=== PATIENT | female | born 1945 | race Caucasian/White ===

== ENCOUNTER → 2017-07-28 08:24 | Outpatient (CLI) | payer MEDICARE, SELFPAY ==
[2017-07-28 10:36] LABS: AST(SGOT) 26 U/L (15-37); Alanine Aminotransfer ALT/SGPT 42 U/L (13-56); Albumin, Serum 3.8 g/dL (3.2-5.0); Alkaline Phosphatase 77 U/L (45-117); Anion Gap 6 (5-15); BUN 21 mg/dL (7-18); BUN/Creat Ratio 27.2 RATIO (10-20); Calcium,Total 8.9 mg/dL (8.5-10.1); Chloride 108 mmol/L (98-107); Cholesterol 163 mg/dL (200); Creatinine, Serum 0.77 mg/dL (0.55-1.02); EST Glomerular Filtration Rate 78 mL/min (>60); Est Glom Filt Rate - Afr Amer 94 mL/min (>60); Globulin 3.8 g/dL (2.2-4.2); Glucose 93 mg/dL (74-106); High Density Lipoprotein 78 mg/dL; Protein, Total 7.6 g/dL (6.4-8.2); Sodium Level 142 mmol/L (136-145); Triglycerides 84 mg/dL; Very Low Density Lipoprotein 17 mg/dL (5-40)
== END ==
PROVIDERS: Family Provider Family Medicine; PCP Family Medicine; Visit Provider Family Medicine
DX: E78.5 Hyperlipidemia, unspecified (principal)
CPT/HCPCS: 36415; 80053; 80061

== ENCOUNTER → 2018-03-18 15:23 | Outpatient (CLI) | payer MEDICARE, SELFPAY ==
--- NOTE | 2018-03-18 15:26 | BI_ITS ---
MAMMOGRAPHY - BILATERAL SCREENING REASON FOR EXAM: Female, 73 years old. Routine annual screening examination. PERTINENT HISTORY: Non-contributory. TECHNIQUE: Digital bilateral breast laura (3D mammographic acquisition) in the CC and MLO projections. 2-D mediolateral oblique (MLO) and craniocaudad (CC) views of both breasts were obtained. CAD: Full Field Digital Mammography with Computer Added Detection was performed. COMPARISON: Comparison is made with prior study dated September 15, 2016 and September 13, 2015. FINDINGS: Breast Composition: The breasts are heterogeneously dense, which may obscure small masses. There are no dominant masses or suspicious calcifications. No other significant abnormalities are identified. There has been no significant change since the prior study. BI/SCREENING MAMM (CAD), BILAT IMPRESSION: Stable bilateral screening mammogram. Yearly follow-up mammogram recommended. (A) ASSESSMENT CATEGORY: BIRADS Category 1: Negative. A letter regarding these results will be sent to the patient by the facility within 30 days. Approximately 10% of breast cancers are not detected by mammography. A normal mammogram should not delay biopsy of a clinically suspicious abnormality. [id number] Electronically Signed: Logan Smith MD at 9:57 EST Tel [phone], Service support ,
== END ==
PROVIDERS: Family Provider Family Medicine; PCP Family Medicine; Referring Provider Family Medicine; Visit Provider Family Medicine
DX: Z12.31 Encounter for screening mammogram for malignant neoplasm of breast (principal)
CPT/HCPCS: 77063; 77067

== ENCOUNTER → 2019-03-10 10:51 | Outpatient (CLI) | payer MEDICARE, SELFPAY ==
[2019-03-10 12:40] LABS: Vitamin D,25 Hydroxy 27.8 ng/mL (29.95-100.01)
[2019-03-10 12:53] LABS: Anion Gap 6 (5-15); BUN 17 mg/dL (7-18); BUN/Creat Ratio 21.7 RATIO (10-20); Calcium,Total 9.4 mg/dL (8.5-10.1); Chloride 109 mmol/L (98-107); Cholesterol 191 mg/dL (200); Creatinine, Serum 0.78 mg/dL (0.55-1.02); EST Glomerular Filtration Rate 76 mL/min (>60); Est Glom Filt Rate - Afr Amer 92 mL/min (>60); Glucose 99 mg/dL (74-106); High Density Lipoprotein 73 mg/dL; Sodium Level 142 mmol/L (136-145); Thyroid Stim Hormone (TSH) 2.64 uIU/mL (0.358-3.74); Triglycerides 122 mg/dL; Very Low Density Lipoprotein 24 mg/dL (5-40)
== END ==
PROVIDERS: Family Provider Family Medicine; PCP Family Medicine; Referring Provider Family Medicine; Visit Provider Family Medicine
DX: Z00.00 Encounter for general adult medical examination without abnormal findings (principal); E55.9 Vitamin D deficiency, unspecified; E78.5 Hyperlipidemia, unspecified
CPT/HCPCS: 36415; 80048; 80061; 82306; 84443

== ENCOUNTER → 2019-04-20 14:30 | Outpatient (CLI) | payer MEDICARE, SELFPAY ==
--- NOTE | 2019-04-20 13:37 | BD_ITS ---
STUDY: DUAL ENERGY X-RAY ABSORPTIOMETRY / DXA REASON FOR EXAM: Female, 74 years old. 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 COMPARISON: Comparison is made with prior study dated September 15, 2016. FINDINGS: Lumbar Spine (L1-L4): g/cm2 (1.067) / T-score (-0.8) / Z-score (1.0) Findings are suggestive of normal bone density with a low fracture risk. Increased thoracic kyphosis. Left Femur Total: g/cm2 (0.941) / T-score (-0.5) / Z-score (1.3) Left Femoral Neck: g/cm2 (0.940) / T-score (-0.7) / Z-score (1.3) Right Femur Total: g/cm2 (0.981) / T-score (-0.2) / Z-score (1.6) Right Femoral Neck: g/cm2 (1.034) / T-score (0.0) / Z-score (1.9) The T-Scores on the most recent prior examination were: Lumbar Spine (L1-L4): There has been worsening of bone density since the previous examination. Left Femur Total: which represents no significant change. . Right Femur Total: which represents an improvement of 1%. BD/Dexa Bone Density Study IMPRESSION: The patient is considered normal as outlined below according to World [employer] Organization (WHO) criteria with a low fracture risk. There has been no change of bone density since the previous examination. Reference Information: The T-score is the number of standard deviations above or below the standard which is normal for young adults at their peak bone mineral density. The World Health Organization (WHO) interprets the T-scores as follows: Above -1 Normal bone density Between -1 and -2.5 Osteopenia Equal to / or below -2.5 Osteoporosis As a practical clinical guideline, osteopenia may be graded as follows: Mild -1 through -1.5 Moderate -1.6 through -2.0 Severe -2.1 through -2.4 The Z-score is the number of standard deviations above or below age-matched controls. A Z-score of less than -1.5 would be considered abnormal. References: 1. NIH Osteoporosis and Related Bone Diseases http://www.osteo.org 2. International Society for Clinical Densitometry http://www.iscd.org 3. National Osteoporosis Foundation http://www.nof.org Electronically Signed: Logan Smith, at 9:02 EST , Service support ,
--- NOTE | 2019-04-20 14:32 | BI_ITS ---
MAMMOGRAPHY - BILATERAL SCREENING 3-D TOMOSYNTHESIS REASON FOR EXAM: Female, 74 years old. Routine annual screening mammogram. PERTINENT HISTORY: No significant family history. TECHNIQUE: 2-D mammograms and 3-D Tomosynthesis of the breast (s) were performed. CAD was performed. COMPARISON: March 18, 2018, September 15, 2016 FINDINGS: The breast composition is composed of scattered fibroglandular density. Scattered benign calcifications are seen. No dense spiculated masses or suspicious microcalcifications are identified. No architectural distortion is identified. There is no skin thickening or retraction. There has been no significant change since the prior study. BI/SCREEN MAMM (CAD) W/TITA BILAT IMPRESSION: No mammographic signs of malignancy. Routine yearly mammograms recommended. ASSESSMENT CATEGORY: BIRADS Category 2: Benign. A letter regarding these results will be sent to the patient by the facility within 30 days. FOLLOW UP RECOMMENDATION: Yearly follow up mammogram recommended. (A) Approximately 10% of breast cancers are not detected by mammography. A normal mammogram should not delay biopsy of a clinically suspicious abnormality. Electronically Signed: Fabian Mckeon MD at 10:52 EST , Service support ,
== END ==
PROVIDERS: Family Provider Family Medicine; PCP Family Medicine; Referring Provider Family Medicine; Visit Provider Family Medicine
DX: Z12.31 Encounter for screening mammogram for malignant neoplasm of breast (principal); Z78.0 Asymptomatic menopausal state
CPT/HCPCS: 77063; 77067; 77080

== ENCOUNTER → 2019-09-07 09:17 | Outpatient (CLI) | payer MEDICARE, SELFPAY ==
--- NOTE | 2019-09-07 09:20 | RAD_ITS ---
STUDY: X-RAY - ABDOMEN/PELVIS REASON FOR EXAM: Female, 74 years old. Low abd pain -- some constipation and diarrhea TECHNIQUE: AP supine and upright views of the abdomen and pelvis. COMPARISON: None. FINDINGS: Normal visualized lung bases. There is a moderate amount of colonic fecal material. There is no demonstrated free abdominal air. The visualized liver, spleen and kidneys are grossly normal in size and morphology. Normal soft tissue structures. There are diffuse degenerative changes of the visualized lumbar spine. Moderate osteoarthritis of both hip joints. RAD/Abd Inc Decub and/or Erect IMPRESSION: Moderate degree of fecal material in the colon. Electronically Signed: Logan Smith, at 12:43 EDT , Service support ,
== END ==
PROVIDERS: PCP Family Medicine; Referring Provider Family Medicine; Visit Provider Family Medicine
DX: R10.9 Unspecified abdominal pain (principal)
CPT/HCPCS: 74019

== ENCOUNTER → 2019-10-02 11:12 | Outpatient (CLI) | payer MEDICARE, SELFPAY ==
--- NOTE | 2019-10-02 11:14 | RAD_ITS ---
HISTORY: abdominal pain ADDITIONAL HISTORY: None. COMPARISON: None Technique: Supine and upright abdominal radiographs Number of images including paperwork: 3 FINDINGS: FREE AIR: None detected. BOWEL GAS PATTERN: Nonobstructive. CALCIFICATIONS: No definite urinary tract calculi. ORGANS: No evidence of organomegaly. SOFT TISSUES: Unremarkable. BONES: No acute skeletal findings. Degenerative changes. RAD/Abd Inc Decub and/or Erect IMPRESSION: No acute abdominal abnormality is radiographically apparent. at 0814 Reported and signed by: Tami Humphrey MD Electronically Signed: Tami Humphrey MD at 8:14 EDT Tel , Service support ,
[2019-10-02 15:04] LABS: Absolute Lymphocyte Count 1.26 X10^3/uL (0.83-4.51); Absolute Neutrophil Count 3.5 X10^3/uL (2.0-7.7); Basophil# 0.02 X10^3/uL; Basophil% 0.4 % (0-1); Eosinophil# 0.06 X10^3/uL; Eosinophils% 1.1 % (0-5); Hematocrit 43.8 % (37-47); Hemoglobin 13.8 g/dL (12.0-15.0); Lymphocyte # 1.26 X10^3/ul (4.0); Mean Corp Hgb Conc 31.5 g/dL (32-36); Mean Corpuscular Hgb 28.9 pg (27.0-32.0); Mean Corpuscular Volume 91.8 fL (81-99); Monocyte# 0.43 X10^3/uL; Monocyte% 8.2 % (0-10); NRBC Flagged by Analyzer 0 % (0-5); Neutrophil # 3.46 X10^3/uL (2.7-7.7); Neutrophil % 65.9 % (47-70); Platelet Count 250 K/mm3 (150-450); RBC Distribution Width CV 13.3 % (11.6-14.6); RBC Distribution Width SD 44.5 fl (35.1-43.9); Red Blood Count 4.77 M/mm3 (4.2-5.4); White Blood Count 5.3 K/mm3 (4.4-11.0)
[2019-10-02 15:25] LABS: ALB/GLOB Ratio 1.1 RATIO (0.9-2.4); AST(SGOT) 27 U/L (15-37); Alanine Aminotransfer ALT/SGPT 45 U/L (13-56); Alkaline Phosphatase 81 U/L (45-117); Anion Gap 7 (5-15); BUN 12 mg/dL (7-18); BUN/Creat Ratio 14.4 RATIO (10-20); Calcium,Total 9.4 mg/dL (8.5-10.1); Chloride 107 mmol/L (98-107); Creatinine, Serum 0.83 mg/dL (0.55-1.02); EST Glomerular Filtration Rate 71 mL/min (>60); Est Glom Filt Rate - Afr Amer 86 mL/min (>60); Globulin 3.7 g/dL (2.2-4.2); Glucose 104 mg/dL (74-106); Potassium 3.8 mmol/L (3.5-5.1); Protein, Total 7.7 g/dL (6.4-8.2); Sodium Level 142 mmol/L (136-145)
== END ==
PROVIDERS: PCP Family Medicine; Referring Provider Family Medicine; Visit Provider Family Medicine
DX: R10.9 Unspecified abdominal pain (principal)
CPT/HCPCS: 36415; 74019; 80053; 85025

== ENCOUNTER → 2020-03-13 09:42 | Outpatient (CLI) | payer MEDICARE, SELFPAY ==
[2020-03-13 13:22] LABS: Cholesterol 168 mg/dL (200); High Density Lipoprotein 73 mg/dL; Triglycerides 109 mg/dL; Very Low Density Lipoprotein 22 mg/dL (5-40)
== END ==
PROVIDERS: PCP Family Medicine; Visit Provider Family Medicine
DX: Z00.00 Encounter for general adult medical examination without abnormal findings (principal); E78.00 Pure hypercholesterolemia, unspecified
CPT/HCPCS: 36415; 80061

== ENCOUNTER → 2020-05-06 12:05 | Outpatient (CLI) | payer MEDICARE, SELFPAY ==
--- NOTE | 2020-05-06 12:08 | BI_ITS ---
MAMMOGRAPHY - BILATERAL SCREENING REASON FOR EXAM: Female, 75 years old. Routine annual screening examination. PERTINENT HISTORY: Non-contributory. TECHNIQUE: Digital bilateral breast tita (3D mammographic acquisition) in the CC and MLO projections. 2-D mediolateral oblique (MLO) and craniocaudad (CC) views of both breasts were obtained. CAD: Full Field Digital Mammography with Computer Added Detection was performed. COMPARISON: Comparison is made with prior study dated 04/20/2019 and 03/18/2018. FINDINGS: Breast Composition: The breasts are heterogeneously dense, which may obscure small masses. There are no dominant masses or suspicious calcifications. No other significant abnormalities are identified. There has been no significant change since the prior study. BI/SCREEN MAMM (CAD) W/TITA BILAT IMPRESSION: Stable bilateral screening mammogram. Yearly follow-up mammogram recommended. (A) ASSESSMENT CATEGORY: BIRADS Category 1: Negative. A letter regarding these results will be sent to the patient by the facility within 30 days. Approximately 10% of breast cancers are not detected by mammography. A normal mammogram should not delay biopsy of a clinically suspicious abnormality. [id number] Electronically Signed: Logan Smith, at 14:12 EST , Service support ,
== END ==
PROVIDERS: PCP Family Medicine; Referring Provider Family Medicine; Visit Provider Family Medicine
DX: Z12.31 Encounter for screening mammogram for malignant neoplasm of breast (principal)
CPT/HCPCS: 77063; 77067

== ENCOUNTER → 2021-03-17 09:16 | Outpatient (CLI) | payer MEDICARE, SELFPAY ==
[2021-03-17 15:26] LABS: Vitamin D,25 Hydroxy 41.3 ng/mL
[2021-03-17 15:29] LABS: ALB/GLOB Ratio 1.1 RATIO (0.9-2.4); AST(SGOT) 34 U/L (15-37); Alanine Aminotransfer ALT/SGPT 59 U/L (13-56); Albumin, Serum 3.9 g/dL (3.2-5.0); Alkaline Phosphatase 79 U/L (45-117); Anion Gap 7 (5-15); BUN 24 mg/dL (7-18); BUN/Creat Ratio 28.8 RATIO (10-20); Calcium,Total 9.7 mg/dL (8.5-10.1); Chloride 106 mmol/L (98-107); Cholesterol 178 mg/dL (200); Creatinine, Serum 0.83 mg/dL (0.55-1.02); EST Glomerular Filtration Rate 71 mL/min (>60); Est Glom Filt Rate - Afr Amer 85 mL/min (>60); Globulin 3.7 g/dL (2.2-4.2); Glucose 95 mg/dL (74-106); High Density Lipoprotein 82 mg/dL; Protein, Total 7.6 g/dL (6.4-8.2); Sodium Level 142 mmol/L (136-145); Triglycerides 122 mg/dL; Very Low Density Lipoprotein 24 mg/dL (5-40)
== END ==
PROVIDERS: PCP Family Medicine; Visit Provider Family Medicine
DX: E78.00 Pure hypercholesterolemia, unspecified (principal); E55.9 Vitamin D deficiency, unspecified
CPT/HCPCS: 36415; 80053; 80061; 82306

== ENCOUNTER 2021-11-29 13:39 | Emergency (ER) | payer MEDICARE, SELFPAY ==
[2021-11-29 13:40] VITALS: BP 198/86; PULSE 102; RESP 16; TEMP 36.6; O2SAT 100; BMI 24.7
--- NOTE | 2021-11-29 13:55 | CT_ITS ---
STUDY: CT BRAIN WITHOUT CONTRAST REASON FOR EXAM: Female, 76 years old. headache TECHNIQUE: Transaxial CT imaging of the brain was performed without administration of intravenous contrast material. Individualized dose optimization techniques were used for this CT. COMPARISON: None FINDINGS: Normal calvarium. Normal soft tissues. Normal size ventricles and extra-axial spaces for the patient''s age. There are areas of decreased attenuation within the white matter tracts of the supratentorial brain, consistent with microvascular disease changes. Normal basal ganglia and thalami. Normal brainstem. Normal cerebellum. There is no intracranial hemorrhage. There are no findings of an acute ischemic infarction. There are calcifications around the carotid artery. These are noted in the cavernous carotid arteries. Normal visualized paranasal sinuses. ASPECTS 10 CT/Brain/Head without Contrast IMPRESSION: There are no acute intracranial findings. Electronically Signed: Tim Rinaldi MD at 14:26 EDT ,
--- NOTE | 2021-11-29 13:55 | EKG12_ITS ---
Test Reason : LIGHTHEADED Blood Pressure : / mmHG Vent. Rate : 083 BPM Atrial Rate : 083 BPM P-R Int : 158 ms QRS Dur : 080 ms QT Int : 372 ms P-R-T Axes : 046 -16 035 degrees QTc Int : 437 ms Normal sinus rhythm Voltage criteria for left ventricular hypertrophy Abnormal ECG Confirmed by NITA MERCER, JOHANNA ([id number]), newspaper or periodical editor BERNARDINO MASON ([id number]) on 12/01/2021 1:14:08 PM Referred By: LESLEE Confirmed By:JOHANNA MOYA MD
--- NOTE | 2021-11-29 13:55 | RAD_ITS ---
STUDY: X-RAY CHEST REASON FOR EXAM: Female, 76 years old. weakness TECHNIQUE: XR Chest 1 View COMPARISON: Prior comparison studies are not available for review at this time. FINDINGS: There is no demonstrated pleural abnormality. Normal size heart. Normal mediastinum and louis. Normal visualized pulmonary arteries. There is atherosclerotic calcification of the aortic arch with tortuosity. There are diffuse degenerative changes of the visualized thoracic spine. There is degenerative osteoarthritis of the bilateral shoulders. There is no demonstrated abnormality of the visualized soft tissue structures of the upper abdomen. RAD/Chest 1 View (Portable) IMPRESSION: There are no acute findings. Electronically Signed: Tim Rinaldi MD at 14:27 EDT ,
--- NOTE | 2021-11-29 13:58 | EX.ED.DYSGE1 ---
HPI <GERALDO Osman - Last Filed: 11/29/21 15:57> History of Present Illness Chief Complaint: General Illness Narrative Narrative: 76-year-old female with PMH of hyperlipidemia, depression presents with multiple complaints. Over the last week she has had a left frontal headache that sometimes radiates to the occipital area. She does have a history of migraines. She took her blood pressure and the systolic was in the 160s and was concerned because she has no history of hypertension. Denies visual changes or speech changes or focal motor or sensory changes. No fever, neck pain or stiffness. She also has been constipated which is a longstanding issue. She took MiraLAX and had a large watery bowel movement 2 days ago and a normal formed BM today. She still just feels queasy but denies vomiting. Normal urination. No abdominal surgical history. PFSH <GERALDO Osman - Last Filed: 11/29/21 15:57> FOR[facility]LY [facility] Medical History (Updated 11/29/21 @ 15:46 by GERALDO Osman) High cholesterol Home Medications calcium carbonate 600 mg-vitamin D3 10 mcg (400 unit) tablet (Calcium 600 + D(3)) 1 tab PO DAILY 11/29/21 [History Last Taken Unknown] cholecalciferol (vitamin D3) 25 mcg (1,000 unit) capsule (Vitamin D3) 25 mcg PO DAILY 11/29/21 [History Last Taken Unknown] multivitamin 1 cap PO DAILY 11/29/21 [History Last Taken Unknown] omega-3 fatty acids 2,000 mg PO DAILY 11/29/21 [History Last Taken Unknown] sertraline 50 mg tablet 50 mg PO DAILY 11/29/21 [History Last Taken Unknown] simvastatin 20 mg tablet 20 mg PO QHS 11/29/21 [History Last Taken Unknown] Allergy/AdvReac Type Severity Reaction Status Date / Time No Known Allergies Allergy Verified 11/29/21 13:42 Social History Smoking Status: Never smoker ROS <GERALDO Osman - Last Filed: 11/29/21 15:57> ROS ED ROS Narrative Constitutional: Negative for fever, chills, malaise. Eyes: Negative for visual change. ENT: Negative for sore throat, ear pain, rhinorrhea. CVS: Negative for palpitations, chest pain, syncope. Respiratory: Negative for shortness of breath, cough, orthopnea. GI: Positive for nausea, constipation. Negative for abdominal pain, vomiting, diarrhea, melena, hematochezia. : Negative for dysuria, hematuria or frequency. Neuro: Positive for headache, negative for motor/sensory dysfunction. Skin: Negative for rash, abscess, or wound. Musc: Negative for joint pain, swelling, trauma. Heme: Negative for easy bruising, bleeding, lymphadenopathy. EXAM <GERALDO Osman - Last Filed: 11/29/21 15:57> Physical Exam Narrative Exam Narrative: CONST: Patient sitting in no acute distress. EYES: Normal inspection. PERRLA, EOMI. ENT: Normal inspection, moist mucous membranes. NECK: Normal inspection. RESP: No respiratory distress, CTAB. CVS: Regular rate and rhythm, no murmur, no gallop. ABD: Soft and nontender, no guarding or rebound, nondistended. SKIN: Color normal, no rash, warm, dry, intact. EXTREMITIES: Normal appearance, no pedal edema. NEURO: Oriented x4. Face symmetric, 5/5 upper and lower extremity strength, normal sensation, no drift, normal finger-nose and [id number]. No aphasia or dysarthria, no extinction. NIH equals 0. PSYCH: Normal affect. Const Vital Signs: 11/29/21 13:40 11/29/21 13:58 11/29/21 15:08 Temperature 98 F Temperature Source Temporal Pulse Rate 102 H 83 Respiratory Rate 16 16 Respiratory Effort Normal Non-Labored Respiratory Pattern Normal Blood Pressure 198/86 H 185/75 H Blood Pressure Mean 123 111 Pulse Ox 100 95 Oxygen Delivery Method Room Air Room Air 11/29/21 15:54 Temperature Temperature Source Pulse Rate 72 Respiratory Rate 16 Respiratory Effort Respiratory Pattern Blood Pressure 174/86 H Blood Pressure Mean Pulse Ox 94 Oxygen Delivery Method <Dr. Roz Woo DO - Last Filed: 12/02/21 09:31> Physical Exam Const Vital Signs: 11/29/21 13:40 11/29/21 13:58 11/29/21 15:08 Temperature 98 F Temperature Source Temporal Pulse Rate 102 H 83 Respiratory Rate 16 16 Respiratory Effort Normal Non-Labored Respiratory Pattern Normal Blood Pressure 198/86 H 185/75 H Blood Pressure Mean 123 111 Pulse Ox 100 95 Oxygen Delivery Method Room Air Room Air 11/29/21 15:54 Temperature Temperature Source Pulse Rate 72 Respiratory Rate 16 Respiratory Effort Respiratory Pattern Blood Pressure 174/86 H Blood Pressure Mean Pulse Ox 94 Oxygen Delivery Method [facility] <GERALDO Osman - Last Filed: 11/29/21 15:57> [facility] Narrative Medical decision making narrative: Patient presents with gradual onset intermittent headache and new elevation of blood pressure. She also has nausea and constipation. She appears well and nontoxic. BP 198/86, HR 102, otherwise normal vital signs. She is awake and alert with a normal neurological exam, NIH 0. Heart regular, lungs clear, abdomen soft nontender nondistended. Labs are all within normal limits. EKG is sinus rhythm with no ischemia and high-sensitivity troponin is [address] brain is negative. Upon relaying these results to the family, they were very concerned with her persistent nausea and constipation so a CT abdomen/pelvis scan will be obtained. CT scan shows stool throughout the colon but no obstruction and no acute process. I recommended once daily MiraLAX. Scan does note an incidental 1.8 cm liver mass which will need outpatient follow-up and the patient and her family were informed of these findings. She is feeling improved after IV fluids heart rate is in the 80s, BP trending down at 170s/80s. I recommended she keep a daily blood pressure log and take it to see her primary care next week. Patient was discharged in stable condition. Lab Data Attestation: I reviewed the patient's lab results. Labs: Laboratory Results - last 24 hr 11/29/21 11/29/21 11/29/21 13:57 14:00 14:00 WBC 6.1 RBC 4.59 Hgb 14.0 Hct 42.5 MCV 92.6 MCH 30.5 MCHC 32.9 RDW Std Deviation 44.8 H RDW Coeff of Pedro Pablo 13.2 Plt Count 248 MPV 9.7 Sodium 140 Potassium 4.1 Chloride 108 H Carbon Dioxide 29.0 Anion Gap 3 L BUN 19 H Creatinine 0.94 Estim Creat Clear Calc 39.01 Est GFR (MDRD) Af Amer 74 Est GFR (MDRD) Non-Af 61 BUN/Creatinine Ratio 20.3 H Glucose 157 H Calcium 10.5 H Troponin I High Sens 6 Urine Color Straw Urine Clarity Clear Urine pH 8.0 Ur Specific [place] 1.010 Urine Protein Negative Urine Glucose (UA) Normal Urine Ketones Negative Urine Occult Blood Negative Urine Nitrite Negative Urine Bilirubin Negative Urine Urobilinogen Normal Ur Leukocyte Esterase Negative Urine RBC 0 SEEN Urine WBC 0 SEEN Ur Squamous Epith Cells 0-5 SEEN Urine Bacteria 1+ Urine Mucus 1+ Radiography Diagnostic Testing: Clinical Impression(s) from Imaging Studies Brain CT 11/29/21 13:55 IMPRESSION: There are no acute intracranial findings. Electronically Signed: Tim Rinaldi MD at 14:26 EDT , Chest X-Ray 11/29/21 13:55 IMPRESSION: There are no acute findings. Electronically Signed: Tim Rinaldi MD at 14:27 EDT , Abdomen/Pelvis CT 11/29/21 14:19 IMPRESSION: (NOT LISTED IN ORDER OF SIGNIFICANCE) Right lobe of the liver mass. ACR White Paper guidelines (Fabian, et al. JACR 2017; 14(11):3115-2127.) suggest the following. For patients with low risk of malignancy, recommend hepatic MR. For patients with high risk of malignancy (known malignancy with a propensity to metastasize to the liver, cirrhosis, and/or other hepatic risk factors), recommend hepatic MR or core biopsy. Gastritis. Other findings as above. Electronically Signed: Tim Rinaldi MD at 14:59 EDT , ED attending interpretation shows normal heart size, no acute infiltrate, edema, or effusion. <Dr. Roz Woo, DO - Last Filed: 12/02/21 09:31> [facility] Narrative Medical decision making narrative: Patient presents with gradual onset intermittent headache and new elevation of blood pressure. She also has nausea and constipation. She appears well and nontoxic. BP 198/86, HR 102, otherwise normal vital signs. She is awake and alert with a normal neurological exam, NIH 0. Heart regular, lungs clear, abdomen soft nontender nondistended. Labs are all within normal limits. EKG is sinus rhythm with no ischemia and high-sensitivity troponin is [address] brain is negative. Upon relaying these results to the family, they were very concerned with her persistent nausea and constipation so a CT abdomen/pelvis scan will be obtained. CT scan shows stool throughout the colon but no obstruction and no acute process. I recommended once daily MiraLAX. Scan does note an incidental 1.8 cm liver mass which will need outpatient follow-up and the patient and her family were informed of these findings. She is feeling improved after IV fluids heart rate is in the 80s, BP trending down at 170s/80s. I recommended she keep a daily blood pressure log and take it to see her primary care next week. Patient was discharged in stable condition. I have personally performed a face to face assessment of the patient and have reviewed the FREDIS Note. I performed a substantive portion of the visit including all aspects of the following. My almanzar findings include: History is patient is a 76-year-old female presenting with intermittent headache generalized malaise, concern for high blood pressure and constipation. Patient has a history of migraines but states she has not had one in some time as well as a history of what sounds like IBS. Denies any fever or chills. Denies any sick contacts. Denies any chest pain, shortness of breath or difficulty breathing. No nausea or vomiting. Exam is patient seen in bed, well-appearing. No acute distress. Head normocephalic/atraumatic. Moist mucosal membranes. Normal tympanic membranes. Neck is supple with no JVD. No meningeal signs. Heart regular rate and rhythm. Lungs are clear to auscultation bilaterally. Abdomen soft and nontender. No significant distention or ascites appreciated. No rash appreciated skin. No peripheral edema. Patient is ANO x3. No focal neurologic deficits. NIH is 0. Behavior appropriate in the room. Normal muscle tone throughout. Medical Decision Making patient evaluated for multiple complaints. She appears nontoxic no acute distress. Initially her blood pressure is elevated however it improved slightly without intervention while in the emergency room. CT of the brain obtained which does not show any space-occupying lesion or other acute process. Work-up looking for signs of endorgan damage from hypertension performed which is largely negative. Family does express concern about the patient's persistent nausea and constipation so CT of the abdomen pelvis is also ordered. This does show stool throughout the colon with no obstruction as well as an incidental finding of a 1.8 cm liver mass which will need outpatient follow-up to rule out neoplasm. Patient's family is informed of these findings. Patient does admit that she has some anxiety with healthcare site hesitant to put the patient on blood pressure medicine right now as this could be whitecoat hypertension. We will keep a blood pressure log and follow-up with primary care doctor for further blood pressure management and monitoring. Patient's work-up is negative for any signs of infection, acute kidney injury, anemia or cardiac strain. Patient is given some IV fluids in the emergency room. Patient and family are agreeable with this plan of care. Other additions or changes: [None] Lab Data Labs: Laboratory Results - last 24 hr 11/29/21 11/29/21 11/29/21 13:57 14:00 14:00 WBC 6.1 RBC 4.59 Hgb 14.0 Hct 42.5 MCV 92.6 MCH 30.5 MCHC 32.9 RDW Std Deviation 44.8 H RDW Coeff of Pedro Pablo 13.2 Plt Count 248 MPV 9.7 Sodium 140 Potassium 4.1 Chloride 108 H Carbon Dioxide 29.0 Anion Gap 3 L BUN 19 H Creatinine 0.94 Estim Creat Clear Calc 39.01 Est GFR (MDRD) Af Amer 74 Est GFR (MDRD) Non-Af 61 BUN/Creatinine Ratio 20.3 H Glucose 157 H Calcium 10.5 H Troponin I High Sens 6 Urine Color Straw Urine Clarity Clear Urine pH 8.0 Ur Specific [place] 1.010 Urine Protein Negative Urine Glucose (UA) Normal Urine Ketones Negative Urine Occult Blood Negative Urine Nitrite Negative Urine Bilirubin Negative Urine Urobilinogen Normal Ur Leukocyte Esterase Negative Urine RBC 0 SEEN Urine WBC 0 SEEN Ur Squamous Epith Cells 0-5 SEEN Urine Bacteria 1+ Urine Mucus 1+ Radiography Chest X-Ray - ED: 1 View, Read by ED Physician, Read by Radiologist and No Acute Disease Diagnostic Testing: Clinical Impression(s) from Imaging Studies Brain CT 11/29/21 13:55 IMPRESSION: There are no acute intracranial findings. Electronically Signed: Tim Rinaldi MD at 14:26 EDT , Chest X-Ray 11/29/21 13:55 IMPRESSION: There are no acute findings. Electronically Signed: Tim Rinaldi MD at 14:27 EDT , Abdomen/Pelvis CT 11/29/21 14:19 IMPRESSION: (NOT LISTED IN ORDER OF SIGNIFICANCE) Right lobe of the liver mass. ACR White Paper guidelines (Fabian, et al. JACR 2017; 14(11):1035-7539.) suggest the following. For patients with low risk of malignancy, recommend hepatic MR. For patients with high risk of malignancy (known malignancy with a propensity to metastasize to the liver, cirrhosis, and/or other hepatic risk factors), recommend hepatic MR or core biopsy. Gastritis. Other findings as above. Electronically Signed: Tim Rinaldi MD at 14:59 EDT , Rhythm Strip Rhythm Strip: Sinus Rhythm Rate: 83 Ectopy: None EKG Initial EKG: Attestation: I personally reviewed and interpreted this EKG as follows: Interpretation: Sinus Rhythm Comments: Normal sinus rhythm at a rate of 83 Left axis deviation Normal intervals Normal ST segments Minimal voltage criteria for LVH Discharge Plan Triage Chief Complaint: General Illness ED Midlevel Provider: Priyanka Storey ED Provider: Roz Woo Dx/Rx/DC Orders Clinical Impression: Headache, Constipation, Liver mass Instructions: Blood Pressure Check Steps, ED Constipation (Adult) Prescriptions: No Action simvastatin 20 mg Tablet 20 mg PO QHS multivitamin Capsule 1 cap PO DAILY sertraline 50 mg Tablet 50 mg PO DAILY cholecalciferol (vitamin D3) [Vitamin D3] 25 mcg (1,000 unit) Capsule 25 mcg PO DAILY Fish Oil Capsule 2,000 mg PO DAILY calcium carbonate-vitamin D3 [Calcium 600 + D(3)] 600 mg-10 mcg (400 unit) Tablet 1 tab PO DAILY Primary Care Provider: Shawn Ramires Referrals: Shawn Ramires MD [Primary Care Provider] - Activity Restrictions/Additional Instructions: Your lab work looked good. CT scan of your brain was normal. Regarding your high blood pressure, please check once daily while sitting and resting. Keep a log and take it to an appointment with your primary care doctor next week. Also, I would continue once daily MiraLAX for your constipation. The CT scan of your abdomen showed a mass in your liver which needs further work-up by your primary care doctor. Disposition Disposition: Home, Self Care Discharge Date/Time: 11/29/21 16:09
[2021-11-29 14:08] LABS: Hematocrit 42.5 % (37-47); Mean Corp Hgb Conc 32.9 g/dL (32-36); Mean Corpuscular Hgb 30.5 pg (27.0-32.0); Mean Corpuscular Volume 92.6 fL (81-99); Mean Platelet Vol. 9.7 fl (6.2-12.0); Platelet Count 248 K/mm3 (150-450); RBC Distribution Width CV 13.2 % (11.6-14.6); RBC Distribution Width SD 44.8 fl (35.1-43.9); Red Blood Count 4.59 M/mm3 (4.2-5.4); White Blood Count 6.1 K/mm3 (4.4-11.0)
[2021-11-29] MEDS: 0.9% Normal Saline 1,000 ML 1000 ML IV (14:15)
--- NOTE | 2021-11-29 14:19 | CT_ITS ---
STUDY: CT Abdomen And Pelvis W/ Contrast Injection 11/29/2021 2:56 PM REASON FOR EXAM: Female, 76 years old. Abdominal pain abdominal pain Individualized dose optimization techniques were used for this CT. COMPARISON: None. TECHNIQUE: CT Abdomen And Pelvis W/ Contrast Injection IV 100mL [id number] FINDINGS: There are atherosclerotic calcifications of visualized coronary arteries. The visualized portions of the heart are within normal limits. Abnormal heterogeneous mass lesion in the inferior right lobe of the liver. This measures 18 mm. Normal gallbladder and extrahepatic biliary system. Normal spleen. Normal pancreas. Normal bilateral adrenal glands. No acute findings of the right kidney. No acute findings of the left kidney. Focal wall thickening of the antrum of stomach. This can suggest a gastritis. Normal small intestine. Stool throughout the colon. The appendix is visualized and appears normal. There are calcifications of the abdominal aorta. This is consistent for atherosclerotic disease. There is NO abdominal aortic aneurysm. Vascular workup can be obtained based on clinical correlation. Normal inferior vena cava. Subcentimeter mesenteric lymph nodes. Normal urinary bladder. There is an umbilical hernia containing fat. There are diffuse degenerative changes of the visualized lumbar spine. Degenerative findings of the hips. There is scoliosis of the lumbar spine. CT/Abdomen/Pelvis W IV Cont ONLY IMPRESSION: (NOT LISTED IN ORDER OF SIGNIFICANCE) Right lobe of the liver mass. ACR White Paper guidelines (Fabian, et al. JACR 2017; 14(11):5361-7360.) suggest the following. For patients with low risk of malignancy, recommend hepatic MR. For patients with high risk of malignancy (known malignancy with a propensity to metastasize to the liver, cirrhosis, and/or other hepatic risk factors), recommend hepatic MR or core biopsy. Gastritis. Other findings as above. Electronically Signed: Tim Rinaldi MD at 14:59 EDT ,
[2021-11-29 14:24] LABS: Anion Gap 3 (5-15); BUN 19 mg/dL (7-18); BUN/Creat Ratio 20.3 RATIO (10-20); Calcium,Total 10.5 mg/dL (8.5-10.1); Chloride 108 mmol/L (98-107); Creatinine, Serum 0.94 mg/dL (0.55-1.02); EST Glomerular Filtration Rate 61 mL/min (>60); Est Glom Filt Rate - Afr Amer 74 mL/min (>60); Estimated Creatinine Clearance 39.01 ml/min; Glucose 157 mg/dL (74-106); Potassium 4.1 mmol/L (3.5-5.1); Sodium Level 140 mmol/L (136-145); Troponin-I HS 6 pg/mL (3.0-54.0)
[2021-11-29 15:08] VITALS: BP 185/75; PULSE 83; RESP 16; O2SAT 95
[2021-11-29 15:11] LABS: Red Blood Cells-Urine 0 SEEN /hpf (0-5); White Blood Cells 0 SEEN /hpf (0-5)
[2021-11-29 15:16] LABS: Color, Urine Straw (Yellow); Glucose, Dipstick Normal (Normal); Ketone-Dipstick Negative (Negative); Leukocyte Esterase-Dipstick Negative /ul (Negative); Nitrite-Dipstick Negative (Negative); Occult Blood-Urine Negative /ul (Negative); Protein-Dipstick Negative (Negative); Urine Bilirubin Dipstick Negative (Negative); Urine Clarity Clear (Clear); Urine Urobilinogen Normal (Normal)
[2021-11-29 15:29] LABS: Bacteria 1+ /hpf (None Seen); Mucous, Urine 1+ /hpf (<or=2+); Squamous Epithelial Cells - UA 0-5 SEEN /hpf (5-10)
[2021-11-29 15:54] VITALS: BP 174/86; PULSE 72; RESP 16; O2SAT 94
== END 2021-11-29 16:09 | disposition home or self-care (01) ==
PROVIDERS: Physician Assistant; Emergency Provider Emergency Medicine; PCP Family Medicine; Visit Provider Emergency Medicine
DX: R51.9 Headache, unspecified (principal); K59.00 Constipation, unspecified; R16.0 Hepatomegaly, not elsewhere classified; E78.00 Pure hypercholesterolemia, unspecified; F32.A Depression, unspecified; Z79.899 Other long term (current) drug therapy
CPT/HCPCS: 70450; 71045; 74177; 80048; 81001; 84484; 85027; 93005; 96360; 96361; 99284; J7030; Q9967; A4216

== ENCOUNTER → 2021-12-05 | Outpatient (CLI) | payer MEDICARE, SELFPAY ==
[2021-12-05 15:15] LABS: Absolute Lymphocyte Count 1.26 X10^3/uL (0.83-4.51); Absolute Neutrophil Count 5.2 X10^3/uL (2.0-7.7); Basophil# 0.02 X10^3/uL; Basophil% 0.3 % (0-1); Eosinophil# 0.05 X10^3/uL; Eosinophils% 0.7 % (0-5); Lymphocyte # 1.26 X10^3/ul (0.83-4.51); Lymphocyte % 17.9 % (19-41); Mean Corp Hgb Conc 31.9 g/dL (32-36); Mean Corpuscular Hgb 29.7 pg (27.0-32.0); Mean Corpuscular Volume 93.1 fL (81-99); Mean Platelet Vol. 10.4 fl (6.2-12.0); Monocyte# 0.47 X10^3/uL; Monocyte% 6.7 % (0-10); NRBC Flagged by Analyzer 0 % (0-5); Platelet Count 255 K/mm3 (150-450); RBC Distribution Width CV 13.1 % (11.6-14.6); RBC Distribution Width SD 44.4 fl (35.1-43.9); Red Blood Count 5.05 M/mm3 (4.2-5.4)
[2021-12-05 15:31] LABS: AST(SGOT) 28 U/L (15-37); Alanine Aminotransfer ALT/SGPT 43 U/L (13-56); Albumin, Serum 3.8 g/dL (3.2-5.0); Alkaline Phosphatase 81 U/L (45-117); Anion Gap 6 (5-15); BUN 18 mg/dL (7-18); BUN/Creat Ratio 20.2 RATIO (10-20); Calcium,Total 9.6 mg/dL (8.5-10.1); Chloride 105 mmol/L (98-107); Creatinine, Serum 0.89 mg/dL (0.55-1.02); EST Glomerular Filtration Rate 65 mL/min (>60); Est Glom Filt Rate - Afr Amer 78 mL/min (>60); Globulin 3.8 g/dL (2.2-4.2); Glucose 114 mg/dL (74-106); Potassium 4.3 mmol/L (3.5-5.1); Protein, Total 7.6 g/dL (6.4-8.2); Sodium Level 139 mmol/L (136-145)
== END | disposition home or self-care (01) ==
LOC: MFPLAB 11:36
PROVIDERS: PCP Family Medicine; Referring Provider Family Medicine; Visit Provider Family Medicine
DX: R16.0 Hepatomegaly, not elsewhere classified (principal)
CPT/HCPCS: 36415; 80053; 85025

== ENCOUNTER → 2021-12-17 | Outpatient (CLI) | payer MEDICARE, SELFPAY ==
--- NOTE | 2021-12-17 17:06 | MRI_ITS ---
STUDY: MRI ABDOMEN WITH AND WITHOUT CONTRAST REASON FOR EXAM: Female, 76 years old. liver mass TECHNIQUE: Standardized fat and water weighted pulse sequences were obtained in all 3 orthogonal planes post contrast administration. IV 12ml clariscan was administered for the contrast portion of the examination. COMPARISON: CT November 29, 2021. FINDINGS: The visualized lung bases are unremarkable. The visualized portions of the heart are within normal limits. Ill-defined 2.4 cm hypointense T1/hyperintense T2 lesion at the inferior right hepatic lobe corresponds with hypodensity on CT with likely diffusion restriction (no ADC provided), notable signal loss on out of phase imaging, and with ill-defined early enhancement about a 0.7 cm nonenhancing focus. No definitive capsular retraction. Otherwise normal hepatic parenchyma. Normal gallbladder and extrahepatic biliary system. Normal spleen. Normal pancreas. Normal bilateral adrenal glands. Normal right kidney. Normal left kidney. Imaged bowel is normal in appearance. Normal abdominal aorta. Normal abdominal wall. Normal osseous structures. MRI/MRI Abd WITH and W/O Contrast IMPRESSION: Nonspecific right inferior hepatic 2.4 cm lesion with mixed features, including likely diffusion restriction and ill-defined minimal early enhancement surrounding a subcentimeter nonenhancing center as can be seen with neoplasm, as well as signal loss on phase imaging compatible with focal fat. Cannot exclude malignancy. Recommend limited additional MR with 20 minute delayed postcontrast phase to assess for delayed enhancement such as with cholangiocarcinoma. Would repeat diffusion images with ADC at same time. No other acute hepatic finding. Electronically Signed: Lázaro Estrada MD at 5:27 EDT ,
== END | disposition home or self-care (01) ==
LOC: MRI 16:57
PROVIDERS: PCP Family Medicine; Referring Provider Family Medicine; Visit Provider Family Medicine
DX: R16.0 Hepatomegaly, not elsewhere classified (principal)
CPT/HCPCS: 74183; A9575; A4216

== ENCOUNTER → 2021-12-27 | Outpatient (CLI) | payer MEDICARE, SELFPAY ==
--- NOTE | 2021-12-27 08:56 | US_ITS ---
STUDY: ABDOMINAL ULTRASOUND - RIGHT UPPER QUADRANT REASON FOR VISIT: Female, 76 years old mass liver TECHNIQUE: Ultrasound evaluation of the right upper quadrant was performed with real-time and static estrada-scale imaging. TECHNICAL QUALITY: Adequate. COMPARISON: MRI 12/17/2021, CT 11/29/2021 FINDINGS: Liver: The liver measures 14.9 cm. There is normal echogenicity of the liver. The bile ducts are within normal limits. There is hepatic color flow. The direction of portal flow is hepatopetal. 2 cm isoechoic mass within the inferior aspect of the right lobe of the liver corresponding to the mass seen on CT and MRI. Gallbladder: Normal distended gallbladder. The gallbladder wall measures 2 mm. There is a negative sonographic Fisher''s sign. There is no pericholecystic fluid. There are no gallstones. Common Bile Duct (C.B.D.): The common bile duct measures 4 mm. Pancreas: Normal size of the head, body and tail of the pancreas. There is normal echogenicity of the pancreas. There is no demonstrated pancreatic mass or cyst. Right Kidney: Normal size of the right kidney. The right kidney measures 9.8 cm. Normal renal cortex. The right cortex measures 0.9 cm. There is no demonstrated renal mass or cyst. There is no right hydronephrosis. US/Abdomen Limited IMPRESSION: 2 cm isoechoic mass in the inferior right lobe of the liver as seen on CT and MRI. Differential diagnosis includes benign and malignant etiologies including hepatic adenoma, hepatocellular carcinoma, or metastasis. Biopsy would be useful. Electronically Signed: Gareth Wyatt MD at 10:16 EDT ,
== END | disposition home or self-care (01) ==
LOC: US 08:54
PROVIDERS: PCP Family Medicine; Referring Provider Family Medicine; Visit Provider Family Medicine
DX: R16.0 Hepatomegaly, not elsewhere classified (principal)
CPT/HCPCS: 76705

== ENCOUNTER → 2022-01-06 | Outpatient (CLI) | payer MEDICARE, SELFPAY ==
[2022-01-06] VITALS (9 sets, daily range): BP systolic 141–173; BP diastolic 56–76; PULSE 66–76; RESP 11–22; TEMP 36.7–37.1; O2SAT 95–100; BMI 23.1
--- NOTE | 2022-01-06 | ASPIGT_PTH ---
PATIENT: WALTER MILLAN LOC: CT U#:[id number] AGE/SX: 76/F ROOM: RE01/06/[address]: Dr. Shawn Ramires MD : 1945 BED: DIS: 01/06/2022 SPEC #: [id number] RECD: 01/06/22 09:40 STATUS: GRISEL REDale #: [id number] GIOVANA: 01/06/22 00:[address]: Shawn Ramires DEPT: SURGICAL PATHOLOGY RECD BY: Dank Hernandez Tissues: Liver, NOS Procedures: FNA Specimen Adequacy Special Stain Group II Surgery Specimen Level V Retic (control) Imprint (control) HEADER OPERATION: CT-guided liver biopsy PRE-OP DIAGNOSIS: Liver mass TISSUE SUBMITTED: Liver 18-gauge core x7 MICROSCOPIC DIAGNOSIS Liver mass, CT-guided core biopsy: Atypical hepatocyte nodules present. Differential includes dysplastic nodule vs moderately differentiated hepatocellular carcinoma. See comment. BALTAZAR:sil 01/14/2022 COMMENT The specimen is evaluated at the time of biopsy by Dr. Foreman. Immediate Evaluation: Set 1 - Hepatocytes noted. Negative for malignant cells (two touch imprints). Set 2 - Hepatocytes noted. Negative for malignant cells (two touch imprints). The specimen is sent to [facility] for expert opinion, reviewed by Dr. Tita Terrell and the above diagnosis is rendered. The complete report is viewable in the patient's EMR. Correlation with clinical, radiologic findings and appropriate follow up are necessary. Dr. Terrell also commented, ?rebiopsy in order to further evaluate architecture of the lesion is recommended.? Reticulin stain with matched control was used in the evaluation of the specimen. Additional immunohistochemical stains were performed at [facility]. This case was reviewed and diagnosis discussed with Dr. Shawn Ramires on 01/15/2022. Case has been reviewed in consultation with Dr. Chu who concurs with the above diagnosis. IDC:AM MICROSCOPIC DESCRIPTION Slides are reviewed. GROSS DESCRIPTION Received in fixative is one container labeled with the patient's name and designated CT-guided liver biopsy. The specimen consists of multiple elongate fragments of conte-pink soft tissue that in aggregate measure 2.5 x 0.5 x 0.1 cm. The specimen is totally submitted in one cassette. Four touch imprints are prepared at the time of core biopsy. / SJ:rg 01/06/2022 TC:5 CPT: 92328, 32369, 16758 ADDENDUM ADDENDUM ADDENDUM ADDENDUM ADDENDUM ADDENDUM ADDENDUM ADDENDUM ADDENDUM ADDENDUM 03/30/2022 09:56 ADDENDUM 03/30/2022 09:56 ADDENDUM 03/30/2022 09:56 ADDENDUM 03/30/2022 09:56 ADDENDUM 03/30/2022 09:56 This addendum is added to incorporate an outside pathology consultation report. The case was examined at [facility] (#[id number]) and the following diagnosis was rendered. 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 Please see complete above mentioned consultation report in EMR
--- NOTE | 2022-01-06 07:55 | CT_ITS ---
PROCEDURE: CT DIRECTED CORE LIVER BIOPSY INDICATION: Female, 76 years old. MASS PHYSICIAN: Dr. JOAN Naranjo CONSENT: Written informed consent was obtained having explained the risks, benefits and alternatives in detail with the patient who accepted the risks and agreed to proceed. Laboratory review and clinical assessment was performed. CONSCIOUS SEDATION PROTOCOL: The Drugs used were: 1 mg Versed, IV., and 50 mcg Fentanyl, IV. The sedation time was: 32 minutes. The conscious sedation protocol was independently monitored. The patient was independently monitored by the department nurse. RADIATION DOSAGE (If Supplied By Facility): CTDIvol = ( 16 ) mGy, DLP = ( 205.04 ) mGycm Individualized dose optimization techniques were used for this CT. TECHNIQUE: Using CT image guidance with image documentation, a suitable location in the right lobe of the liver was identified. Using a right lateral approach, puncture of the liver was uneventful with an 18-gauge core needle system. 5, 18-gauge core samples were obtained, and submitted in formalin to the pathologist for further assessment. Followup CT scan revealed no distinct sequelae. CT/Biopsy/Inj or Needle Placement IMPRESSION: 1. CT directed core needle biopsy of the liver, using CT image guidance with image documentation as described. 2. Conscious Sedation protocol utilized with independent monitoring. Electronically Signed: Logan Smith MD at 10:10 EDT ,
[2022-01-06 07:57] LABS: Platelet Count 223 K/mm3 (150-450)
[2022-01-06 08:07] LABS: International Normalized Ratio 1.1; Prothrombin Time (Protime)PT. 13.7 SECONDS (11.7-14.9)
[2022-01-06 08:08] LABS: Partial Thromboplast Time 28.5 Seconds (24.1-36.2)
[2022-01-06] MEDS: fentaNYL 100 MCG/2 ML Ampul IV (08:53)
[2022-01-06] MEDS: Midazolam 2 MG/2 ML Syringe IV (08:54)
[2022-01-06] MEDS: Lidocaine 2% (10 ml mdv) 10 ML Vial INFILT (09:11)
== END | disposition home or self-care (01) ==
PROVIDERS: PCP Family Medicine; Referring Provider Family Medicine; Visit Provider Family Medicine
DX: R16.0 Hepatomegaly, not elsewhere classified (principal); K76.9 Liver disease, unspecified
CPT/HCPCS: 47000; 36415; 77012; 85049; 85610; 85730; 88172; 88305; 88307; 88313; 99156; 99157

== ENCOUNTER → 2022-03-18 | Outpatient (CLI) | payer MEDICARE, SELFPAY ==
[2022-03-18 17:52] LABS: Absolute Lymphocyte Count 1.67 X10^3/uL (0.83-4.51); Absolute Neutrophil Count 4.2 X10^3/uL (2.0-7.7); Basophil# 0.03 X10^3/uL; Basophil% 0.5 % (0-1); Eosinophil# 0.07 X10^3/uL; Eosinophils% 1.1 % (0-5); Hematocrit 42.4 % (37-47); Lymphocyte # 1.67 X10^3/ul (0.83-4.51); Lymphocyte % 25.6 % (19-41); Mean Corpuscular Hgb 30.6 pg (27.0-32.0); Mean Corpuscular Volume 92.8 fL (81-99); Mean Platelet Vol. 9.6 fl (6.2-12.0); Monocyte# 0.59 X10^3/uL; NRBC Flagged by Analyzer 0 % (0-5); Neutrophil # 4.15 X10^3/uL (2.7-7.7); Neutrophil % 63.6 % (47-70); Platelet Count 254 K/mm3 (150-450); RBC Distribution Width CV 13.2 % (11.6-14.6); RBC Distribution Width SD 45.1 fl (35.1-43.9); Red Blood Count 4.57 M/mm3 (4.2-5.4); White Blood Count 6.5 K/mm3 (4.4-11.0)
[2022-03-18 18:02] LABS: International Normalized Ratio 1.1; Prothrombin Time (Protime)PT. 13.4 SECONDS (11.7-14.9)
[2022-03-18 18:35] LABS: ALB/GLOB Ratio 1.3 RATIO (0.9-2.4); AST(SGOT) 24 U/L (15-37); Alanine Aminotransfer ALT/SGPT 38 U/L (13-56); Albumin, Serum 3.9 g/dL (3.2-5.0); Alkaline Phosphatase 77 U/L (45-117); Anion Gap 8 (5-15); BUN 23 mg/dL (7-18); BUN/Creat Ratio 30.3 RATIO (10-20); Calcium,Total 9.5 mg/dL (8.5-10.1); Chloride 105 mmol/L (98-107); Cholesterol 182 mg/dL (200); Creatinine, Serum 0.76 mg/dL (0.55-1.02); EST Glomerular Filtration Rate 78 mL/min (>60); Est Glom Filt Rate - Afr Amer 95 mL/min (>60); Globulin 3.1 g/dL (2.2-4.2); Glucose 89 mg/dL (74-106); High Density Lipoprotein 87 mg/dL; Potassium 4.1 mmol/L (3.5-5.1); Sodium Level 141 mmol/L (136-145); Triglycerides 106 mg/dL; Very Low Density Lipoprotein 21 mg/dL (5-40)
== END | disposition home or self-care (01) ==
LOC: MFPLAB 15:42
PROVIDERS: PCP Family Medicine; Visit Provider Family Medicine
DX: Z00.00 Encounter for general adult medical examination without abnormal findings (principal); R16.0 Hepatomegaly, not elsewhere classified; I10 Essential (primary) hypertension
CPT/HCPCS: 36415; 80053; 80061; 85025; 85610

== ENCOUNTER → 2022-04-09 | Outpatient (CLI) | payer MEDICARE, SELFPAY ==
--- NOTE | 2022-04-09 14:12 | RAD_ITS ---
STUDY: X-RAY - LUMBAR SPINE REASON FOR EXAM: Female, 77 years old. BACK PAIN TECHNIQUE: 4 view(s) of the lumbar spine were obtained. COMPARISON: November 29, 2021 CT abdomen and pelvis scan bone windows FINDINGS: Normal lumbar lordosis. There is no substantial scoliosis. There is a normal alignment of the vertebrae. There is a sizable osteophyte extending from the superior endplate at L3 stable since prior study. There is mild disc space narrowing. There is multilevel facet arthropathy. There is mild to moderate visualized bony bilateral neural foraminal narrowing. The soft tissue structures are unremarkable. RAD/L/S Spine Min 4 Views IMPRESSION: Multilevel degenerative change of the degenerative change of the lumbar spine. Multilevel facet arthropathy. If pain persists recommend consideration for follow-up MRI of the lumbar spine. Electronically Signed: Liyah Lockhart MD at 21:04 EST ,
== END | disposition home or self-care (01) ==
LOC: MTRAD 14:11
PROVIDERS: PCP Family Medicine; Referring Provider Family Medicine; Visit Provider Family Medicine
DX: M54.9 Dorsalgia, unspecified (principal)
CPT/HCPCS: 72110

== ENCOUNTER 2022-06-25 13:30 | Outpatient (RCR) | payer MEDICARE, SELFPAY ==
--- NOTE | 2022-04-29 13:49 | HP.PTEVAL_ITS ---
Patient's Visit Information WALTER MILLAN is a 77 year old F referred to Physical Therapy by Dr. Shawn Ramires MD with a diagnosis of DEGENERATIVE CHANGES OF THE SPINE. Date of Evaluation: 04/29/22 Physical Therapist: Mayar Feliciano PT, Cert MDT - Visit Plan Frequency: 2-3x /Week Duration: 4-6 Weeks Plan: POSTURE CORRECTION/STRENGTHENING, INSTRUCTION IN APPROPRIATE BODY MECHANICS AND ACTIVITY MODIFICATIONS. DLS STARTING WITH A NEUTRAL SPINE PROGRESSING ROM TOLERATED. DEE LE ROM, STRETCHING AND STRENGTHENING. HEP INSTRUCTION. - Subjective Work/Leisure: RETIRED. Present symptoms: LEFT LOW BACK PAIN. DEE LE WEAKNESS. Present since: ABOUT 2 YEARS. Pain Scale: WORST 7/10, LEAST 2/10. Currently: 5/10. Is it getting better, worse or staying the same: GETTING WORSE. Commenced as a result of: CARING FOR ILL AND NOT EXERCISING. Symptoms at onset: LOW BACK PAIN. Worse: DOING MOST ANYTHING. Better: SITTING DOWN AND LAYING DOWN. Disturbed sleep: NO. Previous history/Previous treatment: UNREMARKABLE. Treatment this episode: MALOXACAM - STARTED WEDNESDAY - SEEMED TO HELP X 2 DAYS BUT MORE PAIN TODAY FOR NO APPARENT REASON. Coughing/sneezing/straining: NEGATIVE. Gait: I CAN'T WALK LONG BECAUSE OF THE PAIN. STATES SHE USE TO WALK FOR EX FOR A COUPLE HOURS BUT CAN'T NOW. Bowel or Bladder Dysfunction: IBS - CHRONIC. Accidents: NO. Unexplained weight loss: NO. Imaging: RECENT X-RAYS OF LOW BACK SHOWING DEGENERATIVE CHANGES PER PATIENT REPORT. 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 NO CHEMO OR RADIATION. HTN. HIGH CHOLESTEROL. ANXIETY. IBS. PATIENT REPORTS SHE DIDN'T HAVE ANY SX'S OF THE CANCER AND IT WAS FOUND INCIDENTALLY WHEN SHE WENT TO THE ED FOR HEADACHE AND HTN. - Objective Sitting/Standing Posture: INCREASED KYPHOSIS. FH. R SHLD'S. DECREASED LORDOSIS. Active Correction of posture: BETTER. ONLY ABLE TO PARTIALLY CORRECT. Other Observations: INDEP TRANSFER SIT TO STAND WITHOUT UE ASSIST. INDEP SLOW GAIT WITH DECREASED DEE STRIDE LENGTH, NO AD AND NO LOB. Sensory deficit: DEE LE LIGHT TOUCH SENSATION GROSSLY INTACT AND SYMMETRICAL. ROM deficit: TIGHT DEE LE HIP FLEXORS, HS'S AND GASTROC SOLEUS COMPLEX'S. Motor deficit: DEE LE STRENGTH GROSSLY 4/5 WITH MMT'ING. Reflexes: DEE LE DTR'S 2/3. Dural Signs: NEGATIVE DEE LE'S. Lumbar mvmt loss: flex - MIN. ext - LOLA. R SG - LOLA. L SG - LOLA. PATIENT DENIES INCREASED LBP PAIN OR LEG SX'S WITH LUMBAR ROM TESTING ALL PLANES. Core strength: POOR. Palpation: NO ACUTE LUMBAR, SACRAL OR HIP TENDERNESS INCLUDING LUMBAR PARASPINALS WITH PALPATION TODAY. TREATMENT: NEUROMUSCULAR REEDUCATION - RETRAINING OF MVMT AND POSTURE FOR SITTING, LYING AND STANDING ACTIVITIES. - Balance/Special Test Scores Oswestry Low Back Score: 14 - Goals Goal 1:: DECREASE C/O BACK PAIN Goal Time Frame: 4-6 Weeks Goal 2:: IMPROVE LIFTING, WALKING, STANDING, SOCIAL LIFE, TRAVEL AND HOMEMAKING FUNCTION Goal Time Frame: 4-6 Weeks Goal 3:: INSTRUCT IN PROPHYLAXIS Goal Time Frame: 4-6 Weeks - Anticipated Interventions Patient/Client Instruction: Educate patient on: Condition, Plan of Care, Risk Factors For the Purpose of:: To improve self management Therapeutic Exercise to Include: Strength training, Body mechanics, Postural training, Flexibilty training, Gait and locomotor training, Neuromotor development, Dynamic Lumbar Stabilization For the Purpose of:: To decrease pain, To improve muscle performance and motor function, To increase tolerance to activity/condition/position, To improve ability of physical actions for home/community/work/leisure, To improve gait and locomotor functions Thank you for the opportunity to evaluate your patient. For Medicare and Medicare HMO plans, please review the plan of care and approve it. It will need to be FAXED BACK to us at [phone] for Medicare purposes. For Medicare only, by signing this I certify the plan of care. Please let me know if there are questions or concerns regarding this plan of care. Physician Signature: Date:
--- NOTE | 2022-05-29 14:31 | HP.PTDCSUM_ITS ---
It has been my pleasure to treat WALTER MILLAN referred by Dr. Shawn Ramires MD, with the diagnosis of DEGENERATIVE CHANGES OF THE SPINE for a total of 10 visit(s). Discharge Date: Please see the following information for a summary of their discharge status. Subjective: No pain today ,but doing activity OH Low Back Pain Intensity (Out of 10): 0 % Improvement: 30 Objective/Function: POSTURE: mild forward posture ,mod kyphosis. NEURO: denies paresthesia/tingling ,reflexes 2/3 L3-4 L4-5 ,L5-S1 ,. PALAPTION: tender SI/LS. GAIT: reciprocal pattern slow cholo. LUMBAR ROM: flexion min/mod loss ,extension severe loss , side glides mod Goal 1:: DECREASE C/O BACK PAIN Goal Progress: Goal Met Goal 2:: IMPROVE LIFTING, WALKING, STANDING, SOCIAL LIFE, TRAVEL AND HOMEMAKING FUNCTION Goal Progress: Goal Met Goal 3:: INSTRUCT IN PROPHYLAXIS Goal Progress: Goal Met Plan: cont with POC 2XWEEK FOR 2EEKS. POSTURE CORRECTION/STRENGTHENING, INSTRUCTION IN APPROPRIATE BODY MECHANICS AND ACTIVITY MODIFICATIONS. DLS STARTING WITH A NEUTRAL SPINE PROGRESSING ROM TOLERATED. DEE LE ROM, STRE TCHING AND STRENGTHENING. HEP INSTRUCTION. If there are questions or concerns regarding this patient's physical therapy, please feel free to call me at [phone]. Thank you for the referral of this patient. Sincerely, Joshua Mistry, PT, Cert MDT, OCS Balance/Gait/Functional tests - Balance/Special Test Scores Oswestry Low Back Score: 13
--- NOTE | 2022-06-25 14:03 | HP.PTDCSUM ---
It has been my pleasure to treat WALTER MILLAN referred by Dr. Shawn Ramires MD, with the diagnosis of DEGENERATIVE CHANGES OF THE SPINE for a total of 17 visit(s). Discharge Date: 06/25/22 Please see the following information for a summary of their discharge status. Subjective: PATIENT REPORTS SHE IS STRONGER. STATES SHE CAN GET OUT OF THE BATHTUB EASIER AND SHE CAN WALK LONGER/GO FURTHER. I JUST FEEL IN MY LEGS THAT THEY ARE STRONGER. SHE REPORTS COMPLIANCE WITH HER HEP AND FEELS IT IS HELPFUL. SHE STATES SHE FEELS READY TO CONTINUE EX ON HER OWN. PLANS TO FOLLOW UP WITH DR. RAMIRES IN ABOUT TWO WEEKS TO SEE IF THERE IS ANYTHING ELSE THAT CAN BE DONE FOR HER BACK PAIN. SHE REPORTS HER BACK PAIN ISN'T GETTING BETTER. SHE STATES SHE WAKES UP WITHOUT BACK PAIN BUT THE MORE SHE DOES THE WORSE HER BACK PAIN GETS. SHE DENIES INCREASED BACK PAIN WITH CURRENT EX'S. PATIENT REPORTS SHE WOKE UP WITH A HEADACHE TODAY AND SHE DOES NOT FEEL LIKE IT IS RELATED TO WHAT SHE IS HERE FOR. STATES SHE GETS THEM EVERY ONCE IN AWHILE AND USUALLY WHEN SHE IS COMING DOWN WITH A COLD. Low Back Pain Intensity (Out of 10): 0 % Improvement: 40 Objective/Function: PATIENT WAS SEEN TODAY FOR RE-ASSESSMENT OF PROGRESS TOWARD THE SET PT GOALS AND THE NEED FOR FURTHER PHYSICAL THERAPY VS READINESS FOR DISCHARGE. PATIENT IS INDEP WITH HEP AND APPROPRIATE FOR D/C. LBP IS NOT GETTING BETTER. PATIENT IS AGREEABLE. SEE TUG TEST AND 30 STS TEST RESULTS BELOW. UPON EXAM TODAY: INDEP TRANSFER SIT TO STAND WITHOUT UE ASSIST. INDEP SLOW GAIT WITH DECREASED DEE STRIDE LENGTH, NO AD AND NO LOB UPON ARRIVAL TO PT TODAY BUT GOOD TUG TIME WITH TESTING. ROM deficit: TIGHT DEE LE HIP FLEXORS, HS'S AND GASTROC SOLEUS COMPLEX'S. Motor deficit: DEE LE STRENGTH GROSSLY 4/5 WITH MMT'ING. Lumbar mvmt loss: flex - NIL. ext - LOLA. R SG - LOLA. L SG - LOLA. PATIENT DENIES INCREASED LBP PAIN OR LEG SX'S WITH LUMBAR ROM TESTING ALL PLANES. INSTRUCTED IN AND ADDED SEATED GENTLE THORACIC BACK EXTENSION STRETCHING OVER TOWEL ROLL TO HEP. PATIENT DEMONSTRATED/COMMUNICATED A GOOD UNDERSTANDING OF ALL INSTRUCTIONS AFTER GIVEN AND TOLERATED NEW EX WELL. PATIENT IS APPROPRIATE FOR PHYSICIAN RE-ASSESSMENT AND SHE IS AGREEABLE. [ End ] Goal 1:: DECREASE C/O BACK PAIN Goal Progress: Not Progressing Goal 2:: IMPROVE LIFTING, WALKING, STANDING, SOCIAL LIFE, TRAVEL AND HOMEMAKING FUNCTION Goal Progress: Goal Met Goal 3:: INSTRUCT IN PROPHYLAXIS Goal Progress: Goal Met Plan: D/C TO INDEP HEP. If there are questions or concerns regarding this patient's physical therapy, please feel free to call me at [phone]. Thank you for the referral of this patient. Sincerely, Mayra Feliciano, PT, Cert MDT Balance/Gait/Functional tests - Balance/Special Test Scores Oswestry Low Back Score: 12 TUG Test Time Seconds: 9.98 Tug Test: <10 sec.=free mobile 30 Second Chair Rise Test Seconds: 10
== END 2022-06-25 15:02 | disposition home or self-care (01) ==
LOC: PT 13:30
PROVIDERS: PCP Family Medicine; Referring Provider Family Medicine; Visit Provider Family Medicine
DX: M51.36 Other intervertebral disc degeneration, lumbar region (principal)
CPT/HCPCS: 97110; 97112; 97162; 97164; 97530

== ENCOUNTER → 2022-07-17 | Outpatient (CLI) | payer MEDICARE, SELFPAY ==
--- NOTE | 2022-07-17 14:50 | BI_ITS ---
MAMMOGRAPHY - BILATERAL SCREENING REASON FOR EXAM: Female, 77 years old. Routine annual screening examination. PERTINENT HISTORY: Non-contributory. TECHNIQUE: Digital bilateral breast tita (3D mammographic acquisition) in the CC and MLO projections. 2-D mediolateral oblique (MLO) and craniocaudad (CC) views of both breasts were obtained. CAD: Full Field Digital Mammography with Computer Added Detection was performed. COMPARISON: Comparison is made with prior study dated May 06, 2020 and April 20, 2019. FINDINGS: Breast Composition: The breasts are heterogeneously dense, which may obscure small masses. There are no dominant masses or suspicious calcifications. No other significant abnormalities are identified. There has been no significant change since the prior study. BI/SCRN MAMM (CAD)W/TITA BILAT IMPRESSION: Stable bilateral screening mammogram. Yearly follow-up mammogram recommended. (A) ASSESSMENT CATEGORY: BIRADS Category 1: Negative. A letter regarding these results will be sent to the patient by the facility within 30 days. Approximately 10% of breast cancers are not detected by mammography. A normal mammogram should not delay biopsy of a clinically suspicious abnormality. [id number] Electronically Signed: Logan Smith MD at 13:28 EDT ,
== END | disposition home or self-care (01) ==
LOC: OPBI 14:48
PROVIDERS: PCP Family Medicine; Referring Provider Family Medicine; Visit Provider Family Medicine
DX: Z12.31 Encounter for screening mammogram for malignant neoplasm of breast (principal)
CPT/HCPCS: 77063; 77067

== ENCOUNTER → 2022-09-07 | Outpatient (CLI) | payer MEDICARE, SELFPAY ==
[2022-09-07 18:16] LABS: ALB/GLOB Ratio 1.2 RATIO (0.9-2.4); AST(SGOT) 28 U/L (15-37); Alanine Aminotransfer ALT/SGPT 34 U/L (13-56); Albumin, Serum 4.1 g/dL (3.2-5.0); Alkaline Phosphatase 71 U/L (45-117); Anion Gap 7 (5-15); BUN 21 mg/dL (7-18); BUN/Creat Ratio 23.3 RATIO (10-20); Calcium,Total 9.5 mg/dL (8.5-10.1); Chloride 106 mmol/L (98-107); EST Glomerular Filtration Rate 64 mL/min (>60); Est Glom Filt Rate - Afr Amer 77 mL/min (>60); Globulin 3.5 g/dL (2.2-4.2); Glucose 107 mg/dL (74-106); Protein, Total 7.6 g/dL (6.4-8.2); Sodium Level 141 mmol/L (136-145)
== END | disposition home or self-care (01) ==
LOC: MFPLAB 14:55
PROVIDERS: PCP Family Medicine; Visit Provider Family Medicine
DX: C22.0 Liver cell carcinoma (principal)
CPT/HCPCS: 36415; 80053

== ENCOUNTER → 2022-09-29 | Outpatient (CLI) | payer MEDICARE, SELFPAY ==
--- NOTE | 2022-09-29 17:11 | MRI_ITS ---
EXAM: MR LUMBAR SPINE WITHOUT INTRAVENOUS CONTRAST CLINICAL INDICATION: BACK PAIN TECHNIQUE: Multiplanar and multisequence MR images of the lumbar spine without intravenous contrast. COMPARISON: No relevant prior studies available. FINDINGS: VERTEBRAE: Unremarkable. Vertebral body heights are preserved. Normal vertebral bodies and posterior elements. Normal alignment. No spondylolisthesis. There is preservation of the normal lumbar lordosis. SPINAL CORD: Unremarkable. Normal position and signal intensity of the conus medullaris. The conus is at the level of T12-L1. SOFT TISSUES: Unremarkable. DISCS/SPINAL CANAL/NEURAL FORAMINA: L1-L2: Normal disc height. Decreased T2 signal intensity and annular disc bulge. Moderate bilateral neural foraminal stenosis and mild flattening of the ventral thecal sac. Moderate ligamentum flavum hypertrophy. The AP diameter of the canal is roughly 1 cm in the midline. L2-L3: Annular disc bulge with mild neural foraminal narrowing, no flattening of the ventral thecal sac. Facet joint mild hypertrophic changes and ligamentum flavum hypertrophy. L3-L4: Normal disc height, decreased signal intensity. The AP diameter of the midline canal 9 mm, the transverse diameter is narrowed due to uncovertebral osteophytes and ligamentum flavum hypertrophy, roughly 1.4 cm in its anterior aspect. Stenosis of the transverse diameter of the canal. Moderate bilateral neural foraminal stenosis.. L4-L5: Normal disc height. Decreased T2 signal intensity. Moderate left and mild right neural foraminal stenosis. Facet joint hypertrophic change and ligamentum flavum flavum hypertrophy associated with stenosis of the transverse diameter of the canal, 8 mm transverse. Mildly decreased AP diameter of the canal, 8 mm. L5-S1: Normal height decreased T2 signal intensity. Normal AP diameter of the canal moderately severe right and mild left neural foraminal stenosis. Hypertrophic facet joints and ligamentum flavum hypertrophy. MRI/Spine Lumbar (Routine) IMPRESSION: Multilevel degenerative changes with mild canal stenosis, most pronounced at L4-5 and L3-4. Multilevel neural foraminal stenosis. Electronically Signed: Dixie Vargas MD at 9:22 EDT ,
== END | disposition home or self-care (01) ==
LOC: MRI 17:09
PROVIDERS: PCP Family Medicine; Referring Provider Family Medicine; Visit Provider Family Medicine
DX: M54.9 Dorsalgia, unspecified (principal)
CPT/HCPCS: 72148

== ENCOUNTER → 2023-03-10 | Outpatient (CLI) | payer MEDICARE, SELFPAY ==
[2023-03-10 18:19] LABS: Anion Gap 8 (5-15); BUN 22 mg/dL (7-18); BUN/Creat Ratio 22.8 RATIO (10-20); Calcium,Total 9.7 mg/dL (8.5-10.1); Chloride 104 mmol/L (98-107); Cholesterol 187 mg/dL (200); Creatinine, Serum 0.97 mg/dL (0.55-1.02); EST Glomerular Filtration Rate 59 mL/min (>60); Est Glom Filt Rate - Afr Amer 71 mL/min (>60); Glucose 100 mg/dL (74-106); High Density Lipoprotein 85 mg/dL; Potassium 4.4 mmol/L (3.5-5.1); Sodium Level 140 mmol/L (136-145); Triglycerides 105 mg/dL; Very Low Density Lipoprotein 21 mg/dL (5-40)
== END | disposition home or self-care (01) ==
LOC: MFPLAB 14:32
PROVIDERS: PCP Family Medicine; Visit Provider Family Medicine
DX: I10 Essential (primary) hypertension (principal)
CPT/HCPCS: 36415; 80048; 80061

== ENCOUNTER → 2023-08-05 | Outpatient (CLI) | payer MEDICARE, SELFPAY ==
--- NOTE | 2023-08-05 16:39 | RAD_ITS ---
INDICATION: ABDOMINAL PAIN EXAMINATION/TECHNIQUE: X-RAY - XR Abdomen W/ Decub and/or Erect Views COMPARISON: No relevant prior comparison study available FINDINGS: BOWEL GAS PATTERN: Non-obstructive. No bowel or stomach distention. FREE AIR: Not assessed on a single supine view. ORGANOMEGALY: Not seen. CALCIFICATIONS: No abnormal calcifications observed. LOWER CHEST: No acute pathology. BONES AND SOFT TISSUES: There is levoscoliosis of the lumbar spine. RAD/Abd Inc Decub and/or Erect IMPRESSION: Non-obstructive bowel gas pattern. Electronically Signed: Maren Bautista MD at 8:05 EDT ,
[2023-08-05 17:50] LABS: Absolute Lymphocyte Count 1.81 X10^3/uL (0.83-4.51); Basophil# 0.03 X10^3/uL; Basophil% 0.5 % (0-1); Eosinophil# 0.06 X10^3/uL; Eosinophils% 0.9 % (0-5); Hematocrit 43.8 % (37-47); Hemoglobin 13.9 g/dL (12.0-15.0); Lymphocyte # 1.81 X10^3/ul (0.83-4.51); Lymphocyte % 28.1 % (19-41); Mean Corp Hgb Conc 31.7 g/dL (32-36); Mean Corpuscular Hgb 28.8 pg (27.0-32.0); Mean Corpuscular Volume 90.7 fL (81-99); Mean Platelet Vol. 9.6 fl (6.2-12.0); Monocyte# 0.55 X10^3/uL; Monocyte% 8.5 % (0-10); NRBC Flagged by Analyzer 0 % (0-5); Neutrophil # 3.99 X10^3/uL (2.7-7.7); Neutrophil % 61.8 % (47-70); Platelet Count 276 K/mm3 (150-450); RBC Distribution Width SD 42.6 fl (35.1-43.9); Red Blood Count 4.83 M/mm3 (4.2-5.4); White Blood Count 6.5 K/mm3 (4.4-11.0)
[2023-08-05 18:52] LABS: ALB/GLOB Ratio 1.1 RATIO (0.9-2.4); AST(SGOT) 22 U/L (15-37); Alanine Aminotransfer ALT/SGPT 35 U/L (13-56); Albumin, Serum 3.9 g/dL (3.2-5.0); Alkaline Phosphatase 73 U/L (45-117); Anion Gap 2 (5-15); BUN 19 mg/dL (7-18); BUN/Creat Ratio 19.3 RATIO (10-20); Calcium,Total 10.3 mg/dL (8.5-10.1); Chloride 108 mmol/L (98-107); Creatinine, Serum 0.99 mg/dL (0.55-1.02); EST Glomerular Filtration Rate 58 mL/min (>60); Est Glom Filt Rate - Afr Amer 70 mL/min (>60); Globulin 3.4 g/dL (2.2-4.2); Glucose 110 mg/dL (74-106); Lipase 408 U/L (13-75); Potassium 3.8 mmol/L (3.5-5.1); Protein, Total 7.3 g/dL (6.4-8.2); Sodium Level 142 mmol/L (136-145)
== END | disposition home or self-care (01) ==
LOC: MTLAB 16:37
PROVIDERS: PCP Family Medicine; Referring Provider Family Medicine; Visit Provider Family Medicine
DX: R10.9 Unspecified abdominal pain (principal)
CPT/HCPCS: 36415; 74019; 80053; 83690; 85025

== ENCOUNTER 2023-08-06 10:02 | Emergency (ER) | payer MEDICARE, SELFPAY ==
[2023-08-06 10:02] VITALS: BP 175/81; BP 181/82; PULSE 79; PULSE 80; RESP 16; TEMP 36.2; O2SAT 100; BMI 26.6
--- NOTE | 2023-08-06 10:40 | CT_ITS ---
STUDY: CT ABDOMEN AND PELVIS WITH CONTRAST REASON FOR EXAM: Female, 78 years old. Pancreatitis. Elevated lipase. RADIATION DOSAGE (If Supplied By Facility): CTDIvol = ( 16.71 ) mGy, DLP = ( 664.35 ) mGy TECHNIQUE: Transaxial images were obtained from the dome of the diaphragm to the symphysis pubis without oral contrast. IV 100mL Isovue-[id number] was administered. Sagittal and coronal images were reconstructed. Individualized dose optimization techniques were used for this CT. COMPARISON: None. FINDINGS: Mild degree of increased markings at the lung bases suggestive of atelectasis and/or scarring. Coronary artery calcification. There is decreased attenuation of the liver consistent with steatosis. There is a 5 cm x 3.4 cm cystic mass in the inferior aspect of the right lobe of the liver. This has increased in size as well as become more cystic in density as compared to prior study. This is not a typical cyst. Normal gallbladder and extrahepatic biliary system. Normal spleen. Normal pancreas. Normal bilateral adrenal glands. Normal right kidney. Normal left kidney. There is a small hiatal hernia. Normal small intestine. There are multiple colonic diverticula consistent with diverticulosis. The appendix is visualized and appears normal. Normal abdominal aorta. Normal inferior vena cava. Normal retroperitoneum. Normal urinary bladder. There is endometrial thickening for the patient''s age. This measures 13.6 mm. Gynecologic evaluation recommended. Normal abdominal wall. There are degenerative changes of the visualized lumbar spine. CT/Abdomen/Pelvis W IV Cont ONLY IMPRESSION: Diffuse fatty infiltration of the liver. 5 cm x 3.4 cm cystic mass in the inferior aspect of the right lobe of the liver. This has increased in size as compared to prior study and has become more cystic in nature although this is not a typical cyst due to the elevated measurement of the Hounsfield unit. Correlation with ultrasound recommended. The pancreas is unremarkable. Electronically Signed: Logan Smith MD at 12:01 EDT ,
--- NOTE | 2023-08-06 10:41 | EX.ED.DYSGE1 ---
HPI History of Present Illness Chief Complaint: Abn Labs Informant: patient and family Narrative Narrative: Patient presents secondary to abnormal lab work. Patient states that she has had nausea for the last several weeks. She saw her PCP yesterday who obtained lab work revealing a lipase of 408. Her total bili is slightly elevated at 1.50. She was called this morning and sent to the emergency room. Patient denies fever or chills. She has not had abdominal pain. She fluctuates between constipation and diarrhea and was previously diagnosed with IBS. Patient does have a history of liver cancer. She underwent ablation in 2021. Family states most recent MRI showed stable findings. She did not undergo chemotherapy. [facility] Medical History (Updated 08/06/23 @ 15:[address] Mery Lopez MD) High cholesterol Hypertension IBS (irritable bowel syndrome) Nausea Home Medications calcium carbonate 600 mg-vitamin D3 10 mcg (400 unit) tablet (Calcium 600 + D(3)) 1 tab PO DAILY 11/29/21 [History Last Taken Unknown] cholecalciferol (vitamin D3) 25 mcg (1,000 unit) capsule (Vitamin D3) 25 mcg PO DAILY 11/29/21 [History Last Taken Unknown] multivitamin 1 cap PO DAILY 11/29/21 [History Last Taken Unknown] omega-3 fatty acids 2,000 mg PO DAILY 11/29/21 [History Last Taken Unknown] sertraline 50 mg tablet 50 mg PO DAILY 11/29/21 [History Last Taken Unknown] simvastatin 20 mg tablet 20 mg PO QHS 11/29/21 [History Last Taken Unknown] lisinopril 10 mg tablet 10 mg PO DAILY 08/06/23 [History Last Taken Unknown] metoclopramide HCl 5 mg tablet (Reglan) 5 mg PO Q8H PRN PRN nausea and vomiting #14 tabs 08/06/23 [Rx Last Taken Unknown] pregabalin 50 mg capsule PO 08/06/23 [History Last Taken Unknown] Allergy/AdvReac Type Severity Reaction Status Date / Time No Known Allergies Allergy Verified 08/06/23 10:03 Social History Smoking Status: Never smoker ROS ROS ED Constitutional Constitutional ED: Denies chills or fever(s) Eyes Eyes: Denies discharge from eye(s) ENT ENT ED: Denies discharge from eye(s), rhinorrhea or sore throat Cardiovascular Cardiovascular: Denies chest pain or palpitations Respiratory/Chest Respiratory/Chest: Denies cough or dyspnea Gastrointestinal Gastrointestinal: Reports constipation, diarrhea and nausea; Denies abdominal pain or vomiting Genitourinary Genitourinary ED: Denies dysuria Musculoskeletal Musculoskeletal: Denies back pain or extremity pain Integumentary Denies Abrasions or rash Neurologic Neurologic: Denies headache(s) or weakness Psychiatric Psychiatric: Denies anxiety or depression Allergic/Immunologic Allergic/Immunologic ED: Denies lip swelling or urticaria EXAM Physical Exam Const Vital Signs: 08/06/23 10:02 08/06/23 10:02 08/06/23 10:29 Temperature 97.1 F L Temperature Source Temporal Pulse Rate 79 80 Respiratory Rate 16 16 Respiratory Effort Normal Non-Labored Blood Pressure 181/82 H 175/81 H Blood Pressure Mean 115 112 Pulse Ox 100 100 Oxygen Delivery Method Room Air Room Air 08/06/23 12:02 08/06/23 13:34 Temperature 98.2 F 98 F Temperature Source Oral Oral Pulse Rate 67 63 Respiratory Rate 16 16 Respiratory Effort Blood Pressure 149/69 H 152/68 H Blood Pressure Mean 95 96 Pulse Ox 100 98 Oxygen Delivery Method Room Air Room Air Positive well nourished and well developed General Appearance ED: well developed HEENT Reports moist mucous membranes Eyes EOMs intact bilaterally Chest Wall inspection of chest normal and palpation of chest normal Resp normal respiratory effort and clear to auscultation bilaterally Cardio regular rate and regular rhythm GI non-tender Auscultation: hypoactive bowel sounds Palpation: soft Extremity normal to inspection Neuro oriented x3 and no sensory deficits noted Motor Exam: strength 5/5 throughout Psych mental status grossly normal Skin no rashes or lesions noted MDM MDM MDM Narrative Medical decision making narrative: Lab work from yesterday is reviewed. IV line is established. Labwork obtained to evaluate for leukocytosis, anemia, and electrolyte derangement. Patient given IV fluids along with some Reglan for nausea. She has been using Zofran at home. CT scan of the abdomen pelvis with IV contrast obtained to evaluate for any acute abnormalities to the gallbladder, liver, or pancreas. History & Record Review Discussion w/independent historian: Patient and Family Additional record(s) reviewed:: Prior labs Lab Data Attestation: I reviewed the patient's lab results. Labs: Laboratory Results - last 24 hr 08/06/23 10:30 WBC 6.2 RBC 4.57 Hgb 13.4 Hct 41.4 MCV 90.6 MCH 29.3 MCHC 32.4 RDW Std Deviation 43.3 RDW Coeff of [place] 13.2 Plt Count 272 MPV 10.6 Immature Gran % (Auto) 0.300 Neut % (Auto) 65.6 Lymph % (Auto) 23.3 [place] % (Auto) 9.1 Eos % (Auto) 1.4 Baso % (Auto) 0.3 Absolute Neuts (auto) 4.1 Absolute Lymphs (auto) 1.45 Nucleated RBC % 0 Sodium 140 Potassium 3.9 Chloride 107 Carbon Dioxide 31.0 Anion Gap 2 L BUN 14 Creatinine 0.96 Estim Creat Clear Calc 43.39 Est GFR (MDRD) Af Amer 72 Est GFR (MDRD) Non-Af 59 L BUN/Creatinine Ratio 14.5 Glucose 121 H Calcium 9.2 Total Bilirubin 0.40 Direct Bilirubin 0.12 AST 27 ALT 32 Alkaline Phosphatase 70 Total Protein 7.0 Albumin 3.5 Globulin 3.5 Lipase 46 Radiography Diagnostic Testing: Clinical Impression(s) from Imaging Studies Abdomen/Pelvis CT 08/06/23 10:40 IMPRESSION: Diffuse fatty infiltration of the liver. 5 cm x 3.4 cm cystic mass in the inferior aspect of the right lobe of the liver. This has increased in size as compared to prior study and has become more cystic in nature although this is not a typical cyst due to the elevated measurement of the Hounsfield unit. Correlation with ultrasound recommended. The pancreas is unremarkable. Electronically Signed: Logan Smith MD at 12:01 EDT , Liver Ultrasound 08/06/23 12:27 IMPRESSION: 4.3 cm x 4.8 cm x 3 cm solid mass in the inferior aspect of the right lobe of the liver corresponding to the dominant predominantly cystic mass on the CT scan. Patient has a history of prior ablation at that site. Electronically Signed: Logan Smith MD at 14:05 EDT , Treatment and Re-Evaluation :: Patient did have her improvement in her nausea with Reglan. CBC reveals normal white count at 6.2 with a hemoglobin of 13.4. Normal differential. Chemistry studies unremarkable. LFTs and lipase are normal today whereas yesterday she had an elevated total bilirubin and elevated lipase. CT scan of the abdomen pelvis with contrast reveals a 5 x 3.4 cm cystic mass in the inferior aspect of the right lobe the liver. Correlation with ultrasound recommended. Ultrasound reveals a 4.3 x 4.8 x 3 cm solid mass in the inferior aspect of the right lobe the liver corresponding with what was thought to be a cystic mass on the CT scan. Patient does have a history of prior ablation at that site. I spoke with Dr. Grace who read the images. He raises concern for recurrent liver cancer and does not believe that the findings today are consistent with prior ablation changes. I do have a copy of the patient's MRI report from May 27 that showed a 4.5 cm lesion in the liver at the ablation zone. I spoke with patient's PCP, Dr. Ramires. Patient is referred back to her liver specialist for follow-up. Patient be given a prescription for Reglan at this time to help with nausea control. Patient and family comfortable with the plan. Discharge Plan Triage Chief Complaint: Abn Labs ED Provider: Mery Lopez Dx/Rx/DC Orders Clinical Impression: Nausea Instructions: ED Vomiting (Adult) Prescriptions: New metoclopramide HCl [Reglan] 5 mg tablet 5 mg PO Q8H PRN PRN (Reason: nausea and vomiting) Qty: 14 0RF No Action simvastatin 20 mg Tablet 20 mg PO QHS multivitamin Capsule 1 cap PO DAILY sertraline 50 mg Tablet 50 mg PO DAILY cholecalciferol (vitamin D3) [Vitamin D3] 25 mcg (1,000 unit) Capsule 25 mcg PO DAILY Fish Oil Capsule 2,000 mg PO DAILY calcium carbonate-vitamin D3 [Calcium 600 + D(3)] 600 mg-10 mcg (400 unit) Tablet 1 tab PO DAILY lisinopril 10 mg tablet 10 mg PO DAILY pregabalin 50 mg capsule PO Primary Care Provider: Shawn Ramires Referrals: Shawn Ramires MD [Primary Care Provider] - Activity Restrictions/Additional Instructions: Please follow-up with your liver specialist as discussed. You can call medical records at the hospital if you need your imaging studies pushed electronically to his facility or to get copies of your images on a disc to take to your appointment. Disposition Disposition: Home, Self Care
[2023-08-06 10:56] LABS: Absolute Lymphocyte Count 1.45 X10^3/uL (0.83-4.51); Absolute Neutrophil Count 4.1 X10^3/uL (2.0-7.7); Basophil# 0.02 X10^3/uL; Basophil% 0.3 % (0-1); Eosinophil# 0.09 X10^3/uL; Eosinophils% 1.4 % (0-5); Hematocrit 41.4 % (37-47); Hemoglobin 13.4 g/dL (12.0-15.0); Lymphocyte # 1.45 X10^3/ul (0.83-4.51); Lymphocyte % 23.3 % (19-41); Mean Corp Hgb Conc 32.4 g/dL (32-36); Mean Corpuscular Hgb 29.3 pg (27.0-32.0); Mean Corpuscular Volume 90.6 fL (81-99); Mean Platelet Vol. 10.6 fl (6.2-12.0); Monocyte# 0.57 X10^3/uL; Monocyte% 9.1 % (0-10); NRBC Flagged by Analyzer 0 % (0-5); Neutrophil # 4.08 X10^3/uL (2.7-7.7); Neutrophil % 65.6 % (47-70); Platelet Count 272 K/mm3 (150-450); RBC Distribution Width CV 13.2 % (11.6-14.6); RBC Distribution Width SD 43.3 fl (35.1-43.9); Red Blood Count 4.57 M/mm3 (4.2-5.4); White Blood Count 6.2 K/mm3 (4.4-11.0)
[2023-08-06] MEDS: Metoclopramide 10 MG/2 ML Vial 5 MG IV (10:58)
[2023-08-06] MEDS: 0.9% Normal Saline (1000mL) 1,000 ML 150 ML IV (10:58)
[2023-08-06 11:08] LABS: AST(SGOT) 27 U/L (15-37); Alanine Aminotransfer ALT/SGPT 32 U/L (13-56); Albumin, Serum 3.5 g/dL (3.2-5.0); Alkaline Phosphatase 70 U/L (45-117); Anion Gap 2 (5-15); BUN 14 mg/dL (7-18); BUN/Creat Ratio 14.5 RATIO (10-20); Bilirubin, Direct 0.12 mg/dL (0.00-0.30); Calcium,Total 9.2 mg/dL (8.5-10.1); Chloride 107 mmol/L (98-107); Creatinine, Serum 0.96 mg/dL (0.55-1.02); EST Glomerular Filtration Rate 59 mL/min (>60); Est Glom Filt Rate - Afr Amer 72 mL/min (>60); Estimated Creatinine Clearance 43.39 ml/min; Globulin 3.5 g/dL (2.2-4.2); Glucose 121 mg/dL (74-106); Lipase 46 U/L (13-75); Potassium 3.9 mmol/L (3.5-5.1); Sodium Level 140 mmol/L (136-145)
[2023-08-06 12:02] VITALS: BP 149/69; PULSE 67; RESP 16; TEMP 36.8; O2SAT 100
--- NOTE | 2023-08-06 12:27 | US_ITS ---
STUDY: ABDOMINAL ULTRASOUND - RIGHT UPPER QUADRANT REASON FOR VISIT: Female, 78 years old cyst/post-ablation changes. H/O liver CA. see CT TECHNIQUE: Ultrasound evaluation of the right upper quadrant was performed with real-time and static estrada-scale imaging. TECHNICAL QUALITY: Adequate. COMPARISON: Comparison is made with prior CT scan of the abdomen and pelvis dated August 06, 2023. FINDINGS: Liver: The liver measures 15.3 cm. There is increased echogenicity consistent with fatty infiltration. The bile ducts are within normal limits. There is hepatic color flow. The direction of portal flow is hepatopetal. There is a 4.3 cm x 4.8 cm x 3 cm solid mass corresponding to the predominantly hypodense mass in the CT scan. Patient has a history of prior ablation. Gallbladder: Normal distended gallbladder. The gallbladder wall measures 1.4 mm. There is a negative sonographic Fisher''s sign. There is no pericholecystic fluid. There are no gallstones. Common Bile Duct (C.B.D.): The common bile duct measures 4.5 mm. Pancreas: Normal size of the head, body and tail of the pancreas. There is normal echogenicity of the pancreas. There is no demonstrated pancreatic mass or cyst. Right Kidney: Normal size of the right kidney. The right kidney measures 9.8 cm x 4.2 cm x 3.8 cm. There is thinning of the renal cortex. The right cortex measures 0.9 cm. There is no demonstrated renal mass or cyst. There is no right hydronephrosis. US/Liver IMPRESSION: 4.3 cm x 4.8 cm x 3 cm solid mass in the inferior aspect of the right lobe of the liver corresponding to the dominant predominantly cystic mass on the CT scan. Patient has a history of prior ablation at that site. Electronically Signed: Logan Smith MD at 14:05 EDT ,
[2023-08-06 13:34] VITALS: BP 152/68; PULSE 63; RESP 16; TEMP 36.6; O2SAT 98
[2023-08-06 15:36] VITALS: BP 163/64; PULSE 68; RESP 18; TEMP 36.9; O2SAT 93
== END 2023-08-06 15:38 | disposition home or self-care (01) ==
PROVIDERS: Emergency Provider Emergency Medicine; PCP Family Medicine; Visit Provider Emergency Medicine
DX: R11.0 Nausea (principal)
CPT/HCPCS: 74177; 76705; 80048; 80076; 83690; 85025; 96361; 96374; 99283; J7030; Q9967

== ENCOUNTER → 2023-09-09 | Outpatient (CLI) | payer MEDICARE, SELFPAY ==
--- NOTE | 2023-09-09 16:15 | MRI_ITS ---
HISTORY: Increased lumbar radicular symptoms. Leg weakness. TECHNIQUE: Multiplanar and multisequence MR images of the lumbar spine were obtained without intravenous contrast. 141 images. COMPARISON: CT 08/06/2023. MR 09/29/2022. FINDINGS: VERTEBRAE: Vertebral body heights maintained. Mild degenerative endplate changes. No significant bone marrow signal abnormality. ALIGNMENT: Chronic minimal retrolisthesis of L1-2. CONUS: Normal morphology and position of the conus medullaris at L1. INTERVERTEBRAL DISCS: T12-L1: Very mild disc bulge without significant central canal stenosis or foraminal narrowing based on the sagittal images. L1-2: Disc bulge with facet arthropathy resulting in very mild central canal stenosis and bilateral foraminal narrowing, similar prior. L2-3: Very mild disc bulge with facet arthropathy resulting in very mild central canal stenosis and left foraminal narrowing, similar to prior. L3-4: Very mild disc bulge with moderate facet arthropathy superimposed on a developmentally narrow spinal canal resulting in mild-moderate central canal stenosis with left greater than right foraminal narrowing, similar prior. L4-5: Very mild disc bulge with moderate facet arthropathy superimposed on a developmentally narrow spinal canal resulting in moderate central canal stenosis and bilateral foraminal narrowing, mildly increased from prior. L5-S1: Degenerative change without significant central canal stenosis. Mild left and moderate right foraminal narrowing, similar to prior. SOFT TISSUES: Colonic diverticulosis observed. Mild posterior subcutaneous edema. MRI/Spine Lumbar (Routine) IMPRESSION: Multilevel degenerative disc disease with mild interval progression at L4-5 resulting in moderate spinal canal stenosis and bilateral foraminal narrowing. Mild-moderate spinal canal stenosis with bilateral foraminal narrowing at L3-4. Mild left and moderate right foraminal narrowing of L5-S1, similar to prior. Electronically Signed: Valeria Noble MD at 9:18 EDT ,
== END | disposition home or self-care (01) ==
PROVIDERS: PCP Family Medicine; Referring Provider Clinical Nurse Specialist Adult Health; Visit Provider Clinical Nurse Specialist Adult Health
DX: M54.16 Radiculopathy, lumbar region (principal)
CPT/HCPCS: 72148

== ENCOUNTER 2023-12-29 07:38 | Day surgery (SDC) | payer MEDICARE, SELFPAY ==
[2023-12-29] VITALS (14 sets, daily range): BP systolic 86–168; BP diastolic 43–98; PULSE 77–147; RESP 16; TEMP 36.2–37.1; O2SAT 93–100; BMI 25.7
--- NOTE | 2023-12-29 | ESO_PTH ---
PATIENT: WALTER MILLAN LOC: EN U#:[id number] AGE/SX: 78/F ROOM: RE12/29/[address]: Dr. Srini Estrada DO : 1945 BED: DIS: 12/29/2023 SPEC #: [id number] RECD: 12/29/23 10:42 STATUS: GRISEL BARAJAS #: [id number] GIOVANA: 12/29/23 00:[address]: Srini Estrada DEPT: SURGICAL PATHOLOGY RECD BY: Dank Hernandez ENTERED: 12/29/23 10:42 SP TYPE: CHINEDU KILLIAN DR: Dr. Shawn Ramires MD Tissues: A - Esophagus, NOS B - Duodenum, NOS Procedures: Special Stain Group I Surgery Specimen Level IV Alcian Blue/PAS (control) HEADER OPERATION: EGD with biopsy PRE-OP DIAGNOSIS: Diarrhea TISSUE SUBMITTED: A- Distal esophagus, B- Duodenal biopsy MICROSCOPIC DIAGNOSIS A. Distal esophagus, biopsy: Gastroesophageal junctional mucosa with mild chronic inflammation. No evidence of goblet cell metaplasia. See comment. B. Duodenum, biopsy: Consistent with Hollie's gland hyperplasia. / 12/30/2023 COMMENT A. Alcian blue/PAS stain with matched control supports the above diagnosis. MICROSCOPIC DESCRIPTION Slides are reviewed. GROSS DESCRIPTION A. Received in fixative is one container labeled with the patient's name and designated Distal esophagus biopsy. The specimen consists of multiple irregular fragments of light conte soft tissue that in aggregate measure 1.0 x 0.3 x 0.1 cm. The specimen is totally submitted in one cassette. B. Received in fixative is one container labeled with the patient's name and designated Duodenal biopsy. The specimen consists of two irregular fragments of light conte soft tissue that in aggregate measure 1.0 x 0.2 x 0.1 cm. The specimen is totally submitted in one cassette. 12/29/2023 TC:3 CPT:64514d8,22488
--- NOTE | 2023-12-29 08:02 | PCM.PRE.AN2 ---
ASA Classification* ASA Classification ASA Classification: 2 Assessment & Plan Anesthesia* Anesthesia Assessment Anesthesia Assessment: Discussed sedation and/or anesthesia options, risks, benefits, and alternatives with patient/parents/legal guardian/POA. Questions invited. The patient/parents/legal guardian/POA seems to understand and agrees to proceed with anesthesia plan. Reviewed the physical assessment, medical history, allergy history and patient home medications list prior to surgery/procedure/anesthetic and documented any changes. Performed airway and anesthesia risk assessments. Anesthesia Type Anesthesia Type: MAC (see written pre anesthesia record for full assessment) Anesthesia Focused Assessment* Airway Assessment Mouth opens: >3 cm Mallampati Score: II Focused Labs Anesthesia Preop lab: CBC WBC 6.2 K/mm3 (4.4-11.0) 08/06/23 10:30 RBC 4.57 M/mm3 (4.2-5.4) 08/06/23 10:30 Hgb 13.4 g/dL (12.0-15.0) 08/06/23 10:30 Hct 41.4 % (37-47) 08/06/23 10:30 Plt Count 272 K/mm3 (150-450) 08/06/23 10:30 CHEMISTRY Potassium 3.9 mmol/L (3.5-5.1) 08/06/23 10:30 Sodium 140 mmol/L (136-145) 08/06/23 10:30 BUN 14 mg/dL (7-18) 08/06/23 10:30 Creatinine 0.96 mg/dL (0.55-1.02) 08/06/23 10:30 Glucose 121 mg/dL (74-106) H 08/06/23 10:30 TSH 2.64 uIU/mL (0.358-3.74) 03/10/19 10:52 COAG PT 13.4 SECONDS (11.7-14.9) 03/18/22 15:43 Pre-Assessment Diagnosis/Proposed Procedure Planned Operative Procedure(s): EGD 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 When Was Last Pacemaker Check QUESTION #4 FULL TEXT: You/Your Family Experience fever (hyperthermia) with Anesthesia Last Oral Intake Last Oral intake: Last Oral Intake NPO since Meds taken in AM with sips of water? 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 Female Yes 12/23/23 14:57 HX of Motion Sickness No 12/23/23 14:57 HX of N/V After Surgery No 12/23/23 14:57 Non-Smoker Yes 12/23/23 14:57 Duration of Surgery greater No 12/23/23 14:57 than 60 minutes Number of Risk Factors 2 12/23/23 14:57 PONV Score Moderate Risk 12/23/23 14:57 Height & Weight Height & Weight: Anesthesia: Height & Weight Height 5 ft 3 in 08/06/23 10:02 Respiratory Assessment Respiratory Assessment - railroad signal and switch operator: Respiratory Tract Infection Hx - 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 Has anyone observed you stop No 12/23/23 14:57 breathing during sleep? STOP Results Negative 12/23/23 14:57 QUESTION #5 FULL TEXT : Do you snore loudly (louder than talking or can be heard through closed doors)? 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 Specify any problems Hx of Preganancy in last 3 N/A 12/23/23 14:57 Months Nurse Filling Out Transfusion NBUCHER 12/23/23 14:57 & Questions: Date: 12/23/23 12/23/23 14:57 Time: 14:58 12/23/23 14:57 Patient unable to answer at this time (ie. 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: /Reproductive Hx- railroad signal and switch operator Hx Now No 12/23/23 14:57 Gestational Age (in weeks): EDC: Hx Hx Para Hx Section SAB No 12/23/23 14:57 Active Medications Active Medications: Current Medications Generic Name Dose Route Start Last Admin Trade Name Freq PRN Reason Stop Dose Admin Lactated Ringer's 1,000 mls @ 15 mls/hr 12/29/23 07:45 IV .Q48H VENKATA PFSH Medical History Wears hearing aid Loss of hearing Depression Wears glasses Cancer History of steroid therapy Arthritis Migraine headache History of IBS Gastric reflux IBS (irritable bowel syndrome) Hypertension Nausea High cholesterol Home Medications ?Medication ?Instructions ?Recorded ?Last Taken ?Type calcium carbonate 600 mg-vitamin 1 tab PO DAILY 11/29/21 12/28/23 History D3 10 mcg (400 unit) tablet (Calcium 600 + D(3)) cholecalciferol (vitamin D3) 25 25 mcg PO DAILY 11/29/21 12/28/23 History mcg (1,000 unit) capsule (Vitamin D3) multivitamin 1 cap PO DAILY 11/29/21 12/28/23 History omega-3 fatty acids 2,000 mg PO DAILY 11/29/21 12/28/23 History sertraline 50 mg tablet 50 mg PO DAILY 11/29/21 12/28/23 History simvastatin 20 mg tablet 20 mg PO QHS 11/29/21 12/28/23 History lisinopril 10 mg tablet 10 mg PO DAILY 08/06/23 12/28/23 History ondansetron HCl 4 mg tablet 4 mg PO Q8H PRN nausea and vomiting 08/16/23 Unknown History aspirin 81 mg chewable tablet 81 mg PO DAILY 12/08/23 Unknown History duloxetine 20 mg capsule,delayed 20 mg PO DAILY 12/08/23 Unknown History release acetaminophen 500 mg capsule 1,000 mg PO Q8H PRN PRN pain 12/23/23 12/28/23 History Allergy/AdvReac Type Severity Reaction Status Date / Time No Known Allergies Allergy Verified 12/29/23 07:49 Surgical History History of colonoscopy History of ablation of neoplasm of liver (~2021) Social History Smoking Status: Never smoker Review of Systems (Anesthesia) ROS Narrative System reviewed and no additional complaints, except as documented.
--- NOTE | 2023-12-29 08:04 | PCM.HP.BLA ---
History and Physical Date of Admission: 12/29/23 WALTER MILLAN, is a 78 F who presents to the office today for establishment with [facility]. About 7 months ago she was having constipation with one bowel movement per week. She was advised by PCP to take miralax daily which was helpful. She started to get diarrhea and went down to taking miralax every other day. At this point her constipation has completely resolved. She does however have nausea a few times per week that is not associated with eating. She will take one zofran a few times per week to relieve her nausea. She has occasional heartburn and takes TUMs as needed. Although her symptoms are no longer bothersome she has kept her appointment today because she would like to still be worked up to find etiology of nausea. Her last colonoscopy was in 2016 with one polyp. She does not wish to have anymore colonoscopies She has a history of liver cancer s/p ablation. She is following with liver specialist at and is monitored with MRI and blood markers every 6 months. She tells me her last MRI results and blood work where jsut a few days ago and was normal. ROS Const Constitutional: Positive for fatigue, frequent falls and weakness; No fever(s) or weight change ENT ENT: No difficulty swallowing Gastro GI: Positive for bloating, constipation, diarrhea, heartburn, excessive flatus and nausea/dyspepsia; No abdominal pain, belching, change in bowel habits, change in stool character, coffee ground emesis, cramping, difficulty swallowing, feeling full early, incontinent of stools, Vomiting blood/hematemesis, Blood in stool, loose stools, Black,tarry stools, pain with swallowing, vomiting or other Musc Musculoskeletal: Positive for abnormal gait, back pain, muscle weakness, numbness, stiffness, tingling and Arthritis; No joint pain Skin Skin: No yellowing of the eye or itchy eyes Neuro Neurology: Positive for abnormal gait, weakness, frequent falls, numbness, tingling, tremor(s) and Increased tone in limbs Psych Psychiatric: Positive for anxiety and No depression Endo Endocrine: Positive for fatigue; No weight change Aller/Imm Allergy/Immunologic: No itchy eyes Jovani/Lymp Hematologic/Lymphatic: Positive for easy bruising; No easy bleeding Exam Const General: cooperative and comfortable Nutritional Appearance: average body habitus and well nourished HENMT Head: normal to inspection Ears: hearing grossly normal bilaterally Nose: external nose normal Face and sinus: normal facial exam Eyes General: appearance normal, both eyes and all related structures Neck Neck: normal visual inspection Chest Chest palpation & inspection: normal inspection of the chest Resp Effort & Inspection: normal respiratory effort Cardio Palpation: normal PMI GI Inspection: normal to inspection Palpation: no hepatosplenomegaly Skin General: no rashes or lesions noted Neuro General: patient alert Extrem General: normal to inspection Psych Affect: normal affect Assessment and Plan Assessment and Plan (1) Diarrhea: Plan: Patient is here today for establishment with [facility]. She was having constipation but this has since resolved. Her main concern is nausea which is happening a few times per week. She would like to have an EGD done to rule out anything pathologic causing her symptoms. Differential diagnosis includes GERD or gastroparesis. -Will order EGD to determine etiology of symptoms -Will order GES -She will take miralax as needed for constipation -She does not wish to go on PPI therapy. Discussed we can hold off for now pending the results of EGD -Will call patient once we get results to go over treatment plan I have examined the patient and the H&P has been reviewed. There are no clinical changes since date of exam.
[2023-12-29] MEDS: Lactated Ringers 1,000 ML 15 ML IV (08:07)
--- NOTE | 2023-12-29 08:53 | SUR.PHASEI ---
PACU arrival, noted to be in AFlutter w/ RVR, HR 100-130's. Patient denies SOB, chest pain, palpitations, other c/o. Placed new electrodes & cardiac leads to improve signal. Will call for 12-lead EKG and notify Dr Livingston, anesthesia. Will update family.
--- NOTE | 2023-12-29 08:56 | OP.EGD_ITS ---
Patient Name: Corry Kapadia Procedure Date: 12/29/2023 8:28 AM Date of : 1945 Age: 78 Procedure: Upper GI endoscopy Indications: Epigastric abdominal pain, Functional Dyspepsia Providers: Srini Estrada DO Medicines: Monitored Anesthesia Care Patient Profile: This is an 78 year old female. Refer to note in patient chart for documentation of history and physical. Patient has symptoms of chronic dyspepsia, chronic heartburn and chronic nausea. Complications: No immediate complications. Procedure: Pre-Anesthesia Assessment: - Prior to the procedure, a History and Physical was performed, and patient medications and allergies were reviewed. The patient is competent. The risks and benefits of the procedure and the sedation options and risks were discussed with the patient. All questions were answered and informed consent was obtained. Patient identification and proposed procedure were verified by the physician in the pre-procedure area. Mental Status Examination: alert and oriented. Airway Examination: normal oropharyngeal airway and neck mobility. Respiratory Examination: clear to auscultation. CV Examination: normal. Prophylactic Antibiotics: The patient does not require prophylactic antibiotics. Prior Anticoagulants: The patient has taken no anticoagulant or antiplatelet agents except for NSAID medication. ASA Grade Assessment: III - A patient with severe systemic disease. After reviewing the risks and benefits, the patient was deemed in satisfactory condition to undergo the procedure. The anesthesia plan was to use monitored anesthesia care (MAC). Immediately prior to administration of medications, the patient was re-assessed for adequacy to receive sedatives. The heart rate, respiratory rate, oxygen saturations, blood pressure, adequacy of pulmonary ventilation, and response to care were monitored throughout the procedure. The physical status of the patient was re-assessed after the procedure. After obtaining informed consent, the endoscope was passed under direct vision. Throughout the procedure, the patient's blood pressure, pulse, and oxygen saturations were monitored continuously. The gastroscope was introduced through the mouth, and advanced to the second part of duodenum. The upper GI endoscopy was accomplished without difficulty. The patient tolerated the procedure well. Scope In: 8:40:34 AM Scope Out: 8:45:24 AM Total Procedure Duration Time 0 hours 4 minutes 50 seconds Findings: LA Grade A (one or more mucosal breaks less than 5 mm, not extending between tops of 2 mucosal folds) esophagitis with no bleeding was found 38 to 40 cm from the incisors. Biopsies were taken with a cold forceps for histology. Verification of patient identification for the specimen was done. Estimated blood loss was minimal.. There also was a left-sided cystic lesion seen in oropharynx. A small hiatal hernia was present. The entire examined stomach was normal. A few localized, 5 mm erosions without bleeding were found in the duodenal bulb. Biopsies were taken with a cold forceps for histology. Verification of patient identification for the specimen was done. There was also some extrinsic compression in the duodenal bulb. Impression: - LA Grade A reflux esophagitis with no bleeding. Biopsied. - Small hiatal hernia. - Normal stomach. - Erosive duodenopathy without bleeding. Biopsied. - . Cystic lesion in oropharynx Recommendation: - Await pathology results. - Repeat CT scan abdomen pelvis regarding cystic lesion in the liver -Referral to ENT for left-sided cystic lesion seen in oropharynx - Continue present medications. Procedure Code(s): --- Professional --- 70594, Esophagogastroduodenoscopy, flexible, transoral; with biopsy, single or multiple CPT copyright 2021 [employer]. All rights reserved. The codes documented in this report are preliminary and upon deputy fire chief review may be revised to meet current compliance requirements. Srini Estrada DO 12/29/2023 8:56:17 AM This report has been signed electronically. Number of Addenda: 0 Note Initiated On: 12/29/2023 8:28 AM
--- NOTE | 2023-12-29 08:57 | OP.CCLET_ITS ---
12/29/2023 Shawn Ramires MD [address] [id number] Re : Upper GI endoscopy procedure for Corry Kapadia Dear Dr. Ramires This procedure was performed on Friday, December 29, 2023. My impressions and recommendations are as follows: Impressions : - LA Grade A reflux esophagitis with no bleeding. Biopsied. - Small hiatal hernia. - Normal stomach. - Erosive duodenopathy without bleeding. Biopsied. - . Cystic lesion in oropharynx Recommendations : - Await pathology results. - Repeat CT scan abdomen pelvis regarding cystic lesion in the liver -Referral to ENT for left-sided cystic lesion seen in oropharynx - Continue present medications. My findings are described in the full procedure note, which is enclosed. If I can be of further assistance, please feel free to contact me at . Sincerely, Srini Friend, DO 12/29/2023 8:56:17 AM This report has been signed electronically.
--- NOTE | 2023-12-29 08:58 | PCM.POST.ANE ---
Anesthesia: Postop Eval I Current Vital Signs Temperature: 97.1 F Pulse Rate: 82 Blood Pressure: 99/64 Respiratory Rate: 16 Pulse Ox: 94 Oxygen Delivery Method: Room Air Assessment Airway patent: Yes Spontaneous unlabored respirations: Yes Mental status: Awake and Calm nausea: No Vomiting: No Anesthesia Complication: Yes Anesthesia Complication Comment:: pt tremor in PACU, causing artifact in VS measurements Fluid Hydration Crystalloid volume administer (ml): 400 Total IV fluid infused: 400 Progress Note Anesthesia document: Postop Eval 1 completed: Yes
--- NOTE | 2023-12-29 09:12 | EKG12_ITS ---
Test Reason : RHYTHM CHANGE Blood Pressure : / mmHG Vent. Rate : 081 BPM Atrial Rate : 081 BPM P-R Int : 160 ms QRS Dur : 074 ms QT Int : 374 ms P-R-T Axes : 036 -18 032 degrees QTc Int : 434 ms Normal sinus rhythm Minimal voltage criteria for LVH, may be normal variant ( R in aVL ) Borderline ECG No previous ECGs available Confirmed by NITA MERCER, JOHANNA ([id number]), editor house organ MOOKIE FLORES ([id number]) on 01/04/2024 6:21:50 AM Referred By: Shawn Ramires Confirmed By:JOHANNA MOYA MD
--- NOTE | 2023-12-29 09:19 | PCM.POSTANE2 ---
Anesthesia Postop Eval I Sum Postop Eval Completion status Anesthesia document: Postop Eval 1 completed: Yes Anesthesia Postop Eval I Summary Anesthesia Postop Eval I Summary: Anesthesia Postop Eval I: Assessment Summary Airway patent Yes 12/29/23 09:00 [email or web address] Spontaneous unlabored Yes 12/29/23 09:00 [email or web address] respirations Mental status Awake,Calm 12/29/23 09:00 [email or web address] nausea No 12/29/23 09:00 [email or web address] Vomiting No 12/29/23 09:00 [email or web address] Anesthesia Postop Eval I: Fluid Summary Crystalloid volume administer 400 12/29/23 09:00 [email or web address] (ml) Colloids volume administered ( ml) Blood Product volume administered (ml) Total IV fluid infused 400 12/29/23 09:00 [email or web address] Anesthesia Postop Eval I: Summary Notes Anesthesia Complication Yes 12/29/23 09:00 [email or web address] Anesthesia Complication pt tremor in PACU, 12/29/23 09:00 [email or web address] Comment: causing artifact in VS measurements Post-operative progress note Anesthesia: Postop Eval II Evaluation Mental status: Awake Pain Level: 0 nausea: No Vomiting: No Progress Note Post-operative progress note: witnessed unknown arrhythmia on monitor, unable to doc. patient stable and in NSR as in pre op will f/u wit labs and ekg. if all nl, discharge from pacu approved Complications Anesthesia Complication: No
[2023-12-29 09:31] LABS: Hematocrit 38.1 % (37-47); Hemoglobin 12.5 g/dL (12.0-15.0); Mean Corp Hgb Conc 32.8 g/dL (32-36); Mean Corpuscular Hgb 30.5 pg (27.0-32.0); Mean Corpuscular Volume 92.9 fL (81-99); Mean Platelet Vol. 8.9 fl (6.2-12.0); Platelet Count 228 K/mm3 (150-450); RBC Distribution Width CV 13.2 % (11.6-14.6); RBC Distribution Width SD 45.1 fl (35.1-43.9); White Blood Count 6.6 K/mm3 (4.4-11.0)
--- NOTE | 2023-12-29 09:36 | NURSING ---
updated pt's family that pt will be in pacu for a bit longer d/t change in heart rythm- she voices that she does sometimes go into a-flutter. and voices understanding
--- NOTE | 2023-12-29 09:53 | SUR.PHASEI ---
Back in AFib w/ RVR for approx one minute then converted back to NSR before I could get a 12 lead EKG. HR was in 140-150's and patient did note a fluttering sensation in her chest but denies any other pain or nausea. Dr Livingston notified, showed telemetry strip.
[2023-12-29 09:59] LABS: Anion Gap 4 (5-15); BUN 16 mg/dL (7-18); BUN/Creat Ratio 18.9 RATIO (10-20); Calcium,Total 9.7 mg/dL (8.5-10.1); Chloride 109 mmol/L (98-107); Creatinine, Serum 0.85 mg/dL (0.55-1.02); EST Glomerular Filtration Rate 68 mL/min (>60); Est Glom Filt Rate - Afr Amer 83 mL/min (>60); Estimated Creatinine Clearance 48.13 ml/min; Glucose 117 mg/dL (74-106); Potassium 4.3 mmol/L (3.5-5.1); Sodium Level 140 mmol/L (136-145); Troponin-I HS 7 pg/mL (3.0-54.0)
--- NOTE | 2023-12-29 11:05 | SUR.PHASEII ---
Per PACU nurse, pt was ordered a holter monitor and needs to schedule an appointment with Dr. Malave. I personally scheduled the appointment with the office for 01/19/24 at 2pm. Respiratory is at bedside to place holter monitor on pt.
[2023-12-29 11:22] LABS: Magnesium 2.3 mg/dL (1.6-2.6)
== END 2023-12-29 11:25 | disposition home or self-care (01) ==
LOC: EN 07:40 → AC 07:42
PROVIDERS: Anesthesiology; PCP Family Medicine; Referring Provider Family Medicine; Visit Provider Internal Medicine Gastroenterology
PROC: 0DJ08ZZ Inspection of Upper Intestinal Tract, Via Natural or Artificial Opening Endoscopic (ICD-10-PCS; CPT 43235; principal; 2023-12-29 08:40)
DX: K44.9 Diaphragmatic hernia without obstruction or gangrene (principal); K21.00 Gastro-esophageal reflux disease with esophagitis, without bleeding; F32.A Depression, unspecified; E78.00 Pure hypercholesterolemia, unspecified; Z79.899 Other long term (current) drug therapy; Z86.010 Personal history of colon polyps
CPT/HCPCS: 43239; 80048; 83735; 84484; 85027; 88305; 88312; 93005; 93225; 93226; J7120; J2405

== ENCOUNTER → 2024-01-25 | Outpatient (CLI) | payer MEDICARE, SELFPAY ==
--- NOTE | 2024-01-25 18:41 | CT_ITS ---
INDICATION: hepatocellular carcinoma s/p ablation EXAMINATION: CT ABDOMEN AND PELVIS WITH CONTRAST - CT Abdomen And Pelvis W/ Contrast Injection TECHNIQUE: Helically acquired images were obtained of the abdomen and pelvis following IV contrast. A radiation dose optimization technique was used for this scan. IV Contrast dosage and agent: 100 cc [id number]-300 Oral contrast: Yes. COMPARISON: 08/06/2023 FINDINGS: LOWER CHEST: Lung bases are clear. No cardiomegaly or pericardial effusion. LIVER: Minimal change in the low attenuation but solid lesion inferior right lobe, 4.5 x 2.9 x 4.8 cm. No additional concerning focal lesions. GALLBLADDER AND BILIARY TREE: No calcified gallstones. No gallbladder distension or wall edema. No intra- or extrahepatic biliary ductal dilation. PANCREAS: No focal cystic or solid mass. SPLEEN: Normal size without focal cystic or solid mass. ADRENAL GLANDS: No nodules. KIDNEYS AND URETERS: Uniform enhancement bilaterally. No hydronephrosis. PERITONEUM: No ascites or free air. BOWEL: Normal appendix. No stomach or bowel distension. Oral contrast passes through small bowel into the proximal colon. LYMPH NODES: No enlarged mesenteric or retroperitoneal lymph nodes. VESSELS: Aorta is non-dilated. URINARY BLADDER: Unremarkable. REPRODUCTIVE ORGANS: No pelvic masses. ABDOMINAL WALL: No discrete abdominal or pelvic wall hernia. BONES: No lytic or blastic abnormality. CT/Abdomen/Pelvis WITH Contrast IMPRESSION: No acute findings in the abdomen or pelvis. Stable low-attenuation but cystic appearing lesion in the right lobe liver inferiorly. Electronically Signed: Jaziel Santoro MD at 22:35 EDT Reading Location ID and State: [facility] / MD Tel , Service support ,
== END | disposition home or self-care (01) ==
LOC: CT 18:40
PROVIDERS: PCP Family Medicine; Referring Provider Student in an Organized Health Care Education/Training Program; Visit Provider Student in an Organized Health Care Education/Training Program
DX: R10.9 Unspecified abdominal pain (principal)
CPT/HCPCS: 74177; Q9967

== ENCOUNTER → 2024-02-08 | Outpatient (CLI) | payer MEDICARE, SELFPAY ==
--- NOTE | 2024-02-08 13:50 | ECHOD_ITS ---
Reason For Study: AFib/Flutter Procedure This was a 2D Doppler, Color Flow transthoracic echocardiogram. Exam performed in department. Left Ventricle Normal LV size. Left ventricular systolic function is normal. Stage 1 diastolic dysfunction. No regional wall motion abnormalities noted. Right Ventricle Normal RV size. Normal systolic function. Atria Normal left atrium. Normal right atrium. Mitral Valve Normal mitral valve. Tricuspid Valve Normal tricuspid valve. Mild (1+) tricuspid valve insufficiency. Pulmonary artery systolic pressure is 32 mmHg. Aortic Valve Trisinus/trileaflet aortic valve. Mild focal aortic valve thickening. Pulmonic Valve Normal pulmonic valve. Great Vessels Normal aortic root. The pulmonary artery is normal size. Normal inferior vena cava. Pericardium/Pleural No pericardial effusion. MMode/2D Measurements & Calculations LVIDd: 3.9 cm IVSd: 1.00 cm LVOT diam: 1.9 cm LVIDs: 2.5 cm LVPWd: 0.95 cm LVOT area: 2.7 cm2 RVDd: 3.2 cm FS: 35.9 % Ao root diam: 2.3 cm asc Aorta Diam: 2.8 cm LAV(MOD-bp): 26.6 ml LA dimension: 3.4 cm LAV(MOD-bp) Indexed: 15.7 ml/m2 LAV(MOD-sp2): 23.9 ml LAV(MOD-sp4): 25.9 ml TAPSE: 1.4 cm LA A4 area: 12.5 cm2 RA A4 area: 9.2 cm2 Time Measurements MV dec time: 0.29 sec Doppler Measurements & Calculations MV E max gavin: 45.9 cm/sec Lat Peak E' Gavin: 9.4 cm/sec Med Peak E' Gavin: 5.0 cm/sec MV A max gavin: 84.5 cm/sec E/E' lat: 4.9 E/E' med: 9.1 MV E/A: 0.54 MV V2 max: 108.5 cm/sec MV P1/2t max gavin: 63.8 cm/sec Ao V2 max: 117.0 cm/sec MV max P.7 mmHg MV P1/2t: 85.9 msec Ao max P.5 mmHg MV V2 mean: 48.5 cm/sec MV dec slope: 217.6 cm/sec2 Ao V2 mean: 81.5 cm/sec MV mean P.2 mmHg Ao mean P.0 mmHg MV V2 VTI: 23.6 cm MVA(P1/2t): 2.6 cm2 Ao V2 VTI: 20.9 cm MVA(VTI): 1.8 cm2 AV (velocity ratio): 0.76 JOLENE(I,D): 2.0 cm2 JOLENE(V,D): 1.9 cm2 LV V1 max: 84.4 cm/sec MR max gavin: 559.9 cm/sec SV(LVOT): 42.7 ml LV V1 max P.9 mmHg MR max P.4 mmHg LV V1 mean P.4 mmHg LV V1 mean: 55.2 cm/sec LV V1 VTI: 15.8 cm PA V2 max: 109.2 cm/sec TR max gavin: 266.1 cm/sec PA max PG (full): 2.8 mmHg TR max P.3 mmHg ECHO/Echo Complete Interpretation Summary Normal LV size. Left ventricular systolic function is normal. Stage 1 diastolic dysfunction. Mild (1+) tricuspid valve insufficiency. Ordering Physician: Flaquito Malave Referring Physician: Flaquito Malave Performed By: Chung Orona and Student
== END | disposition home or self-care (01) ==
LOC: CVS 13:50
PROVIDERS: PCP Family Medicine; Referring Provider Internal Medicine Cardiovascular Disease; Visit Provider Internal Medicine Cardiovascular Disease
DX: I48.0 Paroxysmal atrial fibrillation (principal)
CPT/HCPCS: 93306

== ENCOUNTER 2024-02-11 08:30 | Observation (INO) | payer MEDICARE, SELFPAY ==
[2024-02-11] VITALS (9 sets, daily range): BP systolic 121–154; BP diastolic 56–100; PULSE 67–150; RESP 14–19; TEMP 36.6–36.9; O2SAT 96–100; BMI 27.7; BMI 23.0
--- NOTE | 2024-02-11 08:35 | EKG12_ITS ---
Test Reason : Blood Pressure : / mmHG Vent. Rate : 115 BPM Atrial Rate : 000 BPM P-R Int : 000 ms QRS Dur : 070 ms QT Int : 274 ms P-R-T Axes : 000 -17 055 degrees QTc Int : 379 ms Atrial fibrillation with rapid ventricular response Minimal voltage criteria for LVH, may be normal variant ( R in aVL ) -converted to NSR at 85 Abnormal ECG Confirmed by Serafin Quintero ([id number]), deputy editor in chief BERNARDINO MASON ([id number]) on 02/14/2024 11:49:21 AM Referred By: [place] Confirmed By:Serafin Quintero
--- NOTE | 2024-02-11 09:02 | EKG12_ITS ---
Test Reason : Blood Pressure : / mmHG Vent. Rate : 083 BPM Atrial Rate : 083 BPM P-R Int : 144 ms QRS Dur : 070 ms QT Int : 348 ms P-R-T Axes : 041 -20 026 degrees QTc Int : 408 ms Normal sinus rhythm Minimal voltage criteria for LVH, may be normal variant ( R in aVL ) Borderline ECG Confirmed by Serafin Quintero ([id number]), editor continuity and script BERNARDINO MASON ([id number]) on 02/14/2024 11:49:39 AM Referred By: [place] Confirmed By:Serafin Quintero
--- NOTE | 2024-02-11 09:05 | EDS_ITS ---
HPI History of Present Illness Chief Complaint: Weakness Narrative Narrative: Chief complaint and HPI: Weakness. History taken by patient, family members, medical record. 78-year-old female with history of HTN, hepatocellular carcinoma status post ablation in 2021, recent diagnosis of atrial fibrillation on Eliquis presents for evaluation of generalized weakness. Patient states she was recently diagnosed with atrial fibrillation and placed on Eliquis. She states that this was discovered after an EGD. Patient saw Dr. Malave with cardiology on 01/18. At that time patient was started on metoprolol XL 50 mg. Patient states that she has not been taking this secondary to side effects and low blood pressure at home. Patient had an echocardiogram performed on 02/07 echocardiogram shows stage I diastolic dysfunction. Patient states for the past month she has had generalized weakness. She states that it worsens this morning. She states she could barely ambulate even with a lift chair. She denies any fever, chills, URI signs symptoms, chest pain, shortness of breath, abdominal pain, nausea, vomiting, dysuria, numbness/tingling, focal weakness. Review of systems: See HPI Medications: As listed on the chart Allergies: As listed on the chart PFSH: Per chart Vital signs: As listed on the chart. Reviewed. Physical exam: Gen: A&O x3, NAD Head: Normocephalic, atraumatic Eyes: No sclera icterus, conjunctiva clear, PERRL ENT: Moist mucous membranes Neck: Trachea midline, No JVD CV: Tachycardic, irregular rhythm, no murmurs, no peripheral edema Resp: Lungs CTA BL, no w/r/c GI: Abd soft, non-distended, non-tender, no r/r/g Musc: Moves all extremities, no deformity Skin: Warm, dry Neuro: Alert, oriented, grossly intact, sensation intact Psych: Cooperative, appropriate mood and affect [facility] Medical History Atrial flutter Back pain Loss of hearing Depression Cancer History of steroid therapy Arthritis Migraine headache Gastric reflux IBS (irritable bowel syndrome) Hypertension Nausea High cholesterol Home Medications ?Medication ?Instructions ?Recorded ?Last Taken ?Type calcium 600 mg (as 1 tab PO DAILY 11/29/21 12/28/23 History carbonate)-vitamin D3 10 mcg (400 unit) tablet (Calcium 600 + D(3)) multivitamin 1 cap PO DAILY 11/29/21 12/28/23 History sertraline 50 mg tablet 50 mg PO DAILY 11/29/21 12/28/23 History simvastatin 20 mg tablet 20 mg PO QHS 11/29/21 12/28/23 History lisinopril 10 mg tablet 10 mg PO DAILY 08/06/23 12/28/23 History ondansetron HCl 4 mg tablet 4 mg PO Q8H PRN nausea and vomiting 08/16/23 Unknown History acetaminophen 500 mg capsule 1,000 mg PO Q8H PRN PRN pain 12/23/23 12/28/23 History cholecalciferol (vitamin D3) 25 1,000 unit PO DAILY 12/31/23 Unknown History mcg (1,000 unit) capsule (Vitamin D3) duloxetine 20 mg capsule,delayed 20 mg PO BID 12/31/23 Unknown History release omeprazole 20 mg capsule,delayed 20 mg PO BID 6 weeks #84 caps 01/06/24 Unknown Rx release apixaban 5 mg tablet (Eliquis) 5 mg PO BID #60 tabs 01/19/24 Unknown Rx Allergy/AdvReac Type Severity Reaction Status Date / Time No Known Allergies Allergy Verified 02/11/24 08:31 Family History Father History of open heart surgery Brother History of open heart surgery Surgical History History of ablation of neoplasm of liver (~2021) Social History Smoking Status: Never smoker alcohol intake: never substance use type: does not use EXAM Physical Exam Const Vital Signs: 02/11/24 08:33 02/11/24 08:33 02/11/24 08:35 Temperature 98.4 F Temperature Source Oral Pulse Rate 150 H 98 Respiratory Rate 19 H Respiratory Effort Normal Non-Labored Respiratory Pattern Normal Blood Pressure 143/87 H Blood Pressure Mean 105 Pulse Ox 98 Oxygen Delivery Method Room Air 02/11/24 09:35 02/11/24 11:00 Temperature Temperature Source Pulse Rate 77 67 Respiratory Rate 16 16 Respiratory Effort Respiratory Pattern Blood Pressure 149/81 H 154/100 H Blood Pressure Mean 103 118 Pulse Ox 96 97 Oxygen Delivery Method Room Air MDM MDM MDM Narrative Medical decision making narrative: On presentation patient is converting in and out of atrial fibrillation with RVR as well as normal sinus rhythm. Her heart rate has been as high as 150. EKG was obtained at 839. At that time patient was in atrial fibrillation with a heart rate of 115. No ST elevation. Within seconds of receiving this EKG patient then converted to normal sinus rhythm with a heart rate of 83. No acute ischemic changes. Differential diagnosis includes but is not limited to atrial fibrillation with RVR, electrolyte abnormality, ACS, UTI. Cardiac workup ordered including UA. EKG and chest x-ray reviewed. See below. CBC without leukocytosis or anemia. INR normal. BMP without CONNIE. Magnesium level normal. TSH unremarkable. Troponin 31 and delta pending. Patient not having any chest pain. BNP pending. UA has loose esterase but negative for WBCs, blood, bacteria. Patient not having any urinary symptoms. Low suspicion for UTI however will send urine for culture. Patient periodically enters A-fib with RVR versus normal sinus rhythm. Given that her echocardiogram was unremarkable we will give 10 mg IV diltiazem. At the time she received that she was in atrial fibrillation. After being given that she converted to normal sinus rhythm with a heart rate in the 60s. This has been the best heart rate I have had from the patient. No clear etiology for patient's generalized weakness. May be symptomatic atrial fibrillation. Patient unable to ambulate in our emergency department. She has generalized weakness and states she feels lightheaded. This all was attempted while in normal sinus rhythm. Cardiology was contacted and patient was discussed with Dr. See. He recommends 120 mg of diltiazem daily and follow-up in the cardiology office. From an cardiac/atrial fibrillation standpoint patient does not warrant admission. However given that patient is endorsing generalized weakness and inability to ambulate she will warrant admission for PT OT evaluation and further management. Patient and family updated of all results and confirmed understanding the plan. Patient was discussed with Dr. Cadet who agrees with admission. EKG: Interpreted by me/EM physician: EKG shows atrial fibrillation with a heart rate of 115. No acute ischemic changes. EKG shows normal sinus rhythm with a heart rate of 83. No acute ischemic changes Diagnostic: Interpreted by me/EM physician: Chest x-ray no pneumonia, effusion, cardiomegaly, pneumothorax Impression: 1. Paroxysmal atrial fibrillation with RVR, currently in normal sinus rhythm with rate control 2. Generalized weakness 3. Inability to ambulate due to weakness Lab Data Labs: Laboratory Results - last 24 hr 02/11/24 02/11/24 08:52 10:10 WBC 5.8 RBC 4.66 Hgb 14.2 Hct 43.4 MCV 93.1 MCH 30.5 MCHC 32.7 RDW Std Deviation 44.8 H RDW Coeff of [place] 13.1 Plt Count 271 MPV 9.4 Immature Gran % (Auto) 0.500 Neut % (Auto) 61.8 Lymph % (Auto) 25.2 [place] % (Auto) 10.3 H Eos % (Auto) 1.7 Baso % (Auto) 0.5 Absolute Neuts (auto) 3.6 Absolute Lymphs (auto) 1.46 Nucleated RBC % 0 PT 15.8 H INR 1.3 APTT 31.2 Sodium 140 Potassium 3.9 Chloride 108 H Carbon Dioxide 26.0 Anion Gap 6 BUN 18 Creatinine 0.86 Estim Creat Clear Calc 49.32 Est GFR (MDRD) Af Amer 82 Est GFR (MDRD) Non-Af 67 BUN/Creatinine Ratio 21.0 H Glucose 130 H Calcium 10.1 Magnesium 2.2 Troponin I High Sens 31 TSH 1.130 Urine Color Straw Urine Clarity Sl. Cloudy Urine pH 7.0 Ur Specific [place] 1.010 Urine Protein Negative Urine Glucose (UA) Normal Urine Ketones Negative Urine Occult Blood Negative Urine Nitrite Negative Urine Bilirubin Negative Urine Urobilinogen Normal Ur Leukocyte Esterase 100 H Urine RBC 0 SEEN Urine WBC 0-5 SEEN Ur Squamous Epith Cells 0 SEEN Urine Bacteria RARE Urine Mucus 0 SEEN Radiography Diagnostic Testing: Clinical Impression(s) from Imaging Studies Chest X-Ray 02/11/24 09:10 IMPRESSION: No acute cardiopulmonary process identified. Electronically Signed: Valeria Noble MD at 9:41 EDT , Discharge Plan Triage Chief Complaint: Weakness ED Provider: Chung Rothman Dx/Rx/DC Orders Prescriptions: No Action ondansetron HCl 4 mg tablet 4 mg PO Q8H PRN (Reason: nausea and vomiting) duloxetine 20 mg capsule,delayed release(DR/EC) 20 mg PO BID Eliquis 5 mg tablet 5 mg PO BID Qty: 60 11RF simvastatin 20 mg Tablet 20 mg PO QHS multivitamin Capsule 1 cap PO DAILY sertraline 50 mg Tablet 50 mg PO DAILY calcium carbonate-vitamin D3 [Calcium 600 + D(3)] 600 mg-10 mcg (400 unit) Tablet 1 tab PO DAILY cholecalciferol (vitamin D3) [Vitamin D3] 25 mcg (1,000 unit) capsule 1,000 unit PO DAILY lisinopril 10 mg tablet 10 mg PO DAILY acetaminophen 500 mg capsule 1,000 mg PO Q8H PRN PRN (Reason: pain) omeprazole 20 mg capsule,delayed release(DR/EC) 20 mg PO BID 42 Days Qty: 84 0RF Primary Care Provider: Shawn Ramires Referrals: Shawn Ramires MD [Primary Care Provider] - Print Language: German
--- NOTE | 2024-02-11 09:10 | RAD_ITS ---
HISTORY: Arrhythmia. TECHNIQUE: XR Chest 1 View. COMPARISON: 11/29/2021. FINDINGS: CARDIOMEDIASTINAL BORDERS: Cardiac silhouette within normal limits in size. Mediastinal contour unremarkable. LUNGS: Radiographically clear. PLEURA: No pleural effusion or pneumothorax seen. OSSEOUS STRUCTURES: Mild degenerative change. RAD/Chest 1 View (Portable) IMPRESSION: No acute cardiopulmonary process identified. Electronically Signed: Valeria Noble MD at 9:41 EDT ,
[2024-02-11 09:11] LABS: Absolute Lymphocyte Count 1.46 X10^3/uL (0.83-4.51); Absolute Neutrophil Count 3.6 X10^3/uL (2.0-7.7); Basophil# 0.03 X10^3/uL; Basophil% 0.5 % (0-1); Eosinophils% 1.7 % (0-5); Hematocrit 43.4 % (37-47); Hemoglobin 14.2 g/dL (12.0-15.0); Lymphocyte # 1.46 X10^3/ul (0.83-4.51); Lymphocyte % 25.2 % (19-41); Mean Corp Hgb Conc 32.7 g/dL (32-36); Mean Corpuscular Hgb 30.5 pg (27.0-32.0); Mean Corpuscular Volume 93.1 fL (81-99); Mean Platelet Vol. 9.4 fl (6.2-12.0); Monocyte% 10.3 % (0-10); NRBC Flagged by Analyzer 0 % (0-5); Neutrophil # 3.58 X10^3/uL (2.7-7.7); Neutrophil % 61.8 % (47-70); Platelet Count 271 K/mm3 (150-450); RBC Distribution Width CV 13.1 % (11.6-14.6); RBC Distribution Width SD 44.8 fl (35.1-43.9); Red Blood Count 4.66 M/mm3 (4.2-5.4); White Blood Count 5.8 K/mm3 (4.4-11.0)
[2024-02-11 09:29] LABS: International Normalized Ratio 1.3; Partial Thromboplast Time 31.2 Seconds (24.1-36.2); Prothrombin Time (Protime)PT. 15.8 SECONDS (11.7-14.9)
[2024-02-11 09:40] LABS: Anion Gap 6 (5-15); BUN 18 mg/dL (7-18); Calcium,Total 10.1 mg/dL (8.5-10.1); Chloride 108 mmol/L (98-107); Creatinine, Serum 0.86 mg/dL (0.55-1.02); EST Glomerular Filtration Rate 67 mL/min (>60); Est Glom Filt Rate - Afr Amer 82 mL/min (>60); Estimated Creatinine Clearance 49.32 ml/min; Glucose 130 mg/dL (74-106); Magnesium 2.2 mg/dL (1.6-2.6); Potassium 3.9 mmol/L (3.5-5.1); Sodium Level 140 mmol/L (136-145); Troponin-I HS (w/2H Reflex) 31 pg/mL (3.0-54.0)
[2024-02-11 10:33] LABS: Mucous, Urine 0 SEEN /hpf (<or=2+); Red Blood Cells-Urine 0 SEEN /hpf (0-5); Squamous Epithelial Cells - UA 0 SEEN /hpf (5-10)
[2024-02-11 10:44] LABS: Color, Urine Straw (Yellow); Glucose, Dipstick Normal (Normal); Ketone-Dipstick Negative (Negative); Leukocyte Esterase-Dipstick 100 /ul (Negative); Nitrite-Dipstick Negative (Negative); Occult Blood-Urine Negative /ul (Negative); Protein-Dipstick Negative (Negative); Urine Bilirubin Dipstick Negative (Negative); Urine Clarity Sl. Cloudy (Clear); Urine Urobilinogen Normal (Normal)
[2024-02-11] MEDS: dilTIAZem 25 MG/5 ML Vial 10 MG IV BOLUS (11:00)
[2024-02-11 11:03] LABS: White Blood Cells 0-5 SEEN /hpf (0-5)
[2024-02-11 11:04] LABS: Bacteria RARE /hpf (None Seen)
[2024-02-11 11:08] LABS: Reflex Troponin-HS? (from REC) Y
--- NOTE | 2024-02-11 11:35 | PCM.HP.STD ---
HPI - General General Date of Admission: 02/11/24 Date of Service: 02/11/24 Chief Complaint: Generalized weakness HPI Narrative WALTER MILLAN, is a 78 F with past medical history is again for recently diagnosed paroxysmal A-fib/flutter, essential hypertension dyslipidemia who presented to the emergency department with generalized weakness. Per patient symptoms have been ongoing for the past couple of months however her symptoms have gotten increasingly worse over the past weeks. She did fall days prior to her admission. Patient was recently diagnosed with A-fib as outpatient started on metoprolol which she did not tolerate in view of relatively low blood pressure. She was brought to the emergency department by the family on account of profound weakness. Workup in the emergency department was unremarkable except for positive leukocyte esterase. Patient denied any dysuria nor frequency. She was found to be A-fib with RVR did receive Cardizem bolus and converted back to sinus. She was subsequently admitted to a monitored bed as a case of an adult failure to thrive. Of note patient has been referred to neurology as outpatient for possible workup for progressive generalized weakness with associated tremors?? Parkinson's. [facility] Medical History Atrial flutter Back pain Loss of hearing Depression Cancer History of steroid therapy Arthritis Migraine headache Gastric reflux IBS (irritable bowel syndrome) Hypertension Nausea High cholesterol Home Medications ?Medication ?Instructions ?Recorded ?Last Taken ?Type calcium 600 mg (as 1 tab PO DAILY 11/29/21 02/10/24 History carbonate)-vitamin D3 10 mcg (400 unit) tablet (Calcium 600 + D(3)) sertraline 50 mg tablet 50 mg PO DAILY 11/29/21 02/10/24 History simvastatin 20 mg tablet 20 mg PO QHS 11/29/21 02/10/24 History lisinopril 10 mg tablet 10 mg PO DAILY 08/06/23 02/10/24 History ondansetron HCl 4 mg tablet 4 mg PO Q8H PRN nausea and vomiting 08/16/23 02/10/24 History acetaminophen 500 mg capsule 1,000 mg PO Q8H PRN PRN pain 12/23/23 12/28/23 History cholecalciferol (vitamin D3) 25 1,000 unit PO DAILY 12/31/23 02/10/24 History mcg (1,000 unit) capsule (Vitamin D3) duloxetine 20 mg capsule,delayed 20 mg PO BID 12/31/23 02/10/24 History release omeprazole 20 mg capsule,delayed 20 mg PO BID 6 weeks #84 caps 01/06/24 02/10/24 Rx release apixaban 5 mg tablet (Eliquis) 5 mg PO BID #60 tabs 01/19/24 Unknown Rx multivitamin (Daily Multi-Vitamin 1 tab PO DAILY 02/11/24 02/10/24 History tablet) Allergy/AdvReac Type Severity Reaction Status Date / Time No Known Allergies Allergy Verified 02/11/24 08:31 Family History Father History of open heart surgery Brother History of open heart surgery Surgical History History of ablation of neoplasm of liver (~2021) Social History Smoking Status: Never smoker alcohol intake: never substance use type: does not use ROS ROS Narrative GENERAL: Generalized weakness and falls HEENT: denies headache, sinus congestion, RESPIRATORY: denies cough, sputum production, CARDIAC: denies chest pain, palpitations, orthopnea, PND GASTROINTESTINAL: denies abdominal pain, nausea, vomiting, melena, GENITOURINARY: denies dysuria, urgency, frequency, heamaturia EXTREMITY: denies swelling MUSCULOSKELETAL: denies current joint pain or tenderness NEUROLOGIC: denies focal numbness, weakness, tingling HEMATOLOGIC: denies easy bruising and/or hemorrhage INTEGUMENT: denies rashes PSYCHIATRIC: denies suicidal or homicidal ideation Vital Signs Vital Signs Vital Signs: 02/11/24 08:33 02/11/24 08:33 02/11/24 08:35 Temperature 98.4 F Temperature Source Oral Pulse Rate 150 H 98 Respiratory Rate 19 H Respiratory Effort Normal Non-Labored Respiratory Pattern Normal Blood Pressure 143/87 H Blood Pressure Mean 105 Pulse Ox 98 Oxygen Delivery Method Room Air 02/11/24 09:35 02/11/24 11:00 02/11/24 11:00 Temperature 98.1 F Temperature Source Pulse Rate 77 67 67 Respiratory Rate 16 16 16 Respiratory Effort Respiratory Pattern Blood Pressure 149/81 H 154/100 H 154/100 H Blood Pressure Mean 103 118 118 Pulse Ox 96 97 97 Oxygen Delivery Method Room Air Weight Weight: 71.1 kg Body Mass Index (BMI) 27.7 Physical Exam Narrative GENERAL: cooperative HEENT: Atraumatic; normocephalic EYES; Anicteric, Normal Conjunctiva NECK; supple, normal thyroid, RESPIRATORY: Diminished to auscultation CARDIOVASCULAR: Regular S1 S2, GI: soft, normoactive bowel sounds, : No Renal angle tenderness; EXTREMITIES: No edema, no clubbing, MUSCULOSKELETAL: no muscle wasting NEURO: Awake; no lateralizing signs. SKIN: 5 mm distal left lower extremity PSYCH; Flat affect Results Lab / Micro Data 02/11/24 08:52 02/11/24 08:52 Labs: Laboratory Results - last 24 hr 02/11/24 08:52: WBC 5.8, RBC 4.66, Hgb 14.2, Hct 43.4, MCV 93.1, MCH 30.5, MCHC 32.7, RDW Std Deviation 44.8 H, RDW Coeff of [place] 13.1, Plt Count 271, MPV 9.4, Immature Gran % (Auto) 0.500, Neut % (Auto) 61.8, Lymph % (Auto) 25.2, [place] % (Auto) 10.3 H, Eos % (Auto) 1.7, Baso % (Auto) 0.5, Absolute Neuts (auto) 3.6, Absolute Lymphs (auto) 1.46, Nucleated RBC % 0, PT 15.8 H, INR 1.3, APTT 31.2, Sodium 140, Potassium 3.9, Chloride 108 H, Carbon Dioxide 26.0, Anion Gap 6, BUN 18, Creatinine 0.86, Estim Creat Clear Calc 49.32, Est GFR (MDRD) Af Amer 82, Est GFR (MDRD) Non-Af 67, BUN/Creatinine Ratio 21.0 H, Glucose 130 H, Calcium 10.1, Magnesium 2.2, Troponin I High Sens 31, TSH 1.130 02/11/24 10:10: Urine Color Straw, Urine Clarity Sl. Cloudy, Urine pH 7.0, Ur Specific [place] 1.010, Urine Protein Negative, Urine Glucose (UA) Normal, Urine Ketones Negative, Urine Occult Blood Negative, Urine Nitrite Negative, Urine Bilirubin Negative, Urine Urobilinogen Normal, Ur Leukocyte Esterase 100 H, Urine RBC 0 SEEN, Urine WBC 0-5 SEEN, Ur Squamous Epith Cells 0 SEEN, Urine Bacteria RARE, Urine Mucus 0 SEEN Imaging Radiology Impression Chest X-Ray 02/11/24 09:10 IMPRESSION: No acute cardiopulmonary process identified. Electronically Signed: Valeria Noble MD at 9:41 EDT , Assessment & Plan Assessment/Plan (1) FTT (failure to thrive) in adult: (2) Paroxysmal atrial fibrillation: PLAN: Plan Patient is an 78-year-old female presenting with progressive generalized weakness and falls 1. Physical deconditioning ? Patient presents with progressive generalized weakness and a couple of falls. Requested for PT OT eval and social science analyst to assist with discharge planning 2. Multiple falls? Movement disorder? Parkinson's disease ? Patient has been referred to be evaluated by Dr. Ruff as outpatient 3. Paroxysmal A-fib/flutter ? Patient went into A-fib with RVR in the ED did receive IV Cardizem and converted back to sinus. Cardiology was consulted from the ED recommendation is for patient to be started on Cardizem 120 mg CD daily. Patient is on systemic anticoagulation with apixaban did continue 4. Suspected cystitis ? Patient only symptoms being the progressive weakness. Had positive leukocyte Estrace. Patient empirically started on ceftriaxone cultures sent 5. Dyslipidemia ?Patient is on statin therapy, continued at home dose 6. Depression ? Patient is on sertraline as well as duloxetine did continue 7. History of liver CA ? Treated with ablation 8. Chronic back pain -secondary to DJD Tylenol as needed 9. GERD As patient is on PPI 10. DVT prophylaxis ? Patient already anticoagulated with apixaban Time spent in the patient's overall evaluation,decision-making process, review of diagnostic data, adjustment of management, discussion with other providers, nursing nursing and ancillary staff involved in patient's care documentation, 75Minutes Advance planning; did discuss with the patient and family regarding advanced directives as well as CODE STATUS. Did explain the various scenarios involved ( FULL CODE, DNR CCA, DNR CCA with no intubation, and DNR CC and what each meant) patient elected to be DNR CCA no intubation. Order was placed. Time spent on discussion 18 minutes. Charges/Coding Multi Select Codes Visit Charges Visit Charges: 37805 Init Hosp Hospitalists' Procedures Procedures: 67827 Advncd Care Plan 30 Min
[2024-02-11 11:57] LABS: Troponin-I HS 29 pg/mL (3.0-54.0)
[2024-02-11] MEDS: Ceftriaxone 1 GM/50 ML BAG IV (13:41)
[2024-02-11] MEDS: dilTIAZem CD 120 MG Capsule PO (13:42)
[2024-02-11 13:58] LABS: BNP,B-Type NATRIURETIC PEPTIDE 94.7 pg/mL (0-100)
--- NOTE | 2024-02-11 15:00 | CASEMGMT ---
RN TJ Assessment: Face to Face with pt for initial transition planning/care coordination assessment. RN CM introduced self and role at [facility], pt voices understanding and consents to assessment. Pt is A&O x4 and answers all questions appropriately at this time. Pt sitting up in bed with two dtrs and brother at bedside. Pt agreeable to assessment with family present. Care providers, pharmacy, and demographics verified/updated. Admitting Dx: weakness, afib Strata Score: NA PCP:Ike Specialists:Deepika, neuro- pt has appt in Apr to see; Frieda, cardio; Donnell, pain mgmt; Friend, GI; Danelle from Preferred Pharmacy: [facility] Retail Insurance: [employer] Prescription Benefit: yes LNOK: Sheng Espinoza, dtr; amy Kempr Living Arrangements: Pt lives alone in a two story home with 6 steps to enter with a rail. Pt reports up until a couple of days ago she was able to bathe and dress herself. Pt dtrs bring food in for her on Sundays for the week. Pt does own laundry and pt dtrs get the groceries. Transportation: Pt can drive but mostly pt dtrs transport her. DME:cane, walker, grab bars in the bathroom, shower chair x 2 HHC/SNF: Pt reports active with [facility] program, declines SNF stays. Pt states no concerns with going home at time of dc. Pt states that [facility] was given a referral by PCP for therapy. She would like this to start upon dc. Pt is aware that this RN CM will notify them and place order. Discussed SN, PT and OT. Pt denies need for a list as this agency was already chosen prior to hospital stay. Pt dtr states that pt is signed up for medic alert through [facility] and they are awaiting this to be set up. Pt states no further concerns/needs. Therapy to eval pt. CM to follow. Advised pt to ask CM if any further question/concerns/needs arise, voices understanding. Pt family in agreement with plan. Pt Goal: Home with C Plan: Home with [facility] pending course of hospitalization and therapy evals. TC wm Pascual at [facility], she is aware pt is in [facility]. Referral made for services. Green sheet placed on chart. Message sent to Nicholas at [facility] to make aware of admission. Baldo ASKEW CM
--- NOTE | 2024-02-11 15:25 | CHAPLAIN ---
Type of Pastoral Visit _x__ Initial Visit ___ Follow-up Visit ___ On-call Visit ___ General Patient Visit ___ Spiritual Assessment ___ Family Conference ___ Bereavement ___ Rapid Response ___ Code Blue ___ Other (describe below) Pastoral Care Referral From _x__ Patient ___ Family ___ Nurse ___ Physician ___ Louver Mortiser Operator ___ Rubber Cutting Machine Tender ___ Other (describe below) Sacrament/Intervention _x__ Active listening ___ Anointing ___ Jain ___ Bereavement ___ Communion ___ Brigette exploration ___ ___ Life review _x__ Prayer ___ Reconciliation ___ Sacrament of Sick _x__ Supportive presence ___ Wedding ___ Other (describe below) Pastoral Comments patient has just finished her lunch and several family members are in the room; pt gives some details of her illness and how she has some worries about it and for life; pt reports good support from family as evidenced in the room; pt is connected to a confucianism that is supportive as well; pt asks for prayers for her health needs
[2024-02-11] MEDS: Pantoprazole Sodium 20 MG Tablet PO (22:58)
[2024-02-11] MEDS: DULoxetine Hcl 20 MG Capsule PO (22:58)
[2024-02-11] MEDS: Atorvastatin Calcium 10 MG Tablet PO (22:58)
[2024-02-11] MEDS: APIXABAN 5 MG TABLET PO (22:58)
[2024-02-12 04:11] VITALS: BP 151/76; PULSE 78; RESP 16; TEMP 36.4; O2SAT 96
[2024-02-12 07:23] LABS: Absolute Lymphocyte Count 1.93 X10^3/uL (0.83-4.51); Absolute Neutrophil Count 3.3 X10^3/uL (2.0-7.7); Basophil# 0.04 X10^3/uL; Basophil% 0.7 % (0-1); Eosinophil# 0.16 X10^3/uL; Eosinophils% 2.6 % (0-5); Hematocrit 40.3 % (37-47); Hemoglobin 13.4 g/dL (12.0-15.0); Lymphocyte # 1.93 X10^3/ul (0.83-4.51); Lymphocyte % 31.6 % (19-41); Mean Corp Hgb Conc 33.3 g/dL (32-36); Mean Corpuscular Hgb 30.9 pg (27.0-32.0); Mean Corpuscular Volume 92.9 fL (81-99); Mean Platelet Vol. 9.5 fl (6.2-12.0); Monocyte# 0.64 X10^3/uL; Monocyte% 10.5 % (0-10); NRBC Flagged by Analyzer 0 % (0-5); Neutrophil # 3.32 X10^3/uL (2.7-7.7); Neutrophil % 54.3 % (47-70); Platelet Count 265 K/mm3 (150-450); RBC Distribution Width CV 13.2 % (11.6-14.6); RBC Distribution Width SD 45.1 fl (35.1-43.9); Red Blood Count 4.34 M/mm3 (4.2-5.4); White Blood Count 6.1 K/mm3 (4.4-11.0)
[2024-02-12 07:50] LABS: Anion Gap 6 (5-15); BUN 22 mg/dL (7-18); BUN/Creat Ratio 27.6 RATIO (10-20); Calcium,Total 9.8 mg/dL (8.5-10.1); Chloride 109 mmol/L (98-107); EST Glomerular Filtration Rate 74 mL/min (>60); Est Glom Filt Rate - Afr Amer 89 mL/min (>60); Glucose 125 mg/dL (74-106); Magnesium 2.3 mg/dL (1.6-2.6); Phosphorus 3.1 mg/dL (2.5-4.9); Potassium 4.1 mmol/L (3.5-5.1); Sodium Level 140 mmol/L (136-145)
[2024-02-12 08:01] VITALS: O2SAT 95
[2024-02-12] MEDS: Ceftriaxone 1 GM/50 ML BAG IV (09:53)
[2024-02-12] MEDS: Sertraline 50 MG Tablet PO (09:53)
[2024-02-12] MEDS: Calcium Carb/Vitamin D 1 TABLET Tablet PO (09:53)
[2024-02-12] MEDS: Pantoprazole Sodium 20 MG Tablet PO ×2 (09:54→20:59)
[2024-02-12] MEDS: Multivitamins,Therapeutic Tablet 1 TABLET PO (09:54)
[2024-02-12] MEDS: APIXABAN 5 MG TABLET PO ×2 (09:54→20:59)
[2024-02-12] MEDS: DULoxetine Hcl 20 MG Capsule PO ×2 (09:54→20:59)
[2024-02-12] MEDS: FLU VACCINE **HIGH DOSE** TV 24-25 180 MCG/0.5 ML SYRINGE IM (09:54)
[2024-02-12] MEDS: Cholecalciferol (VIT D3) 25 MCG TABLET (1,000 UNITS) PO (09:54)
[2024-02-12] MEDS: dilTIAZem CD 120 MG Capsule PO (09:54)
[2024-02-12] MEDS: Acetaminophen 325 MG Tablet 650 MG PO (09:56)
[2024-02-12 09:59] VITALS: BP 143/61; PULSE 84; RESP 16; TEMP 36; O2SAT 99
--- NOTE | 2024-02-12 10:01 | CASEMGMT ---
Addendum entered by Sanjana Clarke 02/12/24 10:42: Xander PT spoke with JAMILAH SPENCER and stated pt does not feel comfortable dc'ing home. JAMILAH SPENCER into pt room, pt asks for neurology consult this stay. They plan to discuss with hospitalist when he rounds. Messaged hospitalist to make aware. Pt and family are requesting [facility] as pt states her was there in the past. Pt denies need for SNF list at this time. Pt and family aware that RN TJ will notify SW for referral. TC to Marline, updated on pt status. Addendum entered by Sanjana Clarke 02/12/24 10:13: JAMILAH SPENCER into pt room and therapy working with pt. Spoke with PT who states pt is safe to return home if someone is with her at all times. Pt dtr present. They would like to see how pt progresses to see if she gets stronger of if another dc plan needs to be put in place. Plan to see how pt progresses with therapy tomorrow. JAMILAH SPENCER to follow. Original Note: Received confirmation from [facility] via barbara that they are able to accept pt for care with SOC on Wednesday. Pt updated.
--- NOTE | 2024-02-12 13:49 | CASEMGMT ---
Social Work- SW met with pt who states that her FOC is TCU; declines SNF list. SW completed referral to TCU. SONAM will continue to follow. LILIAN Arnold
[2024-02-12 14:00] VITALS: BP 126/54; PULSE 71; RESP 16; TEMP 36.4; O2SAT 98
--- NOTE | 2024-02-12 16:12 | PCM.PN.HOSP ---
Subjective Subjective Doing well, no issues overnight Objective Data Objective Data Vital Signs: Vital Signs Temp Pulse Resp BP Pulse Ox O2 Del Method 97.6 F L 71 16 126/54 H 98 Room Air 02/12/24 14:00 02/12/24 14:00 02/12/24 14:00 02/12/24 14:00 02/12/24 14:00 02/12/24 14:00 Oxygen Delivery Method Room Air Weight: 129 lb 13.636 oz Body Mass Index (BMI) 23.0 Intake & Output: Intake and Output for Last 24 Hours 02/11/24 02/12/24 02/13/24 03:59 03:59 03:59 Intake Total 50 / 50 50 / 50 Output Total 200 / 200 250 / 250 Balance -150 / -150 -200 / -200 Lab / Micro Data 02/12/24 06:55 02/12/24 06:55 Labs: Laboratory Results - last 24 hr 02/12/24 06:55: WBC 6.1, RBC 4.34, Hgb 13.4, Hct 40.3, MCV 92.9, MCH 30.9, MCHC 33.3, RDW Std Deviation 45.1 H, RDW Coeff of [place] 13.2, Plt Count 265, MPV 9.5, Immature Gran % (Auto) 0.300, Neut % (Auto) 54.3, Lymph % (Auto) 31.6, [place] % (Auto) 10.5 H, Eos % (Auto) 2.6, Baso % (Auto) 0.7, Absolute Neuts (auto) 3.3, Absolute Lymphs (auto) 1.93, Nucleated RBC % 0, Sodium 140, Potassium 4.1, Chloride 109 H, Carbon Dioxide 26.0, Anion Gap 6, BUN 22 H, Creatinine 0.80, Estim Creat Clear Calc 46.40, Est GFR (MDRD) Af Amer 89, Est GFR (MDRD) Non-Af 74, BUN/Creatinine Ratio 27.6 H, Glucose 125 H, Calcium 9.8, Phosphorus 3.1, Magnesium 2.3 Micro: Microbiology 02/11/24 10:10 Urine, Clean Catch Urine Culture - Preliminary Streptococcus agalactiae (B) Physical Exam Narrative General: Alert, Oriented x3, Cooperative, No apparent distress HEENT: Atraumatic, PERRLA, EOMI, Normocephalic Oral: Moist Mucosa Neck: Supple, No JVD Lungs: Clear to auscultation, Normal air movement, No rhonchi, No wheeze, No rales Cardiovascular: Regular rate, Regular Rhythm, Normal S1, Normal S2, No murmurs Abdomen: Soft, Non Tender, Non-Distended, No Hepato-splenomegaly Extremities: No edema, Capillary Refill Less than 3 Seconds Skin: No rashes, No breakdown Musculoskeletal: No Tenderness to Palpation of Joints or Extremities Neurological: General Weakness in her upper and lower extremities. She has a mild tremor that seems more significant in her left hand, face seems a little masked Psych/Mental Status: Normal Affect, Appropriate Assessment & Plan Assessment/Plan (1) FTT (failure to thrive) in adult: (2) Paroxysmal atrial fibrillation: PLAN: Plan 1. Physical deconditioning ? Patient presents with progressive generalized weakness and a couple of falls. Requested for PT OT eval and socially responsible investment adviser to assist with discharge planning 02/12/2024: Plan for SNF discharge, PT/OT 2. Multiple falls? Movement disorder? Parkinson's disease ? Patient has been referred to be evaluated by Dr. Ruff as outpatient 02/11: Her appointment is in April with neurology I did encourage to look for the referrals to see if she can get in sooner 3. Paroxysmal A-fib/flutter ? Patient went into A-fib with RVR in the ED did receive IV Cardizem and converted back to sinus. Cardiology was consulted from the ED recommendation is for patient to be started on Cardizem 120 mg CD daily. Patient is on systemic anticoagulation with apixaban did continue 02/12/2024: RVR is resolved 4. Suspected cystitis ? Patient only symptoms being the progressive weakness. Had positive leukocyte Estrace. Patient empirically started on ceftriaxone cultures sent 5. Dyslipidemia ?Patient is on statin therapy, continued at home dose 6. Depression ? Patient is on sertraline as well as duloxetine did continue 7. History of liver CA ? Treated with ablation 8. Chronic back pain -secondary to DJD Tylenol as needed 9. GERD As patient is on PPI DVT: Eliquis Charges/Coding Visit Charges Inpatient E&M: 85843 Subs Hosp L2
[2024-02-12 20:48] VITALS: BP 118/49; PULSE 71; RESP 16; TEMP 36.6; O2SAT 96
[2024-02-12 20:49] VITALS: BP 118/49; PULSE 71; RESP 16; TEMP 36.6; O2SAT 96
[2024-02-12] MEDS: Atorvastatin Calcium 10 MG Tablet PO (20:59)
[2024-02-13 03:30] VITALS: BP 146/71; PULSE 75; RESP 16; TEMP 36.4; O2SAT 96
[2024-02-13 04:45] VITALS: BMI 23.5
[2024-02-13 07:18] VITALS: O2SAT 95
[2024-02-13 08:57] VITALS: BP 138/61; PULSE 72; RESP 16; TEMP 36.4; O2SAT 99
[2024-02-13] MEDS: DULoxetine Hcl 20 MG Capsule PO ×2 (09:05→21:02)
[2024-02-13] MEDS: Multivitamins,Therapeutic Tablet 1 TABLET PO (09:05)
[2024-02-13] MEDS: APIXABAN 5 MG TABLET PO ×2 (09:05→21:02)
[2024-02-13] MEDS: dilTIAZem CD 120 MG Capsule PO (09:05)
[2024-02-13] MEDS: Pantoprazole Sodium 20 MG Tablet PO ×2 (09:06→21:02)
[2024-02-13] MEDS: Calcium Carb/Vitamin D 1 TABLET Tablet PO (09:06)
[2024-02-13] MEDS: Ceftriaxone 1 GM/50 ML BAG IV (09:06)
[2024-02-13] MEDS: Cholecalciferol (VIT D3) 25 MCG TABLET (1,000 UNITS) PO (09:07)
[2024-02-13] MEDS: Sertraline 50 MG Tablet PO (09:07)
--- NOTE | 2024-02-13 10:55 | PN.HOSP_ITS ---
Subjective Subjective Doing well today, no issues overnight Objective Data Objective Data Vital Signs: Vital Signs Temp Pulse Resp BP Pulse Ox O2 Del Method 97.6 F L 72 16 138/61 H 99 Room Air 02/13/24 08:57 02/13/24 08:57 02/13/24 08:57 02/13/24 08:57 02/13/24 08:57 02/13/24 08:57 Oxygen Delivery Method Room Air Weight: 132 lb 11.492 oz Body Mass Index (BMI) 23.5 Intake & Output: Intake and Output for Last 24 Hours 02/12/24 02/13/24 02/14/24 03:59 03:59 03:59 Intake Total 50 / 50 50 / 50 50 / 50 Output Total 200 / 200 250 / 250 Balance -150 / -150 -200 / -200 50 / 50 Lab / Micro Data 02/12/24 06:55 02/12/24 06:55 Micro: Microbiology 02/11/24 10:10 Urine, Clean Catch Urine Culture - Final Streptococcus agalactiae (B) Mixed Gram Pos & Gram Neg Org Physical Exam Narrative General: Alert, Oriented x3, Cooperative, No apparent distress HEENT: Atraumatic, PERRLA, EOMI, Normocephalic Oral: Moist Mucosa Neck: Supple, No JVD Lungs: Clear to auscultation, Normal air movement, No rhonchi, No wheeze, No rales Cardiovascular: Regular rate, Regular Rhythm, Normal S1, Normal S2, No murmurs Abdomen: Soft, Non Tender, Non-Distended, No Hepato-splenomegaly Extremities: No edema, Capillary Refill Less than 3 Seconds Skin: No rashes, No breakdown Musculoskeletal: No Tenderness to Palpation of Joints or Extremities Neurological: General Weakness in her upper and lower extremities. She has a mild tremor that seems more significant in her left hand, face seems a little masked Psych/Mental Status: Normal Affect, Appropriate Assessment & Plan Assessment/Plan (1) FTT (failure to thrive) in adult: (2) Paroxysmal atrial fibrillation: PLAN: Plan 1. Physical deconditioning ? Patient presents with progressive generalized weakness and a couple of falls. Requested for PT OT eval and social organization professor to assist with discharge planning 02/12/2024: Plan for SNF discharge, PT/OT 2. Multiple falls? Movement disorder? Parkinson's disease ? Patient has been referred to be evaluated by Dr. Ruff as outpatient 02/11: Her appointment is in April with neurology I did encourage to look for the referrals to see if she can get in sooner 3. Paroxysmal A-fib/flutter ? Patient went into A-fib with RVR in the ED did receive IV Cardizem and converted back to sinus. Cardiology was consulted from the ED recommendation is for patient to be started on Cardizem 120 mg CD daily. Patient is on systemic anticoagulation with apixaban did continue 02/12/2024: RVR is resolved 4. Suspected cystitis ? Patient only symptoms being the progressive weakness. Had positive leukocyte Estrace. Patient empirically started on ceftriaxone cultures sent 02/13/2024: Urine cultures with mixed organisms as well as group B strep of 11- 25,000 CFU's, continue with Rocephin 5. Dyslipidemia ?Patient is on statin therapy, continued at home dose 6. Depression ? Patient is on sertraline as well as duloxetine did continue 7. History of liver CA ? Treated with ablation 8. Chronic back pain -secondary to DJD Tylenol as needed 9. GERD As patient is on PPI DVT: Eliquis Charges/Coding Visit Charges Inpatient E&M: 72768 Subs Hosp L2
[2024-02-13 14:31] VITALS: BP 130/59; PULSE 76; RESP 16; TEMP 36.7; O2SAT 97
[2024-02-13 20:55] VITALS: BP 143/60; PULSE 74; RESP 16; TEMP 36.6; O2SAT 95
[2024-02-13] MEDS: Atorvastatin Calcium 10 MG Tablet PO (21:02)
[2024-02-14 04:15] VITALS: BP 143/69; PULSE 66; RESP 16; TEMP 36.7; O2SAT 95
[2024-02-14 04:43] VITALS: BMI 25.0
[2024-02-14 06:59] LABS: Absolute Lymphocyte Count 1.63 X10^3/uL (0.83-4.51); Absolute Neutrophil Count 4.1 X10^3/uL (2.0-7.7); Basophil# 0.03 X10^3/uL; Basophil% 0.4 % (0-1); Eosinophil# 0.23 X10^3/uL; Eosinophils% 3.4 % (0-5); Hematocrit 40.5 % (37-47); Lymphocyte # 1.63 X10^3/ul (0.83-4.51); Lymphocyte % 24.4 % (19-41); Mean Corp Hgb Conc 32.1 g/dL (32-36); Mean Corpuscular Hgb 30.3 pg (27.0-32.0); Mean Corpuscular Volume 94.4 fL (81-99); Mean Platelet Vol. 9.7 fl (6.2-12.0); Monocyte# 0.69 X10^3/uL; Monocyte% 10.3 % (0-10); NRBC Flagged by Analyzer 0 % (0-5); Neutrophil # 4.09 X10^3/uL (2.7-7.7); Neutrophil % 61.2 % (47-70); Platelet Count 268 K/mm3 (150-450); Red Blood Count 4.29 M/mm3 (4.2-5.4); White Blood Count 6.7 K/mm3 (4.4-11.0)
[2024-02-14 07:36] LABS: Anion Gap 7 (5-15); BUN 19 mg/dL (7-18); BUN/Creat Ratio 26.4 RATIO (10-20); Calcium,Total 10.2 mg/dL (8.5-10.1); Chloride 105 mmol/L (98-107); Creatinine, Serum 0.72 mg/dL (0.55-1.02); EST Glomerular Filtration Rate 83 mL/min (>60); Est Glom Filt Rate - Afr Amer 100 mL/min (>60); Glucose 130 mg/dL (74-106); Sodium Level 140 mmol/L (136-145)
--- NOTE | 2024-02-14 10:40 | CASEMGMT ---
Addendum entered by Brittni Dumas 02/14/24 15:32: Social Work Precert has been obtained for admission to TCU. Physician notified and pt is ready for dc today. DC orders faxed to TCU and Arlene in TCU notified. SW met with pt and notifed of dc today. Pt is agreeable. Phone call to pt dgt Samantha and notified. Disposition: TCU, skilled level of care LILIAN Rees Original Note: Social Work SW spoke with Arlene in TCU and pt has been accepted. Precert to be started at this time. SONAM met with pt and pt's dgt and informed of acceptance and need for precert. Plan: TCU, pending precert LILIAN Rees
--- NOTE | 2024-02-14 10:53 | PCM.PN.HOSP ---
Subjective Subjective Doing well, no issues overnight Objective Data Objective Data Vital Signs: Vital Signs Temp Pulse Resp BP Pulse Ox O2 Del Method 98.0 F 66 16 143/69 H 95 Room Air 02/14/24 04:15 02/14/24 04:15 02/14/24 04:15 02/14/24 04:15 02/14/24 04:15 02/14/24 08:25 Oxygen Delivery Method Room Air Weight: 141 lb 1.533 oz Body Mass Index (BMI) 25.0 Intake & Output: Intake and Output for Last 24 Hours 02/13/24 02/14/24 02/15/24 03:59 03:59 03:59 Intake Total 50 / 50 50 / 50 Output Total 250 / 250 Balance -200 / -200 50 / 50 Lab / Micro Data 02/14/24 05:56 02/14/24 05:56 Labs: Laboratory Results - last 24 hr 02/14/24 05:56: WBC 6.7, RBC 4.29, Hgb 13.0, Hct 40.5, MCV 94.4, MCH 30.3, MCHC 32.1, RDW Std Deviation 45.0 H, RDW Coeff of [place] Pablo 13.0, Plt Count 268, MPV 9.7, Immature Gran % (Auto) 0.300, Neut % (Auto) 61.2, Lymph % (Auto) 24.4, [place] % (Auto) 10.3 H, Eos % (Auto) 3.4, Baso % (Auto) 0.4, Absolute Neuts (auto) 4.1, Absolute Lymphs (auto) 1.63, Nucleated RBC % 0, Sodium 140, Potassium 4.0, Chloride 105, Carbon Dioxide 27.0, Anion Gap 7, BUN 19 H, Creatinine 0.72, Estim Creat Clear Calc 50.50, Est GFR (MDRD) Af Amer 100, Est GFR (MDRD) Non-Af 83, BUN/Creatinine Ratio 26.4 H, Glucose 130 H, Calcium 10.2 H Micro: Microbiology 02/11/24 10:10 Urine, Clean Catch Urine Culture - Final Streptococcus agalactiae (B) Mixed Gram Pos & Gram Neg Org Physical Exam Narrative General: Alert, Oriented x3, Cooperative, No apparent distress HEENT: Atraumatic, PERRLA, EOMI, Normocephalic Oral: Moist Mucosa Neck: Supple, No JVD Lungs: Clear to auscultation, Normal air movement, No rhonchi, No wheeze, No rales Cardiovascular: Regular rate, Regular Rhythm, Normal S1, Normal S2, No murmurs Abdomen: Soft, Non Tender, Non-Distended, No Hepato-splenomegaly Extremities: No edema, Capillary Refill Less than 3 Seconds Skin: No rashes, No breakdown Musculoskeletal: No Tenderness to Palpation of Joints or Extremities Neurological: General Weakness in her upper and lower extremities. She has a mild tremor that seems more significant in her left hand, face seems a little masked Psych/Mental Status: Normal Affect, Appropriate Assessment & Plan Assessment/Plan (1) FTT (failure to thrive) in adult: (2) Paroxysmal atrial fibrillation: PLAN: Plan 1. Physical deconditioning ? Patient presents with progressive generalized weakness and a couple of falls. Requested for PT OT eval and certified social workers in health care to assist with discharge planning 02/12/2024: Plan for SNF discharge, PT/OT 2. Multiple falls? Movement disorder? Parkinson's disease ? Patient has been referred to be evaluated by Dr. Cornell as outpatient 02/11: Her appointment is in April with neurology I did encourage to look for the referrals to see if she can get in sooner 3. Paroxysmal A-fib/flutter ? Patient went into A-fib with RVR in the ED did receive IV Cardizem and converted back to sinus. Cardiology was consulted from the ED recommendation is for patient to be started on Cardizem 120 mg CD daily. Patient is on systemic anticoagulation with apixaban did continue 02/12/2024: RVR is resolved 4. Suspected cystitis ? Patient only symptoms being the progressive weakness. Had positive leukocyte Estrace. Patient empirically started on ceftriaxone cultures sent 02/13/2024: Urine cultures with mixed organisms as well as group B strep of 11-25,000 CFU's, continue with Rocephin 02/14/2024: Will complete Rocephin tomorrow morning 5. Dyslipidemia ?Patient is on statin therapy, continued at home dose 6. Depression ? Patient is on sertraline as well as duloxetine did continue 7. History of liver CA ? Treated with ablation 8. Chronic back pain -secondary to DJD Tylenol as needed 9. GERD As patient is on PPI DVT: Eliquis Charges/Coding Visit Charges Inpatient E&M: 72815 Subs Hosp L2
[2024-02-14 11:13] VITALS: BP 127/54; PULSE 69; RESP 16; TEMP 36.6; O2SAT 96
[2024-02-14] MEDS: Pantoprazole Sodium 20 MG Tablet PO (11:15)
[2024-02-14] MEDS: DULoxetine Hcl 20 MG Capsule PO (11:15)
[2024-02-14] MEDS: Sertraline 50 MG Tablet PO (11:15)
[2024-02-14] MEDS: Cholecalciferol (VIT D3) 25 MCG TABLET (1,000 UNITS) PO (11:15)
[2024-02-14] MEDS: Calcium Carb/Vitamin D 1 TABLET Tablet PO (11:15)
[2024-02-14] MEDS: Multivitamins,Therapeutic Tablet 1 TABLET PO (11:16)
[2024-02-14] MEDS: APIXABAN 5 MG TABLET PO (11:16)
[2024-02-14] MEDS: dilTIAZem CD 120 MG Capsule PO (11:16)
[2024-02-14] MEDS: 0.9% Saline Lock 10 ML Syringe IV (11:16)
[2024-02-14] MEDS: Ceftriaxone 1 GM/50 ML BAG IV (11:20)
--- NOTE | 2024-02-14 14:26 | TREXTCAR_ITS ---
Diet Diet Order/Speech Therapy: 02/11/24 12:11 Diet: Regular - General Food consistency:: Regular Liquid Consistency:: Regular/Thin Routine Orders/Code Status Routine Lab Work: CBC and BMP Code Status: DNRCC-A Therapies Physical Therapy: Eval and Treat Occupational Therapy: Eval and Treat Problem/Diagnosis (1) FTT (failure to thrive) in adult: Status: Acute Code(s): R62.7 - Adult failure to thrive (2) Paroxysmal atrial fibrillation: Status: Acute Code(s): I48.0 - Paroxysmal atrial fibrillation Plan 1. Physical deconditioning ? Patient presents with progressive generalized weakness and a couple of falls. Requested for PT OT eval and licensed master social worker to assist with discharge planning 02/12/2024: Plan for SNF discharge, PT/OT 2. Multiple falls? Movement disorder? Parkinson's disease ? Patient has been referred to be evaluated by Dr. Cornell as outpatient 02/11: Her appointment is in April with neurology I did encourage to look for the referrals to see if she can get in sooner 3. Paroxysmal A-fib/flutter ? Patient went into A-fib with RVR in the ED did receive IV Cardizem and converted back to sinus. Cardiology was consulted from the ED recommendation is for patient to be started on Cardizem 120 mg CD daily. Patient is on systemic anticoagulation with apixaban did continue 02/12/2024: RVR is resolved 4. Suspected cystitis ? Patient only symptoms being the progressive weakness. Had positive leukocyte Estrace. Patient empirically started on ceftriaxone cultures sent 02/13/2024: Urine cultures with mixed organisms as well as group B strep of 11- 25,000 CFU's, continue with Rocephin 02/14/2024: Will complete Rocephin tomorrow morning 5. Dyslipidemia ?Patient is on statin therapy, continued at home dose 6. Depression ? Patient is on sertraline as well as duloxetine did continue 7. History of liver CA ? Treated with ablation 8. Chronic back pain -secondary to DJD Tylenol as needed 9. GERD As patient is on PPI DVT: Eliquis Allergies/Procedures Done in Hospital Allergies No Known Allergies Allergy (Verified 02/11/24 08:31) Type of Care/Length of Stay Estimated LOS: Convalescent Care Less Than 30 days Type of Care Needed: Skilled Rehab Potential: Good Prognosis: Good Additional Orders/Day of Discharge Day of Discharge: 02/14/24 Discharge Plan Admission Admit Date/Time: 02/11/24 11:26 Attending Provider: Dajuan Antunez Primary Care Provider: Shawn Ramires Consulting Providers: Rj Cadet Discharge Orders/Prescriptions Prescriptions: New diltiazem HCl 120 mg Capsule,Extended Release 24hr 120 mg PO DAILY Qty: 0 0RF cefdinir 300 mg capsule 300 mg PO BID 2 Days Qty: 4 0RF Continued ondansetron HCl 4 mg tablet 4 mg PO Q8H PRN (Reason: nausea and vomiting) duloxetine 20 mg capsule,delayed release(DR/EC) 20 mg PO BID Eliquis 5 mg tablet 5 mg PO BID Qty: 60 11RF simvastatin 20 mg Tablet 20 mg PO QHS sertraline 50 mg Tablet 50 mg PO DAILY calcium carbonate-vitamin D3 [Calcium 600 + D(3)] 600 mg-10 mcg (400 unit) Tablet 1 tab PO DAILY cholecalciferol (vitamin D3) [Vitamin D3] 25 mcg (1,000 unit) capsule 1,000 unit PO DAILY lisinopril 10 mg tablet 10 mg PO .hs multivitamin [Daily Multi-Vitamin] Tablet 1 tab PO DAILY metoprolol succinate [Toprol XL] 50 mg tablet extended release 24 hr 50 mg PO DAILY Patient Comments: has not started yet thought it was for bp so did not want bp lower so did not start acetaminophen 500 mg capsule 1,000 mg PO Q8H PRN PRN (Reason: pain) omeprazole 20 mg capsule,delayed release(DR/EC) 20 mg PO BID 42 Days Qty: 84 0RF Referrals / Follow Up: Shawn Ramires MD [Primary Care Provider] - Disposition Disposition (needs filled in before D/C Order can be placed): Care Home Facility
--- NOTE | 2024-02-14 14:40 | PCM.DC.SUM ---
Providers Date of Admission: 02/11/24 Primary Care Physician: Dr. Shawn Ramires MD Reason For Visit: WEAKNESS, AFIB Diagnosis Discharge Diagnosis (1) FTT (failure to thrive) in adult: Status: Acute Code(s): R62.7 - Adult failure to thrive (2) Paroxysmal atrial fibrillation: Status: Acute Code(s): I48.0 - Paroxysmal atrial fibrillation Medications at Discharge Home Medications calcium 600 mg (as carbonate)-vitamin D3 10 mcg (400 unit) tablet (Calcium 600 + D(3)) 1 tab PO DAILY 11/29/21 sertraline 50 mg tablet 50 mg PO DAILY depression 11/29/21 simvastatin 20 mg tablet 20 mg PO QHS cholesterol 11/29/21 lisinopril 10 mg tablet 10 mg PO .hs bp 08/06/23 ondansetron HCl 4 mg tablet 4 mg PO Q8H PRN nausea and vomiting 08/16/23 acetaminophen 500 mg capsule 1,000 mg PO Q8H PRN PRN pain 12/23/23 cholecalciferol (vitamin D3) 25 mcg (1,000 unit) capsule (Vitamin D3) 1,000 unit PO DAILY 12/31/23 duloxetine 20 mg capsule,delayed release 20 mg PO BID depression 12/31/23 omeprazole 20 mg capsule,delayed release 20 mg PO BID stomach 6 weeks #84 caps 01/06/24 apixaban 5 mg tablet (Eliquis) 5 mg PO BID #60 tabs 01/19/24 metoprolol succinate 50 mg tablet,extended release 24 hr (Toprol XL) 50 mg PO DAILY afib 02/11/24 multivitamin (Daily Multi-Vitamin tablet) 1 tab PO DAILY suppliment 02/11/24 cefdinir 300 mg capsule 300 mg PO BID 2 days #4 caps 02/14/24 diltiazem HCl 120 mg capsule,extended release 24 hr 120 mg PO DAILY #0 caps 02/14/24 Hospital Course Operations None Procedures None Summary of Care Provided Minutes Spent on Discharge: 33 Hospital Course: Per HPI: WALTER MILLAN, is a 78 F with past medical history is again for recently diagnosed paroxysmal A-fib/flutter, essential hypertension dyslipidemia who presented to the emergency department with generalized weakness. Per patient symptoms have been ongoing for the past couple of months however her symptoms have gotten increasingly worse over the past weeks. She did fall days prior to her admission. Patient was recently diagnosed with A-fib as outpatient started on metoprolol which she did not tolerate in view of relatively low blood pressure. She was brought to the emergency department by the family on account of profound weakness. Workup in the emergency department was unremarkable except for positive leukocyte esterase. Patient denied any dysuria nor frequency. She was found to be A-fib with RVR did receive Cardizem bolus and converted back to sinus. She was subsequently admitted to a monitored bed as a case of an adult failure to thrive. Of note patient has been referred to neurology as outpatient for possible workup for progressive generalized weakness with associated tremors?? Parkinson's. Hospital Course: 1. Physical deconditioning ? Patient presents with progressive generalized weakness and a couple of falls. Requested for PT OT eval and social sciences lecturer to assist with discharge planning 02/12/2024: Plan for SNF discharge, PT/OT 02/14/2024: She did receive pre-CERT today and will be able to go to TCU for physical therapy and rehab. She will need to follow-up with neurology as an outpatient for her movement disorder unclear if it is Parkinson's or something else but this is an outpatient workup. I discussed with her and her daughter the plan for discharge today and they expressed understanding of this and is feeling to the residential and would like to go today. 2. Multiple falls? Movement disorder? Parkinson's disease ? Patient has been referred to be evaluated by Dr. Cornell as outpatient 02/11: Her appointment is in April with neurology I did encourage to look for the referrals to see if she can get in sooner 3. Paroxysmal A-fib/flutter ? Patient went into A-fib with RVR in the ED did receive IV Cardizem and converted back to sinus. Cardiology was consulted from the ED recommendation is for patient to be started on Cardizem 120 mg CD daily. Patient is on systemic anticoagulation with apixaban did continue 02/12/2024: RVR is resolved 02/14/2024: Will continue with her metoprolol and her new Cardizem as this seems to be controlling her heart rate and blood pressure 4. Suspected cystitis ? Patient only symptoms being the progressive weakness. Had positive leukocyte Estrace. Patient empirically started on ceftriaxone cultures sent 02/13/2024: Urine cultures with mixed organisms as well as group B strep of 11-25,000 CFU's, continue with Rocephin 02/14/2024: Will transition to cefdinir for 2 more days on discharge 5. Dyslipidemia ?Patient is on statin therapy, continued at home dose 6. Depression ? Patient is on sertraline as well as duloxetine did continue 7. History of liver CA ? Treated with ablation 8. Chronic back pain -secondary to DJD Tylenol as needed 9. GERD As patient is on PPI Physical Exam Narrative General: Alert, Oriented x3, Cooperative, No apparent distress HEENT: Atraumatic, PERRLA, EOMI, Normocephalic Oral: Moist Mucosa Neck: Supple, No JVD Lungs: Clear to auscultation, Normal air movement, No rhonchi, No wheeze, No rales Cardiovascular: Regular rate, Regular Rhythm, Normal S1, Normal S2, No murmurs Abdomen: Soft, Non Tender, Non-Distended, No Hepato-splenomegaly Extremities: No edema, Capillary Refill Less than 3 Seconds Skin: No rashes, No breakdown Musculoskeletal: No Tenderness to Palpation of Joints or Extremities Neurological: General Weakness in her upper and lower extremities. She has a mild tremor that seems more significant in her left hand, face seems a little masked Psych/Mental Status: Normal Affect, Appropriate Weight / BMI Weight Weight: 141 lb 1.533 oz Body Mass Index (BMI) 25.0 ABG / Lab / Microbiology Data 02/14/24 05:56 02/14/24 05:56 Laboratory: Laboratory Results - last 24 hr 02/14/24 05:56: WBC 6.7, RBC 4.29, Hgb 13.0, Hct 40.5, MCV 94.4, MCH 30.3, MCHC 32.1, RDW Std Deviation 45.0 H, RDW Coeff of [place] 13.0, Plt Count 268, MPV 9.7, Immature Gran % (Auto) 0.300, Neut % (Auto) 61.2, Lymph % (Auto) 24.4, [place] % (Auto) 10.3 H, Eos % (Auto) 3.4, Baso % (Auto) 0.4, Absolute Neuts (auto) 4.1, Absolute Lymphs (auto) 1.63, Nucleated RBC % 0, Sodium 140, Potassium 4.0, Chloride 105, Carbon Dioxide 27.0, Anion Gap 7, BUN 19 H, Creatinine 0.72, Estim Creat Clear Calc 50.50, Est GFR (MDRD) Af Amer 100, Est GFR (MDRD) Non-Af 83, BUN/Creatinine Ratio 26.4 H, Glucose 130 H, Calcium 10.2 H Microbiology: Microbiology 02/11/24 10:10 Urine, Clean Catch Urine Culture - Final Streptococcus agalactiae (B) Mixed Gram Pos & Gram Neg Org Meaningful Use Info Meaningful Use Meaningful Use Diagnoses (Choose all that apply): None applicable Ischemic Stroke Statin Dosing Therapy Reference: STATIN DOSE THERAPY REFERENCE: * Patients > 75 years receive moderate or high dose statin therapy. * Patients 75 years or YOUNGER should receive HIGH intensity statin dose unless contraindicated. You will be required to document reason for non-treatment if statin daily dose does not meet guidelines. HIGH DOSE STATIN THERAPY DAILY Atorvastatin > than or = to 40 mg Rosuvastatin > than or = to 20 mg Amlodipine + Atorvastatin > than or = to 2.5/40 mg Ezetimibe + Simvastatin 10/80 mg Simvastatin 80mg Discharge Plan Admission Admit Date/Time: 02/11/24 11:26 Attending Provider: Dajuan Antunez Primary Care Provider: Shawn Ramires Consulting Providers: Rj Cadet Discharge Orders/Prescriptions Prescriptions: New diltiazem HCl 120 mg Capsule,Extended Release 24hr 120 mg PO DAILY Qty: 0 0RF cefdinir 300 mg capsule 300 mg PO BID 2 Days Qty: 4 0RF Continued ondansetron HCl 4 mg tablet 4 mg PO Q8H PRN (Reason: nausea and vomiting) duloxetine 20 mg capsule,delayed release(DR/EC) 20 mg PO BID Eliquis 5 mg tablet 5 mg PO BID Qty: 60 11RF simvastatin 20 mg Tablet 20 mg PO QHS sertraline 50 mg Tablet 50 mg PO DAILY calcium carbonate-vitamin D3 [Calcium 600 + D(3)] 600 mg-10 mcg (400 unit) Tablet 1 tab PO DAILY cholecalciferol (vitamin D3) [Vitamin D3] 25 mcg (1,000 unit) capsule 1,000 unit PO DAILY lisinopril 10 mg tablet 10 mg PO .hs multivitamin [Daily Multi-Vitamin] Tablet 1 tab PO DAILY metoprolol succinate [Toprol XL] 50 mg tablet extended release 24 hr 50 mg PO DAILY Patient Comments: has not started yet thought it was for bp so did not want bp lower so did not start acetaminophen 500 mg capsule 1,000 mg PO Q8H PRN PRN (Reason: pain) omeprazole 20 mg capsule,delayed release(DR/EC) 20 mg PO BID 42 Days Qty: 84 0RF Referrals / Follow Up: Shawn Ramires MD [Primary Care Provider] - Disposition Disposition (needs filled in before D/C Order can be placed): [facility] Charges/Coding Visit Charges Inpatient E&M: 04431 Disch Hosp >30min
[2024-02-14 15:15] VITALS: BP 142/54; PULSE 82; RESP 16; TEMP 36.8; O2SAT 94
--- NOTE | 2024-02-14 15:48 | PHA.DC.MR.R ---
Pharmacy [facility] Med Reconciliation Pharmacy Service has performed discharge medication reconciliation for this patient. The patient's discharge medication list was reviewed for discrepancies and discrepancies were resolved. Medications at Discharge Home Medications calcium 600 mg (as carbonate)-vitamin D3 10 mcg (400 unit) tablet (Calcium 600 + D(3)) 1 tab PO DAILY 11/29/21 sertraline 50 mg tablet 50 mg PO DAILY depression 11/29/21 simvastatin 20 mg tablet 20 mg PO QHS cholesterol 11/29/21 lisinopril 10 mg tablet 10 mg PO .hs bp 08/06/23 ondansetron HCl 4 mg tablet 4 mg PO Q8H PRN nausea and vomiting 08/16/23 acetaminophen 500 mg capsule 1,000 mg PO Q8H PRN PRN pain 12/23/23 cholecalciferol (vitamin D3) 25 mcg (1,000 unit) capsule (Vitamin D3) 1,000 unit PO DAILY 12/31/23 duloxetine 20 mg capsule,delayed release 20 mg PO BID depression 12/31/23 omeprazole 20 mg capsule,delayed release 20 mg PO BID stomach 6 weeks #84 caps 01/06/24 apixaban 5 mg tablet (Eliquis) 5 mg PO BID #60 tabs 01/19/24 metoprolol succinate 50 mg tablet,extended release 24 hr (Toprol XL) 50 mg PO DAILY afib 02/11/24 multivitamin (Daily Multi-Vitamin tablet) 1 tab PO DAILY suppliment 02/11/24 cefdinir 300 mg capsule 300 mg PO BID 2 days #4 caps 02/14/24 diltiazem HCl 120 mg capsule,extended release 24 hr 120 mg PO DAILY #0 caps 02/14/24
--- NOTE | 2024-02-14 16:16 | NURSING ---
Report called to TCU. Patient to go to room 4
== END 2024-02-14 17:19 | disposition skilled nursing facility (03) | DRG 641 ==
LOC: ED 11:44 → PCU 02-12 07:10
PROVIDERS: Admitting Provider Internal Medicine; Emergency Provider Surgery; PCP Family Medicine; Visit Provider Family Medicine
DX: R62.7 Adult failure to thrive (principal); I48.0 Paroxysmal atrial fibrillation; G25.9 Extrapyramidal and movement disorder, unspecified; E78.00 Pure hypercholesterolemia, unspecified; Z66 Do not resuscitate; F32.A Depression, unspecified; I10 Essential (primary) hypertension; K21.9 Gastro-esophageal reflux disease without esophagitis; G89.29 Other chronic pain; Z79.01 Long term (current) use of anticoagulants; Z79.899 Other long term (current) drug therapy; R29.6 Repeated falls; Z23 Encounter for immunization
CPT/HCPCS: 36415; 71045; 80048; 81001; 83735; 83880; 84100; 84443; 84484; 85025; 85610; 85730; 87077; 87086; 87088; 87186; 90662; 93005; 93306; 94668; 96365; 96366; 96375; 97110; 97162; 97166; 97530; 97535; 99221; 99284; A4216; G0378

== ENCOUNTER 2024-02-14 17:59 | Inpatient (IN) | payer MEDICARE, SELFPAY ==
[2024-02-14 17:45] VITALS: BP 158/59; PULSE 82; RESP 16; TEMP 36.3; O2SAT 95; BMI 25.7
--- NOTE | 2024-02-14 20:15 | HP.PCM_ITS ---
HPI - General General Date of Admission: 02/14/24 Date of Service: 02/14/24 Chief Complaint: Here for rehabilitation. HPI Narrative 02/11/2024 WALTER MILLAN, is a 78 Female who presents to [facility] ED with weakness. Recent diagnosis of atrial fibrillation, started on Eliquis, atrial fibrillation noted after EGD. Metoprolol succinate 50mg daily intolerable due to hypotension. Echo showed Stage 1 diastolic dysfunction. Generalized weakness for 1 month, unable to walk. Atrial fibrillation with rvr to nsr, Heart rate as high as 150. Diltiazem 10mg iv given, converted to nsr. Unsafe to go home. 02/11/2024 Admit to [facility]. PT/OT for debility. Dr. Poe to evaluate patient outpatient for movement disorder. Cardizem 120mg, Eliquis 5mg twice daily for atrial fibrillation with rvr. Rocephin iv for uti, urine culture pending. 02/12/2024 Doing well. PT/OT for SNF. Consider Parkinson's, her weakness unrelated to afib with rvr. Rocephin iv for uti. 02/13/2024 Doing well. Urine culture group B strep 11-25,000, continue Rocehin iv. 02/14/2024 Doing well. Complete rocephin iv tomorrow. 02/14/2024 Admit to TCU with debility, here for rehabilitation, strengthening, prior to discharge home alone. [facility] Medical History Atrial flutter Back pain Loss of hearing Depression Cancer History of steroid therapy Arthritis Migraine headache Gastric reflux IBS (irritable bowel syndrome) Hypertension Nausea High cholesterol Home Medications ?Medication ?Instructions ?Recorded ?Last Taken ?Type calcium 600 mg (as 1 tab PO DAILY Supplement 11/29/21 02/10/24 History carbonate)-vitamin D3 10 mcg (400 unit) tablet (Calcium 600 + D(3)) sertraline 50 mg tablet 50 mg PO DAILY depression 11/29/21 02/10/24 History simvastatin 20 mg tablet 20 mg PO QHS cholesterol 11/29/21 02/10/24 History lisinopril 10 mg tablet 10 mg PO .hs bp 08/06/23 02/10/24 History ondansetron HCl 4 mg tablet 4 mg PO Q8H PRN nausea and vomiting 08/16/23 02/10/24 History acetaminophen 500 mg capsule 1,000 mg PO Q8H PRN PRN pain 12/23/23 12/28/23 History cholecalciferol (vitamin D3) 25 1,000 unit PO DAILY Supplement 12/31/23 02/10/24 History mcg (1,000 unit) capsule (Vitamin D3) duloxetine 20 mg capsule,delayed 20 mg PO BID depression 12/31/23 02/10/24 Histo ry release omeprazole 20 mg capsule,delayed 20 mg PO BID stomach 6 weeks #84 01/06/24 02/10/24 Rx release caps apixaban 5 mg tablet (Eliquis) 5 mg PO BID Anticoagulant #60 tabs 01/19/24 U nknown Rx metoprolol succinate 50 mg 50 mg PO DAILY afib 02/11/24 Unknown History tablet,extended release 24 hr (Toprol XL) multivitamin (Daily Multi-Vitamin 1 tab PO DAILY suppliment 02/11/24 02/10/24 History tablet) cefdinir 300 mg capsule 300 mg PO BID Infection 2 days #4 02/14/24 Unknown Rx caps diltiazem HCl 120 mg 120 mg PO DAILY Heart #0 caps 02/14/24 Unknown Rx capsule,extended release 24 hr Allergy/AdvReac Type Severity Reaction Status Date / Time No Known Allergies Allergy Verified 02/11/24 08:31 Family History Father History of open heart surgery Brother History of open heart surgery Surgical History History of ablation of neoplasm of liver (~2021) Social History (Updated 02/14/24 @ 20:[address] Yovany Ruffin MD) household members: none and other details: 2 daughters live in the area. housing: house Smoking Status: Never smoker alcohol intake: never substance use type: does not use ROS Constitutional Constitutional: Reports weakness; Denies chills, fever(s) or weight gain ENT HEENT: Denies headache(s), nasal congestion or nasal discharge Cardiovascular Cardiovascular: Denies chest pain or palpitations Respiratory/Chest Respiratory/Chest: Denies cough, excessive phlegm production or shortness of breath with exertion Gastrointestinal Gastrointestinal: Denies abdominal pain, nausea or vomiting Genitourinary Genitourinary: Denies dysuria Musculoskeletal Musculoskeletal: Denies joint pain or joint swelling Integumentary Integumentary: Denies rash or wounds Neurologic Neurologic: Denies focal weakness, numbness or tingling Psychiatric Psychiatric: Denies anxiety, auditory hallucinations, depression, homicidal ideation or suicidal ideation Vital Signs Vital Signs Vital Signs: 02/14/24 17:45 02/14/24 17:45 Temperature 97.4 F L Temperature Source Temporal Pulse Rate 82 Pulse Rhythm Regular Pulse Strength Normal (2+) Respiratory Rate 16 Respiratory Effort Normal Non-Labored Respiratory Depth Normal Respiratory Pattern Normal Blood Pressure 158/59 H Blood Pressure Mean 92 Blood Pressure Source Monitor Blood Pressure Position Semi-Fowlers Pulse Ox 95 Oxygen Delivery Method Room Air Room Air Weight Weight: 65.907 kg Body Mass Index (BMI) 25.7 Physical Exam Const alert General Appearance: cooperative HEENT normocephalic Eyes PERRL and EOMs intact bilaterally Neck supple, no JVD and no carotid bruits Resp normal respiratory effort, normal air movement and clear to auscultation bilaterally Cardio regular rate and regular rhythm GI normal to inspection, nondistended, normoactive bowel sounds, non-tender and non-distended Extremity normal capillary refill General Extremity: Negative for edema Skin no rashes or lesions noted General Skin Exam: no breakdown Psych affect normal Appearance: appropriate Assessment & Plan Assessment/Plan (1) Debility: (2) Weakness: (3) Atrial fibrillation with rapid ventricular response: (4) Urinary tract infection: (5) Movement disorder: (6) Essential (primary) hypertension: (7) History of malignant hepatoma: (8) Depression: (9) Hyperlipidemia: (10) GERD (gastroesophageal reflux disease): PLAN: Plan 78 year old female with below past medical history hospitalized for weakness 2/2 atrial fibrillation with rvr, complicated by urinary tract infection, movement d isorder, admitted to TCU with debility, here for rehabilitation, strengthening, prior to discharge home alone. * Debility - PT/OT. * Pain - Tylenol 1000mg q6 prn pain (1-10). * Bowel - senna/colace 1 tablet bid, magnesium citrate 300ml po daily prn. * Adult immunization - Administer pneumonia vaccine, covid vaccine, flu vaccine as appropriate. * DVT prophylaxis - on Eliquis. * Atrial fibrillation - Metoprolol succinate 50mg daily, Diltiazem CD 120mg daily, Eliquis 5mg bid. * Hyperlipidemia - Atorvastatin 10mg qhs. * Calcium deficiency - Calcium D 1 tablet daily. * UTI - Cefdinir 300mg bid thru 02/18/2024. * Vitamin D deficiency - D3 25mcg daily. 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 * Hypertension - Metoprolol succinate 50mg daily, Diltiazem CD 120mg daily, Lisinopril 10mg daily. * Nutrition - MVI 1 tablet daily. * Nausea - Zofran odt 4mg q8 prn. * GERD - Pantoprazole 20mg bid.
--- OUTSIDE RECORDS SUMMARY | 2024-02-14 21:09 | XMS RPT_ITS | CCD ---
Author Organization [facility] Care Team Providers Care Police Guard Name Role Phone Shawn Sequeira Florentin, Dr. Reginaldo Garcia Attending Unavailab le Hua, Dr. Shawn Truong Primary Care Unavail able Hua, Dr. Shawn Truong Primary Care Unavail able Sarath, Ms. Wally Jones Referring Selamvadevin Clemens, Ms. Wally Jones Attending Unavai pasha Valencia, Dr. Reginaldo Garcia Attending Unavailab le Hua, Dr. Shawn Truong Primary Care Unavail able Ammovivian, Dr. Reginaldo Garcia Attending Unavailab le Hua, Dr. Shawn Truong Primary Care Unavail able Ammarjorie, Dr. Reginaldo Garcia Admitting Unavailab le Ammovivian, Dr. Reginaldo Garcia Attending Unavailab le Ammovivian, Dr. Reginaldo Garcia Referring Unavailab le Hua, Dr. Shawn Truong Primary Care Unavail able Ammarjorie, Dr. Reginaldo Garcia Attending Unavailab le Hua, Dr. Shawn Truong Primary Care Unavail able Ammarjorie, Dr. Reginaldo Garcia Attending Unavailab le Hua, Dr. Shawn Truong Primary Care Unavail able Riky Blunt Attending Unavailable Hua, Dr. Shawn Truong Primary Care Unavail able Hua, Dr. Shawn Truong Referring Unavail able Hua, Dr. Shawn Truong Primary Care Unavail able Ammarjorie, Dr. Reginaldo Garcia Referring Unavailab le Ammovivian, Dr. Reginaldo Garcia Attending Unavailab le Ammovivian, Dr. Reginaldo Garcia Attending Unavailab le Hua, Dr. Shawn Truong Primary Care Unavail able Florentin, Dr. Reginaldo Garcia Referring Unavailab Shawn Peralta MD Primary Care Provider 1( [phone] SHAWN SEQUEIRA Primary Care Unavailable HUA, SHAWN TRUONG Primary Care Unavailable AMMOREGINALDO ROMANO Attending Unavailable SHAWN SEQUEIRA Primary Care Unavailable REGINALDO VALENCIA Referring Unavailable SHAWN SEQUEIRA Primary Care Unavailable REGINALDO VALENCIA Referring Unavailable SHAWN SEQUEIRA Primary Care Unavailable Allergies Allergy Classification Reported Allergen(s) Allergy Type Date of Onset Reaction(s) Facility (2 sources) ALLERGIES NOT ON FILE; Translations: [ALLERGIES NOT ON FILE] Propensity to adverse reactions (disorder) [facility] Medications Completed/Discontinued Medications Medication Drug Class(es) Dates Sig (Normalized) Sig (Original) Calcium (4 sources) Phosphate Binder, Calcium Calcium + D3 TABS Take 1 tablet daily Quantity: 0 Refills: 0 Ordered: 07-May-2022 DO Active cholecalciferol 0.025 mg oral capsule (4 sources) Vitamin D Vitamin D3 25 MCG (1000 UT) Oral Capsule TAKE DIRECTED. Quantity: 0 Refills: 0 Ordered: 07-May-2022 DO Active clonazePAM 0.5 mg oral tablet (7 sources) Benzodiazepine Start: 12-05-2021 clonazePAM 0.5 MG Oral Tablet Quantity: 30 Refills: 0 Ordered: 05-Dec-2021 DO Start : 05-Dec-2021 Active docosahexaenoic acid 120 mg / eicosapentaenoic acid 180 mg oral capsule (4 sources) take 2 capsules by mouth once daily [place] 3 1000 MG Oral Capsule take 2 capsule by mouth daily Quantity: 0 Refills: 0 Ordered: 07-May-2022 DO Active gadoterate meglumine (Dotarem) 0.5 mmol/mL contrast injection 12 mL (2 sources) Start: 05-27-2023 End: 05-27-2023 gadoterate meglumine (Dotarem) 0.5 mmol/mL contrast injection 12 mL lisinopril 5 mg oral tablet (11 sources) Angiotensin Converting Enzyme Inhibitor Start: 12-05-2021 take 1 tablet by mouth once daily Lisinopril 5 MG Oral Tablet TAKE 1 TABLET DAILY. Quantity: 90 Refills: 1 Ordered: 26-Jan-2022 DO Start : 05-Dec-2021 Active Start: 12-05-2021 Lisinopril 5 M G Oral Tablet Quantity: 30 Refills: 0 Ordered: 26-Jan-2022 DO Start : 05-Dec-2021 Active meloxicam 15 mg oral tablet (4 sources) Nonsteroidal Anti-inflammatory Drug Start: 04-09-2022 take 1 tablet by mouth once daily Meloxicam 15 MG Oral Tablet Take 1 tablet by mouth daily Quantity: 90 Refills: 1 Ordered: 09-Apr-2022 DO Start : 09-Apr-2022 Active Multiple Vitamin TABS (4 sources) Multiple Vitamin TABS TAKE 1 TABLET DAILY. Quantity: 0 Refills: 0 Ordered: 07-May-2022 DO Active ondansetron 4 mg disintegrating oral tablet (11 sources) Serotonin-3 Receptor Antagonist Start: 01-14-2022 Ondansetron 4 MG Oral Tablet Disintegrating Quantity: 30 Refills: 0 Ordered: 14-Jan-2022 DO Start : 14-Jan-2022 Active sertraline 50 mg oral tablet (11 sources) Serotonin Reuptake Inhibitor Start: 05-05-2021 take 1 tablet by mouth once daily Sertraline HCl - 50 MG Oral Tablet TAKE 1 TABLET DAILY. Quantity: 0 Refills: 0 Ordered: 26-Nov-2021 DO Start : 05-May-2021 Active Start: 05-05-2021 Sertraline HCl - 50 MG Oral Tablet Quantity: 90 Refills: 0 Ordered: 26-Nov-2021 DO Start : 05-May-2021 Active simvastatin 20 mg oral tablet (11 sources) HMG-CoA Reductase Inhibitor Start: 11-03-2021 take 1 tablet by mouth at bedtime Simvastatin 20 MG Oral Tablet take 1 tablet by mouth at bedtime Quantity: 90 Refills: 0 Ordered: 03-Nov-2021 DO Start : 03-Nov-2021 Active Start: 11-03-2021 Simvastatin 20 MG Oral Tablet Quantity: 90 Refills: 0 Ordered: 03-Nov-2021 DO Start : 03-Nov-2021 Active Problems Active Problems Problem Classification Problem Date Documented Da te Episodic/Chronic Cancer of liver and intrahepatic bile duct (20 sources) Malignant neoplasm of liver; Translations: [Malignant neoplasm of liver, not specified as primary or secondary] Onset: 01-29-2022 Chronic Essential hypertension (2 sources) Essential (primary) hypertension; Translations: [Essential (primary) hypertension] Onset: 11-29-2023 Chronic Neoplasms of unspecified nature or uncertain behavior (15 sources) Neoplasm of uncertain behavior of liver; Translations: [Neoplasm of uncertain behavior of liver and biliary passages] Onset: 01-29-2022 Episodic Other liver diseases (11 sources) Liver mass; Translations: [Other specified disorders of liver] Episodic Other screening for suspected conditions (not mental disorders or infectious disease) (13 sources) Liver function tests abnormal; Translations: [Other abnormal blood chemistry] Onset: 01-29-2022 Episodic Pancreatic disorders (not diabetes) (1 source) Cyst of pancreas; Translations: [Cyst of pancreas] Onset: 11-04-2022 Episodic Unclassified (1 source) Contact with and (suspected) exposure to COVID-19; Translations: [Contact with and (suspected) exposure to COVID-19] Onset: 03-24-2022 Past or Other Problems Problem Classification Problem Date Documented Da te Episodic/Chronic Other liver diseases (3 sources) Hepatomegaly, not elsewhere classified; Translations: [Hepatomegaly, not elsewhere classified] Onset: 01-29-2022 Episodic Residual codes; unclassified (3 sources) Other general symptoms and signs; Translations: [Other general symptoms and signs] Onset: 02-05-2022 Episodic Results Test Name Value Interpretation Reference Range Facility [id number] AFP [Mass/Vol] 7 ng/mL Normal 0-9 [facility] Comment on above: Order Comment: AFP t esting is performed by chemiluminescent immunoassay using the [employer]ens [employer]. Values obtained with different analyte methods cannot be used interchangeably. This test can be used as an adjunct in the diagnosis and monitoring of AFP-producing tumors, including non-seminomatous germ cell tumors and hepatocellular carcinomas. Performed By: #### 1 834-1 #### MILAGROS Doty ([id number]) [facility] ([facility]) [address] [place] [address] Comprehensive metabolic 2000 panelon 11-29-2023 Albumin BCP dye [Mass/Vol] 4.8 g/dL Normal 3.4-5.0 [facility] Comment on above: Performed By: #### 2 4323-8 #### SAIDA RAMOS ([id number]) [facility] ([facility]) [address] [place] [address] ALP [Catalytic activity/Vol] 56 U/L Normal 33-136 [facility] Comment on above: Performed By: #### 2 4323-8 #### SAIDA RAMOS ([id number]) [facility] ([facility]) [address] [place] [address] ALT With P-5'-P [Catalytic activity/Vol] 22 U/L Normal 7-45 [facility] Comment on above: Result Comment: Leela ents treated with Sulfasalazine may generate falsely decreased results for ALT. Performed By: #### 2 4323-8 #### SAIDA RAMOS ([id number]) [facility] ([facility]) [address] [place] [address] Anion gap [Moles/Vol] 13 mmol/L Normal 10-20 [facility] Comment on above: Performed By: #### 2 432-8 #### SAIDA RAMOS ([id number]) [facility] ([facility]) [address] [place] [address] AST With P-5'-P [Catalytic activity/Vol] 20 U/L Normal 9-39 [facility] Comment on above: Performed By: #### 2 4322-8 #### SAIDA RAMOS ([id number]) [facility] ([facility]) [address] [place] [address] Bilirubin [Mass/Vol] 1.0 mg/dL Normal 0.0-1.2 [facility] Comment on above: Performed By: #### 2 4322-8 #### SAIDA RAMOS ([id number]) [facility] ([facility]) [address] [place] [address] Calcium [Mass/Vol] 10.1 mg/dL Normal 8.6-10.3 [facility] Comment on above: Performed By: #### 2 3-8 #### SAIDA RAMOS ([id number]) [facility] ([facility]) [address] [place] [address] Chloride [Moles/Vol] 103 mmol/L Normal 98-107 [facility] Comment on above: Performed By: #### 2 4322-8 #### SAIDA RAMOS ([id number]) [facility] ([facility]) [address] [place] [address] CO2 [Moles/Vol] 29 mmol/L Normal 21-32 [facility] Comment on above: Performed By: #### 2 4323-8 #### SAIDA RAMOS ([id number]) [facility] ([facility]) [address] [place] [address] Creatinine [Mass/Vol] 0.91 mg/dL Normal 0.50-1.05 [facility] Comment on above: Performed By: #### 2 4323-8 #### SAIDA RAMOS ([id number]) [facility] ([facility]) [address] [place] [address] Glomerular filtration rate/1.73 sq M.predicted 64 mL/min/1.73m*2 Normal >60 [facility] Comment on above: Result Comment: Calc ulations of estimated GFR are performed using the 2020 CKD-EPI Study Refit equation without the race variable for the IDMS-Traceable creatinine methods. https://jasn.asnjournals.org/content//ASN.56737793 88 Performed By: #### 2 4323-8 #### SAIDA RAMOS ([id number]) [facility] ([facility]) [address] [place] [address] Glucose [Mass/Vol] 106 mg/dL High 74-99 [facility] Comment on above: Performed By: #### 2 4323-8 #### SAIDA RAMOS ([id number]) [facility] ([facility]) [address] [place] [address] 27771 Potassium [Moles/Vol] 4.0 mmol/L Normal 3.5-5.3 [facility] Comment on above: Performed By: #### 2 4323-8 #### SAIDA RAMOS ([id number]) [facility] ([facility]) [address] [place] [address] Protein [Mass/Vol] 7.2 g/dL Normal 6.4-8.2 [facility] Comment on above: Performed By: #### 2 4323-8 #### SAIDA RAMOS ([id number]) [facility] ([facility]) [address] [place] [address] Sodium [Moles/Vol] 141 mmol/L Normal 136-145 [facility] Comment on above: Performed By: #### 2 4323-8 #### SAIDA RAMOS ([id number]) [facility] ([facility]) [address] [place] [address] 44764 Urea nitrogen [Mass/Vol] 28 mg/dL High 6-23 [facility] Comment on above: Performed By: #### 2 4323-8 #### SAIDA RAMOS ([id number]) [facility] ([facility]) [address] [place] [address] 69[address] Lipid 1996 panelon 4 Cholesterol [Mass/Vol] 186 mg/dL Normal 0-199 [facility] Comment on above: Result Comment: Age Desirable Borderline High High 0-19 Y 0 - 169 170 - 199 >/= 200 20-24 Y 0 - 189 190 - 224 >/= 225 >24 Y 0 - 199 200 - 239 >/= 240 All ranges are based on fasting samples. Specific therapeutic targets will vary based on patient-specific cardiac risk. Pediatric guidelines reference:Pediatrics 2011, 128(S5).Adult guidelines reference: NCEP ATPIII Guidelines,INDER 2001, 258:2486-97 Venipuncture immediately after or during the administration of Metamizole may lead to falsely low results. Testing should be performed immediately prior to Metamizole dosing. Performed By: #### 2 4331-1 #### SAIDA RAMOS ([id number]) [facility] ([facility]) [address] [place] [address] Cholesterol in HDL [Mass/Vol] 78.0 mg/dL Normal [facility] Comment on above: Result Comment: Age Very Low Low Normal High 0-19 Y < 35 < 40 40-45 ---- 20-24 Y ---- < 40 >45 ---- >24 Y ---- < 40 40-60 >60 Performed By: #### 2 4331-1 #### SAIDA RAMOS ([id number]) [facility] ([facility]) [facility] [place] [address] Cholesterol in LDL [Mass/Vol] 76 mg/dL Normal <=99 [facility] Comment on above: Result Comment: Near Borderline AGE Desirable Optimal High High Very High 0-19 Y 0 - 109 --- 110-129 >/= 130 ---- 20-24 Y 0 - 119 --- 120-159 >/= 160 ---- >24 Y 0 - 99 100-129 130-159 160-189 >/=190 Performed By: #### 2 4331-1 #### SAIDA RAMOS ([id number]) [facility] ([facility]) [address] [place] [address] Cholesterol in VLDL [Mass/Vol] 32 mg/dL Normal 0-40 [facility] Comment on above: Performed By: #### 2 4331-1 #### SAIDA RAMOS ([id number]) [facility] ([facility]) [address] [place] [address] 045[address] CHOLESTEROL/HDL RATIO 2.4 Normal [facility] Comment on above: Result Comment: Ref Values Desirable < 3.4 High Risk > 5.0 Performed By: #### 2 4331-1 #### SAIDA RAMOS ([id number]) [facility] ([facility]) [address] [place] [address] 83970 NON HDL CHOLESTEROL 108 mg/dL Normal 0-149 [facility] Comment on above: Result Comment: Age Desirable Borderline High High Very High 0-19 Y 0 - 119 120 - 144 >/= 145 >/= 160 20-24 Y 0 - 149 150 - 189 >/= 190 ---- >24 Y 30 mg/dL above LDL Cholesterol goal Performed By: #### 2 4331-1 #### SAIDA RAMOS ([id number]) [facility] ([facility]) [address] [place] [address] Triglyceride [Mass/Vol] 158 mg/dL High 0-149 [facility] Comment on above: Result Comment: Age Desirable Borderline High High Very High 0 D-90 D 19 - 174 ---- ---- ---- 91 D- 9 Y 0 - 74 75 - 99 >/= 100 ---- 10-19 Y 0 - 89 90 - 129 >/= 130 ---- 20-24 Y 0 - 114 115 - 149 >/= 150 ---- >24 Y 0 - 149 150 - 199 200- 499 >/= 500 Venipuncture immediately after or during the administration of Metamizole may lead to falsely low results. Testing should be performed immediately prior to Metamizole dosing. Performed By: #### 2 4331-1 #### CINTRON RACHEL ([id number]) [facility] ([facility]) [address] [place] [address] MR LIVER W AND WO IV CONTRAS Ton 11-29-2023 MR LIVER W AND WO IV CONTRAST Interpreted By: Jose Finn, STUDY: MR LIVER W AND WO IV CONTRAST; 11/29/2023 9:42 am INDICATION: Signs/Symptoms:hx HCC- surveillance imaging needed. COMPARISON: Selected examinations as far back as February 06, 2020 CT including February 05, 2022 MRI, May 05, 2022 MRI and May 27, 2023 MRI ACCESSION NUMBER(S): [id number] ORDERING CLINICIAN: REGINALDO VALENCIA TECHNIQUE: MRI LIVER; Multiplanar magnetic resonance images of the abdomen were obtained including the following sequences; T2-weighted SSFSE with and without fat saturation, T1-weighted GRE in/opposed phase, DWI, fat saturated 3D-T1w GRE pre and dynamically post contrast. 13 ML of Dotarem was administered intravenously without immediate complication. FINDINGS: LIVER: Similar morphology. The liver parenchyma demonstrates diffusely decreased signal intensity on T1w opposed phase imaging compared to T1w inphase imaging consistent with fatty changes. The inferior right hepatic ablation hypoenhancing zone LR TR nonviable measures 4.1 x 2.5 cm image compared with 4.5 x 3.4 cm May 27, 2023. 15 mm asymmetric enhancement along the posteroinferior margin of the ablation zone image without washout or suspicious signal alteration on remaining sequences favors viable adjacent liver. No new or progressive suspicious observations. BILE DUCTS: No intrahepatic or extrahepatic bile duct dilatation is demonstrated. GALLBLADDER: Within normal limits. PANCREAS: Similar 8 mm probably benign partially exophytic cyst anterior pancreatic body 10/20. SPLEEN: Normal size. Similar 5 mm T2 hyperintense observation favoring cysts 10/11. ADRENAL GLANDS: Within normal limits. KIDNEYS: Similar tiny cysts. No hydronephrosis. LYMPH NODES: No adenopathy ABDOMINAL VESSELS: Similar appearance including prominent caliber left ovarian vein. BOWEL: The stomach and visualized bowel are nondilated. No wall thickening or surrounding inflammatory change. PERITONEUM/RETROPERITONEUM : Unremarkable BONES AND LOWER THORAX: No abnormally enhancing focal bony lesions are identified. 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 The visualized lower lung kuo are unremarkable. The heart is normal in size. IMPRESSION: 1. Expected post treatment changes, LR TR nonviable. 2. Similar asymmetric enhancing tissue along the inferior margin of the ablation zone favoring viable adjacent liver. Attention recommended on follow-up assessment. 3. Similar probably benign cysts involving the pancreas, kidneys and spleen. MACRO: None Signed by: Jose Finn 11/29/2023 12:02 PM Dictation workstation: [id number] [facility] MR Liver WO and W contrast I Anibal 05-28-2023 1. 20 mm flat focal arterial hyperenhancement marginating hepatic segment ablation site. This could represent local recurrent tumor, however considering lack of washout or additional findings on multiple additional sequences, this could be related to hepatic parenchyma with altered perfusion relating to adjacent ablation changes. Suggest continued close surveillance. 2. No new suspicious hepatic lesions otherwise. 3. Stable subcentimeter pancreatic cystic lesion. MACRO: None Signed by: Rocael Walters 05/28/2023 11:44 AM Dictation workstation: [id number] [facility] Interpreted By: Rocael Diego, STUDY: MR LIVER W AND WO IV CONTRAST; 05/27/2023 6:37 pm INDICATION: Signs/Symptoms: pt with hx HCC- surveillance imaging needed C22.9: Liver cancer. COMPARISON: 11/04/2022 ACCESSION NUMBER(S): [id number] ORDERING CLINICIAN: REGINALDO VALENCIA TECHNIQUE: MRI LIVER; Multiplanar magnetic resonance images of the abdomen were obtained including the following sequences; T2-weighted SSFSE with and without fat saturation, T1-weighted GRE in/opposed phase, DWI, fat saturated 3D-T1w GRE pre and dynamically post contrast. 12 ml of Gadolinium contrast agent Dotarem were administered intravenously without immediate complication. FINDINGS: LIVER: Signal dropout on out of phase imaging indicates steatosis. There is a ablation zone in segment measuring 4.5 cm. At the caudal margin of the ablation zone there is 20 mm nodule of arterial enhancement on series 19, image 57/72. No definite contrast washout can be seen at the site. This is difficult to confirm on additional sequences and appears relatively isointense to liver on T1 and T2 sequences. This has an appearance liver parenchyma on the coronal postcontrast sequences. There is no definite restricted diffusion at this site. No new suspicious hepatic observations. BILE DUCTS: No dilatation. GALLBLADDER: No stone or wall thickening. PANCREAS: 8 mm cystic lesion in the proximal body not significantly changed. No main ductal dilatation. SPLEEN: Unremarkable. ADRENAL GLANDS: Unremarkable. KIDNEYS: Few small cysts. Otherwise unremarkable without hydronephrosis. LYMPH NODES: No lymphadenopathy identified. ABDOMINAL VESSELS: Abdominal aorta is patent without aneurysm. Major visceral tear branches are patent. IVC and visualized major branches are patent. Major portal venous branches are patent BOWEL: No dilated bowel is visualized. Suspect small sliding hiatal hernia. PERITONEUM/RETROPERITONEUM : No visualized free fluid. BONES AND LOWER THORAX: Lumbar degenerative changes with mild levoscoliosis. [facility] Rocael Walters MD - 05/28/2023 Interpreted By: Rocael Waltres, STUDY: MR LIVER W AND WO IV CONTRAST; 05/27/2023 6:37 pm INDICATION: Signs/Symptoms: pt with hx HCC- surveillance imaging needed C22.9: Liver cancer. COMPARISON: 11/04/2022 ACCESSION NUMBER(S): [id number] ORDERING CLINICIAN: REGINALDO VALENCIA TECHNIQUE: MRI LIVER; Multiplanar magnetic resonance images of the abdomen were obtained including the following sequences; T2-weighted SSFSE with and without fat saturation, T1-weighted GRE in/opposed phase, DWI, fat saturated 3D-T1w GRE pre and dynamically post contrast. 12 ml of Gadolinium contrast agent Dotarem were administered intravenously without immediate complication. FINDINGS: LIVER: Signal dropout on out of phase imaging indicates steatosis. There is a ablation zone in segment measuring 4.5 cm. At the caudal margin of the ablation zone there is 20 mm nodule of arterial enhancement on series 19, image 57/72. No definite contrast washout can be seen at the site. This is difficult to confirm on additional sequences and appears relatively isointense to liver on T1 and T2 sequences. This has an appearance liver parenchyma on the coronal postcontrast sequences. There is no definite restricted diffusion at this site. No new suspicious hepatic observations. BILE DUCTS: No dilatation. GALLBLADDER: No stone or wall thickening. PANCREAS: 8 mm cystic lesion in the proximal body not significantly changed. No main ductal dilatation. SPLEEN: Unremarkable. ADRENAL GLANDS: Unremarkable. KIDNEYS: Few small cysts. Otherwise unremarkable without hydronephrosis. LYMPH NODES: No lymphadenopathy identified. ABDOMINAL VESSELS: Abdominal aorta is patent without aneurysm. Major visceral tear branches are patent. IVC and visualized major branches are patent. Major portal venous branches are patent BOWEL: No dilated bowel is visualized. Suspect small sliding hiatal hernia. PERITONEUM/RETROPERITONEUM : No visualized free fluid. BONES AND LOWER THORAX: Lumbar degenerative changes with mild levoscoliosis. IMPRESSION: 1. 20 mm flat focal arterial hyperenhancement marginating hepatic segment ablation site. This could represent local recurrent tumor, however considering lack of washout or additional findings on multiple additional sequences, this could be related to hepatic parenchyma with altered perfusion relating to adjacent ablation changes. Suggest continued close surveillance. 2. No new suspicious hepatic lesions otherwise. 3. Stable subcentimeter pancreatic cystic lesion. MACRO: None Signed by: Rocael Walters 05/28/2023 11:44 AM Dictation workstation: [id number] [facility] Work Phone: MR Liver WO and W contrast I VOrdered By: Rocael Walters on 05-28-2023 [facility] Work Phone: MR LIVER W AND WO IV CONTRAS Ton 05-27-2023 MR LIVER W AND WO IV CONTRAST Interpreted By: Rocael Walters, STUDY: MR LIVER W AND WO IV CONTRAST; 05/27/2023 6:37 pm INDICATION: Signs/Symptoms: pt with hx HCC- surveillance imaging needed C22.9: Liver cancer. COMPARISON: 11/04/2022 ACCESSION NUMBER(S): [id number] ORDERING CLINICIAN: REGINALDO VALENCIA TECHNIQUE: MRI LIVER; Multiplanar magnetic resonance images of the abdomen were obtained including the following sequences; T2-weighted SSFSE with and without fat saturation, T1-weighted GRE in/opposed phase, DWI, fat saturated 3D-T1w GRE pre and dynamically post contrast. 12 ml of Gadolinium contrast agent Dotarem were administered intravenously without immediate complication. FINDINGS: LIVER: Signal dropout on out of phase imaging indicates steatosis. There is a ablation zone in segment measuring 4.5 cm. At the caudal margin of the ablation zone there is 20 mm nodule of arterial enhancement on series 19, image 57/72. No definite contrast washout can be seen at the site. This is difficult to confirm on additional sequences and appears relatively isointense to liver on T1 and T2 sequences. This has an appearance liver parenchyma on the coronal postcontrast sequences. There is no definite restricted diffusion at this site. No new suspicious hepatic observations. BILE DUCTS: No dilatation. GALLBLADDER: No stone or wall thickening. PANCREAS: 8 mm cystic lesion in the proximal body not significantly changed. No main ductal dilatation. SPLEEN: Unremarkable. ADRENAL GLANDS: Unremarkable. KIDNEYS: Few small cysts. Otherwise unremarkable without hydronephrosis. LYMPH NODES: No lymphadenopathy identified. ABDOMINAL VESSELS: Abdominal aorta is patent without aneurysm. Major visceral tear branches are patent. IVC and visualized major branches are patent. Major portal venous branches are patent BOWEL: No dilated bowel is visualized. Suspect small sliding hiatal hernia. PERITONEUM/RETROPERITONEUM : No visualized free fluid. BONES AND LOWER THORAX: Lumbar degenerative changes with mild levoscoliosis. IMPRESSION: 1. 20 mm flat focal arterial hyperenhancement marginating hepatic segment ablation site. This could represent local recurrent tumor, however considering lack of washout or additional findings on multiple additional sequences, this could be related to hepatic parenchyma with altered perfusion relating to adjacent ablation changes. Suggest continued close surveillance. 2. No new suspicious hepatic lesions otherwise. 3. Stable subcentimeter pancreatic cystic lesion. MACRO: None Signed by: Rocael Walters 05/28/2023 11:44 AM Dictation workstation: [id number] [facility] Comment on above: Order Comment: Anthony Victor elected: Y MR Liver WO and W contrast I Von 05-27-2023 Radiology Study observation (narrative) [facility] Work Phone: [id number] AFP [Mass/Vol] 7 ng/mL Normal 0-9 [facility] Comment on above: Order Comment: AFP t esting is performed by chemiluminescent immunoassay using the Siemens [employer]. Values obtained with different analyte methods cannot be used interchangeably. This test can be used as an adjunct in the diagnosis and monitoring of AFP-producing tumors, including non-seminomatous germ cell tumors and hepatocellular carcinomas. Performed By: #### 1 834-1 #### MILAGROS MORALESER L ([id number]) [facility] ([facility]) [address] [place] [address] Creatinineon 05-18-2023 Creatinine [Mass/Vol] 0.84 mg/dL Normal 0.50-1.05 [facility] Comment on above: Performed By: #### 2 160-0 #### CINTRON RACHEL ([id number]) [facility] ([facility]) [facility] [place] [address] Creatinine [Mass/Vol]on 04-27 Glomerular filtration rate/1.73 sq M.predicted 70 mL/min/1.73m*2 Normal >60 [facility] Comment on above: Result Comment: Calc ulations of estimated GFR are performed using the 2020 CKD-EPI Study Refit equation without the race variable for the IDMS-Traceable creatinine methods. https://jasn.asnjournals.org/content/early/ASN.80490418 88 Performed By: #### 2 160-0 #### CINTRON RACHEL ([id number]) [facility] ([facility]) [address] [place] [id number] MRI Liver w/wo Contraston MR Liver WO and W contrast IV Normal [facility] Work Phone: ALPHA-FETOPROTEINon 10-23-19 23 ALPHA-FETOPROTEIN 7 ng/mL Normal 0 - 9 [facility] Comment on above: Result Comment: AFP testing is performed by chemiluminescent immunoassay using the Siemens [employer]. Values obtained with different analyte methods cannot be used interchangeably. This test can be used as an adjunct in the diagnosis and monitoring of AFP-producing tumors, including non-seminomatous germ cell tumors and hepatocellular carcinomas. Performed By: #### A FP #### [facility] [address] [place] [address] Alpha-fetoprotein serumon AFP [Mass/Vol] 7 ng/mL 0 - 9 [facility] Work Phone: Comment on above: AFP testing is perfo rmed by chemiluminescent immunoassay using the Siemens [employer]. Values obtained with different analyte methods cannot be used interchangeably. This test can be used as an adjunct in the diagnosis and monitoring of AFP-producing tumors, including non-seminomatous germ cell tumors and hepatocellular carcinomas. CREATININEon 10-22-2022 Creatinine [Mass/Vol] 0.85 mg/dL Normal 0.50 - 1.05 [facility] [place] Comment on above: Performed By: #### C REAT ####[address] [address] GFR/1.73 sq M.predicted among non-blacks MDRD (S/P/Bld) [Vol rate/Area] 69 mL/min/{1.73_m2} Normal >90 [facility] [place] Comment on above: Result Comment: CALC ULATIONS OF ESTIMATED GFR ARE PERFORMED USING THE 2020 CKD-EPI STUDY REFIT EQUATION WITHOUT THE RACE VARIABLE FOR THE IDMS-TRACEABLE CREATININE METHODS. https://jasn.asnjournals.org/content/early/ASN.04896254 88 Performed By: #### C REAT ####[address] [address] Creatinine, Serumon 10-23-19 Creatinine [Mass/Vol] 0.85 mg/dL See Below [facility] Work Phone: Comment on above: Reference Range: 0.5 0 - 1.05 Creatinine, Serum 69 {mL/min/1.73m2} >90 [facility] Work Phone: Comment on above: CALCULATIONS OF NIDHI MATED GFR ARE PERFORMED USING THE 2020 CKD-EPI STUDY REFIT EQUATION WITHOUT THE RACE VARIABLE FOR THE IDMS-TRACEABLE CREATININE METHODS.https://jasn.asnjournals.org/content/early/ASN. 6063318832 Follow Up (General Surgery)o n 05-07-2022 Follow Up (General Surgery) Diagnoses/Problems Liver cancer (155.2) (C22.9) Patient Discussion/Summary Plan for liver MRI and AFP level in 6 months and follow-up with me at that time. Dictation software was used in the creation of this note and not corrected for typographical or grammatical errors Chief Complaint Postop History of Present [id number]-[id number]-aaj woman who is here in follow-up after undergoing laparoscopic liver ablation for hepatocellular carcinoma on March 23, 2022. She has recovered well from surgery. She underwent recent MRI which shows complete ablation. 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 Meloxicam 15 MG Oral TabletTake 1 tablet by mouth daily Multiple Vitamin TABSTAKE 1 TABLET DAILY. [place] 3 1000 MG Oral Capsuletake 2 capsule by mouth daily Ondansetron 4 MG Oral Tablet Disintegrating Sertraline HCl - 50 MG Oral TabletTAKE 1 TABLET DAILY. Simvastatin 20 MG Oral Tablettake 1 tablet by mouth at bedtime Vitamin D3 25 MCG (1000 UT) Oral CapsuleTAKE DIRECTED. Vitals Vital Signs Recorded: 07May2022 03:08PM Gzgaymwpbyj08.3 C, Temporal Heart Rate79 Tdhslruhklx71 Xhvwpqyk942, LUE, Sitting Vuwxveayp66, LUE, Sitting Height5 ft 3 in Ngmcwx845 lb BMI Vyjgyqwmei77.51 kg/m2 BSA Calculated1.68 O2 Esvitasnhe74, RA Physical Exam Incisions healing well Results/Data MRI Liver w/wo [id number] 05:15PMWally Clemens Test NameResultFlagReference MRI Liver w/wo Contrast(Report) FINAL REPORT Interpreted by: PAVEL RIZO RICHARD, MD 05/06/22 08:05 Patient Name: WALTER MILLAN STUDY: MRI LIVER W/O-W CONTRAST; 05/05/2022 5:15 pm INDICATION: HCC s/p liver ablation, Lie Flat: Yes, Pre Med: No . COMPARISON: MRI liver 06 March 2022 and from an outside institution 05 February 2022; CT abdomen and pelvis with contrast 05 February 2022 ACCESSION NUMBER(S): [id number] ORDERING CLINICIAN: WALLY CLEMENS TECHNIQUE: Multi-planar, multi-pulse sequence MRI abdomen before and after the uneventful administration of 13 mL gadolinium-based intravenous contrast material (Dotarem) FINDINGS: LIVER: Size: Within normal limits Cirrhotic change: Unchanged slightly lobular contours Fatty change: Negative Significant iron deposition: Negative Solid mass: No enhancement at the ablation site. No metachronous new hepatocellular carcinoma Portal venous system: Patent throughout, including the splenic vein and upper SMV Hepatic veins: Patent throughout Stigmata of portal hypertension: Borderline splenomegaly is unchanged. No ascites or large varices Other: n/a GALLBLADDER: Stone/s: Negative Polyp: Negative Dilation: Negative Wall thickening: Negative Other: n/a BILE DUCTS: Intrahepatic dilation: Negative Extrahepatic dilation: Negative Stricture: Negative Stone/s: Negative Other: n/a PANCREAS: Acute inflammatory change: Negative Morphologic changes of chronic pancreatitis: Negative Gland necrosis: Negative Peripancreatic collection: Negative Peripancreatic fat necrosis: Negative Main duct dilation: Negative Solid mass: Negative Cyst / cystic lesion: Negative SPLEEN: The spleen is normal in size, without focal lesion. RIGHT ADRENAL GLAND: No mass or hyperplasia. LEFT ADRENAL GLAND: No mass or hyperplasia. RIGHT KIDNEY AND INCLUDED URETER: No hydronephrosis, solid mass or any other acute findings. 5 mm or smaller hemorrhagic cyst near the central sinus fat, a Bosniak type 2 lesion, unchanged and does not need follow-up LEFT KIDNEY AND INCLUDED URETER: No hydronephrosis, solid mass or any other acute findings. LYMPH NODES: No abdominal adenopathy, intraperitoneal, retroperitoneal or otherwise. INCLUDED BOWEL: Normal in caliber and wall thickness. RETROPERITONEUM: Normal. No hemorrhage or inflammatory change. (lymph nodes in dedicated section) OMENTUM, MESENTERY AND PERITONEAL SPACES: No fluid collection or free fluid. Grossly normal omentum and mesentery. (lymph nodes in dedicated section) VASCULATURE: No abdominal aortic aneurysm. No large vessel occlusion or critical stenosis. Hepatic vasculature details above in the liver section of this report. LOWER CHEST: No pleural effusion. BONES: Normal marrow signal intensity in the included skeleton. IMPRESSION: INTERVAL ABLATION OF THE POSTERIOR SEGMENT RIGHT HEPATIC LOBE HEPATOCELLULAR CARCINOMA SINCE MRI 06 MARCH 2022 NO ENHANCEMENT IN THE ABLATION ZONE. NO COMPELLING EVIDENCE FOR RESIDUAL/RECURRENT NEOPLASM AT THE ABLATION ZONE NO OTHER/NEW LIVER LESION SUSPECT FOR A METACHRONOUS NEW HEPATOCELLULAR CARCINOMA NO METASTATIC DISEASE IN THE ABDOMEN BORDERLINE SPLENOMEGALY IS UNCHANGED, MAY OR MAY NOT BE DUE TO PORTAL HYPERTENSION. NO OTHER POT (more content not included)... Normal [facility] MRI Liver w/wo Contraston MR Liver WO and W contrast IV Normal [facility] [place] [facility] [place] Work Phone: CBCon 03-24-2022 Erythrocyte distribution width (RBC) [Ratio] 13.3 % Normal 11.5 - 14.5 [facility] [place] Comment on above: Performed By: #### C BC #### [facility] [address] [place] [address] Hematocrit (Bld) [Volume fraction] 37.4 % Normal 36.0 - 46.0 [facility] [place] Comment on above: Performed By: #### C BC #### [facility] [address] [place] [address] Hemoglobin (Bld) [Mass/Vol] 12.7 g/dL Normal 12.0 - 16.0 [facility] [place] Comment on above: Performed By: #### C BC #### [facility] [address] [place] [address] MCHC (RBC) [Mass/Vol] 34.0 g/dL Normal 32.0 - 36.0 [facility] [place] Comment on above: Performed By: #### C BC #### [facility] [address] [place] [address] MCV (RBC) [Entitic vol] 90 fL Normal 80 - 100 [facility] [place] Comment on above: Performed By: #### C BC #### [facility] [address] [place] [address] NUCLEATED RBC 0.0 /100 WBC Normal 0.0-0.0 [facility] Comment on above: Performed By: #### C BC #### [facility] [address] [place] [address] Platelets (Bld) [#/Vol] 164 10*3/uL Normal 150 - 450 [facility] [place] Comment on above: Performed By: #### C BC #### [facility] [address] [place] [address] RBC 4.16 x10E12/L Normal 4.00 - 5.20 [facility] Comment on above: Performed By: #### C BC #### [facility] [address] [place] [address] WBC (Bld) [#/Vol] 6.0 10*3/uL Normal 4.4 - 11.3 [facility] Comment on above: Performed By: #### C BC #### [facility] [address] [place] [address] COMPREHENSIVE PANELon 2021 ALT [Catalytic activity/Vol] 531 U/L High 7 - 45 [facility] [place] Comment on above: Result Comment: Leela ents treated with Sulfasalazine may generate falsely decreased results for ALT. Performed By: #### C MP #### [facility] [address] [place] [address] Albumin [Mass/Vol] 3.9 g/dL Normal 3.4 - 5.0 [facility] Comment on above: Performed By: #### C MP #### [facility] [address] [place] [address] ALP [Catalytic activity/Vol] 79 U/L Normal 33 - 136 [facility] [place] Comment on above: Performed By: #### C MP #### [facility] [address] [place] [address] Anion gap [Moles/Vol] 12 mmol/L Normal 10 - 20 [facility] [place] Comment on above: Performed By: #### C MP #### [facility] [address] [place] [address] AST [Catalytic activity/Vol] 449 U/L High 9 - 39 [facility] [place] Comment on above: Performed By: #### C MP #### [facility] [address] [place] [address] Bilirubin [Mass/Vol] 1.3 mg/dL High 0.0 - 1.2 [facility] [place] Comment on above: Performed By: #### C MP #### [facility] [address] [place] [address] Calcium [Mass/Vol] 9.5 mg/dL Normal 8.6 - 10.6 [facility] Comment on above: Performed By: #### C MP #### [facility] [address] [place] [address] Chloride [Moles/Vol] 105 mmol/L Normal 98 - 107 [facility] [place] Comment on above: Performed By: #### C MP #### [facility] [address] [place] [address] Creatinine [Mass/Vol] 0.77 mg/dL Normal 0.50 - 1.05 [facility] [place] Comment on above: Performed By: #### C MP #### [facility] [address] [place] [address] GFR/1.73 sq M.predicted among non-blacks MDRD (S/P/Bld) [Vol rate/Area] 78 mL/min/{1.73_m2} Normal >90 [facility] [place] Comment on above: Result Comment: CALC ULATIONS OF ESTIMATED GFR ARE PERFORMED USING THE 2020 CKD-EPI STUDY REFIT EQUATION WITHOUT THE RACE VARIABLE FOR THE IDMS-TRACEABLE CREATININE METHODS. https://jasn.asnjournals.org/content//ASN.85254761 88 Performed By: #### C MP #### [facility] [address] [place] [address] Glucose [Mass/Vol] 104 mg/dL High 74 - 99 [facility] Comment on above: Performed By: #### C MP #### [facility] [address] [place] [address] HCO3 (Bld) [Moles/Vol] 30 mmol/L Normal 21 - 32 [facility] [place] Comment on above: Performed By: #### C MP #### [facility] [address] [place] [address] Potassium [Moles/Vol] 4.3 mmol/L Normal 3.5 - 5.3 [facility] [place] Comment on above: Performed By: #### C MP #### [facility] [address] [place] [address] Protein [Mass/Vol] 6.1 g/dL Low 6.4 - 8.2 [facility] Comment on above: Performed By: #### C MP #### [facility] [address] [place] [address] Sodium [Moles/Vol] 143 mmol/L Normal 136 - 145 [facility] Comment on above: Performed By: #### C MP #### [facility] [address] [place] [address] Urea nitrogen [Mass/Vol] 15 mg/dL Normal 6 - 23 [facility] [place] Comment on above: Performed By: #### C MP #### [facility] [address] [place] [address] Discharge Nyvbdjx8in 022 Discharge Profile2 Discharge Orders: Anticipated Discharge Date: Anticipated Discharge [id number] Problem List: Additional Dx: Hepatocellular carcinoma determined by biopsy of liver: Catalog Name: Liver cell carcinoma Significant Events: Surgical Procedure: Clinical Events This Visit, 23-Mar-2022, 1. Intraoperative liver ultrasound with interpretation of imaging ;2. Laparoscopic microwave ablation of a liver mass HLD: Past Medical History HTN: Past Medical History Hospital Providers: Provider RoleProvider Name Reginaldo Sood Paul R DNAR: Code Status at Discharge: Full Code Activity: activity as tolerated. May shower. May not return to school/work Instructions: May not drive while taking narcotics. No pushing, pulling, or lifting objects greater than 10 pounds. Diet: Dietresume normal diet Tests 1: Test Name(s)Liver MRI Call to Schedule in4-6 weeks Commentscall [phone] to schedule Wound Care 1: Wound Siteabdomen Wound Typesurgical incision Cleanse Withsoap and water Cover Withno dressing, leave open to air Instructionsno lotions, creams, or tub soaks Other InstructionsYou have surgical glue over your incision. You may shower and use soap and water over your incision. Pat dry. The surgical glue with slowly dissolve and fall away. Call Provider If (Homegoing Patients): Any new concerning symptoms. - fever greater than 102 degrees/chills - increased pain not relieved with medication - redness/drainage from incision - severe nausea/vomiting - severe constipation/diarrhea - difficulty voiding/burning with urination. Provider FINAL REVIEW of Orders: Final Review: Final Review of Medication Reconciliation and Orders Completedby APPLICATION SUPPORT MANAGER Reviewing MILADY Moore at 24-Mar-2022 08:01:42 Appointments: Follow-Up Appointment 01: Physician/Dept/Virginie Valencia Reason for Referralfollow up after MRI Call to Schedule in4-6 weeks Phone [phone] Electronic Signatures: Wally Clemens (ROSIE-DAE) (Signed 24-Mar-2022 10:37) Authored: Discharge Orders, Provider FINAL REVIEW of Orders, Appointments, Gold Form - Reference Test Clerk Summary Last Updated: 24-Mar-2022 10:37 by Wally Clemens (APPLICATION SUPPORT MANAGER-[facility]) [facility] Order Reconciliationon 03-24 Order Reconciliation Page 1 Discharge Reconciliation Document Reconciliation Type: Discharge requested on behalf of Wally Clemens (Advanced Practice Nurse) done by Wally Clemens ([facility]) Discharge - Reconciliation: 24-Mar-2022 07:58 by: Wally Clemens (APPLICATION SUPPORT MANAGER-[facility]) Home Medications EnteredHOME MEDICATIONS AT DISCHARGE DateReconciliation Comment/ Additional Information Calcium 600+D oral tablet 1 tab(s) orally once a day 23-Mar-2022 08:11 Calcium 600+D oral tablet 1 tab(s) orally once a day 23-Mar-2022 08:11 Calcium 600+D oral tablet is continued as Calcium 600+D oral tablet cholecalciferol 25 mcg (1000 intl units) oral capsule 1 cap(s) orally once a day 23-Mar-2022 08:10 cholecalciferol 25 mcg (1000 intl units) oral capsule 1 cap(s) orally once a day 23-Mar-2022 08:10 cholecalciferol 25 mcg (1000 intl units) oral capsule is continued as cholecalciferol 25 mcg (1000 intl units) oral capsule clonazePAM 0.5 mg oral tablet 1 tab(s) orally once a day (in the morning) 23-Mar-2022 08:06 clonazePAM 0.5 mg oral tablet 1 tab(s) orally once a day (in the morning) 23-Mar-2022 08:06 clonazePAM 0.5 mg oral tablet is continued as clonazePAM 0.5 mg oral tablet Fish Oil 1000 mg oral capsule 2 cap(s) orally once a day 23-Mar-2022 08:10 Fish Oil 1000 mg oral capsule 2 cap(s) orally once a day 23-Mar-2022 08:10 Fish Oil 1000 mg oral capsule is continued as Fish Oil 1000 mg oral capsule ibuprofen 200 mg oral tablet 1 tab(s) orally 2 times a day 23-Mar-2022 08:11 ibuprofen 200 mg oral tablet 1 tab(s) orally 2 times a day 23-Mar-2022 08:11 ibuprofen 200 mg oral tablet is continued as ibuprofen 200 mg oral tablet lisinopril 5 mg oral tablet 1 tab(s) orally once a day 23-Mar-2022 08:06 lisinopril 5 mg oral tablet 1 tab(s) orally once a day 23-Mar-2022 08:06 lisinopril 5 mg oral tablet is continued as lisinopril 5 mg oral tablet Multiple Vitamins with Minerals oral tablet 1 tab(s) orally once a day (in the morning) 23-Mar-2022 08:08 Multiple Vitamins with Minerals oral tablet 1 tab(s) orally once a day (in the morning) 23-Mar-2022 08:08 Multiple Vitamins with Minerals oral tablet is continued as Multiple Vitamins with Minerals oral tablet ondansetron 4 mg oral tablet 1 tab(s) orally once a day, As Needed 23-Mar-2022 08:07 ondansetron 4 mg oral tablet 1 tab(s) orally once a day, As Needed 23-Mar-2022 08:07 ondansetron 4 mg oral tablet is continued as ondansetron 4 mg oral tablet sertraline 50 mg oral tablet 1 tab(s) orally once a day (in the morning) 23-Mar-2022 08:08 sertraline 50 mg oral tablet 1 tab(s) orally once a day (in the morning) 23-Mar-2022 08:08 sertraline 50 mg oral tablet is continued as sertraline 50 mg oral tablet simvastatin 20 mg oral tablet 1 tab(s) orally once a day (at bedtime) 23-Mar-2022 08:08 simvastatin 20 mg oral tablet 1 tab(s) orally once a day (at bedtime) 23-Mar-2022 08:08 simvastatin 20 mg oral tablet is continued as simvastatin 20 mg oral tablet Current OrdersDateHOME MEDICATIONS AT DISCHARGE DateReconciliation Comment/ Additional Information Acetaminophen Tablet (TYLENOL)DOSE = 650 mg Oral Every 6 Hours 23-Mar-2022 09:23 acetaminophen 325 mg oral tablet 2 tab(s) orally every 6 hours 24-Mar-2022 07:58 Acetaminophen is continued as acetaminophen 325 mg oral tablet clonazePAM (KLONOPIN) TabletDOSE = 0.5 mg Oral At Bedtime, PRN anxietyNotes from Pharmacy: Reproductive Risk- Single Nitrile Glove 23-Mar-2022 18:05 clonazePAM (KLONOPIN) is not required Docusate 50 mg - Senna 8.6 mg Tablet (SENOKOT S)DOSE = 2 tablet(s) Oral 2 Times a Day 23-Mar-2022 09:23 Docusate 50 mg - Senna 8.6 mg is not required Lisinopril Tablet (PRINIVIL, ZESTRIL)DOSE = 5 mg Oral Daily 23-Mar-2022 17:45 Lisinopril is not required Ondansetron Injectable (ZOFRAN)DOSE = 4 mg IntraVenous Push Every 6 Hours, PRN Nausea 23-Mar-2022 09:23 Ondansetron Injectable is not required oxyCODONE Immediate Release Tablet (OXYIR, ROXICODONE)DOSE = 10 mg Oral Every 4 Hours, PRN Pain - Severe (7-10) 23-Mar-2022 09:23 oxyCODONE Immediate Release is not required oxyCODONE Immediate Release Tablet (OXYIR, ROXICODONE)DOSE = 5 mg Oral Every 4 Hours, PRN Pain - Mod (4-6) 23-Mar-2022 09:23 oxyCODONE Immediate Release is not required Sertraline Tablet (ZOLOFT)DOSE = 50 mg Oral Daily 23-Mar-2022 17:45 Sertraline is not required Simvastatin Tablet (ZOCOR)DOSE = 10 mg Oral At Bedtime 23-Mar-2022 17:45 Simvastatin is not required Home Medications Added During Discharge Reconciliation traMADol 50 mg oral tablet 1 tab(s) orally every 4 to 6 hours x 7 days, As Needed -for pain , Dx: G89.18 All Active Home Medications at time of Discharge Reconciliation: 24-Mar-2022 07:58 acetaminophen 325 mg oral tablet 2 tab(s) orally every 6 hours Calcium 600+D oral tablet 1 tab(s) orally once a day cholecalciferol 25 mcg (1000 intl units) oral capsule 1 cap(s) orally once a day clonazePAM 0.5 mg oral tablet 1 tab( (more content not included)... Normal [facility] [place] ABO/RH GROUP TESTon 03-23-20 ABO TYPE AB Normal [facility] [place] Comment on above: Performed By: #### V ERAB ####[id number] [id number] RH TYPE Positive Normal [facility] [place] Comment on above: Performed By: #### V ERAB ####[id number] [place] [address] Admission Risk Screen - Adul ton 03-23-2022 Admission Risk Screen - Adult Allergies: Allergies: No Known Allergies: Patient Verification: New W ID Band Applied in my Departmentyes Patient Identity Verified Bypatient ID Band FULL Name, include Middle, spelling matches patient's ID used for verificationyes ID Band Matches Patient ID used for Verficationyes ID Band MRN Matches EMR MRNyes Visitor Restriction: Coronavirus Visitor Restriction: Reasonable restrictions to in-person visitors will be observed due to current coronavirus pandemic. Travel History: COVID-19 Screening Completedno exposure or symptoms(1) Travel or Exposure Past 30 DaysNO travel to International locations in the past 30 days Ebola AlertFor Ebola-like Symptoms: Isolate Patient and Notify Provider/District Recruiter For Contact: Notify Provider/District Recruiter Advance Directive: Advance Directive/DNRyes Advance Directive typeLiving Will, Durable Power of [employer] Systems Engineer for Healthcare Living Will Availabilityplaced in chart Living Will Placed on [id number] Durable Power of [employer] Systems Engineer Availabilityplaced in chart Durable Power of [employer] Systems Engineer Placed on [id number] Durable Power of [employer] Systems Engineer contact (name and number)Jaziel Ortega Fall Screen: History of falling (immediate or previous)no (0) Secondary Diagnosisyes (15) Intravenous Therapy/ Heparin/Saline Lockyes (20) Gait/Transferringnormal/be drest/wheelchair (0) Ambulatory Aidsnone/bedrest/nurse assist (0) Mental Statusoriented to own ability (0) Score: Low risk (<25). Moderate risk (25-44). High risk (>44).35 Ortega InterventionsMODERATE INTERVENTIONS: *Low Interventions Plus: * falls risk band/sticker applied to patient, *yellow non-skid footwear, *instruct to call for assistance before getting out of bed, *bed/chair/bedside commode/toilet alarms, *sensory devices/ambulatory aides available and in reach, *medications reviewed for potential side effects and care planning. Family Violence Screen: Are you or have you been threatened or abused physically, emotionally, or sexually by anyoneno Do you feel UNSAFE going back to the place where you are livingno Clinical assessment: Are there any apparent signs of injuries/behaviors that could be related to abuse/neglectno Social Service Consult for abuse/neglect needed this visitno Functional Screen: Functional Screen: In the recent/past 2-4 weeks, patient or family have noticedno issues that require a speech/language consult at this time AM-PAC- Basic Mobility/Daily Activity: Patient baseline bedboundno Learning Assessment (Patient): Patient is Able to be Assessed for Learningyes Factors Influencing Readiness to Learnpain Factors that Impact Ability to Learnnone Devices/Methods Used to Communicatenone Learning Preferencesskill demonstration; verbal instruction; written material Cultural Considerationsnone Developmental Considerationsnone Evangelical Considerationsnone Learning Assessment (Other Learner): Other learner availableno Depression Screen: During the past month, have you often been bothered by feeling down, depressed or hopelessno During the past month, have you often had little interest or pleasure in doing thingsno Have you had any thoughts of harming anyone elseno Manning Suicide: Risk Screen Not Applicable/Able to Answerable to be screened In the Past Month: Have you wished you were or could go to sleep and not wake upno(1) In the Past Month: Have you had any actual thoughts of killing yourself no(1) Lifetime: Have you ever done, started to do, or prepared to do anything to end your lifeno(1) Manning Suicide Risknegative Adult Nutrition Screen: Have you recently lost weight without tryingno Have you been eating poorly because of a decreased appetiteno Malnutrition Screening Tool Score0 Malnutrition Screening Tool RiskMST = 0 or 1 Not at risk. Eating well with little or no weight loss Nutrition Consult needed this visitno Can Patient Participate in Room Serviceyes Patient requires Paper Dishes/Plastic Utensilsno Pain Screen: Pain Scalenumerical 0-10 Pain Scale Educationteaching provided Current Pain Level5 = Moderate Acceptable Pain Level3 = Mild Expression of Pain (nonverbal)verbalization Chronic Painno Spiritual Screen: Are there any cultural, spiritual, voodoo practices/values/needs that are important for us to knowno CAGE: Is this an injured patient at a Trauma Center ([facility]/[place]/Patrick/Kayleigh Ewing/Tere): no Vaccinations: Vaccination - Influenza Vaccination Screen: Is it flu season (between and July 24)Yes Screening for identified contraindications to influenza vaccination patient/caregiver refusal Vaccination - Pneumonia Vaccination Screen: Patient has received a previous pneumonia vaccine:yes (given either at or after age 65) Maurice: Skin - Maurice Scale: Maurice: Sensory Perception (re (more content not included)... Normal [facility] [place] [facility] CBCon 03-23-2022 Erythrocyte distribution width (RBC) [Ratio] 13.3 % Normal 11.5 - 14.5 [facility] [place] [facility] Comment on above: Performed By: #### C BC #### [facility] [address] [place] [address] Hematocrit (Bld) [Volume fraction] 32.3 % Low 36.0 - 46.0 [facility] [place] Comment on above: Performed By: #### C BC #### [facility] [address] [place] [address] Hemoglobin (Bld) [Mass/Vol] 11.4 g/dL Low 12.0 - 16.0 [facility] [place] Comment on above: Performed By: #### C BC #### [facility] [address] [place] [address] MCHC (RBC) [Mass/Vol] 35.3 g/dL Normal 32.0 - 36.0 [facility] [place] Comment on above: Performed By: #### C BC #### [facility] [address] [place] [address] MCV (RBC) [Entitic vol] 87 fL Normal 80 - 100 [facility] [place] Comment on above: Performed By: #### C BC #### [facility] [address] [place] [address] NUCLEATED RBC 0.0 /100 WBC Normal 0.0-0.0 [facility] Comment on above: Performed By: #### C BC #### [facility] [address] [place] [address] Platelets (Bld) [#/Vol] 134 10*3/uL Low 150 - 450 [facility] [place] Comment on above: Performed By: #### C BC #### [facility] [address] [place] [address] RBC 3.70 x10E12/L Low 4.00 - 5.20 [facility] Comment on above: Performed By: #### C BC #### [facility] [address] [place] [address] WBC (Bld) [#/Vol] 6.6 10*3/uL Normal 4.4 - 11.3 [facility] Comment on above: Performed By: #### C BC #### [facility] [address] [place] [address] COMPREHENSIVE PANELon 2021 ALBUMIN Canceled Normal [facility] [place] Comment on above: Order Comment: TEST COMPREHENSIVE PANEL WAS CANCELLED, 03/23/2022 10:37 QNS, PLEASE RESUBMIT.. Performed By: #### C MP #### [facility] [address] [place] [address] ALKALINE PHOSPHATASE Canceled Normal [facility] [place] Comment on above: Order Comment: TEST COMPREHENSIVE PANEL WAS CANCELLED, 03/23/2022 10:37 QNS, PLEASE RESUBMIT.. Performed By: #### C MP #### [facility] [address] [place] [address] ALT Canceled Normal [facility] [place] Comment on above: Order Comment: TEST COMPREHENSIVE PANEL WAS CANCELLED, 03/23/2022 10:37 QNS, PLEASE RESUBMIT.. Result Comment: Leela ents treated with Sulfasalazine may generate falsely decreased results for ALT. Performed By: #### C MP #### [facility] [address] [place] [address] ANION GAP Canceled Normal [facility] [place] Comment on above: Order Comment: TEST COMPREHENSIVE PANEL WAS CANCELLED, 03/23/2022 10:37 QNS, PLEASE RESUBMIT.. Performed By: #### C MP #### [facility] [address] [place] [address] AST Canceled Normal [facility] [place] [facility] Comment on above: Order Comment: TEST COMPREHENSIVE PANEL WAS CANCELLED, 03/23/2022 10:37 QNS, PLEASE RESUBMIT.. Performed By: #### C MP #### [facility] [address] [place] [address] BICARBONATE Canceled Normal [facility] [place] Comment on above: Order Comment: TEST COMPREHENSIVE PANEL WAS CANCELLED, 03/23/2022 10:37 QNS, PLEASE RESUBMIT.. Performed By: #### C MP #### [facility] [address] [place] [address] BILIRUBIN,TOTAL Canceled Normal [facility] Comment on above: Order Comment: TEST COMPREHENSIVE PANEL WAS CANCELLED, 03/23/2022 10:37 QNS, PLEASE RESUBMIT.. Performed By: #### C MP #### [facility] [address] [place] [address] CALCIUM Canceled Normal [facility] [place] Comment on above: Order Comment: TEST COMPREHENSIVE PANEL WAS CANCELLED, 03/23/2022 10:37 QNS, PLEASE RESUBMIT.. Performed By: #### C MP #### [facility] [address] [place] [address] CHLORIDE Canceled Normal [facility] [place] Comment on above: Order Comment: TEST COMPREHENSIVE PANEL WAS CANCELLED, 03/23/2022 10:37 QNS, PLEASE RESUBMIT.. Performed By: #### C MP #### [facility] [address] [place] [address] CREATININE Canceled Normal [facility] [place] Comment on above: Order Comment: TEST COMPREHENSIVE PANEL WAS CANCELLED, 03/23/2022 10:37 QNS, PLEASE RESUBMIT.. Performed By: #### C MP #### [facility] [address] [place] [address] eGFR FEMALE Canceled Normal [facility] [place] Comment on above: Order Comment: TEST COMPREHENSIVE PANEL WAS CANCELLED, 03/23/2022 10:37 QNS, PLEASE RESUBMIT.. Result Comment: CALC ULATIONS OF ESTIMATED GFR ARE PERFORMED USING THE 2020 CKD-EPI STUDY REFIT EQUATION WITHOUT THE RACE VARIABLE FOR THE IDMS-TRACEABLE CREATININE METHODS. https://jasn.asnjournals.org/content/early/ASN.71804803 88 Performed By: #### C MP #### [facility] [address] [place] [address] eGFR MALE Canceled Normal [facility] [place] Comment on above: Order Comment: TEST COMPREHENSIVE PANEL WAS CANCELLED, 03/23/2022 10:37 QNS, PLEASE RESUBMIT.. Result Comment: CALC ULATIONS OF ESTIMATED GFR ARE PERFORMED USING THE 2020 CKD-EPI STUDY REFIT EQUATION WITHOUT THE RACE VARIABLE FOR THE IDMS-TRACEABLE CREATININE METHODS. https://jasn.asnjournals.org/content/earlyASN.41433220 88 Performed By: #### C MP #### [facility] [address] [place] [address] GLUCOSE Canceled Normal [facility] [place] Comment on above: Order Comment: TEST COMPREHENSIVE PANEL WAS CANCELLED, 03/23/2022 10:37 QNS, PLEASE RESUBMIT.. Performed By: #### C MP #### [facility] [address] [place] [address] POTASSIUM Canceled Normal [facility] [place] Comment on above: Order Comment: TEST COMPREHENSIVE PANEL WAS CANCELLED, 03/23/2022 10:37 QNS, PLEASE RESUBMIT.. Performed By: #### C MP #### [facility] [address] [place] [address] SODIUM Canceled Normal [facility] [place] Comment on above: Order Comment: TEST COMPREHENSIVE PANEL WAS CANCELLED, 03/23/2022 10:37 QNS, PLEASE RESUBMIT.. Performed By: #### C MP #### [facility] [address] [place] [address] TOTAL PROTEIN Canceled Normal [facility] Comment on above: Order Comment: TEST COMPREHENSIVE PANEL WAS CANCELLED, 03/23/2022 10:37 QNS, PLEASE RESUBMIT.. Performed By: #### C MP #### [facility] [address] [place] [address] UREA NITROGEN Canceled Normal [facility] Comment on above: Order Comment: TEST COMPREHENSIVE PANEL WAS CANCELLED, 03/23/2022 10:37 QNS, PLEASE RESUBMIT.. Performed By: #### C MP #### [place] [address] [facility] [place] [address] CORONAVIRUS 2019, SCREEN ASY MPTOMATICon 03-23-2022 SARS-CoV-2 (COVID-19) RNA LINDA+probe Ql (Unsp spec) Not detected Normal Not Detected [facility] [place] Comment on above: Result Comment: . This test has received FDA Emergency Use Authorization (EUA) and has been verified by [facility] ([facility]). This test is only authorized for the duration of time that circumstances exist to justify the authorization of the emergency use of in vitro diagnostic tests for the detection of SARS-CoV-2 virus and/or diagnosis of COVID-19 infection under section 564(b)(1) of the Act, 21 U.S.C. 360bbb-3(b)(1), unless the authorization is terminated or revoked sooner. [facility] is certified under CLIA-88 as qualified to perform high complexity testing. Testing is performed in the [facility] located at [id number] [place] [address]. SARS-CoV-2/Flu/RSV Multiplex Test: Fact sheet for providers: https://www.fda.gov/media/550689/download Fact sheet for patients: https://www.fda.gov/media/238733/download Performed By: #### C OVSC #### [facility] [address] [place] [address] Lab Specimen Source Nasal, Nasopharyngeal Normal [facility] [place] Comment on above: Performed By: #### C OVSC #### [facility] [address] [place] [address] Clinical Event Hcgc-Pukl-cd Checkon 03-23-2022 Clinical Event Jmtf-Egdk-zo Check Clinical Event: Clinical Event Note: TopicPost-op Check Details Patient examined around 5 pm. POD0 s/p Laparoscopic microwave ablation of segment 5/6 HCC with navigation technology and Intraoperative liver ultrasound monitoring of parenchymal ablation S: Denies pain. Denies CP, SOB, nausea. Setting in bed comfortably. O: Afebrile. VSS. Exam: Gen: awake, alert, NAD CV: regular rate on monitor Pulm: nonlabored respiratory effort on room air, no conversational dyspnea Ext: SCDs to bilateral LE A/P: 77yo F POD0 s/p Laparoscopic microwave ablation of segment 5/6 HCC with navigation technology and Intraoperative liver ultrasound monitoring of parenchymal ablation Plan: - oxycodone 5/10 for mod and severe pain, scheduled Tylenol for pain control - soft diet - Home medications ( lisinopril- clonazepam- sertraline- simvastatin) - Bowel regimen - Zofran PRN for nausea or vomiting - SCDs - Disp: RNF Seen with fellow Dr. Cheli Pacheco MD PGY-1 [place] [id number] Electronic Signatures: Manju Pacheco (Resident)) (Signed 23-Mar-2022 18:43) Authored: Clinical Event Note Reginaldo Valencia) (Signed 24-Mar-2022 21:22) Co-Signer: Clinical Event Note Last Updated: 24-Mar-2022 21:22 by Reginaldo Valencia) Normal [facility] [place] Covid 19 Resultson 2 SARS-CoV-2 (COVID-19) RNA LINDA+probe Ql (Unsp spec) NEGATIVE COVID-19 Test Coronaviruses are common world-wide and are the cause of many common colds. SARS-COV2 is a new coronavirus that began circulating worldwide in 2019 so we are calling it COVID-19. It has been estimated that four out of five patients with COVID-19 will recover at home without the need for medical attention. Symptoms of COVID-19 may include cough, fever, shortness of breath, loss of taste or smell and other flu-like symptoms including chills, sore muscles, sore throat, and headache. Severe illness is more common in older people and people with other health problems such as high blood pressure, obesity, and immune system problems. If the test is positive, you have COVID-19. You will be contacted by the ordering physicians office and instructed to remain on home isolation, in accordance with CDC guidelines. You may also be contacted by the [facility] to see if any of your close contacts may have been exposed to the virus and need to quarantine. If the test is negative, you likely do not have COVID-19 at this time, but you still may have a different illness that can spread to other people (like Influenza, or the Flu) and could still be at risk for getting COVID-19. We recommend that you stay away from other people to limit the spread of illness until your symptoms are improving and you are fever-free for 24 hours without the use of fever lowering medications such as acetaminophen or ibuprofen. No test is 100% accurate so if you are still concerned you may have COVID-19, talk to your doctor about the need to continue to stay away from others. Medicines Unless your provider told you not to use the following: Acetaminophen (Tylenol and others) is generally safe. Anti-inflammatory medications, such as Ibuprofen (Advil or Motrin) or Naproxen (Aleve) can also be used. Ylhy-ggp-nudnjwn cough and cold medicines can be used according to the instructions on the package. Some hcwv-anv-jhafbab medicines also contain acetaminophen. Make sure you are not taking more than your recommended dose. For those not hospitalized, there is no specific treatment available for this illness. Antibiotics do not treat Coronaviruses. Follow-Up Follow up with your doctor by scheduling a virtual visit or consider follow-up at one of our urgent care fever clinics. If you are having difficulty breathing, or are very weak and having difficulty standing, this is a medical emergency. Call 911 or have someone take you to the nearest emergency room immediately. If possible, wear a facemask. Additional guidance from the CDC for patients who tested POSITIVE for COVID-19 How to isolate: Isolate yourself in a specific room at home and limit your contact with others. Use a separate bathroom from other members of the household, when possible. Leave home only to get essential medical care. Do not go to work, school or public areas. Avoid using public transportation, ride-sharing, or taxis. Restrict contact with pets and other animals. If you must care for your pet or be around animals while you are sick, wash your hands before and after your interaction and wear a facemask. Make sure that shared spaces in the home have good airflow, such as by an air conditioner or an opened window, weather permitting. Personal Hygiene Procedures: Wear a face mask when in the same room as other people or pets. If a face mask interferes with your breathing, others should wear a mask when sharing space with you. Frequent hand-washing: wash your hands with soap and water for at least 20 seconds. If soap and water are not available, use alcohol-based hand mainspring former arbor end. Avoid touching your eyes, nose, and mouth with unwashed hands. Household Hygiene Procedures: Avoid sharing personal household items such as dishes, glassware, cups, eating utensils, towels or bedding with other people or pets in your home. After use, these items should be washed with soap and hot water. Disinfect all high-touch surfaces every day with antibacterial cleaning solutions such as Lysol wipes, bleach, cleansers, etc. High-touch surfaces include tabletops, doorknobs, bathroom fixtures, toilets, phones, keyboards, tablets and bedside tables. Immediately clean any surfaces that may have blood, poop or body fluids on them, using antibacterial cleaning solutions such as Lysol wipes, bleach, cleansers, etc. If clothing or bedding come into contact with blood, poop or body fluids, they should be washed immediately. Follow the directions on the laundry detergent and clothing labels but hot water is recommended when possible. Stopping home isolation precautions: If possible, consult your doctor before stopping home isolation precautions. According to the CDC, you can discontinue home isolation precautions when you have met both of these criteria: Your fever and respiratory symptoms have been gone for 24 vicente (more content not included)... Normal [facility] [place] Patient Profile - Adult v2on 03-23-2022 Patient Profile - Adult v2 Profile: Initial Info: How to be AddressedSue(1) Spoken Language PreferredEnglish (1) Stated Reason for AdmissionOR Wants Family/Rep Notified of Admissionn/a; family present Notify PCPnotify PCP Informed of Patient Visiting Rightsyes Arrived FromOR Patient Belongingsremains with patient Patient Belongings Remaining with Patientclothing Medications Brought to Hospitalno General Health: Blood Avoidance/Restrictionsnone (1) Previous Transfusion Reactionnot applicable(1) Weight in kg64.1 kilogram(s)(2) Weight in hds980.3 pound(s) Weight Methodactual (measured) Scale Typestanding Height in cm165.1 centimeter(s)(2) Height in feet5 feet Height in inches5 inch(es) Height Methodstated BMI (kg/m2)23.516 square meter RSP Based Care: How would you like to participate in your carebe involved in plan of care What is the number one concern for you during this hospitalizationpain management What is the most important thing we can do to support you during this hospitalizationbe informed of changes to plan of care Is there anything we need to know to best care for daniel/a Substance: Smoking Statusnever smoker Alcohol Usedenies Drug Usedenies Drug 2 Usedenies Health Mgmt: Symptoms/Conditions Managed at Homenone Barriers to Managing Healthnone Relationship/Environ: Resource/Environmental Concernsnone Primary Source of Support/Comfortchild(anuj) Lives Withalone Living Arrangementshouse Services Anticipated at Transitionnone Anticipated Transition Tohome Significant IndicatorsComplete Information Review: Allergies, Home Meds and Significant Events have been Reviewed and Verified with Patient/Familyyes ALLERGY, INTOLERANCE, ADVERSE EVENT: Allergies: No Known Allergies: Active Electronic Signatures: Nu Amador (JAMILAH) (Signed 23-Mar-2022 12:11) Authored: Initial Info, General Health, RSP Based Care, Substance, Health Mgmt, Relationship/Environ, Additional Information Last Updated: 23-Mar-2022 12:11 by Nu Amador (JAMILAH) References: 1. Data Referenced From Patient Profile - Preop v3 23-Mar-2022 06:14 2. Data Referenced From 1. Vital Signs 23-Mar-2022 06:14 Normal [facility] [place] Patient Profile - Preop v3on 03-23-2022 Patient Profile - Preop v3 Patient Profile - Preop: Initial Info: Patient DemographicsName: WALTER MILLAN Date: 1945 Address: [address] [place] [address] [facility] Primary Phone [phone] How to be AddressedSue Spoken Language PreferredEnglish Stated Reason for Admission Liver ablation Primary Contact Name and NumberSheng (daughter) [phone] Medications Brought to Hospitalno General Health: Weight in kg64.1 kilogram(s) Weight in pcx944.3 pound(s) Weight Methodactual (measured) Scale Typestanding Height in feet5 feet Height in inches5 inch(es) Height in cm165.1 centimeter(s) Height Methodstated BMI (kg/m2)23.516 square meter Patient or Family Member Reaction to Anesthesiano previous reaction Blood Avoidance/Restrictionsnone Previous Transfusion Reactionnot applicable Health Mgmt: Symptoms/Conditions Managed at Homecardiovascular; gastrointestinal Barriers to Managing Healthnone Relationship/Environ: Lives Withalone Living Arrangementshouse Resource/Environmental Concernsnone Anticipated Transition Toadrian Services Anticipated at Transitionnone Tobacco Use: Tobacco Useno Pre-op Checklist: Arrival [id number] Arrival Time05:55 Procedure TypeLaprascopic microwave ablation liver/tumor biopsy NPOyes ID Band On Patientpatient ID (name) Consent Signedpending H&P Completepending Anesthesia Assessment Completedpending EKG Performednot ordered Chest X-Ray Performednot ordered Preop Antibioticsnot ordered Type and Screen Resultedn/a HCG Urine TestN/A Chlorhexadine Bath Givennot applicable Nasal Antiseptic Appliednot applicable Soap and Water Bath the Night Before Surgeryyes Hair Washed with Shampooyes Surgical Site Infection Preventionyes Pain Scales and Managementyes Additional Information: Information Review: Allergies, Home Meds and Significant Events have been Reviewed and Verified with Patient/Familyyes Allergy, Intolerance, Adverse Event: Allergies: No Known Allergies: Active Significant Events: 23-Mar-2022 HLD: Past Medical History, Active 23-Mar-2022 HTN: Past Medical History, Active Electronic Signatures: Sol Walker (JAMILAH) (Signed 23-Mar-2022 06:25) Authored: Initial Info, General Health, Health Mgmt, Relationship/Environ, Tobacco Use, Pre-op Checklist, Additional Information Last Updated: 23-Mar-2022 06:25 by Sol Walker) Normal [facility] [place] TYPE + SCREENon 03-23-2022 ABO TYPE AB Normal [facility] [place] Comment on above: Performed By: #### T +S #### [facility] [address] [place] [address] RH TYPE Positive Normal [facility] [place] Comment on above: Performed By: #### T +S #### [facility] [address] [place] [address] Follow Up (General Surgery)o n 03-11-2022 Follow Up (General Surgery) Diagnoses/Problems Liver cancer (155.2) (C22.9) Patient Discussion/Summary 76-year-old woman with imaging suggestive of hepatocellular carcinoma and a known cirrhotic liver. I discussed a few different options. 1 option would be to proceed with another percutaneous liver biopsy. Second option would be to move forward with laparoscopic liver tumor ablation with needle biopsies of the tumor in that same setting. Another option would be liver resection. She would like to move forward with liver ablation. We will schedule a laparoscopic liver tumor ablation and liver biopsy on 03/23/2022. Surgery was discussed in addition to the risks and potential complications of surgery. Chief Complaint A telephone visit (audio only) between the patient (at the originating site) and the provider (at the distant site) was utilized to provide this telehealth service. Verbal consent was requested and obtained from WALTER MILLAN on this date, 03/11/2022 02:20 PM , for a telehealth visit. Follow-up after imaging History of Present [id number]-gqpo-pwh woman referred for liver mass. Initially, she underwent CT scanning which showed a liver mass. This was further worked up with an MRI liver on December 17, 2021. This demonstrated an ill-defined 2.4 cm hypointense T1/hyperintense T2 lesion in segment 6 of the liver. There was a likely diffusion restricted in noted with a notable signal loss on out of phase imaging and ill-defined early enhancement of a 0.7 cm nonenhancing focus. No capsular retraction. No evidence of cirrhosis or portal hypertension. Malignancy could not be excluded and there was a recommendation for 20-minute delayed postcontrast phase MRI and diffusion imaging as part of the radiology report. She subsequently underwent ultrasound-guided liver biopsy which showed atypical hepatocyte nodules with a differential diagnosis including dysplastic nodule versus moderately differentiated hepatocellular carcinoma. Patient has no abdominal symptoms. No history of hepatitis B or C or history of other liver disease. I met her on 01/29/2022. Tumor markers CEA, CA 19-9, and AFP were all normal. I presented her case at our imaging conference and MRI with Eovist contrast was recommended. This was performed on 03/06/2022 and the constellation of findings was most suggestive of hepatocellular carcinoma. 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) Current Meds Medication NameInstruction clonazePAM 0.5 MG Oral Tablet Lisinopril 5 MG Oral Tablet Ondansetron 4 MG Oral Tablet Disintegrating Sertraline HCl - 50 MG Oral Tablet Simvastatin 20 MG Oral Tablet Results/Data MRI Liver w/wo [id number] 04:25PMReginaldo Valencia NameResultFlagReference MRI Liver w/wo Contrast(Report) FINAL REPORT Interpreted by: ROCAEL WALTERS TRONG, MD 03/09/22 11:21 Patient Name: WALTER MILLAN STUDY: MRI LIVER W/O-W CONTRAST; 03/06/2022 4:25 pm INDICATION: uncertain liver lesion seen on past MRI- MRI EOVIST needed R16.0: Liver mass D37.6: Neoplasm of uncertain behavior of liver. COMPARISON: None. ACCESSION NUMBER(S): [id number] ORDERING CLINICIAN: REGINALDO VALENCIA TECHNIQUE: MRI LIVER; Multiplanar magnetic resonance images of the abdomen were obtained including the following sequences; T2-weighted SSFSE with and without fat saturation, T1-weighted GRE in/opposed phase, DWI, fat saturated 3D-T1w GRE pre and dynamically post contrast. 6 ml of Eovist were administered intravenously without immediate complication. FINDINGS: LIVER: No global steatosis. In segment of the liver there is a 23 mm mass with arterial enhancement and contrast washout on venous phase. The mass is persistent hypointense to liver out to the hepatobiliary phase. The mass demonstrates signal dropout on out of phase imaging indicating intracellular lipid. It is faintly T2 hyperintense and T1 hypointense. Restricted diffusion is noted. Constellation of findings suggests hepatocellular carcinoma. No signal changes of steatosis. No morphologic changes of cirrhosis apparent. BILE DUCTS: No dilatation. GALLBLADDER: No definite stone or wall thickening. PANCREAS: Unremarkable. No ductal dilatation. SPLEEN: The spleen is at the upper limit of normal in size at 13.0 cm. ADRENAL GLANDS: Unremarkable. KIDNEYS: Unremarkable without hydronephrosis. A few tiny cysts are present. LYMPH NODES: No lymphadenopathy. ABDOMINAL VESSELS: Abdominal aorta is patent without aneurysm. Major visceral arterial branches are patent. Major portal venous branches are patent. No evidence tumor thrombus. IVC and visualized major branches are patent. BOWEL: No dilated bowel is visualized. PERITONEUM/RETROPERITONEUM : No visualized free fluid. BONES AND LOWER THORAX: Lumbar degenerative changes. Grossly clear lung bases IMPRESSION: 1. 23 mm mass in hepatic segment with imaging features of hepatocellular carcinoma. No (more content not included)... Normal [facility] MRI Liver w/wo Contraston MR Liver WO and W contrast IV Normal [facility] Work Phone: No Panel Informationon 02-13 [facility] Work Phone: [facility] Surgical Pathology Depar tmenton 02-13-2022 [facility] Surgical Pathology Department Name WALTER MILLAN Pathologist: JOHNY MTZ M.D., PhD. Date of Procedure: 02/13/2022 Date Received: 02/13/2022 Date Reported 03/13/2022 Submitting Physician: REGINALDO VALENCIA MD Location: [facility] Other External # FINAL DIAGNOSIS DELAN[place], [place] [id number] (01/06/2022): A. LIVER MASS, CT GUIDED CORE NEEDLE BIOPSY: -- LIVER WITH MODERATELY DIFFERENTIATED HEPATOCELLULAR CARCINOMA, SEE NOTE. Note: An ill-defined 2.4 cm liver mass is noted in the background of non-cirrhotic liver. By immunohistochemical study, the neoplastic cells are positive for Arginase-1 and Hepatocyte Antigen (OCH1E5). They are negative for Glypican-3 and MOC31. Immunostain for CD34 highlights vasculature in the tumor areas. CK7 highlights the bile ducts. Reticulin stain shows thickened trabecular plates. No angiolymphatic invasion is identified. The gross and/or microscopic findings were reviewed in conjunction with Surgical Pathology Fellow, Sameer Bai M.D. Electronically Signed Out By JOHNY MTZ M.D., PhD./WLI By the signature on this report, the individual or group listed as making the Final Interpretation/Diagnosis certifies that they have reviewed this case. Clinical History: liver mass Specimens Submitted As: A: [facility] [id number] (01/06/2022) Slide/Block Description Received from [facility], Dept of Pathology, [address] [place] [address], are (14) fourteen slides labeled [id number] Keep Slides: N Slides Returned: N Personal Consult: N Normal [facility] [place] Comment on above: Performed By: #### U HCS ####[facility] Surgical Pathology [id number] [facility] [id number] No Panel Informationon 02-05 Please click on the link to view the study images Normal [facility] Work Phone: ALPHA-FETOPROTEINon 01-30-20 22 ALPHA-FETOPROTEIN 6 ng/mL Normal 0 - 9 [facility] Comment on above: Result Comment: AFP testing is performed by chemiluminescent immunoassay using the Siemens Atellica. Values obtained with different analyte methods cannot be used interchangeably. This test can be used as an adjunct in the diagnosis and monitoring of AFP-producing tumors, including non-seminomatous germ cell tumors and hepatocellular carcinomas. Performed By: #### A FP #### [facility] [address] [place] [address] Alpha-fetoprotein serumon AFP [Mass/Vol] 6 ng/mL 0 - 9 [facility] Work Phone: Comment on above: AFP testing is perfo rmed by chemiluminescent immunoassay using the Siemens Atellica. Values obtained with different analyte methods cannot be used interchangeably. This test can be used as an adjunct in the diagnosis and monitoring of AFP-producing tumors, including non-seminomatous germ cell tumors and hepatocellular carcinomas. [id number] 01-29-2022 CA19-9 9.85 U/mL Normal <35.00 [facility] Comment on above: Result Comment: CA 1 9-9 testing is performed by chemiluminescent immunoassay using the Siemens Atellica. Values obtained with different analytic methods cannot be used interchangeably. . Serum CA 19-9 measurement is indicated for the serial measurement of CA 19-9 to aid in the management of patients diagnosed with cancers of the exocrine pancreas. This assay is not intended for screening or diagnosis of cancer in the general population. The results must not be used as the sole means for clinical diagnosis or patient management decisions. . Patients known to be genotypically negative for the Gustavo blood group antigens will be unable to produce CA 19-9 antigen, even in malignant tissue. Phenotyping for the presence of the Gustavo antigen may be insufficient to detect true Gustavo antigen negative individuals. . The results must not be used as the sole means for clinical diagnosis or patient management decisions. Performed By: #### C A199 #### [facility] [address] [place] [address] CEAon 01-29-2022 CEA 2.6 ug/L Abnormal [facility] Comment on above: Result Comment: CEA testing is performed by chemiluminescent immunoassay using the Siemens Atellica. Values obtained with different analytic methods cannot be used interchangeably. . Serum CEA measurement is intended for use as an aid in the management of patients previously treated for cancer. This assay is not intended for screening or diagnosis of cancer in the general population. The results must not be used as the sole means for clinical diagnosis or patient management decisions. REF VALUES NONSMOKERS 0-2.5 SMOKERS 0-5.0 Performed By: #### C EA #### [facility] [address] [place] [address] Cancer Antigen, GI Ca 19-9on 01-29-2022 Cancer Ag 19-9 Qn 9.85 [arb'U]/mL <35.00 MG -Surgery-S [facility] Work Phone: Comment on above: CA 19-9 testing is p erformed by chemiluminescent immunoassay using the Siemens Atellica. Values obtained with different analytic methods cannot be used interchangeably.. Serum CA 19-9 measurement is indicated for the serial measurement of CA 19-9 to aid in the management of patients diagnosed with cancers of the exocrine pancreas. This assay is not intended for screening or diagnosis of cancer in the general population. The results must not be used as the sole means for clinical diagnosis or patient management decisions.. Patients known to be genotypically negative for the Gustavo blood group antigens will be unable to produce CA 19-9 antigen, even in malignant tissue. Phenotyping for the presence of the Gustavo antigen may be insufficient to detect true Gustavo antigen negative individuals.. The results must not be used as the sole means for clinical diagnosis or patient management decisions. Carcinoembryonic antigen cea on 01-29-2022 Carcinoembryonic Ag [Mass/Vol] 2.6 ug/L Abnormal GV-Mmzpols-J [facility] Work Phone: Comment on above: CEA testing is perfo rmed by chemiluminescent immunoassay using the Siemens [employer]. Values obtained with different analytic methods cannot be used interchangeably.. Serum CEA measurement is intended for use as an aid in the management of patients previously treated for cancer. This assay is not intended for screening or diagnosis of cancer in the general population. The results must not be used as the sole means for clinical diagnosis or patient management decisions.REF VALUESNONSMOKERS 0-2.5SMOKERS 0-5.0 HEPATITIS PANEL,ACUTE (HCFA) on 01-29-2022 HEPATITIS A AB-IGM Non-Reactive Normal NONREACTIVE [facility] Comment on above: Result Comment: Biot in interference may cause falsely decreased results. Patients taking a Biotin dose of up to 5 mg/day should refrain from taking Biotin for 24 hours before sample collection. Providers may contact their local laboratory for further information. Performed By: #### H EPA2 #### [facility] [address] [place] [address] HEPATITIS B CORE AB,IGM Non-Reactive Normal NONREACTIVE [facility] Comment on above: Result Comment: Resu lts from patients taking biotin supplements or receiving high-dose biotin therapy should be interpreted with caution due to possible interference with this test. Providers may contact their local laboratory for further information. Performed By: #### H EPA2 #### [facility] [address] [place] [address] HEPATITIS C AB Non-Reactive Normal NONREACTIVE [facility] Comment on above: Result Comment: Resu lts from patients taking biotin supplements or receiving high-dose biotin therapy should be interpreted with caution due to possible interference with this test. Providers may contact their local laboratory for further information. Performed By: #### H EPA2 #### [facility] [address] [place] [address] HEP.B SURFACE AG Non-Reactive Normal NONREACTIVE [facility] Comment on above: Result Comment: Biot in interference may cause falsely decreased results. Patients taking a Biotin dose of up to 5 mg/day should refrain from taking Biotin for 24 hours before sample collection. Providers may contact their local laboratory for further information. Performed By: #### H EPA2 #### [facility] [address] [place] [address] Hepatitis Panel, Acute (HCFA )on 01-29-2022 HAV IgM IA Ql Non-Reactive See Below [facility] Work Phone: Comment on above: Reference Range: NON REACTIVE Biotin interference may cause falsely decreased results. Patients taking a Biotin dose of up to 5 mg/day should refrain from taking Biotin for 24 hours before sample collection. Providers may contact their local laboratory for further information. Hepatitis Panel, Acute (HCFA) Non-Reactive See Below [facility] Work Phone: Comment on above: Reference Range: NON REACTIVE Results from patients taking biotin supplements or receiving high-dose biotin therapy should be interpreted with caution due to possible interference with this test. Providers may contact their local laboratory for further information. Reference Range: NON REACTIVE Biotin interference may cause falsely decreased results. Patients taking a Biotin dose of up to 5 mg/day should refrain from taking Biotin for 24 hours before sample collection. Providers may contact their local laboratory for further information. 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) Abnormal LFTs (liver function tests) (790.6) (R79.89) Orders Abnormal LFTs (liver function tests), Neoplasm of uncertain behavior of liver Carcinoembryonic Antigen; Status:In Progress - Specimen/Data Collected; Done: 29Jan2022 Perform:Lab Services - Lab To Draw (Blood Test); Due:29Apr2022;Ordered; For:Abnormal LFTs (liver function tests), Neoplasm of uncertain behavior of liver; Ordered By:Reginaldo Valencia; Liver cancer, Liver mass Alpha Fetoprotein, Serum; Status:In Progress - Specimen/Data Collected; Done: 29Jan2022 Perform:Lab Services - Lab To Draw (Blood Test); Due:29Apr2022;Ordered; For:Liver cancer, Liver mass; Ordered By:Reginaldo Valencia; Liver cancer, Neoplasm of uncertain behavior of liver Cancer Antigen, GI Ca 19-9; Status:In Progress - Specimen/Data Collected; Done: 29Jan2022 Perform:Lab Services - Lab To Draw (Blood Test); Due:29Apr2022;Ordered; For:Liver cancer, Neoplasm of uncertain behavior of liver; Ordered By:Reginaldo Valencia; Liver mass Hepatitis Panel, Acute (HCFA); Status:In Progress - Specimen/Data Collected; Done: 29Jan2022 Perform:Lab Services - Lab To Draw (Blood Test); Due:29Apr2022;Ordered; For:Liver mass; Ordered By:Reginaldo Valencia; Patient Discussion/Summary 76-year-old woman with an indeterminate liver mass. I will order tumor markers including AFP, CA 19?9, and CEA. I will have her imaging officially reviewed by our radiologist. I will request her pathology slides for review by our pathologists. After this review, determination will be made regarding what the next steps will be. She may require repeat imaging or repeat biopsy prior to determining the next steps in treatment. We discussed that if this is a hepatocellular carcinoma, treatment options would include ablation and resection. Further recommendations pending results. Dictation software was used in the creation of this note and not corrected for typographical or grammatical errors Chief Complaint Indeterminate liver mass History of Present [id number]-agth-etb woman referred for liver mass. She presented to the emergency department with severe headache, and also has a history of chronic constipation which was worsening. Therefore as part of her work-up she underwent CT scanning which showed a liver mass. This was further worked up with an MRI liver on December 17, 2021. This demonstrated an ill-defined 2.4 cm hypointense T1/hyperintense T2 lesion in segment 6 of the liver. There was a likely diffusion restricted in noted with a notable signal loss on out of phase imaging and ill-defined early enhancement of a 0.7 cm nonenhancing focus. No capsular retraction. No evidence of cirrhosis or portal hypertension. Malignancy could not be excluded and there was a recommendation for 20-minute delayed postcontrast phase MRI and diffusion imaging as part of the radiology report. She subsequently underwent ultrasound-guided liver biopsy which showed atypical hepatocyte nodules with a differential diagnosis including dysplastic nodule versus moderately differentiated hepatocellular carcinoma. Patient has no abdominal symptoms. No history of hepatitis B or C or history of other liver disease. Review of Systems Constitutional: feeling tired, but no fever, no chills, no recent weight gain and no recent weight loss. Eyes: no loss of vision, no discharge from the eyes and no itching of the eyes. ENT: no hearing loss, no neck pain and no hoarseness. Cardiovascular: no chest pain, no palpitations and no lower extremity edema. Respiratory: no dyspnea, no dyspnea during exertion and no cough. Breast: no nipple discharge, no breast mass and no pain in breast. Gastrointestinal: no abdominal pain, no constipation, no heartburn, no vomiting, no blood in stools, bowel movement frequency normal. Genitourinary: no dysuria, no hematuria and no vaginal discharge. Musculoskeletal: no arthralgias, no myalgias and no hernia. Integumentary: no rashes and no skin lesions. Neurological: headache, but no dizziness, no numbness, no tingling and no limb weakness. Psychiatric: no anxiety, no depression and no emotional problems. Endocrine: no heat or cold intolerance and no increased thirst. Hematologic/Lymphatic: no swollen glands, no tendency for easy bleeding and no tendency for easy bruising. All other systems have been reviewed and are negative for complaint. 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 Normal [facility] Vital Signs Date Time Vital Sign Value Performing Clinician Faci lity 05-07-2022 15:08-0500 Body height 160.02 cm Shawn Sequeira Work Phone: SL-Audfemf-Lpmzua ke [facility] [place] Work Phone: 05-07-2022 15:08-0500 Body mass index (BMI) [Ratio] 25.51 kg/m2 Shawn Sequeira Work Phone: CG-Ltkauuq-Dtczbk ke [facility] [place] Work Phone: 05-07-2022 15:08-0500 Body surface area Derived from formula 1.68 m2 Shawn Sequeira Work Phone: UQ-Qhydvck-Iczimu ke [facility] [place] Work Phone: 05-07-2022 15:08-0500 Body temperature 97.34 [degF] Shawn Sequeira Work Phone: TX-Dqclffw-Ghikhq ke [facility] [place] Work Phone: 05-07-2022 15:08-0500 Body weight 65.32 kg Shawn Sequeira Work Phone: IB-Cudylsv-Xuxkbm ke [facility] [place] Work Phone: 05-07-2022 15:08-0500 Diastolic blood pressure 73 mm[Hg] Shawn Sequeira Work Phone: NV-Nxrmifl-Fuskoq ke [facility] [place] Work Phone: 05-07-2022 15:08-0500 Heart rate 79 /min Shawn Sequeira Work Phone: PX-Arsnbqx-Tkijug ke [facility] [place] Work Phone: 05-07-2022 15:08-0500 Respiratory rate 16 /min Shawn Sequeira Work Phone: KN-Lsbcyhx-Uriviq ke [facility] [place] Work Phone: 05-07-2022 15:08-0500 SaO2% (BldA) [Mass fraction] 97 % Shawn Sequeira Work Phone: KM-Znsijci-Tzlvam ke [facility] [place] Work Phone: 05-07-2022 15:08-0500 Systolic blood pressure 156 mm[Hg] Shawn Sequeira Work Phone: MT-Pnljsme-Ealijk ke [facility] [place] Work Phone: 01-29-2022 11:22-0400 Body temperature 97.7 [degF] Shawn Sequeira Work Phone: NW-Lussqak-Bwdbys ke [facility] [place] Work Phone: 01-29-2022 11:22-0400 Body weight 62.2 kg Shawn Sequeira Work Phone: TD-Aoovjof-Fjojrf ke [facility] [place] Work Phone: 01-29-2022 11:22-0400 Diastolic blood pressure 75 mm[Hg] Shawn Sequeira Work Phone: YZ-Dewtzum-Uqkgjp ke [facility] [place] Work Phone: 01-29-2022 11:22-0400 Heart rate 84 /min Shawn Sequeira Work Phone: VP-Plbqnmt-Zgludm ke [facility] [place] Work Phone: 01-29-2022 11:22-0400 Respiratory rate 16 /min Shawn Sequeira Work Phone: HZ-Ezpyngt-Kjtxgv ke [facility] [place] Work Phone: 01-29-2022 11:22-0400 SaO2% (BldA) [Mass fraction] 96 % Shawn Sequeira Work Phone: TQ-Kduubzi-Tsihws ke [facility] [place] Work Phone: 01-29-2022 11:22-0400 Systolic blood pressure 145 mm[Hg] Shawn Sequeira Work Phone: JR-Hdcbslv-Wikqau ke [facility] [place] Work Phone: Encounters Encounter Date Encounter Type Care Provider Facility Start: 12-02-2023 End: 12-02-2023 ambulatory [facility] Start: 11-29-2023 End: 11-29-2023 ambulatory SHAWN SEQUEIRA [facility] Start: 11-29-2023 End: 11-29-2023 ambulatory [facility] Start: 05-27-2023 End: 05-27-2023 Subsequent hospital visit by physician [facility] Comment on above: Malignant neoplasm o f liver, not specified as primary or secondary (CMS/HCC) Start: 05-27-2023 End: 05-27-2023 ambulatory [facility] Start: 05-18-2023 End: 05-18-2023 ambulatory SHAWN SEQUEIRA [facility] Start: 11-12-2022 AUDIT Shawn Sequeira Work Phone[facility] Work Phone: Start: 11-10-2022 AUDIT Shawn Sequeira Work Phone: [facility] Work Phone: Start: 11-04-[address] Reginaldo Adams acility:[id number] Start: 10-26-2022 Chart Update Shawn Sequeira Work Phone: [facility] Work Phone: Start: 05-07-2022 Postop follow up vis it related to original px Shawn Sequeira Work Phone: BB-Qdsiles-Wytkciaw [facility] [place] Work Phone: Start: 05-07-[address] Reginaldo Adams acility:[facility] Start: 05-05-[address] Shawn Sequeira Facility:[id number] Start: 03-23-2022 End: 03-24-[address] Reginaldo Valencia Facility:[facility] Start: 2022 AUDIT Shawn Sequeira Work Phone: [facility] Work Phone: Start: 03-14-2022 Chart Update Shawn Sequeira Work Phone: [facility] Work Phone: Start: 03-11-[address] Reginaldo Adams acility:[facility] Start: 03-11-2022 Phys/qhp telephone evaluation 5-10 min Shawn Sequeira Work Phone: BJ-Vihxlto-Uoibr Main Work Phone: Start: 03-06-[address] Shawn Sequeira Facility:[id number] Start: 02-13-[address] Reginaldo Adams acility:[facility] Start: 02-05-[address] Reginaldo Adams acility:[facility] Start: 01-30-2022 Chart Update Shawn Sequeira Work Phone: [facility] Work Phone: Start: 01-29-[address] Reginaldo Adams acility:[id number] Start: 01-29-2022 Office outpatient ne w 60 minutes Shawn Sequeira Work Phone: RE-Vwapmoe-Sseyqoic [facility] [place] Work Phone: Start: 01-29-2022 ambulatory [facility] Facility :[facility] Procedures Date Procedure Procedure Detail Performing Clinician Start: 05-27-2023 MR LIVER W AND WO IV CONTRAST REGINALDO VALENCIA Start: 05-27-2023 Mri abdomen w/o & w/contrast material Reginaldo Valencia MD Work Phone: Start: 05-18-2023 ALPHA-FETOPROTEIN SHAWN SEQUEIRA Start: 05-18-2023 Creatinine [Mass/vol ume] in Serum or Plasma SHAWN SEQUEIRA Start: 03-23-[address] Amandeep Valencia Comment on above: Performed By: #### T +S #### [facility] [address] [place] [address] Plan of Treatment Date Care Activity Detail Author Start: 02-11-2027 DTaP/Tdap/Td Vaccine s (2 - Td or Tdap) DTaP/Tdap/Td Vaccines (2 - Td or Tdap) [facility] Start: 12-25-2022 COVID-19 Vaccine ( season) COVID-19 Vaccine ( season) [facility] Start: 03-23-2022 [facility], Provider: Reginaldo Valencia, Status: Pen, Time: 7:15 AM [facility], Provider: Reginaldo Valencia, Status: Pen, Time: 7:15 AM [facility] Work Phone: Start: 07-06-2019 Zoster Vaccines (3 of 3) Zoste r Vaccines (3 of 3) [facility] Start: 2003 Hepatitis B Vaccines (1 of 3 - Risk 3-dose series) Hepatitis B Vaccines (1 of 3 - Risk 3-dose series) [facility] Start: 1962 Hepatitis A Vaccines (1 of 2 - Risk 2-dose series) Hepatitis A Vaccines (1 of 2 - Risk 2-dose series) [facility] Start: 1943 Lipid panel Lipid Panel [facility] Start: 1943 Medicare Annual Well ness Visit Medicare Annual Wellness Visit (AWV) [facility] Start: 1945 Screening for osteoporosis Bone Density Scan [facility] End: 05-27-2023 MR Liver WO and W contrast IV [facility] Service Area Work Phone: Comment on above: Once for 1 Occurrenc es starting 05/27/2023 until 05/27/2023 Payers Date Payer Category Payer Medicare AETNA MEDICARE A ETNA MEDICARE ASSURE [id number] 2023-Present [address] [place] [address] [id number] 2023 Private Health Insurance [id number] 1943 Unknown [id number] 069 1943 Unknown [id number] [id number] 069 1943 Unknown [id number] 2.16.840.1.799567.3.579.2.3 56 1943 Unknown [id number] 2.16.840.1.480243.3.579.2.3 56 1943 Unknown [id number] 2.16.840.1.106679.3.579.2.3 56 1943 Unknown [id number] 2.16.840.1.255361.3.579.2.3 56 1943 Unknown [id number] 2.16.840.1.925144.3.579.2.3 56 1943 Unknown [id number] 2.16.840.1.296016.3.579.2.3 56 1943 Unknown [id number] 2.16.840.1.600907.3.579.2.1 069 1943 Unknown [id number] 2.16.840.1.715695.3.579.2.1 069 1943 Unknown [id number] 2.16.840.1.267969.3.579.2.1 245 1943 Unknown [id number] 2.16.840.1.832021.3.579.2.1 245 1943 Unknown [id number] 2.16.840.1.367706.3.579.2.1 245 1943 Unknown [id number] 2.16.840.1.656524.3.579.2.1 243 1943 Unknown [id number] 2.16.840.1.528746.3.579.2.1 243 Self-pay Unknown Social History Date Type Detail Facility Tobacco smoking status NHIS Tobacco smoking consumption unknown [facility] Work Phone: Start: 1945 Sex Assigned At Not on file [facility] Work Phone: Gender identity Not on file [facility] Work Phone: Start: 05-17-2023 End: 05-27-2023 Exposure to SARS-CoV-2 (event) Not sure [facility] History of Present illness Narrative 03-23-2022 Note Date & Type Note Facility 03-23-2022 History of Present illness Narrative 77-year-old woman who is here in follow-up after undergoing laparoscopic liver ablation for hepatocellular carcinoma on March 23, 2022. She has recovered well from surgery. She underwent recent MRI which shows complete ablation. [facility] [place] Work Phone: Clinical Note 03-23-2022 Note Date & Type Note Facility 03-23-2022 Note PROCEDURE DETAILS Preoperative Diagnosis: hepatocellular carcinoma Postoperative Diagnosis: hepatocellular carcinoma Surgeon: Florentin Resident/Fellow/Other Supervisor Electronics Testing: Leila Procedure: 1. Laparoscopic microwave ablation of segment 5/6 HCC with navigation technology and Intraoperative liver ultrasound monitoring of parenchymal ablation Estimated Blood Loss: 2 ml Findings: 2.5 x 2.7 cm segment V/ liver mass. ablation zone confirmed with ultrasound Specimens(s) Collected: no, IV Fluids: 700 ml crystalloid Urine Output: na Operative Report: The patient was brought to the operating room and placed supine on the table. Preoperative lovenox was given. Sequential compression devices were applied. General anesthesia was smoothly induced. The abdomen was prepped and draped in the usual fashion. Timeout was performed and preoperative antibiotics given. The abdomen was entered using an open Engel technique. The abdomen was insufflated and explored. There was no evidence of extrahepatic metastatic disease. Two additional 5mm ports were placed in the upper abdomen. Ultrasound was used to evaluate the entire liver. The liver tumor was identified. Using the navigation technology with ultrasound guidance, microwave ablation of the liver tumor was now performed with ultrasound monitoring of the parenchymal ablation. An initial 100W 10 minute ablation was performed followed by additional 1 minute ablations at the periphery to ensure complete ablation. I should note that sponges were placed between the liver and colon and liver and gallbladder to ptotect these structures from the heat. Hemostasis was assured. Abdominal fascia at the Mathew port site was closed using 0 Vicryl suture. Skin was closed with Biosyn sutures. Surgical glue was applied. The patient tolerated the procedure well without any apparent intraoperative complications. All sponge, needle, and instrument counts were correct. As the attending surgeon I was scrubbed for all almanzar portions of the procedure. Dr Dee acted as publisher assistant surgeon as there was no qualified available resident. Note Recipients: Shawn Sequeira MD - [id number] [] Attestation: Note Completion: Attending AttestationI was present for almanzar portions of the procedure and the procedure lasted longer than 5 minutes. I am a:Resident/Fellow Electronic Signatures: Reginaldo Valencia) (Signed 23-Mar-2022 10:07) Authored: Post-Operative Note, Chart Review, Note Completion Co-Signer: Post-Operative Note, Chart Review, Note Completion Betzaida Dee (Fellow)) (Signed 23-Mar-2022 09:29) Authored: Post-Operative Note, Chart Review, Note Completion Last Updated: 23-Mar-2022 10:07 by Reginaldo Valencia) [facility] [place] Clinical Note 03-23-2022 Note Date & Type Note Facility 03-23-2022 Note Clinical Note - Phar maynard v2: Education: Document TopicMedication Education MedicationMeds to Beds: Patient declines Meds to Beds service at discharge. Sources used to confirm home medication list: Patient interview, Pharmacy Fill Hx ([facility], [facility]), OARRS (N/A) Patient stated only morning medication this morning was sertraline 50mg. Medication reconciliation complete Please reach out via mobifriends for questions Joshua Kinney, HelgaD, PGY1 Rn Cardiovascular [facility] Is This Intervention Medication Reconciliation Relatedyes Time Required5 - 10 minutes Additional NotesHome Medications Review Status for Reconciliation: Complete Drug Name: clonazePAM 0.5 mg oral tablet Instructions: 1 tab(s) orally once a day (in the morning) Drug Name: lisinopril 5 mg oral tablet Instructions: 1 tab(s) orally once a day Drug Name: ondansetron 4 mg oral tablet Instructions: 1 tab(s) orally once a day, As Needed Drug Name: sertraline 50 mg oral tablet Instructions: 1 tab(s) orally once a day (in the morning) Drug Name: simvastatin 20 mg oral tablet Instructions: 1 tab(s) orally once a day (at bedtime) Drug Name: Multiple Vitamins with Minerals oral tablet Instructions: 1 tab(s) orally once a day (in the morning) Drug Name: cholecalciferol 25 mcg (1000 intl units) oral capsule Instructions: 1 cap(s) orally once a day Drug Name: Fish Oil 1000 mg oral capsule Instructions: 2 cap(s) orally once a day Drug Name: Calcium 600+D oral tablet Instructions: 1 tab(s) orally once a day Drug Name: ibuprofen 200 mg oral tablet Instructions: 1 tab(s) orally 2 times a day Allergy: Allergies Summary No Known Allergies Electronic Signatures: Joshua Kinney ([facility]) (Signed 23-Mar-2022 08:14) Authored: Education, Allergy Melissa Aragon ([facility]) (Signed 23-Mar-2022 10:12) Co-Signer: Education, Allergy Last Updated: 23-Mar-2022 10:12 by Melissa Aragon ([facility]) [facility] [place] Clinical Note 03-23-2022 Note Date & Type Note Facility 03-23-2022 Note History & Physical R eviewed: I have reviewed the History and Physical dated: 11-Mar-2022 History and Physical reviewed and relevant findings noted. Patient examined to review pertinent physical findings.: No significant changes Home Medications Reviewed: no changes noted Allergies Reviewed: no changes noted ERAS (Enhanced Recovery After Surgery): ERAS Patient: no Consent: COVID-19 Consent: COVID-19 Risk ConsentSurgeon has reviewed almanzar risks related to the risk of luli COVID-19 and if they contract COVID-19 what the risks are. Attestation: Note Completion: I am a: Resident/Fellow Attending AttestationI saw and evaluated the patient. I personally obtained the almanzar and critical portions of the history and physical exam or was physically present for almanzar and critical portions performed by the resident/fellow. I reviewed the resident/fellows documentation and discussed the patient with the resident/fellow. I agree with the resident/fellows medical decision making as documented in the note. I personally evaluated the patient [id number] Electronic Signatures: Reginaldo Valencia) (Signed 23-Mar-2022 09:46) Authored: Note Completion Co-Signer: History & Physical Reviewed, ERAS, Consent, Note Completion Betzaida Dee (Fellow)) (Signed 23-Mar-2022 07:06) Authored: History & Physical Reviewed, ERAS, Consent, Note Completion Last Updated: 23-Mar-2022 09:46 by Reginaldo Valencia) [facility] [place] History of Present illness Narrative 12-17-2021 Note Date & Type Note Facility 12-17-2021 History of Present illness Narrative 76-year-old woman referred for liver mass. She presented to the emergency department with severe headache, and also has a history of chronic constipation which was worsening. Therefore as part of her work-up she underwent CT scanning which showed a liver mass. This was further worked up with an MRI liver on December 17, 2021. This demonstrated an ill-defined 2.4 cm hypointense T1/hyperintense T2 lesion in segment 6 of the liver. There was a likely diffusion restricted in noted with a notable signal loss on out of phase imaging and ill-defined early enhancement of a 0.7 cm nonenhancing focus. No capsular retraction. No evidence of cirrhosis or portal hypertension. Malignancy could not be excluded and there was a recommendation for 20-minute delayed postcontrast phase MRI and diffusion imaging as part of the radiology report. She subsequently underwent ultrasound-guided liver biopsy which showed atypical hepatocyte nodules with a differential diagnosis including dysplastic nodule versus moderately differentiated hepatocellular carcinoma. Patient has no abdominal symptoms. No history of hepatitis B or C or history of other liver disease. [id number] [place] Work Phone: History of Present illness Narrative 12-17-2021 Note Date & Type Note Facility 12-17-2021 History of Present illness Narrative 76-year-old woman referred for liver mass. Initially, she underwent CT scanning which showed a liver mass. This was further worked up with an MRI liver on December 17, 2021. This demonstrated an ill-defined 2.4 cm hypointense T1/hyperintense T2 lesion in segment 6 of the liver. There was a likely diffusion restricted in noted with a notable signal loss on out of phase imaging and ill-defined early enhancement of a 0.7 cm nonenhancing focus. No capsular retraction. No evidence of cirrhosis or portal hypertension. Malignancy could not be excluded and there was a recommendation for 20-minute delayed postcontrast phase MRI and diffusion imaging as part of the radiology report. She subsequently underwent ultrasound-guided liver biopsy which showed atypical hepatocyte nodules with a differential diagnosis including dysplastic nodule versus moderately differentiated hepatocellular carcinoma. Patient has no abdominal symptoms. No history of hepatitis B or C or history of other liver disease. I met her on 01/29/2022. Tumor markers CEA, CA 19-9, and AFP were all normal. I presented her case at our imaging conference and MRI with Eovist contrast was recommended. This was performed on 03/06/2022 and the constellation of findings was most suggestive of hepatocellular carcinoma. [facility] Work Phone: Evaluation note Note Date & Type Note Facility Evaluation note Diagnosis Malignant neoplasm of liver, not specified as primary or secondary (CMS/HCC) Malignant neoplasm of liver, not specified as primary or secondary documented in this encounter [facility] Work Phone: Evaluation note Note Date & Type Note Facility Evaluation note Diagnosis Malignant neoplasm of liver, not specified as primary or secondary (CMS/HCC) Malignant neoplasm of liver, not specified as primary or secondary documented in this encounter [facility] Work Phone: Chief Complaint Indeterminate liver mass* A telephone visit (audio only) between the patient (at the originating site) and the provider (at the distant site) was utilized to provide this telehealth service. * Verbal consent was requested and obtained from WALTER MILLAN on this date, 03/11/2022 02:20 PM , for a telehealth visit. 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 [facility] Power of Atty 03/25/2022 Living Will 03/25/2022 Reason for Referral Specialty Diagnoses / Procedures Referred By Contac t Referred To Contact Radiology Diagnoses Malignant neoplasm of liver, not specified as primary or secondary (CMS/HCC) Procedures MR liver w [place] [id number] [address] Department of [place] [address] [address] Referral ID Status Reason Start Date Expiration Date Visits Requested Visits Authorized [id number] Authorized Perform Procedure 01/22/2023 07/21/2023 1 1 Additional Source Comments INFORMATION SOURCE (unrecogn ized section and content) DATE CREATED AUTHOR 05/08/2022 [facility] DATE CREATED AUTHOR AUTHOR'S ORGANIZ ATION 05/08/2022 [facility] DATE CREATED AUTHOR AUTHOR'S ORGANIZ ATION 10/23/2022 [facility] DATE CREATED AUTHOR AUTHOR'S ORGANIZ ATION 11/08/2022 [facility] DATE CREATED AUTHOR AUTHOR'S ORGANIZ ATION 12/04/2023 [facility] DATE CREATED AUTHOR AUTHOR'S ORGANIZ ATION 12/05/2023 [facility] Reason for Visit (unrecogniz ed section and content) Specialty Diagnoses / Procedures Referred By Contac t Referred To Contact Diagnoses Malignant neoplasm of liver, not specified as primary or secondary (CMS/HCC) Procedures CHG MRI ABDOMEN W/O & W/CONTRAST MATERIAL [address] [address] Referral ID Status Reason Start Date Expiration Date Visits Re quested Visits Authorized [id number] 1 1 Care Teams (unrecognized sec tion and content) Police Guard Relationship Specialty Start Date End Date Shawn Sequeira MD [address] [place] [address] PCP - General Family Medicine 05/20/23 Police Guard Relationship Specialty Start Date End Date Shawn Sequeira MD [address] [place] [address] PCP - General Family Medicine 05/20/23 FOR RECORDS PERTAINING TO PATIENTS WHO ARE OR HAVE BEEN ENROLLED IN A CHEMICAL DEPENDENCY/SUBSTANCEABUSE PROGRAM, SOME INFORMATION MAY BE OMITTED. This clinical summary was aggregated from multiple sources. Caution should be exercised in using it in the provision of clinical care. This summary normalizes information from multiple sources, and as a consequence, information in this document may materially change the coding, format and clinical context of patient data. In addition, data may be omitted in some cases. CLINICAL DECISIONS SHOULD BE BASED ON THE PRIMARY CLINICAL RECORDS. [employer] provides no warranty or guarantee of the accuracy or completeness of information in this document.
[2024-02-14] MEDS: Atorvastatin Calcium 10 MG Tablet PO (22:58)
[2024-02-14] MEDS: APIXABAN 5 MG TABLET PO (22:58)
[2024-02-14] MEDS: DULoxetine Hcl 20 MG Capsule PO (22:58)
[2024-02-14] MEDS: Cefdinir 300 MG Capsule PO (22:58)
[2024-02-14] MEDS: Senna/Docusate Sodium 1 Tablet PO (22:59)
[2024-02-14] MEDS: Pantoprazole Sodium 20 MG Tablet PO (22:59)
[2024-02-14] MEDS: Lisinopril 10 MG Tablet PO (22:59)
[2024-02-14 23:03] VITALS: BP 130/60; PULSE 74
[2024-02-15 05:53] LABS: Absolute Lymphocyte Count 1.72 X10^3/uL (0.83-4.51); Absolute Neutrophil Count 3.1 X10^3/uL (2.0-7.7); Basophil# 0.04 X10^3/uL; Basophil% 0.7 % (0-1); Eosinophil# 0.23 X10^3/uL; Eosinophils% 3.9 % (0-5); Hematocrit 38.8 % (37-47); Hemoglobin 12.7 g/dL (12.0-15.0); Lymphocyte # 1.72 X10^3/ul (0.83-4.51); Mean Corp Hgb Conc 32.7 g/dL (32-36); Mean Corpuscular Hgb 30.8 pg (27.0-32.0); Mean Corpuscular Volume 93.9 fL (81-99); Mean Platelet Vol. 9.6 fl (6.2-12.0); Monocyte# 0.79 X10^3/uL; Monocyte% 13.3 % (0-10); NRBC Flagged by Analyzer 0 % (0-5); Neutrophil # 3.14 X10^3/uL (2.7-7.7); Neutrophil % 52.9 % (47-70); Platelet Count 257 K/mm3 (150-450); RBC Distribution Width SD 44.5 fl (35.1-43.9); Red Blood Count 4.13 M/mm3 (4.2-5.4); White Blood Count 5.9 K/mm3 (4.4-11.0)
[2024-02-15 06:19] LABS: Anion Gap 3 (5-15); BUN 25 mg/dL (7-18); BUN/Creat Ratio 31.3 RATIO (10-20); Calcium,Total 9.6 mg/dL (8.5-10.1); Chloride 107 mmol/L (98-107); EST Glomerular Filtration Rate 73 mL/min (>60); Est Glom Filt Rate - Afr Amer 89 mL/min (>60); Estimated Creatinine Clearance 51.18 ml/min; Glucose 128 mg/dL (74-106); Sodium Level 139 mmol/L (136-145)
[2024-02-15 08:50] VITALS: BP 127/51; PULSE 68; RESP 18; TEMP 36.8; O2SAT 98
[2024-02-15] MEDS: Calcium Carb/Vitamin D 1 TABLET Tablet PO (08:51)
[2024-02-15] MEDS: DULoxetine Hcl 20 MG Capsule PO ×2 (08:51→21:19)
[2024-02-15 08:52] VITALS: PULSE 68
[2024-02-15] MEDS: Cholecalciferol (VIT D3) 25 MCG TABLET (1,000 UNITS) PO (08:52)
[2024-02-15] MEDS: Sertraline 50 MG Tablet PO (08:52)
[2024-02-15] MEDS: Pantoprazole Sodium 20 MG Tablet PO ×2 (08:52→21:19)
[2024-02-15] MEDS: Multivitamins,Therapeutic Tablet 1 TABLET PO (08:52)
[2024-02-15] MEDS: Metoprolol(XL)Succ 50 MG Tablet PO (08:52)
[2024-02-15] MEDS: APIXABAN 5 MG TABLET PO ×2 (08:53→21:19)
[2024-02-15] MEDS: Senna/Docusate Sodium 1 Tablet PO ×2 (08:53→21:19)
[2024-02-15] MEDS: dilTIAZem CD 120 MG Capsule PO (08:53)
[2024-02-15] MEDS: Cefdinir 300 MG Capsule PO ×2 (08:53→21:19)
[2024-02-15] MEDS: 0.9% Saline Lock 10 ML Syringe IV ×2 (08:57→21:25)
[2024-02-15 09:33] VITALS: BMI 25.7
[2024-02-15] MEDS: Tuberculin,Purif.prot.deriv. 50 TU/ML Vial 0.1 ML ID (09:55)
--- NOTE | 2024-02-15 10:15 | PCM.PN.DRR ---
Documented by User: Yoselyn Taylor 02/15/24 10:44 TCU RX Drug Regimen Review Subjective/Objective Subjective/Objective: Subjective: TCU Admission. 78 YOF presented to the ER with weakness. Hospitalized for weakness 2/2 atrial fibrillation with rvr, complicated by urinary tract infection, movement disorder. Admitted to TCU with debility for strengthening and rehabilitation. Objective: Allergies No Known Allergies Allergy (Verified 02/11/24 08:31) Current Medications Generic Name Dose Route Start Last Admin Trade Name Freq PRN Reason Stop Dose Admin Acetaminophen 1,000 mg 02/14/24 20:31 Acetaminophen 500 Mg Tablet PO Q6H PRN PRN Pain Score 1-10 Apixaban 5 mg 02/14/24 22:00 02/15/24 08:53 Apixaban 5 Mg Tablet PO 5 mg BID VENKATA Administration Atorvastatin Calcium 10 mg 02/14/24 22:00 02/14/24 22:58 Atorvastatin Calcium 10 Mg Tablet PO 10 mg QHS VENKATA Administration Calcium/Vitamin D 1 tablet 02/15/24 08:00 02/15/24 08:51 Calcium Carb/Vitamin D 1 Tablet Tablet PO 1 tablet DAILYCM VENKATA Administration Cefdinir 300 mg 02/14/24 22:00 02/15/24 08:53 Cefdinir 300 Mg Capsule PO 02/18/24 23:59 300 mg BID VENKATA Administration Cholecalciferol 25 mcg 02/15/24 10:00 02/15/24 08:52 Cholecalciferol (Vit D3) 25 Mcg Tablet (1,000 Units) PO 25 mcg DAILY VENKATA Administration Diltiazem HCl 120 mg 02/15/24 10:00 02/15/24 08:53 Diltiazem Cd 120 Mg Capsule PO 120 mg DAILY VENKATA Administration Protocol Duloxetine HCl 20 mg 02/14/24 22:00 02/15/24 08:51 Duloxetine Hcl 20 Mg Capsule PO 20 mg BID VENKATA Administration Lisinopril 10 mg 02/14/24 22:00 02/14/24 22:59 Lisinopril 10 Mg Tablet PO 10 mg QHS VENKATA Administration Protocol Magnesium Citrate 300 ml 02/14/24 20:30 Magnesium Citrate 300 Ml PO DAILY PRN Constipation Metoprolol Succinate 50 mg 02/15/24 10:00 02/15/24 08:52 Metoprolol(Xl)Succ 50 Mg Tablet PO 50 mg DAILY VENKATA Administration Protocol Multivitamins 1 tablet 02/15/24 08:00 02/15/24 08:52 Multivitamins,Therapeutic Tablet PO 1 tablet DAILYCM VENKATA Administration Ondansetron HCl 4 mg 02/14/24 19:11 Ondansetron Odt 4 Mg Tablet PO Q8H PRN NAUSEA/VOMITING Pantoprazole Sodium 20 mg 02/14/24 22:00 02/15/24 08:52 Pantoprazole Sodium 20 Mg Tablet PO 20 mg BID VENKATA Administration Senna/Docusate Sodium 1 tablet 02/14/24 22:00 02/15/24 08:53 Senna/Docusate Sodium 1 Tablet PO 1 tablet BID VENKATA Administration Sertraline HCl 50 mg 02/15/24 10:00 02/15/24 08:52 Sertraline 50 Mg Tablet PO 50 mg DAILY VENKATA Administration Sodium Chloride 10 - 40 ml 02/14/24 18:26 02/15/24 08:57 0.9% Saline Lock 10 Ml Syringe IV 10 ml UD PRN Administration SALINE FLUSH Tuberculin PPD 0.1 ml 02/22/24 10:00 Tuberculin,Purif.Prot.Deriv. 50 Tu/Ml Vial ID 02/22/24 10:01 X1 ONE Problem List GERD (gastroesophageal reflux disease) (Acute) Hyperlipidemia (Acute) History of malignant hepatoma (Acute) Essential (primary) hypertension (Acute) Movement disorder (Acute) Urinary tract infection (Acute) Atrial fibrillation with rapid ventricular response (Acute) Weakness (Acute) Debility (Acute) Depression (Acute) Vital Signs Temp Pulse Resp BP Pulse Ox O2 Del Method 98.2 F 68 18 127/51 H 98 Room Air 02/15/24 08:50 02/15/24 08:52 02/15/24 08:50 02/15/24 08:50 02/15/24 08:50 02/15/24 08:50 Oxygen Delivery Method Room Air Weight: 65.907 kg Body Mass Index (BMI) 25.7 Sodium 139 mmol/L (136-145) 02/15/24 05:06 Potassium 4.0 mmol/L (3.5-5.1) 02/15/24 05:06 Chloride 107 mmol/L (98-107) 02/15/24 05:06 Carbon Dioxide 29.0 mmol/L (21.0-32.0) 02/15/24 05:06 Anion Gap 3 (5-15) L 02/15/24 05:06 BUN 25 mg/dL (7-18) H 02/15/24 05:06 Creatinine 0.80 mg/dL (0.55-1.02) 02/15/24 05:06 Est GFR (MDRD) Af Amer 89 mL/min (>60) 02/15/24 05:06 Est GFR (MDRD) Non-Af 73 mL/min (>60) 02/15/24 05:06 BUN/Creatinine Ratio 31.3 RATIO (10-20) H 02/15/24 05:06 Glucose 128 mg/dL (74-106) H 02/15/24 05:06 Assessment/Plan: 1. Pain: acetaminophen 1000mg PO Q6 PRN pain 1-10. Resident has not had any PRN doses. Please continue to monitor for increased pain and PRN usage. 2. Bowel: senna/docusate 1T PO BID and magnesium citrate 300mL PO daily PRN constipation. Resident has not had any PRN doses. Please continue to monitor for constipation and PRN usage. Last documented bowel movement was 02/12. 3. Atrial fibrillation/hypertension: metoprolol succinate 50mg PO daily, diltiazem CD 120mg PO daily, lisinopril 10mg PO daily and apixaban 5mg PO BID. Please continue to monitor for S/S of bleeding/stroke, hemoglobin (last 12.7g/dL), BP (last 127/51), HR (last 68), SCr (last 0.8mg/dL), potassium (last 4mmol/L) and cough. 4. Hyperlipidemia: atorvastatin 10mg PO QHS. Please continue to monitor lipid panel (last 03/10/23), LFTs (last 08/06/23) and muscle pain. 5. UTI: cefdinir 300mg PO BID thru 02/18/24. Please continue to monitor for S/S of infection, diarrhea, renal function and stool discoloration. 6. GERD: pantoprazole 20mg PO BID. Please continue to monitor for S/S of GERD and diarrhea (BEERs medication). 7. Nausea: ondansetron ODT 4mg PO Q8H PRN nausea/vomiting. Resident has not had any PRN doses. Please continue to monitor for S/S of nausea/vomiting and PRN usage. 8. Vitamin D/calcium deficiencies and nutrition: calcium/vitamin D 1T PO daily, cholecalciferol 25mcg PO daily and multivitamin 1T PO daily. Please consider ordering a vitamin D level as the last is from 02/2021. Thanks. Please continue to monitor calcium (last 9.6mg/dL). Assessment/Plan for indications treated with psychotropic medications: 1. Depression: duloxetine 20mg PO BID and sertraline 50mg PO daily. Please see physician note regarding GDR. Resident has been filling both the SNRI and the SSRI since November. Unlikely patient needs both as it increases the risk for serotonin syndrome and ADRs. Please consider weening down to one agent for depression. Thanks. Please continue to monitor for suicidal ideation (black box warning), falls/fractures (BEERs), renal function and sodium (last 139mmol/L). Medical chart and medication regimen reviewed. The following medication irregularities or issues were identified: 1. Duloxetine 20mg PO BID and sertraline 50mg PO daily. Therapeutic duplication. Resident has been filling both the SNRI and the SSRI since November. Unlikely patient needs both as it increases the risk for serotonin syndrome and ADRs. Please consider weening down to one agent for depression. Thanks. 2. Calcium/vitamin D 1T PO daily, cholecalciferol 25mcg PO daily. Please consider ordering a vitamin D level as the last is from 02/2021. Thanks. Date Date of Note:: 02/15/24 Documented by User: Dr. Yovany Ruffin MD 02/15/24 10:48 TCU RX Drug Regimen Review Provider Comments Provider responsibility Provider Comments to Recommendations by Pharmacy: Disagree: Define
--- NOTE | 2024-02-15 14:28 | CHAPLAIN ---
Type of Pastoral Visit ___ Initial Visit _x__ Follow-up Visit ___ On-call Visit ___ General Patient Visit ___ Spiritual Assessment ___ Family Conference ___ Bereavement ___ Rapid Response ___ Code Blue ___ Other (describe below) Pastoral Care Referral From _x__ Patient ___ Family ___ Nurse ___ Physician ___ Speech And Language Tutor ___ Truck Leasing Manager ___ Other (describe below) Sacrament/Intervention _x__ Active listening ___ Anointing ___ Tenriism ___ Bereavement ___ Communion x___ Brigette exploration ___ ___ Life review _x__ Prayer ___ Reconciliation ___ Sacrament of Sick _x__ Supportive presence ___ Wedding ___ Other (describe below) Pastoral Comments patient remembers this liquified natural gas technician from a visit of last week in the PCU; pt reports on her need and start of therapy; pt recognizes its importance and yet its difficulty; pt speaks of her religious and brigette development; pt mentions prayers being needed for the nation and in particular the nation; pt is talkative and open about subjects; pt is receptive to prayer and other support today
--- NOTE | 2024-02-15 14:41 | CASEMGMT ---
Social Work SW met with patient to complete initial assessment. Introduced self and role. Verified contacts. (To clarify, POA is dtr, Sheng - legal name on POA documents is Corry Espinoza). Patient confirmed code status as DNR-CCA, no intubation. Educated to [facility] insurance with NRD 02/20 and continued stay is not guaranteed with each review. Pt's goal is to return home alone at [facility]. Dtrs are supportive. Pt shared that her PCP is suspect of pt having Parkinson's Disease and has an appt with Dr. Poe, neurologist, in April 2024. SW offered to communicate with on any medication intervention during pt's stay. Pt agreeable and appreciative. SW will continue to follow for DC planning. SW provided verbal communication to nursing for follow up with Dr. Ruffin. Therapy also confirms. Leeann Slater, B2B SALES REPRESENTATIVE HEATING REPAIR TECHNICIAN
[2024-02-15] MEDS: COVID VAC 24-25 (12UP)(MODERNA)/PF 50 MCG/0.5 ML SYRINGE IM (16:11)
[2024-02-15 21:15] VITALS: PULSE 61; RESP 16
[2024-02-15 21:16] VITALS: BP 127/46; PULSE 60
[2024-02-15] MEDS: Lisinopril 10 MG Tablet PO (21:19)
[2024-02-15] MEDS: Atorvastatin Calcium 10 MG Tablet PO (21:19)
[2024-02-16 05:13] VITALS: PULSE 64; RESP 16
[2024-02-16 06:30] LABS: Anion Gap 5 (5-15); BUN 30 mg/dL (7-18); BUN/Creat Ratio 33.6 RATIO (10-20); Calcium,Total 9.3 mg/dL (8.5-10.1); Chloride 107 mmol/L (98-107); Creatinine, Serum 0.89 mg/dL (0.55-1.02); EST Glomerular Filtration Rate 65 mL/min (>60); Est Glom Filt Rate - Afr Amer 78 mL/min (>60); Glucose 141 mg/dL (74-106); Potassium 3.9 mmol/L (3.5-5.1); Sodium Level 140 mmol/L (136-145)
[2024-02-16] MEDS: Carbidopa/Levodopa 25/100 Tablet PO ×3 (06:59→16:29)
[2024-02-16] MEDS: DULoxetine Hcl 20 MG Capsule PO ×2 (08:57→20:10)
[2024-02-16] MEDS: Pantoprazole Sodium 20 MG Tablet PO ×2 (08:57→20:10)
[2024-02-16] MEDS: Calcium Carb/Vitamin D 1 TABLET Tablet PO (08:57)
[2024-02-16] MEDS: Cholecalciferol (VIT D3) 25 MCG TABLET (1,000 UNITS) PO (08:57)
[2024-02-16] MEDS: Sertraline 50 MG Tablet PO (08:57)
[2024-02-16] MEDS: APIXABAN 5 MG TABLET PO ×2 (08:57→20:10)
[2024-02-16] MEDS: Senna/Docusate Sodium 1 Tablet PO ×2 (08:57→20:10)
[2024-02-16] MEDS: Cefdinir 300 MG Capsule PO ×2 (08:57→20:09)
[2024-02-16 08:58] VITALS: PULSE 72
[2024-02-16] MEDS: Multivitamins,Therapeutic Tablet 1 TABLET PO (08:58)
[2024-02-16] MEDS: dilTIAZem CD 120 MG Capsule PO (08:58)
[2024-02-16] MEDS: Metoprolol(XL)Succ 50 MG Tablet PO (08:58)
[2024-02-16] MEDS: 0.9% Saline Lock 10 ML Syringe IV (09:00)
[2024-02-16 09:02] VITALS: BP 152/68; PULSE 65; RESP 16; TEMP 36.4; O2SAT 98
--- NOTE | 2024-02-16 11:54 | NURSING ---
Html Developer Note; Activity Asset: Janessa Wheatley is independent in her choice of daily activities. She Has word puzzles her smartphone and watches TV and reads. Corry welcomes visits with the assembler dc field ring and therapy dog along with bible word search puzzles. Corry family will visits and bring her items she may need or want. Staff will encourage social activities, remind her of weekly activities and respect her right to say no.
[2024-02-16 16:31] VITALS: TEMP 36.2
[2024-02-16] MEDS: Lisinopril 10 MG Tablet PO (20:09)
[2024-02-16] MEDS: Atorvastatin Calcium 10 MG Tablet PO (20:09)
[2024-02-16] MEDS: Acetaminophen 500 MG Tablet 1000 MG PO (20:09)
[2024-02-16 20:21] VITALS: BP 145/50; PULSE 60; RESP 16
--- NOTE | 2024-02-17 04:32 | NURSING ---
Patient reports LLE distal to knee, circular raised area with reddened border, denies pain, denies itch, no drainage, patient states noticed area about a week ago , denies trauma to area. Written communication left for Dr. Ruffin regarding patient request for doctor to assess area.
[2024-02-17] MEDS: Carbidopa/Levodopa 25/100 Tablet PO ×3 (06:27→16:38)
[2024-02-17 06:32] LABS: Anion Gap 3 (5-15); BUN 22 mg/dL (7-18); BUN/Creat Ratio 25.7 RATIO (10-20); Calcium,Total 9.7 mg/dL (8.5-10.1); Chloride 105 mmol/L (98-107); Creatinine, Serum 0.86 mg/dL (0.55-1.02); EST Glomerular Filtration Rate 68 mL/min (>60); Est Glom Filt Rate - Afr Amer 82 mL/min (>60); Estimated Creatinine Clearance 47.61 ml/min; Glucose 119 mg/dL (74-106); Potassium 4.2 mmol/L (3.5-5.1); Sodium Level 137 mmol/L (136-145)
[2024-02-17] MEDS: Calcium Carb/Vitamin D 1 TABLET Tablet PO (08:26)
[2024-02-17] MEDS: Cefdinir 300 MG Capsule PO ×2 (08:28→20:34)
[2024-02-17] MEDS: DULoxetine Hcl 20 MG Capsule PO ×2 (08:28→20:34)
[2024-02-17] MEDS: dilTIAZem CD 120 MG Capsule PO (08:28)
[2024-02-17] MEDS: Multivitamins,Therapeutic Tablet 1 TABLET PO (08:28)
[2024-02-17] MEDS: APIXABAN 5 MG TABLET PO ×2 (08:28→20:34)
[2024-02-17 08:29] VITALS: BP 126/52; PULSE 60
[2024-02-17] MEDS: Cholecalciferol (VIT D3) 25 MCG TABLET (1,000 UNITS) PO (08:29)
[2024-02-17] MEDS: Pantoprazole Sodium 20 MG Tablet PO ×2 (08:29→20:34)
[2024-02-17] MEDS: Senna/Docusate Sodium 1 Tablet PO ×2 (08:29→20:34)
[2024-02-17] MEDS: Metoprolol(XL)Succ 50 MG Tablet PO (08:29)
[2024-02-17] MEDS: Sertraline 50 MG Tablet PO (08:29)
[2024-02-17 08:33] VITALS: BP 126/52; PULSE 60; O2SAT 97
[2024-02-17] MEDS: 0.9% Saline Lock 10 ML Syringe IV ×2 (08:36→20:30)
[2024-02-17 10:50] VITALS: PULSE 51; RESP 16; O2SAT 95
[2024-02-17 15:56] VITALS: RESP 16; TEMP 36.2
[2024-02-17] MEDS: Acetaminophen 500 MG Tablet 1000 MG PO (20:29)
[2024-02-17 20:30] VITALS: BP 129/57; PULSE 60; RESP 16; O2SAT 96
[2024-02-17] MEDS: Lisinopril 10 MG Tablet PO (20:34)
[2024-02-17] MEDS: Atorvastatin Calcium 10 MG Tablet PO (20:34)
[2024-02-18] MEDS: Carbidopa/Levodopa 25/100 Tablet PO ×3 (06:02→16:48)
[2024-02-18 06:21] VITALS: PULSE 52; RESP 18; O2SAT 95
[2024-02-18 06:56] LABS: Anion Gap 4 (5-15); BUN 20 mg/dL (7-18); BUN/Creat Ratio 23.7 RATIO (10-20); Calcium,Total 9.7 mg/dL (8.5-10.1); Chloride 106 mmol/L (98-107); Creatinine, Serum 0.84 mg/dL (0.55-1.02); EST Glomerular Filtration Rate 69 mL/min (>60); Est Glom Filt Rate - Afr Amer 83 mL/min (>60); Estimated Creatinine Clearance 48.74 ml/min; Glucose 115 mg/dL (74-106); Potassium 4.2 mmol/L (3.5-5.1); Sodium Level 138 mmol/L (136-145)
[2024-02-18] MEDS: Calcium Carb/Vitamin D 1 TABLET Tablet PO (08:54)
[2024-02-18] MEDS: Multivitamins,Therapeutic Tablet 1 TABLET PO (08:54)
[2024-02-18] MEDS: dilTIAZem CD 120 MG Capsule PO (08:55)
[2024-02-18] MEDS: DULoxetine Hcl 20 MG Capsule PO ×2 (08:55→21:13)
[2024-02-18] MEDS: Cefdinir 300 MG Capsule PO ×2 (08:55→21:12)
[2024-02-18] MEDS: APIXABAN 5 MG TABLET PO ×2 (08:55→21:12)
[2024-02-18] MEDS: Senna/Docusate Sodium 1 Tablet PO ×2 (08:55→21:12)
[2024-02-18] MEDS: Pantoprazole Sodium 20 MG Tablet PO ×2 (08:55→21:12)
[2024-02-18] MEDS: Cholecalciferol (VIT D3) 25 MCG TABLET (1,000 UNITS) PO (08:56)
[2024-02-18] MEDS: Sertraline 50 MG Tablet PO (08:56)
[2024-02-18] MEDS: 0.9% Saline Lock 10 ML Syringe IV (08:58)
[2024-02-18 09:03] VITALS: BP 105/54; PULSE 58; O2SAT 98
[2024-02-18 10:14] VITALS: BP 115/54; PULSE 45
--- NOTE | 2024-02-18 11:26 | CASEMGMT ---
Social Work BIMS () and PHQ-2 () completed for MDS assessment. Leeann Slater MSW WORKERS COMPENSATION MANAGER
[2024-02-18 15:19] VITALS: TEMP 36.4
[2024-02-18] MEDS: Atorvastatin Calcium 10 MG Tablet PO (21:12)
[2024-02-19] MEDS: Carbidopa/Levodopa 25/100 Tablet PO ×3 (06:14→17:00)
[2024-02-19] MEDS: 0.9% Saline Lock 10 ML Syringe IV ×2 (06:15→21:23)
[2024-02-19 07:17] LABS: Anion Gap 4 (5-15); BUN 28 mg/dL (7-18); BUN/Creat Ratio 27.7 RATIO (10-20); Calcium,Total 9.7 mg/dL (8.5-10.1); Chloride 107 mmol/L (98-107); Creatinine, Serum 1.01 mg/dL (0.55-1.02); EST Glomerular Filtration Rate 56 mL/min (>60); Est Glom Filt Rate - Afr Amer 68 mL/min (>60); Estimated Creatinine Clearance 40.54 ml/min; Glucose 135 mg/dL (74-106); Sodium Level 139 mmol/L (136-145)
--- NOTE | 2024-02-19 08:14 | EKG12_ITS ---
Test Reason : CP Blood Pressure : / mmHG Vent. Rate : 056 BPM Atrial Rate : 056 BPM P-R Int : 150 ms QRS Dur : 078 ms QT Int : 420 ms P-R-T Axes : 053 -10 051 degrees QTc Int : 405 ms Sinus bradycardia Otherwise normal ECG When compared with ECG of 11-FEB-2024 08:39, Vent. rate has decreased BY 27 BPM Confirmed by NITA MERCER, JOHANNA ([id number]), news videotape editor MOOKIE FLORES ([id number]) on 02/21/2024 9:57:06 AM Referred By: CONSUELO Confirmed By:JOHANNA MOYA MD
--- NOTE | 2024-02-19 08:17 | NURSING ---
Patient walking with therapy, reports chest discomfort, a weird feeling that is new . RT contacted for chest xray, MULTI SLIDE MACHINE TENDER aware of patient complaint and EKG, to report results to Dr. Ruffin
[2024-02-19] MEDS: Senna/Docusate Sodium 1 Tablet PO ×2 (09:00→21:10)
[2024-02-19] MEDS: Cholecalciferol (VIT D3) 25 MCG TABLET (1,000 UNITS) PO (09:00)
[2024-02-19] MEDS: DULoxetine Hcl 20 MG Capsule PO ×2 (09:00→21:09)
[2024-02-19] MEDS: Pantoprazole Sodium 20 MG Tablet PO ×2 (09:00→21:09)
[2024-02-19] MEDS: Multivitamins,Therapeutic Tablet 1 TABLET PO (09:00)
[2024-02-19] MEDS: APIXABAN 5 MG TABLET PO ×2 (09:00→21:09)
[2024-02-19] MEDS: Calcium Carb/Vitamin D 1 TABLET Tablet PO (09:00)
[2024-02-19] MEDS: Sertraline 50 MG Tablet PO (09:01)
[2024-02-19 13:20] VITALS: BP 129/51; PULSE 58; RESP 16; TEMP 36.5; O2SAT 98
--- NOTE | 2024-02-19 14:16 | NURSING ---
New orders per Dr. Ruffin to D/C Metoprolol due to history of metoprolol intolerance and hypotension.
[2024-02-19] MEDS: Atorvastatin Calcium 10 MG Tablet PO (21:09)
[2024-02-19 21:13] VITALS: PULSE 64
[2024-02-20 06:41] LABS: Anion Gap 4 (5-15); BUN 25 mg/dL (7-18); BUN/Creat Ratio 26.9 RATIO (10-20); Calcium,Total 9.5 mg/dL (8.5-10.1); Chloride 108 mmol/L (98-107); Creatinine, Serum 0.93 mg/dL (0.55-1.02); EST Glomerular Filtration Rate 62 mL/min (>60); Est Glom Filt Rate - Afr Amer 74 mL/min (>60); Estimated Creatinine Clearance 44.03 ml/min; Glucose 125 mg/dL (74-106); Potassium 4.2 mmol/L (3.5-5.1); Sodium Level 140 mmol/L (136-145)
[2024-02-20] MEDS: Carbidopa/Levodopa 25/100 Tablet PO ×3 (06:43→16:59)
[2024-02-20] MEDS: Senna/Docusate Sodium 1 Tablet PO ×2 (09:09→20:21)
[2024-02-20] MEDS: Multivitamins,Therapeutic Tablet 1 TABLET PO (09:09)
[2024-02-20] MEDS: APIXABAN 5 MG TABLET PO ×2 (09:10→20:21)
[2024-02-20] MEDS: DULoxetine Hcl 20 MG Capsule PO ×2 (09:10→20:22)
[2024-02-20] MEDS: Calcium Carb/Vitamin D 1 TABLET Tablet PO (09:10)
[2024-02-20] MEDS: Pantoprazole Sodium 20 MG Tablet PO ×2 (09:11→20:22)
[2024-02-20] MEDS: Cholecalciferol (VIT D3) 25 MCG TABLET (1,000 UNITS) PO (09:11)
[2024-02-20] MEDS: Sertraline 50 MG Tablet PO (09:11)
[2024-02-20 10:00] VITALS: RESP 17
[2024-02-20 15:55] VITALS: BP 99/47; PULSE 76; RESP 16; TEMP 36.2; O2SAT 99
[2024-02-20] MEDS: Atorvastatin Calcium 10 MG Tablet PO (20:22)
[2024-02-21] MEDS: Carbidopa/Levodopa 25/100 Tablet PO ×3 (06:10→16:35)
[2024-02-21] MEDS: Calcium Carb/Vitamin D 1 TABLET Tablet PO (08:07)
[2024-02-21] MEDS: Multivitamins,Therapeutic Tablet 1 TABLET PO (08:07)
[2024-02-21] MEDS: APIXABAN 5 MG TABLET PO ×2 (08:08→21:13)
[2024-02-21] MEDS: Sertraline 50 MG Tablet PO (08:08)
[2024-02-21] MEDS: DULoxetine Hcl 20 MG Capsule PO ×2 (08:08→21:13)
[2024-02-21] MEDS: Senna/Docusate Sodium 1 Tablet PO ×2 (08:08→21:14)
[2024-02-21] MEDS: Pantoprazole Sodium 20 MG Tablet PO ×2 (08:08→21:13)
[2024-02-21] MEDS: Cholecalciferol (VIT D3) 25 MCG TABLET (1,000 UNITS) PO (08:08)
[2024-02-21 08:10] VITALS: BP 121/61; PULSE 86; O2SAT 93
[2024-02-21 14:30] VITALS: PULSE 83; RESP 16; O2SAT 98
[2024-02-21 15:23] VITALS: RESP 16; TEMP 36.5
[2024-02-21] MEDS: Atorvastatin Calcium 10 MG Tablet PO (21:13)
[2024-02-22 05:50] LABS: Absolute Lymphocyte Count 2.01 X10^3/uL (0.83-4.51); Absolute Neutrophil Count 3.1 X10^3/uL (2.0-7.7); Basophil# 0.02 X10^3/uL; Basophil% 0.3 % (0-1); Eosinophil# 0.15 X10^3/uL; Eosinophils% 2.5 % (0-5); Hematocrit 40.7 % (37-47); Hemoglobin 13.3 g/dL (12.0-15.0); Lymphocyte # 2.01 X10^3/ul (0.83-4.51); Mean Corp Hgb Conc 32.7 g/dL (32-36); Mean Corpuscular Hgb 30.6 pg (27.0-32.0); Mean Corpuscular Volume 93.6 fL (81-99); Mean Platelet Vol. 9.6 fl (6.2-12.0); Monocyte# 0.59 X10^3/uL; NRBC Flagged by Analyzer 0 % (0-5); Neutrophil # 3.14 X10^3/uL (2.7-7.7); Platelet Count 278 K/mm3 (150-450); RBC Distribution Width CV 12.4 % (11.6-14.6); Red Blood Count 4.35 M/mm3 (4.2-5.4); White Blood Count 5.9 K/mm3 (4.4-11.0)
[2024-02-22] MEDS: Carbidopa/Levodopa 25/100 Tablet PO ×3 (05:52→16:46)
[2024-02-22 06:11] VITALS: PULSE 76; O2SAT 97
[2024-02-22] MEDS: DULoxetine Hcl 20 MG Capsule PO ×2 (08:25→22:02)
[2024-02-22] MEDS: Multivitamins,Therapeutic Tablet 1 TABLET PO (08:25)
[2024-02-22] MEDS: APIXABAN 5 MG TABLET PO ×2 (08:25→22:02)
[2024-02-22] MEDS: Calcium Carb/Vitamin D 1 TABLET Tablet PO (08:25)
[2024-02-22] MEDS: Cholecalciferol (VIT D3) 25 MCG TABLET (1,000 UNITS) PO (08:26)
[2024-02-22] MEDS: Sertraline 50 MG Tablet PO (08:26)
[2024-02-22] MEDS: Pantoprazole Sodium 20 MG Tablet PO ×2 (08:26→22:02)
[2024-02-22] MEDS: Senna/Docusate Sodium 1 Tablet PO ×2 (08:26→22:02)
[2024-02-22 09:00] VITALS: BMI 25.3
[2024-02-22 10:50] VITALS: BP 130/56; PULSE 78; RESP 16; TEMP 36.3; O2SAT 98
[2024-02-22] MEDS: Tuberculin,Purif.prot.deriv. 50 TU/ML Vial 0.1 ML ID (11:15)
[2024-02-22] MEDS: Atorvastatin Calcium 10 MG Tablet PO (22:02)
[2024-02-23] MEDS: Carbidopa/Levodopa 25/100 Tablet PO ×3 (05:46→16:49)
[2024-02-23] MEDS: Calcium Carb/Vitamin D 1 TABLET Tablet PO (09:00)
[2024-02-23] MEDS: Multivitamins,Therapeutic Tablet 1 TABLET PO (09:01)
[2024-02-23] MEDS: Pantoprazole Sodium 20 MG Tablet PO ×2 (09:01→20:57)
[2024-02-23] MEDS: Sertraline 50 MG Tablet PO (09:01)
[2024-02-23] MEDS: Senna/Docusate Sodium 1 Tablet PO ×2 (09:01→20:57)
[2024-02-23] MEDS: DULoxetine Hcl 20 MG Capsule PO ×2 (09:01→20:56)
[2024-02-23] MEDS: APIXABAN 5 MG TABLET PO ×2 (09:01→20:56)
[2024-02-23] MEDS: Cholecalciferol (VIT D3) 25 MCG TABLET (1,000 UNITS) PO (09:01)
[2024-02-23 09:04] VITALS: BP 124/64; PULSE 78; O2SAT 100
--- NOTE | 2024-02-23 09:46 | CASEMGMT ---
Addendum entered by Leeann Slater 02/23/24 09:59: SW provided dtr with written communication on insurance process and copay coverage during stay. Original Note: Social Work IDT met with patient and dtr for care plan meeting. Discussed patient's progress in PT/OT/SN. Educated to [facility] insurance with NRD 02/27 and continued stay is not guaranteed with each review. Pt's goal is to return home alone at [facility]. Pt reports she has responded well and has seen improvements from the [place]. SW to coordinate skilled HHC and any DME needs at [facility]. Will continue to follow. Leeann Slater, DOTTIE AHUMADAW
--- NOTE | 2024-02-23 11:06 | NURSING ---
Hand Fabric Cutter Note; MDS for 03/23/2024 complete
--- NOTE | 2024-02-23 12:48 | MDS.RN ---
Information for the MDS was obtained from review of the clinical record, interview of resident, staff, and direct observation of resident?s care.
[2024-02-23 13:14] VITALS: RESP 14; TEMP 36.6
[2024-02-23 20:00] VITALS: PULSE 70; O2SAT 95
[2024-02-23] MEDS: Atorvastatin Calcium 10 MG Tablet PO (20:56)
[2024-02-24] MEDS: Carbidopa/Levodopa 25/100 Tablet PO ×3 (05:52→17:03)
[2024-02-24] MEDS: DULoxetine Hcl 20 MG Capsule PO ×2 (09:24→21:17)
[2024-02-24] MEDS: Multivitamins,Therapeutic Tablet 1 TABLET PO (09:24)
[2024-02-24] MEDS: Pantoprazole Sodium 20 MG Tablet PO ×2 (09:24→21:18)
[2024-02-24] MEDS: Calcium Carb/Vitamin D 1 TABLET Tablet PO (09:24)
[2024-02-24] MEDS: APIXABAN 5 MG TABLET PO ×2 (09:24→21:18)
[2024-02-24] MEDS: Cholecalciferol (VIT D3) 25 MCG TABLET (1,000 UNITS) PO (09:25)
[2024-02-24] MEDS: Senna/Docusate Sodium 1 Tablet PO ×2 (09:25→21:19)
[2024-02-24] MEDS: Sertraline 50 MG Tablet PO (09:28)
[2024-02-24 09:31] VITALS: BP 120/71; PULSE 85; O2SAT 98
[2024-02-24 14:45] VITALS: PULSE 84; RESP 16; O2SAT 94
[2024-02-24 15:42] VITALS: RESP 16; TEMP 36.2
[2024-02-24] MEDS: Atorvastatin Calcium 10 MG Tablet PO (21:18)
[2024-02-25] MEDS: Carbidopa/Levodopa 25/100 Tablet PO ×3 (05:49→17:19)
[2024-02-25 06:03] VITALS: PULSE 86; O2SAT 96
[2024-02-25] MEDS: DULoxetine Hcl 20 MG Capsule PO ×2 (09:13→20:56)
[2024-02-25] MEDS: Senna/Docusate Sodium 1 Tablet PO (09:13)
[2024-02-25] MEDS: Multivitamins,Therapeutic Tablet 1 TABLET PO (09:13)
[2024-02-25] MEDS: APIXABAN 5 MG TABLET PO ×2 (09:13→20:56)
[2024-02-25] MEDS: Cholecalciferol (VIT D3) 25 MCG TABLET (1,000 UNITS) PO (09:13)
[2024-02-25] MEDS: Sertraline 50 MG Tablet PO (09:13)
[2024-02-25] MEDS: Calcium Carb/Vitamin D 1 TABLET Tablet PO (09:13)
[2024-02-25] MEDS: Pantoprazole Sodium 20 MG Tablet PO ×2 (09:13→20:57)
[2024-02-25 14:22] VITALS: BP 135/73; PULSE 85; RESP 14; TEMP 36.6; O2SAT 97
--- NOTE | 2024-02-25 18:07 | NURSING ---
Addendum entered by Renée Patino 02/25/24 18:17: left floor at 1720 Original Note: Patient off floor. Went to vote
--- NOTE | 2024-02-25 18:16 | NURSING ---
patient returned to floor
[2024-02-25] MEDS: Atorvastatin Calcium 10 MG Tablet PO (20:56)
[2024-02-26] MEDS: Carbidopa/Levodopa 25/100 Tablet PO ×3 (05:46→16:36)
[2024-02-26] MEDS: Acetaminophen 500 MG Tablet 1000 MG PO (05:46)
[2024-02-26] MEDS: Pantoprazole Sodium 20 MG Tablet PO ×2 (07:45→22:02)
[2024-02-26] MEDS: Cholecalciferol (VIT D3) 25 MCG TABLET (1,000 UNITS) PO (07:45)
[2024-02-26] MEDS: DULoxetine Hcl 20 MG Capsule PO ×2 (07:45→22:02)
[2024-02-26] MEDS: Senna/Docusate Sodium 1 Tablet PO (07:45)
[2024-02-26] MEDS: Sertraline 50 MG Tablet PO (07:45)
[2024-02-26] MEDS: Multivitamins,Therapeutic Tablet 1 TABLET PO (07:45)
[2024-02-26] MEDS: APIXABAN 5 MG TABLET PO ×2 (07:45→22:02)
[2024-02-26] MEDS: Calcium Carb/Vitamin D 1 TABLET Tablet PO (07:45)
[2024-02-26 09:44] VITALS: BP 151/72; PULSE 83; RESP 18; TEMP 36.4; O2SAT 96
[2024-02-26 11:35] VITALS: PULSE 70; RESP 18; O2SAT 98
[2024-02-26] MEDS: Atorvastatin Calcium 10 MG Tablet PO (22:02)
[2024-02-27] MEDS: Acetaminophen 500 MG Tablet 1000 MG PO (05:49)
[2024-02-27] MEDS: Carbidopa/Levodopa 25/100 Tablet PO ×3 (05:49→18:21)
[2024-02-27 08:36] VITALS: BP 140/61; PULSE 76; RESP 17; TEMP 35.8; O2SAT 99
[2024-02-27] MEDS: APIXABAN 5 MG TABLET PO ×2 (08:39→21:51)
[2024-02-27] MEDS: DULoxetine Hcl 20 MG Capsule PO ×2 (08:39→21:50)
[2024-02-27] MEDS: Calcium Carb/Vitamin D 1 TABLET Tablet PO (08:39)
[2024-02-27] MEDS: Multivitamins,Therapeutic Tablet 1 TABLET PO (08:39)
[2024-02-27] MEDS: Sertraline 50 MG Tablet PO (08:40)
[2024-02-27] MEDS: Cholecalciferol (VIT D3) 25 MCG TABLET (1,000 UNITS) PO (08:40)
[2024-02-27] MEDS: Pantoprazole Sodium 20 MG Tablet PO ×2 (08:40→21:51)
[2024-02-27] MEDS: Senna/Docusate Sodium 1 Tablet PO ×2 (08:40→21:51)
[2024-02-27] MEDS: Atorvastatin Calcium 10 MG Tablet PO (21:51)
[2024-02-28] VITALS (7 sets, daily range): BP systolic 115–158; BP diastolic 70–117; PULSE 66–130; RESP 18; TEMP 36.7; O2SAT 95–97
[2024-02-28] MEDS: Carbidopa/Levodopa 25/100 Tablet PO ×3 (06:02→16:47)
[2024-02-28] MEDS: DULoxetine Hcl 20 MG Capsule PO ×2 (08:21→21:04)
[2024-02-28] MEDS: Cholecalciferol (VIT D3) 25 MCG TABLET (1,000 UNITS) PO (08:21)
[2024-02-28] MEDS: Senna/Docusate Sodium 1 Tablet PO ×2 (08:21→21:05)
[2024-02-28] MEDS: Pantoprazole Sodium 20 MG Tablet PO ×2 (08:21→21:05)
[2024-02-28] MEDS: APIXABAN 5 MG TABLET PO ×2 (08:21→21:04)
[2024-02-28] MEDS: Calcium Carb/Vitamin D 1 TABLET Tablet PO (08:21)
[2024-02-28] MEDS: Multivitamins,Therapeutic Tablet 1 TABLET PO (08:21)
[2024-02-28] MEDS: Sertraline 50 MG Tablet PO (08:21)
--- NOTE | 2024-02-28 09:25 | EKG12_ITS ---
Test Reason : CHEST DISCOMFORT Blood Pressure : */* mmHG Vent. Rate : 97 BPM Atrial Rate : 97 BPM P-R Int : 144 ms QRS Dur : 72 ms QT Int : 328 ms P-R-T Axes : 45 -10 47 degrees QTcB Int : 416 ms Normal sinus rhythm Left ventricular hypertrophy Abnormal ECG Confirmed by Serafin Quintero ([id number]), field map editor MOOKIE FLORES ([id number]) on 02/29/2024 9:29:54 AM Referred By: CONSUELO Confirmed By: Serafin Quintero
--- NOTE | 2024-02-28 10:07 | NURSING ---
Addendum entered by Chantelle Feliciano 02/28/24 10:19: DR. Ruffin to be notified. Original Note: Patient put circulation librarian light at 9:15am. Reported feeling SOB, a mild headache, and heart beating out of chest , and fluttering. PARKING METER COLLECTOR obtained VS at 9:25am. BP 150/117, HR 130-169, SPO2 97% RA. RN called for EKG. At 9:30am, manual BP obtained 158/86, HR 66, SPO2 96% RA. VS obtained again at 9:35am, BP 133/88, HR 70, SPO2 96% RA. EKG completed at 9:50am. Patient reports feeling better now and denies any further S/SX. Resting in recliner, call ight in reach. RN aware. Cont to monitor.
[2024-02-28] MEDS: Atorvastatin Calcium 10 MG Tablet PO (21:05)
[2024-02-29 04:44] VITALS: PULSE 84; O2SAT 96
[2024-02-29 05:54] LABS: Absolute Lymphocyte Count 1.81 X10^3/uL (0.83-4.51); Absolute Neutrophil Count 2.6 X10^3/uL (2.0-7.7); Basophil# 0.03 X10^3/uL; Basophil% 0.6 % (0-1); Eosinophil# 0.22 X10^3/uL; Eosinophils% 4.1 % (0-5); Hematocrit 39.6 % (37-47); Hemoglobin 12.8 g/dL (12.0-15.0); Lymphocyte # 1.81 X10^3/ul (0.83-4.51); Lymphocyte % 33.3 % (19-41); Mean Corp Hgb Conc 32.3 g/dL (32-36); Mean Corpuscular Hgb 30.6 pg (27.0-32.0); Mean Corpuscular Volume 94.7 fL (81-99); Mean Platelet Vol. 9.7 fl (6.2-12.0); Monocyte% 12.9 % (0-10); NRBC Flagged by Analyzer 0 % (0-5); Neutrophil # 2.64 X10^3/uL (2.7-7.7); Neutrophil % 48.5 % (47-70); Platelet Count 257 K/mm3 (150-450); RBC Distribution Width CV 12.2 % (11.6-14.6); RBC Distribution Width SD 42.5 fl (35.1-43.9); Red Blood Count 4.18 M/mm3 (4.2-5.4); White Blood Count 5.4 K/mm3 (4.4-11.0)
[2024-02-29] MEDS: Carbidopa/Levodopa 25/100 Tablet PO ×3 (05:54→16:36)
[2024-02-29] MEDS: APIXABAN 5 MG TABLET PO ×2 (08:06→21:20)
[2024-02-29] MEDS: DULoxetine Hcl 20 MG Capsule PO ×2 (08:06→21:20)
[2024-02-29] MEDS: Multivitamins,Therapeutic Tablet 1 TABLET PO (08:06)
[2024-02-29] MEDS: Sertraline 50 MG Tablet PO (08:06)
[2024-02-29] MEDS: Cholecalciferol (VIT D3) 25 MCG TABLET (1,000 UNITS) PO (08:06)
[2024-02-29] MEDS: Calcium Carb/Vitamin D 1 TABLET Tablet PO (08:06)
[2024-02-29] MEDS: Pantoprazole Sodium 20 MG Tablet PO ×2 (08:06→21:20)
[2024-02-29 09:00] VITALS: BMI 25.7
[2024-02-29 09:51] VITALS: BP 139/50; PULSE 89; RESP 16; TEMP 36.5; O2SAT 94
--- NOTE | 2024-02-29 10:04 | CASEMGMT ---
Social Work SW spoke with pt at bedside and discussed progress and DC plans. Pt states she is progressing well, but would like to continue with therapy to continue getting stronger. pt would like to wait for insurance to issue DC, unless she chooses to DC prior. SW confirmed and will continue to follow. Leeann Slater, AIRBORNE OPERATIONS CREATIVE ART THERAPIST
[2024-02-29] MEDS: Atorvastatin Calcium 10 MG Tablet PO (21:20)
[2024-03-01] MEDS: Carbidopa/Levodopa 25/100 Tablet PO ×3 (05:13→15:45)
--- NOTE | 2024-03-01 08:42 | EKG12_ITS ---
Test Reason : AFIB Blood Pressure : */* mmHG Vent. Rate : 160 BPM Atrial Rate : 159 BPM P-R Int : * ms QRS Dur : 72 ms QT Int : 250 ms P-R-T Axes : * -15 83 degrees QTcB Int : 407 ms atrial flutter with 2:[address] abnormality Abnormal ECG When compared with ECG of 01-Mar-2024 08:51, MANUAL COMPARISON REQUIRED DATA IS UNCONFIRMED Confirmed by NITA MERCER, JOHANNA ([id number]), sound editor MOOKIE FLORES ([id number]) on 03/07/2024 6:48:11 AM Referred By: Confirmed By: JOHANNA MOYA MD
[2024-03-01] MEDS: Cholecalciferol (VIT D3) 25 MCG TABLET (1,000 UNITS) PO (08:55)
[2024-03-01] MEDS: APIXABAN 5 MG TABLET PO ×2 (08:55→20:59)
[2024-03-01] MEDS: DULoxetine Hcl 20 MG Capsule PO ×2 (08:55→20:59)
[2024-03-01] MEDS: Calcium Carb/Vitamin D 1 TABLET Tablet PO (08:55)
[2024-03-01] MEDS: Sertraline 50 MG Tablet PO (08:55)
[2024-03-01] MEDS: Multivitamins,Therapeutic Tablet 1 TABLET PO (08:55)
[2024-03-01] MEDS: Pantoprazole Sodium 20 MG Tablet PO ×2 (08:55→20:59)
--- NOTE | 2024-03-01 09:09 | NURSING ---
Addendum entered by Dolly Baer 03/01/24 12:59: Appt made with Dr. Malave for 03/09/24 @0815. Resident given paper with date/time on it. Original Note: Resident having another episode of feeling her heart fluttering and beating out of her chest, has mild headache and shortness of breath. EKG completed. Reviewed results with Dr. Ruffin, showing rates up to 160s, irregular. Order to start resident on cardizem 120 daily and make sure she has an appt with the heart group.
[2024-03-01 10:38] VITALS: BP 111/76; PULSE 94; RESP 16; TEMP 36.3; O2SAT 96
[2024-03-01] MEDS: dilTIAZem CD 120 MG Capsule PO (11:56)
[2024-03-01 20:00] VITALS: PULSE 76; O2SAT 97
[2024-03-01] MEDS: Atorvastatin Calcium 10 MG Tablet PO (20:59)
[2024-03-02] MEDS: Carbidopa/Levodopa 25/100 Tablet PO ×3 (05:44→16:13)
[2024-03-02 05:51] VITALS: PULSE 68; O2SAT 94
[2024-03-02] MEDS: Calcium Carb/Vitamin D 1 TABLET Tablet PO (09:02)
[2024-03-02] MEDS: Multivitamins,Therapeutic Tablet 1 TABLET PO (09:02)
[2024-03-02] MEDS: APIXABAN 5 MG TABLET PO ×2 (09:03→21:13)
[2024-03-02] MEDS: Pantoprazole Sodium 20 MG Tablet PO ×2 (09:03→21:13)
[2024-03-02] MEDS: DULoxetine Hcl 20 MG Capsule PO ×2 (09:03→21:13)
[2024-03-02] MEDS: dilTIAZem CD 120 MG Capsule PO (09:03)
[2024-03-02] MEDS: Cholecalciferol (VIT D3) 25 MCG TABLET (1,000 UNITS) PO (09:04)
[2024-03-02] MEDS: Sertraline 50 MG Tablet PO (09:04)
[2024-03-02] MEDS: Senna/Docusate Sodium 1 Tablet PO ×2 (09:04→21:13)
[2024-03-02 09:09] VITALS: BP 116/58; PULSE 66; O2SAT 100
[2024-03-02 13:34] VITALS: RESP 16; TEMP 36.6
[2024-03-02] MEDS: Atorvastatin Calcium 10 MG Tablet PO (21:13)
[2024-03-03] MEDS: Carbidopa/Levodopa 25/100 Tablet PO ×3 (06:19→16:48)
[2024-03-03] MEDS: DULoxetine Hcl 20 MG Capsule PO ×2 (08:53→21:31)
[2024-03-03] MEDS: dilTIAZem CD 120 MG Capsule PO (08:53)
[2024-03-03] MEDS: Multivitamins,Therapeutic Tablet 1 TABLET PO (08:53)
[2024-03-03] MEDS: Calcium Carb/Vitamin D 1 TABLET Tablet PO (08:53)
[2024-03-03] MEDS: Pantoprazole Sodium 20 MG Tablet PO ×2 (08:54→21:32)
[2024-03-03] MEDS: Senna/Docusate Sodium 1 Tablet PO ×2 (08:54→21:32)
[2024-03-03] MEDS: APIXABAN 5 MG TABLET PO ×2 (08:54→21:30)
[2024-03-03] MEDS: Cholecalciferol (VIT D3) 25 MCG TABLET (1,000 UNITS) PO (08:54)
[2024-03-03] MEDS: Sertraline 50 MG Tablet PO (08:54)
[2024-03-03 08:58] VITALS: BP 123/51; PULSE 74; O2SAT 97
[2024-03-03 11:00] VITALS: PULSE 68; RESP 16; O2SAT 95
[2024-03-03 13:32] VITALS: RESP 16; TEMP 36.2
[2024-03-03] MEDS: Atorvastatin Calcium 10 MG Tablet PO (21:32)
[2024-03-04] MEDS: Carbidopa/Levodopa 25/100 Tablet PO ×3 (05:49→17:41)
[2024-03-04] MEDS: Sertraline 50 MG Tablet PO (09:36)
[2024-03-04] MEDS: DULoxetine Hcl 20 MG Capsule PO ×2 (09:36→21:14)
[2024-03-04] MEDS: dilTIAZem CD 120 MG Capsule PO (09:36)
[2024-03-04] MEDS: Senna/Docusate Sodium 1 Tablet PO ×2 (09:36→21:15)
[2024-03-04] MEDS: Pantoprazole Sodium 20 MG Tablet PO ×2 (09:36→21:14)
[2024-03-04] MEDS: Multivitamins,Therapeutic Tablet 1 TABLET PO (09:36)
[2024-03-04] MEDS: Calcium Carb/Vitamin D 1 TABLET Tablet PO (09:36)
[2024-03-04] MEDS: Cholecalciferol (VIT D3) 25 MCG TABLET (1,000 UNITS) PO (09:36)
[2024-03-04] MEDS: APIXABAN 5 MG TABLET PO ×2 (09:36→21:14)
[2024-03-04 09:38] VITALS: BP 125/58; PULSE 66; RESP 14; TEMP 36.1; O2SAT 98
[2024-03-04] MEDS: Atorvastatin Calcium 10 MG Tablet PO (21:13)
[2024-03-04] MEDS: Acetaminophen 500 MG Tablet 1000 MG PO (21:15)
[2024-03-05] MEDS: Carbidopa/Levodopa 25/100 Tablet PO ×3 (06:34→16:27)
[2024-03-05 08:09] VITALS: BP 127/65; PULSE 75; RESP 16; TEMP 36.1; O2SAT 97
[2024-03-05] MEDS: Senna/Docusate Sodium 1 Tablet PO ×2 (08:10→20:49)
[2024-03-05] MEDS: Sertraline 50 MG Tablet PO (08:10)
[2024-03-05] MEDS: Acetaminophen 500 MG Tablet 1000 MG PO (08:10)
[2024-03-05] MEDS: DULoxetine Hcl 20 MG Capsule PO ×2 (08:10→20:48)
[2024-03-05] MEDS: Cholecalciferol (VIT D3) 25 MCG TABLET (1,000 UNITS) PO (08:10)
[2024-03-05] MEDS: Pantoprazole Sodium 20 MG Tablet PO ×2 (08:10→20:49)
[2024-03-05] MEDS: dilTIAZem CD 120 MG Capsule PO (08:11)
[2024-03-05] MEDS: APIXABAN 5 MG TABLET PO ×2 (08:11→20:48)
[2024-03-05] MEDS: Multivitamins,Therapeutic Tablet 1 TABLET PO (08:11)
[2024-03-05] MEDS: Calcium Carb/Vitamin D 1 TABLET Tablet PO (08:11)
[2024-03-05] MEDS: Atorvastatin Calcium 10 MG Tablet PO (20:48)
[2024-03-05 20:52] VITALS: PULSE 80; O2SAT 96
[2024-03-06] MEDS: Carbidopa/Levodopa 25/100 Tablet PO ×3 (05:47→16:24)
--- NOTE | 2024-03-06 05:49 | NURSING ---
Patient states that she had urinary frequency during night, denies any burning or other c/o at time.
[2024-03-06 06:57] VITALS: PULSE 70; O2SAT 94
[2024-03-06] MEDS: dilTIAZem CD 120 MG Capsule PO (08:54)
[2024-03-06] MEDS: Calcium Carb/Vitamin D 1 TABLET Tablet PO (08:54)
[2024-03-06] MEDS: Multivitamins,Therapeutic Tablet 1 TABLET PO (08:54)
[2024-03-06] MEDS: APIXABAN 5 MG TABLET PO ×2 (08:55→21:51)
[2024-03-06] MEDS: DULoxetine Hcl 20 MG Capsule PO ×2 (08:55→21:51)
[2024-03-06] MEDS: Pantoprazole Sodium 20 MG Tablet PO ×2 (08:55→21:52)
[2024-03-06] MEDS: Cholecalciferol (VIT D3) 25 MCG TABLET (1,000 UNITS) PO (08:56)
[2024-03-06] MEDS: Sertraline 50 MG Tablet PO (08:56)
[2024-03-06 15:30] VITALS: BP 126/56; PULSE 70; RESP 14; TEMP 36.1; O2SAT 99
--- NOTE | 2024-03-06 20:35 | NURSING ---
urine specimen collected via cath per order.
[2024-03-06 20:41] LABS: Bacteria 0 SEEN /hpf (None Seen); Mucous, Urine 0 SEEN /hpf (<or=2+); Squamous Epithelial Cells - UA 0 SEEN /hpf (5-10)
[2024-03-06 20:43] LABS: Color, Urine Yellow (Yellow); Glucose, Dipstick Normal (Normal); Ketone-Dipstick Negative (Negative); Leukocyte Esterase-Dipstick 25 /ul (Negative); Nitrite-Dipstick Negative (Negative); Occult Blood-Urine 25 /ul (Negative); Protein-Dipstick Negative (Negative); Urine Bilirubin Dipstick Negative (Negative); Urine Clarity Clear (Clear); Urine Urobilinogen Normal (Normal); Urine pH 6.5 (5.0 - 8.0)
[2024-03-06 21:26] LABS: Red Blood Cells-Urine 0-5 SEEN /hpf (0-5); White Blood Cells 0-5 SEEN /hpf (0-5)
[2024-03-06] MEDS: Atorvastatin Calcium 10 MG Tablet PO (21:51)
[2024-03-06] MEDS: Senna/Docusate Sodium 1 Tablet PO (21:52)
[2024-03-07] MEDS: Carbidopa/Levodopa 25/100 Tablet PO ×3 (05:44→16:36)
[2024-03-07 05:52] VITALS: PULSE 66; O2SAT 94
[2024-03-07 06:01] LABS: Absolute Lymphocyte Count 1.44 X10^3/uL (0.83-4.51); Absolute Neutrophil Count 2.2 X10^3/uL (2.0-7.7); Basophil# 0.03 X10^3/uL; Basophil% 0.7 % (0-1); Eosinophils% 4.5 % (0-5); Hematocrit 39.4 % (37-47); Hemoglobin 12.7 g/dL (12.0-15.0); Lymphocyte # 1.44 X10^3/ul (0.83-4.51); Lymphocyte % 32.1 % (19-41); Mean Corp Hgb Conc 32.2 g/dL (32-36); Mean Corpuscular Hgb 30.3 pg (27.0-32.0); Mean Platelet Vol. 9.7 fl (6.2-12.0); Monocyte# 0.56 X10^3/uL; Monocyte% 12.5 % (0-10); NRBC Flagged by Analyzer 0 % (0-5); Neutrophil # 2.24 X10^3/uL (2.7-7.7); Neutrophil % 49.8 % (47-70); Platelet Count 233 K/mm3 (150-450); RBC Distribution Width CV 12.2 % (11.6-14.6); RBC Distribution Width SD 41.9 fl (35.1-43.9); Red Blood Count 4.19 M/mm3 (4.2-5.4); White Blood Count 4.5 K/mm3 (4.4-11.0)
[2024-03-07 08:06] VITALS: BP 140/67; PULSE 74; RESP 18; TEMP 36.2; O2SAT 100
[2024-03-07] MEDS: dilTIAZem CD 120 MG Capsule PO (08:08)
[2024-03-07] MEDS: APIXABAN 5 MG TABLET PO ×2 (08:08→21:19)
[2024-03-07] MEDS: Pantoprazole Sodium 20 MG Tablet PO ×2 (08:08→21:20)
[2024-03-07] MEDS: Senna/Docusate Sodium 1 Tablet PO ×2 (08:08→21:20)
[2024-03-07] MEDS: DULoxetine Hcl 20 MG Capsule PO ×2 (08:08→21:19)
[2024-03-07] MEDS: Calcium Carb/Vitamin D 1 TABLET Tablet PO (08:08)
[2024-03-07] MEDS: Cholecalciferol (VIT D3) 25 MCG TABLET (1,000 UNITS) PO (08:09)
[2024-03-07] MEDS: Multivitamins,Therapeutic Tablet 1 TABLET PO (08:09)
[2024-03-07] MEDS: Sertraline 50 MG Tablet PO (08:09)
[2024-03-07 09:00] VITALS: BMI 25.9
--- NOTE | 2024-03-07 12:55 | CASEMGMT ---
Social Work SW spoke with pt to discuss DC. Pt is requesting to DC home 03/11. IDT agreeable. Offered HHC vs OP. Pt prefers HHC and to use [facility] whom she used prior. Pt confirmed she would like to remain active with [facility]. Confirmed pt's need for a rollator. Family to transport. SW phoned referral to [facility] for PT/OT. Notified Nicholas at [facility] via secure email of DC date. SONAM sent referral to [facility] for rollator and delivery to pt's room prior to DC, [facility]. Plan: DC home alone 03/11, [facility] PT/OT, [facility], rollator Leeann Slater, DOTTIE AHUMADAW
--- NOTE | 2024-03-07 20:05 | DS.PCM_ITS ---
Providers Date of Admission: 02/14/24 Primary Care Physician: Dr. Shawn Ramires MD Reason For Visit: WEAKNESS/ A FIB Diagnosis Discharge Diagnosis (1) Debility: Status: Acute Code(s): R53.81 - Other malaise (2) Weakness: Status: Acute Code(s): R53.1 - Weakness (3) Atrial fibrillation with rapid ventricular response: Status: Acute Code(s): I48.91 - Unspecified atrial fibrillation (4) Urinary tract infection: Status: Acute Code(s): N39.0 - Urinary tract infection, site not specified (5) Movement disorder: Status: Acute Code(s): G25.9 - Extrapyramidal and movement disorder, unspecified (6) Essential (primary) hypertension: Status: Acute Code(s): I10 - Essential (primary) hypertension (7) History of malignant hepatoma: Status: Acute Code(s): Z85.05 - Personal history of malignant neoplasm of liver (8) Depression: Status: Acute Code(s): F32.A - Depression, unspecified (9) Hyperlipidemia: Status: Acute Code(s): E78.5 - Hyperlipidemia, unspecified (10) GERD (gastroesophageal reflux disease): Status: Acute Code(s): K21.9 - Gastro-esophageal reflux disease without esophagitis Plan 78 year old female with below past medical history hospitalized for weakness 2/2 atrial fibrillation with rvr, complicated by urinary tract infection, movement disorder, admitted to TCU with debility, here for rehabilitation, strengthening, prior to discharge home alone. * Debility - PT/OT. * Pain - Tylenol 1000mg q6 prn pain (1-10). * Bowel - senna/colace 1 tablet bid, magnesium citrate 300ml po daily prn. * Adult immunization - Administer pneumonia vaccine, covid vaccine, flu vaccine as appropriate. * DVT prophylaxis - on Eliquis. * Atrial fibrillation - Metoprolol succinate 50mg daily, Diltiazem CD 120mg daily, Eliquis 5mg bid. * Hyperlipidemia - Atorvastatin 10mg qhs. * Calcium deficiency - Calcium D 1 tablet daily. * UTI - Cefdinir 300mg bid thru 02/18/2024. * Vitamin D deficiency - D3 25mcg daily. * Depression - Duloxetine 20mg bid, Sertraline 50mg daily, stable chronic fpc use, GDR not recommended. * Hypertension - Metoprolol succinate 50mg daily, Diltiazem CD 120mg daily, Lisinopril 10mg daily. * Nutrition - MVI 1 tablet daily. * Nausea - Zofran odt 4mg q8 prn. * GERD - Pantoprazole 20mg bid. Medications at Discharge Home Medications calcium 600 mg (as carbonate)-vitamin D3 10 mcg (400 unit) tablet (Calcium 600 + D(3)) 1 tab PO DAILY Supplement 11/29/21 sertraline 50 mg tablet 50 mg PO DAILY depression 11/29/21 simvastatin 20 mg tablet 20 mg PO QHS cholesterol 11/29/21 lisinopril 10 mg tablet 10 mg PO .hs bp 08/06/23 cholecalciferol (vitamin D3) 25 mcg (1,000 unit) capsule (Vitamin D3) 1,000 unit PO DAILY Supplement 12/31/23 duloxetine 20 mg capsule,delayed release 20 mg PO BID depression 12/31/23 omeprazole 20 mg capsule,delayed release 20 mg PO BID stomach 6 weeks #84 caps 01/06/24 apixaban 5 mg tablet (Eliquis) 5 mg PO BID Anticoagulant #60 tabs 01/19/24 multivitamin (Daily Multi-Vitamin tablet) 1 tab PO DAILY suppliment 02/11/24 carbidopa 25 mg-levodopa 100 mg tablet 1 tab PO TIDAC 30 days #90 tabs 03/07/24 diltiazem HCl 120 mg capsule,extended release 24 hr 120 mg PO DAILY 30 days #30 caps 03/07/24 Hospital Course Operations None Procedures None Summary of Care Provided Minutes Spent on Discharge: 35 Hospital Course: 78 year old female with below past medical history hospitalized for weakness 2/2 atrial fibrillation with rvr, complicated by urinary tract infection, movement disorder, admitted to TCU with debility, here for rehabilitation, strengthening, prior to discharge home alone. Discharge home alone 03/11/2024, [facility] PT/OT, CCN, Rollator. Rollator: Patient is unsafe with a cane and requires frequent rest breaks that can be resolved with use a rollator for ambulation in the home and the community. Physical Exam Const alert General Appearance: cooperative HEENT normocephalic Eyes PERRL and EOMs intact bilaterally Neck supple, no JVD and no carotid bruits Resp normal respiratory effort, normal air movement and clear to auscultation bilaterally Cardio regular rate and regular rhythm GI normal to inspection, nondistended, normoactive bowel sounds, non-tender and non-distended Extremity normal capillary refill General Extremity: Negative for edema Skin no rashes or lesions noted General Skin Exam: no breakdown Psych affect normal Appearance: appropriate Weight / BMI Weight Weight: 66.27 kg Body Mass Index (BMI) 25.9 ABG / Lab / Microbiology Data 03/07/24 05:11 02/20/24 05:40 Laboratory: Laboratory Results - last 24 hr 03/06/24 20:30: Urine Color Yellow, Urine Clarity Clear, Urine pH 6.5, Ur Specific [place] 1.010, Urine Protein Negative, Urine Glucose (UA) Normal, Urine Ketones Negative, Urine Occult Blood 25 H, Urine Nitrite Negative, Urine Bilirubin Negative, Urine Urobilinogen Normal, Ur Leukocyte Esterase 25 H, Urine RBC 0-5 SEEN, Urine WBC 0-5 SEEN, Ur Squamous Epith Cells 0 SEEN, Urine Bacteria 0 SEEN, Urine Mucus 0 SEEN 03/07/24 05:11: WBC 4.5, RBC 4.19 L, Hgb 12.7, Hct 39.4, MCV 94.0, MCH 30.3, MCHC 32.2, RDW Std Deviation 41.9, RDW Coeff of [place] 12.2, Plt Count 233, MPV 9.7, Immature Gran % (Auto) 0.400, Neut % (Auto) 49.8, Lymph % (Auto) 32.1, [place] % (Auto) 12.5 H, Eos % (Auto) 4.5, Baso % (Auto) 0.7, Absolute Neuts (auto) 2.2, Absolute Lymphs (auto) 1.44, Nucleated RBC % 0 D/C Instructions Discharge Diet: No restrictions Discharge Activity: Return to Normal Activity, May Shower and Use Walker Weight Bearing Status: Weight bearing as tolerated Call your doctor if you observe: Fever of 101 or Higher, Inability to urinate, Inability to have a bowel movement, Shortness of breath, Dizziness, Fainting spells, Swelling in the ankles, Chest pain and Uncontrolled pain Additional Instructions: Discharge home alone 03/11/2024, [facility] PT/OT, CCN, Rollator. Rollator: Patient is unsafe with a cane and requires frequent rest breaks that can be resolved with use a rollator for ambulation in the home and the community. Please Follow Up With: Flaquito Malave MD When: As scheduled. Meaningful Use Info Meaningful Use Meaningful Use Diagnoses (Choose all that apply): None applicable Ischemic Stroke Statin Dosing Therapy Reference: STATIN DOSE THERAPY REFERENCE: * Patients > 75 years receive moderate or high dose statin therapy. * Patients 75 years or YOUNGER should receive HIGH intensity statin dose unless contraindicated. You will be required to document reason for non-treatment if statin daily dose does not meet guidelines. HIGH DOSE STATIN THERAPY DAILY Atorvastatin > than or = to 40 mg Rosuvastatin > than or = to 20 mg Amlodipine + Atorvastatin > than or = to 2.5/40 mg Ezetimibe + Simvastatin 10/80 mg Simvastatin 80mg Discharge Plan Admission Admit Date/Time: 02/14/24 17:59 Primary Reason for Your Visit: Debility. Attending Provider: Yovany Ruffin Chi Primary Care Provider: Shawn Ramires Instructions Additional Instructions / Restrictions: Discharge home alone 03/11/2024, [facility] PT/OT, CCN, Rollator. Rollator: Patient is unsafe with a cane and requires frequent rest breaks that can be resolved with use a rollator for ambulation in the home and the community. Discharge Orders/Prescriptions Prescriptions: New diltiazem HCl 120 mg Capsule,Extended Release 24hr 120 mg PO DAILY 30 Days Qty: 30 0RF carbidopa-levodopa 25-100 mg Tablet 1 tab PO TIDAC 30 Days Qty: 90 0RF Continued duloxetine 20 mg capsule,delayed release(DR/EC) 20 mg PO BID Eliquis 5 mg tablet 5 mg PO BID Qty: 60 11RF simvastatin 20 mg Tablet 20 mg PO QHS sertraline 50 mg Tablet 50 mg PO DAILY calcium carbonate-vitamin D3 [Calcium 600 + D(3)] 600 mg-10 mcg (400 unit) Tablet 1 tab PO DAILY cholecalciferol (vitamin D3) [Vitamin D3] 25 mcg (1,000 unit) capsule 1,000 unit PO DAILY lisinopril 10 mg tablet 10 mg PO .hs multivitamin [Daily Multi-Vitamin] Tablet 1 tab PO DAILY omeprazole 20 mg capsule,delayed release(DR/EC) 20 mg PO BID 42 Days Qty: 84 0RF Discontinued ondansetron HCl 4 mg tablet 4 mg PO Q8H PRN (Reason: nausea and vomiting) metoprolol succinate [Toprol XL] 50 mg tablet extended release 24 hr 50 mg PO DAILY Patient Comments: has not started yet thought it was for bp so did not want bp lower so did not start diltiazem HCl 120 mg Capsule,Extended Release 24hr 120 mg PO DAILY Qty: 0 0RF cefdinir 300 mg capsule 300 mg PO BID 2 Days Qty: 4 0RF acetaminophen 500 mg capsule 1,000 mg PO Q8H PRN PRN (Reason: pain) Referrals / Follow Up: Shawn Ramires MD [Primary Care Provider] - (pt will make own appt) Disposition Disposition (needs filled in before D/C Order can be placed): Home Health Service
[2024-03-07] MEDS: Atorvastatin Calcium 10 MG Tablet PO (21:19)
[2024-03-08] MEDS: Carbidopa/Levodopa 25/100 Tablet PO ×3 (05:46→16:59)
[2024-03-08] MEDS: Multivitamins,Therapeutic Tablet 1 TABLET PO (09:51)
[2024-03-08] MEDS: Calcium Carb/Vitamin D 1 TABLET Tablet PO (09:51)
[2024-03-08] MEDS: Senna/Docusate Sodium 1 Tablet PO ×2 (09:52→20:02)
[2024-03-08] MEDS: DULoxetine Hcl 20 MG Capsule PO ×2 (09:52→20:02)
[2024-03-08] MEDS: Cholecalciferol (VIT D3) 25 MCG TABLET (1,000 UNITS) PO (09:52)
[2024-03-08] MEDS: Sertraline 50 MG Tablet PO (09:52)
[2024-03-08] MEDS: APIXABAN 5 MG TABLET PO ×2 (09:52→20:02)
[2024-03-08] MEDS: dilTIAZem CD 120 MG Capsule PO (09:52)
[2024-03-08] MEDS: Pantoprazole Sodium 20 MG Tablet PO ×2 (09:52→20:02)
[2024-03-08] MEDS: Acetaminophen 500 MG Tablet 1000 MG PO (09:55)
[2024-03-08 16:00] VITALS: BP 121/55; PULSE 72; RESP 14; TEMP 36.1; O2SAT 96
[2024-03-08 20:00] VITALS: PULSE 74; RESP 16; O2SAT 74
[2024-03-08] MEDS: Atorvastatin Calcium 10 MG Tablet PO (20:02)
[2024-03-09] MEDS: Carbidopa/Levodopa 25/100 Tablet PO ×3 (07:05→16:50)
--- NOTE | 2024-03-09 08:05 | NURSING ---
PT LEFT FLOOR BY WHEEL CHAIR WITH DAUGHTER AT 0800 FOR APPOINTMENT WITH .
--- NOTE | 2024-03-09 08:41 | NURSING ---
PT RETURNED TO FLOOR BY WHEEL CHAIR WITH DAUGHTER AT 0830. NEW ORDERS TO STAY ON CARDIZEM AND NO METOPROLOL FOR NOW. RN AWARE.
--- NOTE | 2024-03-09 09:24 | MDS.RN ---
Pain interview for MDS completed.
[2024-03-09] MEDS: Multivitamins,Therapeutic Tablet 1 TABLET PO (09:27)
[2024-03-09] MEDS: Calcium Carb/Vitamin D 1 TABLET Tablet PO (09:27)
[2024-03-09] MEDS: APIXABAN 5 MG TABLET PO ×2 (09:29→20:40)
[2024-03-09] MEDS: Sertraline 50 MG Tablet PO (09:29)
[2024-03-09] MEDS: Pantoprazole Sodium 20 MG Tablet PO ×2 (09:29→20:40)
[2024-03-09] MEDS: dilTIAZem CD 120 MG Capsule PO (09:29)
[2024-03-09] MEDS: Senna/Docusate Sodium 1 Tablet PO ×2 (09:29→20:40)
[2024-03-09] MEDS: DULoxetine Hcl 20 MG Capsule PO ×2 (09:29→20:40)
[2024-03-09] MEDS: Cholecalciferol (VIT D3) 25 MCG TABLET (1,000 UNITS) PO (09:29)
[2024-03-09 09:33] VITALS: BP 121/63; PULSE 67; O2SAT 96
[2024-03-09 14:35] VITALS: PULSE 74; RESP 18; O2SAT 96
--- NOTE | 2024-03-09 14:53 | CASEMGMT ---
Social Work SW completed BIMS () and PHQ-2 () for MDS assessment. Leeann Slater MSW UTILIZATION ENGINEER
[2024-03-09 15:11] VITALS: RESP 16; TEMP 36.4
--- NOTE | 2024-03-09 16:51 | NURSING ---
PT NOTIFIED THATA STAFF MEMBER TESTED POSITIVE FOR COVID. PT STATED SHE WOULD LET HER DAUGHTER KNOW.
[2024-03-09] MEDS: Atorvastatin Calcium 10 MG Tablet PO (20:40)
[2024-03-10] MEDS: Carbidopa/Levodopa 25/100 Tablet PO ×3 (05:57→16:10)
[2024-03-10] MEDS: Calcium Carb/Vitamin D 1 TABLET Tablet PO (08:48)
[2024-03-10] MEDS: Multivitamins,Therapeutic Tablet 1 TABLET PO (08:48)
[2024-03-10] MEDS: Cholecalciferol (VIT D3) 25 MCG TABLET (1,000 UNITS) PO (08:48)
[2024-03-10] MEDS: DULoxetine Hcl 20 MG Capsule PO ×2 (08:48→21:05)
[2024-03-10] MEDS: Pantoprazole Sodium 20 MG Tablet PO ×2 (08:49→21:05)
[2024-03-10] MEDS: Sertraline 50 MG Tablet PO (08:49)
[2024-03-10] MEDS: Senna/Docusate Sodium 1 Tablet PO ×2 (08:49→21:05)
[2024-03-10] MEDS: APIXABAN 5 MG TABLET PO ×2 (08:49→21:04)
[2024-03-10] MEDS: dilTIAZem CD 120 MG Capsule PO (08:49)
[2024-03-10 08:52] VITALS: BP 127/53; PULSE 69; O2SAT 99
[2024-03-10 20:00] VITALS: BP 123/62; PULSE 68; PULSE 78; RESP 15; TEMP 36.6; O2SAT 96; O2SAT 99
[2024-03-10] MEDS: Atorvastatin Calcium 10 MG Tablet PO (21:04)
[2024-03-11 04:54] VITALS: PULSE 66; O2SAT 97
[2024-03-11] MEDS: Carbidopa/Levodopa 25/100 Tablet PO (05:44)
[2024-03-11] MEDS: Multivitamins,Therapeutic Tablet 1 TABLET PO (08:39)
[2024-03-11] MEDS: APIXABAN 5 MG TABLET PO (08:39)
[2024-03-11] MEDS: Pantoprazole Sodium 20 MG Tablet PO (08:40)
[2024-03-11] MEDS: Calcium Carb/Vitamin D 1 TABLET Tablet PO (08:40)
[2024-03-11] MEDS: Senna/Docusate Sodium 1 Tablet PO (08:41)
[2024-03-11] MEDS: dilTIAZem CD 120 MG Capsule PO (08:41)
[2024-03-11] MEDS: DULoxetine Hcl 20 MG Capsule PO (08:41)
[2024-03-11] MEDS: Cholecalciferol (VIT D3) 25 MCG TABLET (1,000 UNITS) PO (08:42)
[2024-03-11] MEDS: Sertraline 50 MG Tablet PO (08:42)
== END 2024-03-11 11:25 | disposition home health service (06) | DRG 309 ==
PROVIDERS: Admitting Provider Family Medicine Geriatric Medicine; PCP Family Medicine; Visit Provider Family Medicine Geriatric Medicine
DX: I48.91 Unspecified atrial fibrillation (principal); N39.0 Urinary tract infection, site not specified; G25.9 Extrapyramidal and movement disorder, unspecified; E55.9 Vitamin D deficiency, unspecified; F32.A Depression, unspecified; I10 Essential (primary) hypertension; E78.00 Pure hypercholesterolemia, unspecified; K21.9 Gastro-esophageal reflux disease without esophagitis; Z79.01 Long term (current) use of anticoagulants; Z79.899 Other long term (current) drug therapy; Z23 Encounter for immunization
CPT/HCPCS: 36415; 80048; 81001; 85025; 87077; 87086; 87088; 87186; 87811; 90480; 91322; 93005; 97110; 97116; 97162; 97166; 97530; 97535; 97802; A4216

== ENCOUNTER → 2024-03-14 | Outpatient (CLI) | payer MEDICARE, SELFPAY ==
--- NOTE | 2024-03-14 12:55 | NM_ITS ---
CLINICAL: 78-year-old female with history of hepatocellular carcinoma. RADIONUCLIDE HEPATOBILIARY SCINTIGRAPHY COMPARISON: None available FINDINGS: Following the intravenous administration of 5.4 mCi of 99m Tc Mebrofenin, hepatobiliary images reveal: 1. Relatively prompt and homogeneous radiopharmaceutical concentration is noted by a normal sized liver. No parenchymal defects are identified. 2. Gallbladder activity is identified at 10 minutes post radiopharmaceutical administration. 3. Small intestinal tract is observed at 45 minutes following tracer injection. 4. Washout of the radiopharmaceutical by the hepatic parenchyma appears qualitatively normal. Cholecystokinin (0.02 ug/kg) was administered intravenously over a 30-minute period. The post CCK gallbladder ejection fraction calculated at 22 minutes following Cholecystokinin administration was noted to be < 5 % (normal greater than 35%). NM/Hepatobilliary Img w/Pharm Int IMPRESSION: 1. ABNORMAL 99m Tc Mebrofenin hepatobiliary imaging examination with Cholecystokinin. A. A gallbladder ejection fraction calculated to be less than 35% following the administration of Cholecystokinin is consistent with the presence of functional hepatobiliary disease (gallbladder and/or sphincter of Oddi dyskinesia) and/or organic hepatobiliary disease (chronic acalculous cholecystitis and/or cystic duct syndrome) in patients with intermediate to high pretest probabilities of hepatobiliary illness. (Triston Fair et al, Journal of Nuclear Medicine 32:1695, 1991). Electronically Signed: Gareth Perez DO at 22:41 EST ,
== END | disposition home or self-care (01) ==
LOC: NM 12:51
PROVIDERS: PCP Family Medicine; Referring Provider Student in an Organized Health Care Education/Training Program; Visit Provider Student in an Organized Health Care Education/Training Program
DX: K58.9 Irritable bowel syndrome, unspecified (principal)
CPT/HCPCS: 78227; A9537; J2805

== ENCOUNTER → 2024-05-19 | Outpatient (CLI) | payer MEDICARE, SELFPAY ==
[2024-05-19 15:10] LABS: Hematocrit 45.2 % (37-47); Hemoglobin 14.4 g/dL (12.0-15.0); Mean Corp Hgb Conc 31.9 g/dL (32-36); Mean Corpuscular Volume 90.9 fL (81-99); Mean Platelet Vol. 9.3 fl (6.2-12.0); Platelet Count 302 K/mm3 (150-450); RBC Distribution Width CV 13.1 % (11.6-14.6); RBC Distribution Width SD 44.1 fl (35.1-43.9); Red Blood Count 4.97 M/mm3 (4.2-5.4); White Blood Count 6.1 K/mm3 (4.4-11.0)
[2024-05-19 15:36] LABS: Vitamin B12 511 pg/mL (211-911)
[2024-05-19 15:40] LABS: Hemoglobin A1c 6.2 % (3.8-5.6)
[2024-05-19 16:18] LABS: AST(SGOT) 20 U/L (15-37); Alanine Aminotransfer ALT/SGPT 22 U/L (13-56); Alkaline Phosphatase 105 U/L (45-117); Anion Gap 5 (5-15); BUN 24 mg/dL (7-18); BUN/Creat Ratio 22.9 RATIO (10-20); Calcium,Total 10.1 mg/dL (8.5-10.1); Chloride 106 mmol/L (98-107); Creatinine, Serum 1.05 mg/dL (0.55-1.02); EST Glomerular Filtration Rate 53 mL/min (>60); Est Glom Filt Rate - Afr Amer 65 mL/min (>60); Globulin 3.9 g/dL (2.2-4.2); Glucose 122 mg/dL (74-106); Potassium 4.3 mmol/L (3.5-5.1); Protein, Total 7.9 g/dL (6.4-8.2); Sodium Level 140 mmol/L (136-145)
[2024-05-30 12:28] LABS: Free Kappa Light Chains 19.7 mg/L (3.3-19.4); Free Lambda Light Chains 12.3 mg/L (5.7-26.3); Vitamin B1, Thiamine 173.6 nmol/L (66.5-200.0)
== END | disposition home or self-care (01) ==
LOC: MTLAB 11:27
PROVIDERS: PCP Family Medicine; Referring Provider Psychiatry & Neurology Neurology; Visit Provider Psychiatry & Neurology Neurology
DX: G62.9 Polyneuropathy, unspecified (principal); F41.9 Anxiety disorder, unspecified; R73.9 Hyperglycemia, unspecified
CPT/HCPCS: 36415; 80053; 82607; 82746; 83036; 83883; 84425; 84443; 85027

== ENCOUNTER → 2024-06-08 | Outpatient (CLI) | payer MEDICARE, SELFPAY ==
--- NOTE | 2024-06-08 16:44 | MRI_ITS ---
PROCEDURE: BRAIN WITHOUT CONTRAST REASON FOR EXAM: Parkinson's disease. TECHNIQUE: Multiplanar, multisequence MRI of the brain without intravenous gadolinium-based contrast. COMPARISON: CT brain from 11/29/2021. FINDINGS: There is prominence of the ventricles and sulci indicative of atrophy. No midline shift, mass effect, or extra-axial fluid collections are identified. There are multiple foci of hyperintense T2/FLAIR signal in the periventricular and deep white matter relating to chronic small vessel ischemic disease. No diffusion restriction is identified on diffusion-weighted imaging to suggest acute/subacute ischemic changes. No acute intracranial hemorrhage or acute territorial infarction is seen. Corpus callosum, optic chiasm, suprasellar cistern, and cerebellar tonsils are within normal range. Major vascular flow voids are present. Bilateral orbits are intact. MRI/Brain without Contrast IMPRESSION: 1. No acute intracranial process. 2. Chronic small vessel ischemic disease. 3. Atrophy. [facility]
== END | disposition home or self-care (01) ==
PROVIDERS: PCP Family Medicine; Referring Provider Psychiatry & Neurology Neurology; Visit Provider Psychiatry & Neurology Neurology
DX: G20.A1 Parkinson's disease without dyskinesia, without mention of fluctuations (principal)
CPT/HCPCS: 70551

== ENCOUNTER → 2024-08-03 | Outpatient (CLI) | payer MEDICARE, SELFPAY ==
[2024-08-03 17:10] LABS: Absolute Lymphocyte Count 2.05 X10^3/uL (0.83-4.51); Absolute Neutrophil Count 3.9 X10^3/uL (2.0-7.7); Basophil# 0.03 X10^3/uL; Basophil% 0.4 % (0-1); Eosinophil# 0.08 X10^3/uL; Eosinophils% 1.2 % (0-5); Hematocrit 41.9 % (37-47); Hemoglobin 13.6 g/dL (12.0-15.0); Lymphocyte # 2.05 X10^3/ul (0.83-4.51); Lymphocyte % 29.7 % (19-41); Mean Corp Hgb Conc 32.5 g/dL (32-36); Mean Corpuscular Hgb 30.8 pg (27.0-32.0); Mean Platelet Vol. 9.7 fl (6.2-12.0); Monocyte# 0.79 X10^3/uL; Monocyte% 11.4 % (0-10); NRBC Flagged by Analyzer 0 % (0-5); Neutrophil # 3.94 X10^3/uL (2.7-7.7); Platelet Count 256 K/mm3 (150-450); RBC Distribution Width CV 13.2 % (11.6-14.6); RBC Distribution Width SD 46.7 fl (35.1-43.9); Red Blood Count 4.41 M/mm3 (4.2-5.4); White Blood Count 6.9 K/mm3 (4.4-11.0)
[2024-08-03 17:39] LABS: ALB/GLOB Ratio 1.5 RATIO (0.9-2.4); AST(SGOT) 31 U/L (<=31); Alanine Aminotransfer ALT/SGPT 7 U/L (<=34); Albumin, Serum 4.4 g/dL (3.4-4.8); Alkaline Phosphatase 114 U/L (35-104); Anion Gap 12 (5-15); BUN 23 mg/dL (4-19); BUN/Creat Ratio 25.6 RATIO (10-20); Carbon Dioxide 23.7 mmol/L (21.0-32.0); Chloride 105 mmol/L (98-108); Creatinine, Serum 0.91 mg/dL (0.70-1.20); EST Glomerular Filtration Rate 64 (>60); Glucose 119 mg/dL (70-99); Magnesium 2.2 mg/dL (1.5-2.2); Potassium 4.4 mmol/L (3.3-5.1); Pro- Brain NATRIURETIC PEPTIDE 208 pg/mL (<=1800); Protein, Total 7.4 g/dL (5.9-8.4); Sodium Level 141 mmol/L (133-145); Total Bilirubin 0.28 mg/dL (0.00-1.30)
== END | disposition home or self-care (01) ==
LOC: LAB 16:19
PROVIDERS: PCP Family Medicine; Referring Provider Nurse Practitioner Family; Visit Provider Nurse Practitioner Family
DX: I48.92 Unspecified atrial flutter (principal); I10 Essential (primary) hypertension; R06.09 Other forms of dyspnea
CPT/HCPCS: 36415; 80053; 83735; 83880; 85025

== ENCOUNTER → 2024-08-04 | Outpatient (CLI) | payer MEDICARE, SELFPAY ==
[2024-08-04 15:58] LABS: Anion Gap 14 (5-15); BUN 17 mg/dL (4-19); BUN/Creat Ratio 18.3 RATIO (10-20); Calcium,Total 10.4 mg/dL (7.6-11.0); Carbon Dioxide 26.6 mmol/L (21.0-32.0); Chloride 101 mmol/L (98-108); Cholesterol 176 mg/dL (<=200); Creatinine, Serum 0.91 mg/dL (0.70-1.20); EST Glomerular Filtration Rate 64 (>60); Glucose 123 mg/dL (70-99); High Density Lipoprotein 74 mg/dL; Low Density Lipoprotein Calc. 64 mg/dL; Potassium 4.3 mmol/L (3.3-5.1); Sodium Level 142 mmol/L (133-145); Triglycerides 190 mg/dL; Very Low Density Lipoprotein 38 mg/dL (5-40); cholesterol:hdl ratio screen 2.37
== END | disposition home or self-care (01) ==
LOC: MTLAB 11:39
PROVIDERS: PCP Family Medicine; Referring Provider Family Medicine; Visit Provider Family Medicine
DX: I10 Essential (primary) hypertension (principal)
CPT/HCPCS: 36415; 80048; 80061

== ENCOUNTER → 2024-08-07 | Outpatient (CLI) | payer MEDICARE, SELFPAY ==
[2024-08-10 14:08] LABS: Albumin 3.9 g/dL (2.9-4.4); Alpha-1-Globulins 0.3 g/dL (0.0-0.4); Alpha-2-Globulins 0.9 g/dL (0.4-1.0); Gamma Globulin 0.9 g/dL (0.4-1.8); IMMUNOFIXATION RESULT,S Comment: (.); Immunoglobulin A 110 mg/dL (64-422); Immunoglobulin G 875 mg/dL (586-1602); Immunoglobulin M 124 mg/dL (26-217)
== END | disposition home or self-care (01) ==
LOC: MTLAB 15:41
PROVIDERS: PCP Family Medicine; Referring Provider Psychiatry & Neurology Neurology; Visit Provider Psychiatry & Neurology Neurology
DX: G62.9 Polyneuropathy, unspecified (principal)
CPT/HCPCS: 36415; 82784; 84165; 86334; 86335

== ENCOUNTER → 2024-08-31 | Outpatient (CLI) | payer MEDICARE, SELFPAY ==
[2024-08-31 12:55] LABS: Absolute Lymphocyte Count 1.47 X10^3/uL (0.83-4.51); Absolute Neutrophil Count 4.8 X10^3/uL (2.0-7.7); Basophil# 0.04 X10^3/uL; Basophil% 0.5 % (0-1); Eosinophil# 0.17 X10^3/uL; Eosinophils% 2.3 % (0-5); Hematocrit 37.7 % (37-47); Hemoglobin 12.2 g/dL (12.0-15.0); Lymphocyte # 1.47 X10^3/ul (0.83-4.51); Lymphocyte % 20.1 % (19-41); Mean Corp Hgb Conc 32.4 g/dL (32-36); Mean Corpuscular Volume 95.9 fL (81-99); Mean Platelet Vol. 9.9 fl (6.2-12.0); Monocyte# 0.81 X10^3/uL; Monocyte% 11.1 % (0-10); NRBC Flagged by Analyzer 0 % (0-5); Neutrophil # 4.81 X10^3/uL (2.7-7.7); Neutrophil % 65.6 % (47-70); Platelet Count 269 K/mm3 (150-450); RBC Distribution Width CV 13.4 % (11.6-14.6); RBC Distribution Width SD 47.9 fl (35.1-43.9); Red Blood Count 3.93 M/mm3 (4.2-5.4); White Blood Count 7.3 K/mm3 (4.4-11.0)
[2024-08-31 14:10] LABS: Anion Gap 10 (5-15); BUN 25 mg/dL (4-19); BUN/Creat Ratio 22.3 RATIO (10-20); Calcium,Total 9.7 mg/dL (7.6-11.0); Carbon Dioxide 25.9 mmol/L (21.0-32.0); Chloride 104 mmol/L (98-108); Creatinine, Serum 1.11 mg/dL (0.70-1.20); EST Glomerular Filtration Rate 50 (>60); Glucose 164 mg/dL (70-99); Potassium 4.8 mmol/L (3.3-5.1); Pro- Brain NATRIURETIC PEPTIDE 2730 pg/mL (<=1800); Sodium Level 140 mmol/L (133-145)
== END | disposition home or self-care (01) ==
LOC: LAB 12:18
PROVIDERS: PCP Family Medicine; Referring Provider Nurse Practitioner Gerontology; Visit Provider Nurse Practitioner Gerontology
DX: R06.02 Shortness of breath (principal)
CPT/HCPCS: 36415; 80048; 83880; 85025

== ENCOUNTER → 2024-09-08 | Outpatient (CLI) | payer MEDICARE, SELFPAY ==
[2024-09-08 15:31] LABS: Anion Gap 12 (5-15); BUN 22 mg/dL (4-19); Calcium,Total 10.1 mg/dL (7.6-11.0); Carbon Dioxide 24.8 mmol/L (21.0-32.0); Chloride 101 mmol/L (98-108); Creatinine, Serum 1.06 mg/dL (0.70-1.20); EST Glomerular Filtration Rate 53 (>60); Glucose 117 mg/dL (70-99); Potassium 4.7 mmol/L (3.3-5.1); Sodium Level 138 mmol/L (133-145)
== END | disposition home or self-care (01) ==
LOC: LAB 13:47
PROVIDERS: PCP Family Medicine; Referring Provider Nurse Practitioner Gerontology; Visit Provider Nurse Practitioner Gerontology
DX: R06.02 Shortness of breath (principal)
CPT/HCPCS: 36415; 80048

== ENCOUNTER → 2024-10-25 | Outpatient (CLI) | payer MEDICARE, SELFPAY ==
[2024-10-25 18:42] LABS: Anion Gap 13 (5-15); BUN 26 mg/dL (4-19); BUN/Creat Ratio 24.5 RATIO (10-20); Calcium,Total 10.3 mg/dL (7.6-11.0); Carbon Dioxide 25.5 mmol/L (21.0-32.0); Chloride 101 mmol/L (98-108); Glucose 119 mg/dL (70-99); Potassium 3.9 mmol/L (3.3-5.1)
== END | disposition home or self-care (01) ==
LOC: MTLAB 13:59
PROVIDERS: PCP Family Medicine; Referring Provider Family Medicine; Visit Provider Family Medicine
DX: I10 Essential (primary) hypertension (principal)
CPT/HCPCS: 36415; 80048

== ENCOUNTER → 2025-02-19 | Outpatient (CLI) | payer MEDICARE, SELFPAY ==
[2025-02-22 16:09] LABS: Albumin 3.8 g/dL (2.9-4.4); Gamma Globulin 0.9 g/dL (0.4-1.8); IMMUNOFIXATION RESULT,S Comment: (.); Immunoglobulin A 113 mg/dL (64-422); Immunoglobulin G 908 mg/dL (586-1602); Immunoglobulin M 116 mg/dL (26-217); PROEL- TOTAL PROTEIN 7.1 g/dL (6.0-8.5)
== END | disposition home or self-care (01) ==
LOC: MTLAB 15:58
PROVIDERS: PCP Family Medicine; Referring Provider Psychiatry & Neurology Neurology; Visit Provider Psychiatry & Neurology Neurology
DX: G62.9 Polyneuropathy, unspecified (principal)
CPT/HCPCS: 36415; 82784; 84165; 86334